=== PATIENT | female | born 1945 | race Caucasian/White ===

== ENCOUNTER 2018-12-31 05:33 | Inpatient (IN) | payer MEDICARE, OTHER | END 2019-01-05 11:00 | LOC: ER FS 05:33 → 4TH 07:36 | PROC: 0QS636Z Reposition Right Upper Femur with Intramedullary Internal Fixation Device, Percutaneous Approach (ICD-10-PCS; principal; 2018-12-31 17:30) | DX: S72.141A Displaced intertrochanteric fracture of right femur, initial encounter for closed fracture (principal); R42 Dizziness and giddiness; N39.0 Urinary tract infection, site not specified; I25.10 Atherosclerotic heart disease of native coronary artery without angina pectoris; I10 Essential (primary) hypertension; E11.40 Type 2 diabetes mellitus with diabetic neuropathy, unspecified; W18.30XA Fall on same level, unspecified, initial encounter; Y92.002 Bathroom of unspecified non-institutional (private) residence as the place of occurrence of the external cause; Z95.1 Presence of aortocoronary bypass graft; Z79.82 Long term (current) use of aspirin; Z85.41 Personal history of malignant neoplasm of cervix uteri; Z90.710 Acquired absence of both cervix and uterus ==

== ENCOUNTER 2019-01-05 10:45 | Inpatient (IN) | payer MEDICARE, OTHER ==
[~2019-01-05] VITALS: Ht 165.1 cm; Wt 78.0 kg
--- NOTE | 2019-01-05 10:12 | PM&R H&P / Post Admit Assess ---
History of Present Illness HPI/Chief Complaint CC: Right hip fracture with debility HPI: This is a 73yoWF patient who presented to the [facility] ER after a vertigo episode and fall who sustained a right hip fracture s/p repair in an uncomplicated manner by Dr Tirado on 12/31/18. Patient has a h/o CABG but no follow up since that time. She moved to [place] with her for 2 years and did not see a medical professional since that time and has since moved back to [facility] and had yet to establish with anyone. Her son is an ER doctor in [place] for 10 years. Currently she is doing well as long as she doesn't move and her pain is controlled from the pain meds when she takes it. No BM since admit so will need to work on that and multiple meds are ordered to regain normal bowel function. Anemia noted so Venofer will be ordered and iron level was drawn on today's labs. Dr Novak has provided Cardiology consultation services which are much appreciated. She seems to have PVD due to decreased pedal pulses. HGA1C is 8.1 so will order SSI and likely begin OHA while in IRF. Her PLOF was independent at home with her . Source: patient, family, RN/MD Exam Limitations: no limitations Date Seen 01/05/19 Time Seen by a Provider: 10:30 Attending Physician Mariana Crane DO PCP No,Local Physician Referring Physician Date of Admission Home Medications & Allergies Home Medications Reviewed patient Home Medication Reconciliation performed by pharmacy medication reconciliations master automotive technician and/or nursing. Patients Allergies have been reviewed. Allergies Allergies Coded Allergies Penicillins (Verified Allergy, Unknown, 12/31/18) Sulfa (Sulfonamide Antibiotics) (Unverified Allergy, Unknown, 12/31/18) Uncoded Allergies PEANUTS ( Allergy, Unknown, 12/31/18) TOMATOES ( Allergy, Unknown, 12/31/18) Past Wosehey-Ppyutl-Dlnkcl Hx Past Med/Social Hx: Reviewed Nursing Past Med/Soc Hx, Reviewed and Corrections made Patient Social History Marrital Status: Employed/Student: retired Alcohol Use: Denies Use Smoking Status: Never a Smoker 2nd Hand Smoke Exposure: No Recent Hopitalizations: No Seasonal Allergies Seasonal Allergies: No Past Medical History Surgeries: Appendectomy, CABG, Hysterectomy, Orthopedic (right hip fracture 12/31/18), Tonsillectomy Cardiac: Coronary Artery Disease, Hypertension Neurological: Neuropathy Reproductive: No Endocrine: Diabetes, Non-Insulin dep Cancer: Cervical History of Blood Disorders: No Family History Arthritis 19 FATHER, Onset:50's - 60 Diabetes mellitus 19 FATHER, Onset:60 years & older (late in life) Diabetes, Hypertension Review of Systems Constitutional: see HPI, dizziness, weakness EENTM: no symptoms reported Respiratory: no symptoms reported Cardiovascular: no symptoms reported Gastrointestinal: constipation Genitourinary: no symptoms reported Musculoskeletal: back pain, joint pain Skin: no symptoms reported Psychiatric/Neurological: No Symptoms Reported All Other Systems Reviewed Negative Unless Noted: Yes Physical Exam Exam Vital Signs Capillary Refill : General Appearance: No Apparent Distress, WD/WN, Chronically ill HEENT: PERRL/EOMI, Normal ENT Inspection, Pharynx Normal, Moist Mucous Membrane s Neck: Full Range of Motion, Normal Inspection, Non Tender, Supple Respiratory: Chest Non Tender, Lungs Clear, Normal Breath Sounds, No Accessory Muscle Use, No Respiratory Distress Cardiovascular: Regular Rate, Rhythm, No Edema, No Gallop, No JVD, No Murmur Gastrointestinal: Normal Bowel Sounds, No Organomegaly, No Pulsatile Mass, Non Tender, Soft Back: Normal Inspection, No CVA Tenderness, No Vertebral Tenderness Extremity: Normal Capillary Refill, Normal Inspection, Normal Range of Motion (except right leg due to hip pain), Non Tender, No Calf Tenderness, No Pedal Edema Neurologic/Psychiatric: Alert, Oriented x3, No Motor/Sensory Deficits, Normal Mood/Affect, Motor Weakness (generalized weakness) Skin: Normal Color, Warm/Dry Lymphatic: No Adenopathy Results Results/Procedures Labs Patient resulted labs reviewed. Assessment/Plan Assessment and Plan Assess & Plan/Chief Complaint Assessment: s/p right hip fracture repair POD # 5 DM HTN CAD CABG hx Anemia iron def s/p UTI Vertigo Fall PVD suspected Constipation Plan: IRF protocols SSI Pain control BM regimen aggressive meds ordered Venofer (1) Closed intertrochanteric fracture of right hip (2) UTI (urinary tract infection) (3) Vertigo (4) Fall on same level (5) CAD (coronary artery disease) (6) Hx of CABG (7) Diabetes mellitus (8) Anemia, iron deficiency Post Admission Physician Asses Date seen by provider: January 05, 2019 Time seen by provider: 10:30 Admisison Dx: (1) Closed intertrochanteric fracture of right hip Status: Acute The preadmission screen agrees with the post admission assessment that the patient is a good candidate for inpatient rehabilitation. The patient will have a comprehensive program of inpatient rehabilitation with a goal of maximizing level of functional independence prior to discharge home with family. The patient will have PT/OT ninety minutes per day, each discipline, five days a week for gait, strengthening, conditioning, balance, ADLs, any patient/family/caregiver training as necessary. Speech therapy to do cognitive assessment and treat as indicated. Rehabilitation nursing to assist with bowel, bladder, skin, wound care, medication administration, pain management. Velocity Shooter to assist with discharge planning, community reentry. SCD's for DVT pro phylaxis. She appears to be well motivated to participate in three hours of therapy a day. She should be able to tolerate three hours of therapy a day from a medical standpoint. She should benefit from the three hours of therapy a day. She has a reasonable discharge plan, reasonable discharge rehabilitation goals and a supportive family. She has various comorbidities that need to be closely monitored with medications and treatments adjusted on a daily basis as needed. These include: see list Barriers to discharge for this patient who had been independent prior to this are for her to be modified independent to supervision for ADLs and mobility skills prior to discharge home with family, so as to lessen the burden of the caregivers. Risks for this patient include: 1. Fall 2. Fracture 3. DVT 4. Pulmonary embolism 5. Wound infection 6. Skin breakdown 7. Contractures 8. Poorly controlled pain 9. Urinary retention 10. UTI 11. Respiratory infection 12. Aspiration Estimated Length of Stay: 10 days Prognosis: Rehab prognosis appears good for goal of discharge home with family modified independent to supervision for ADLs and mobility skills. MARIANA CRANE DO January 05, 2019 10:12
[~2019-01-05 10:45] MED LIST: ASPI-983 PO; IBUP-30 PO; MULT1TAB69 PO
--- NOTE | 2019-01-05 10:45 | NUR ---
BREA LIPSCOMB admitted to room 225, with an admitting diagnosis of RIGHT HIP FRACTURE, on 01/05/19 from [facility]LO[facility] via WHEELCHAIR, accompanied by THERAPY. BREA LIPSCOMB introduced to surroundings, call light, bed controls, phone, TV, temperature control, lights, meal times, smoking policy, visitor policy, side rail policy, bathrooms and showers. Patient Rights given to patient in the handbook. BREA LIPSCOMB verbalizes understanding that [facility] is not responsible for the loss or damage to any personal effects or valuables that are kept in the patient's possession during their hospitalization. The following Patient Care Plans were discussed with the PATIENT: Discharge Planning, PAIN, IMPAIRED MOBILITY, HIGH RISK: INFECTION, HIGH RISK: IMPAIRED SKIN INTEGRITY, and KNOWLEDGE DEFICIT. BREA LIPSCOMB verbalizes understanding of Interdisciplinary Patient Education. Patient received Patient Rights Booklet, which includes Privacy Act Statement and Data Collection Information Summary.
[2019-01-05 11:00] VITALS: BP 132/53
--- OUTSIDE RECORDS SUMMARY | 2019-01-05 11:28 | XMS REPORT | Continuity of Care Document ---
Author Organization Unknown Address Unknown Allergies Active Description Code Type Severity Reaction Onset Reported/Identified Relationship to Patient Clinical Status Yes PEANUTS PEANUTS Unknown N/A 12/31/2018 Yes Penicillins [id number] Drug Allergy Unknown N/A 12/31/2018 Yes SULFA SULFA Unknown N/A 12/31/2018 Yes Sulfa (Sulfonamide Antibiotics) [id number] Drug Allergy Unknown N/A 12/31/2018 Yes TOMATOES TOMATOES Unknown N/A 12/31/2018 Medications There is no data. Problems There is no data. Procedures There is no data. Results Test Result Range Complete blood count (CBC) with automated white blood cell (WBC) differential - 12/31/18 05:55 Blood leukocytes automated count (number/volume) 15.8 10*3/uL 4.3-11.0 Blood erythrocytes automated count (number/volume) 4.30 10*6/uL 4.35-5.85 Venous blood hemoglobin measurement (mass/volume) 13.5 g/dL 11.5-16.0 Blood hematocrit (volume fraction) 42 % 35-52 Automated erythrocyte mean corpuscular volume 97 [foz_us] 80-99 Automated erythrocyte mean corpuscular hemoglobin (mass per erythrocyte) 31 pg 25-34 Automated erythrocyte mean corpuscular hemoglobin concentration measurement (mass/volume) 33 g/dL 32-36 Automated erythrocyte distribution width ratio 13.5 % 10.0- 14.5 Automated blood platelet count (count/volume) 179 10*3/uL 130-400 Automated blood platelet mean volume measurement 11.3 [foz_us] 7.4-10.4 Automated blood neutrophils/100 leukocytes 87 % 42-75 Automated blood lymphocytes/100 leukocytes 7 % 12-44 Blood monocytes/100 leukocytes 6 % 0-12 Automated blood eosinophils/100 leukocytes 0 % 0-10 Automated blood basophils/100 leukocytes 0 % 0-10 Blood neutrophils automated count (number/volume) 13.7 10*3 1.8-7.8 Blood lymphocytes automated count (number/volume) 1.0 10*3 1.0-4.0 Blood monocytes automated count (number/volume) 0.9 10*3 0.0- 1.0 Automated eosinophil count 0.0 10*3/uL 0.0-0.3 Automated blood basophil count (count/volume) 0.1 10*3/uL 0.0-0.1 Comprehensive metabolic panel - 12/31/18 05:55 Serum or plasma sodium measurement (moles/volume) 141 mmol/L 135-145 Serum or plasma potassium measurement (moles/volume) 4.3 mmol/L 3.6-5.0 Serum or plasma chloride measurement (moles/volume) 101 mmol/L 98-107 Carbon dioxide 22 mmol/L 21-32 Serum or plasma anion gap determination (moles/volume) 18 mmol/L 5-14 Serum or plasma urea nitrogen measurement (mass/volume) 23 mg/dL 7-18 Serum or plasma creatinine measurement (mass/volume) 0.81 mg/dL 0.60-1.30 Serum or plasma urea nitrogen/creatinine mass ratio 28 NRG Serum or plasma creatinine measurement with calculation of estimated glomerular filtration rate > NRG Serum or plasma glucose measurement (mass/volume) 254 mg/dL 70-105 Serum or plasma calcium measurement (mass/volume) 9.3 mg/dL 8.5-10.1 Serum or plasma total bilirubin measurement (mass/volume) 0.5 mg/dL 0.1-1.0 Serum or plasma alkaline phosphatase measurement (enzymatic activity/volume) 93 U/L 40-136 Serum or plasma aspartate aminotransferase measurement (enzymatic activity/volume) 16 U/L 5-34 Serum or plasma alanine aminotransferase measurement (enzymatic activity/volume) 13 U/L 0-55 Serum or plasma protein measurement (mass/volume) 7.3 g/dL 6.4-8.2 Serum or plasma albumin measurement (mass/volume) 4.3 g/dL 3.2-4.5 CALCIUM CORRECTED 9.1 mg/dL 8.5-10.1 Blood manual differential performed detection - 12/31/18 05:55 Blood monocytes/100 leukocytes 8 % NRG Manual blood segmented neutrophils/100 leukocytes 76 % NRG Blood band neutrophils/100 leukocytes 9 % NRG Manual blood lymphocytes/100 leukocytes 6 % NRG Manual eosinophils/100 leukocytes in nose 1 % NRG Manual blood basophils/100 leukocytes 0 % NRG Hemoglobin A1c - 12/31/18 05:55 Blood hemoglobin A1C measurement (mass/volume) 8.1 % 4.0-5.6 MEAN BLOOD GLUCOSE 186 % <=126 Complete urinalysis with reflex to culture - 12/31/18 06:10 Urine color determination YELLOW NRG Urine clarity determination SLT CLOUDY NRG Urine pH measurement by test strip 5.5 5-9 Specific gravity of urine by test strip 1.025 1.016-1.022 Urine protein assay by test strip, semi-quantitative NEGATIVE NEGATIVE Urine glucose detection by automated test strip 1+ NEGATIVE Erythrocytes detection in urine sediment by light microscopy NEGATIVE NEGATIVE Urine ketones detection by automated test strip NEGATIVE NEGATIVE Urine nitrite detection by test strip POSITIVE NEGATIVE Urine total bilirubin detection by test strip NEGATIVE NEGATIVE Urine urobilinogen measurement by automated test strip (mass/volume) 0.2 mg/dL NORMAL Urine leukocyte esterase detection by dipstick NEGATIVE NEGATIVE Automated urine sediment erythrocyte count by microscopy (number/high power field) NONE NRG Automated urine sediment leukocyte count by microscopy (number/high power field) [HPF] NRG Bacteria detection in urine sediment by light microscopy MODERATE NRG Squamous epithelial cells detection in urine sediment by light microscopy 0-2 NRG Crystals detection in urine sediment by light microscopy PRESENT NRG Casts detection in urine sediment by light microscopy NONE NRG Mucus detection in urine sediment by light microscopy NONE NRG Complete urinalysis with reflex to culture YES NRG Amorphous sediment detection in urine sediment by light microscopy FEW MILLIE URATES NRG Bacterial urine culture - 12/31/18 06:10 Bacterial urine culture [id number] NRG COLONY COUNT >100,000/ML NRG FTX;REPORTABLE SUSCEPTIBILITY REPORTED 01/02/19 12:05 NRG FREE TEXT ENTRY 2 ID REPORTED 01/01/19 15:05 NRG RML Sensitivity Panel - 12/31/18 06:10 Gentamicin susceptibility test by minimum inhibitory concentration <= NRG Trimethoprim/sulfamethoxazole susceptibility test by minimum inhibitoryconcentration <= NRG Levofloxacin susceptibility test by minimum inhibitory concentration <= NRG Ampicillin susceptibility test by minimum inhibitory concentration <= NRG Cefazolin susceptibility test by minimum inhibitory concentration <= NRG Ceftriaxone susceptibility test by minimum inhibitory concentration <= NRG Ciprofloxacin susceptibility test by minimum inhibitory concentration <= NRG Meropenem susceptibility test by minimum inhibitory concentration <= NRG Nitrofurantoin susceptibility test by minimum inhibitory concentration 32 NRG Amoxicillin and clavulanate potassium susc FLORESITA = NRG Methicillin resistant Staphylococcus aureus (MRSA) screening culture - 12/31/18 09:50 Methicillin resistant Staphylococcus aureus (MRSA) screening culture NEG NRG PT panel in platelet poor plasma by coagulation assay - 12/31/18 12:02 Prothrombin time (PT) in platelet poor plasma by coagulation assay 15.8 s 12.2-14.7 INR in platelet poor plasma or blood by coagulation assay 1.2 0.8-1.4 Activated partial thromboplastin time (aPTT) in platelet poor plasma bycoagulation assay - 12/31/18 12:02 Activated partial thromboplastin time (aPTT) in platelet poor plasma bycoagulation assay 29 s 24-35 Capillary blood glucose measurement by glucometer (mass/volume) - 12/31/18 16:20 Capillary blood glucose measurement by glucometer (mass/volume) 210 mg/dL 70-110 Capillary blood glucose measurement by glucometer (mass/volume) - 12/31/18 20:49 Capillary blood glucose measurement by glucometer (mass/volume) 273 mg/dL 70-110 Complete blood count (CBC) with automated white blood cell (WBC) differential - 01/01/19 04:55 Blood leukocytes automated count (number/volume) 12.8 10*3/uL 4.3-11.0 Blood erythrocytes automated count (number/volume) 3.44 10*6/uL 4.35-5.85 Venous blood hemoglobin measurement (mass/volume) 10.8 g/dL 11.5-16.0 Blood hematocrit (volume fraction) 33 % 35-52 Automated erythrocyte mean corpuscular volume 96 [foz_us] 80-99 Automated erythrocyte mean corpuscular hemoglobin (mass per erythrocyte) 31 pg 25-34 Automated erythrocyte mean corpuscular hemoglobin concentration measurement (mass/volume) 33 g/dL 32-36 Automated erythrocyte distribution width ratio 13.7 % 10.0- 14.5 Automated blood platelet count (count/volume) 149 10*3/uL 130-400 Automated blood platelet mean volume measurement 11.2 [foz_us] 7.4-10.4 Automated blood neutrophils/100 leukocytes 86 % 42-75 Automated blood lymphocytes/100 leukocytes 6 % 12-44 Blood monocytes/100 leukocytes 8 % 0-12 Automated blood eosinophils/100 leukocytes 0 % 0-10 Automated blood basophils/100 leukocytes 0 % 0-10 Blood neutrophils automated count (number/volume) 11.0 10*3 1.8-7.8 Blood lymphocytes automated count (number/volume) 0.7 10*3 1.0-4.0 Blood monocytes automated count (number/volume) 1.0 10*3 0.0- 1.0 Automated eosinophil count 0.0 10*3/uL 0.0-0.3 Automated blood basophil count (count/volume) 0.0 10*3/uL 0.0-0.1 Comprehensive metabolic panel - 01/01/19 04:55 Serum or plasma sodium measurement (moles/volume) 138 mmol/L 135-145 Serum or plasma potassium measurement (moles/volume) 4.2 mmol/L 3.6-5.0 Serum or plasma chloride measurement (moles/volume) 107 mmol/L 98-107 Carbon dioxide 23 mmol/L 21-32 Serum or plasma anion gap determination (moles/volume) 8 mmol/L 5-14 Serum or plasma urea nitrogen measurement (mass/volume) 14 mg/dL 7-18 Serum or plasma creatinine measurement (mass/volume) 0.79 mg/dL 0.60-1.30 Serum or plasma urea nitrogen/creatinine mass ratio 18 NRG Serum or plasma creatinine measurement with calculation of estimated glomerular filtration rate > NRG Serum or plasma glucose measurement (mass/volume) 211 mg/dL 70-105 Serum or plasma calcium measurement (mass/volume) 8.2 mg/dL 8.5-10.1 Serum or plasma total bilirubin measurement (mass/volume) 0.5 mg/dL 0.1-1.0 Serum or plasma alkaline phosphatase measurement (enzymatic activity/volume) 66 U/L 40-136 Serum or plasma aspartate aminotransferase measurement (enzymatic activity/volume) 15 U/L 5-34 Serum or plasma alanine aminotransferase measurement (enzymatic activity/volume) 11 U/L 0-55 Serum or plasma protein measurement (mass/volume) 5.7 g/dL 6.4-8.2 Serum or plasma albumin measurement (mass/volume) 3.3 g/dL 3.2-4.5 CALCIUM CORRECTED 8.8 mg/dL 8.5-10.1 Capillary blood glucose measurement by glucometer (mass/volume) - 01/01/19 05:39 Capillary blood glucose measurement by glucometer (mass/volume) 216 mg/dL 70-110 Capillary blood glucose measurement by glucometer (mass/volume) - 01/01/19 11:09 Capillary blood glucose measurement by glucometer (mass/volume) 241 mg/dL 70-110 Capillary blood glucose measurement by glucometer (mass/volume) - 01/01/19 15:58 Capillary blood glucose measurement by glucometer (mass/volume) 244 mg/dL 70-110 Capillary blood glucose measurement by glucometer (mass/volume) - 01/01/19 21:07 Capillary blood glucose measurement by glucometer (mass/volume) 227 mg/dL 70-110 Whole blood hemoglobin and hematocrit panel - 01/02/19 05:00 Venous blood hemoglobin measurement (mass/volume) 9.2 g/dL 11.5-16.0 Blood hematocrit (volume fraction) 28 % 35-52 Capillary blood glucose measurement by glucometer (mass/volume) - 01/02/19 05:46 Capillary blood glucose measurement by glucometer (mass/volume) 185 mg/dL 70-110 Capillary blood glucose measurement by glucometer (mass/volume) - 01/02/19 11:01 Capillary blood glucose measurement by glucometer (mass/volume) 232 mg/dL 70-110 Capillary blood glucose measurement by glucometer (mass/volume) - 01/02/19 16:23 Capillary blood glucose measurement by glucometer (mass/volume) 217 mg/dL 70-110 Encounters ACCT No. Visit Date/Time Discharge Status Pt. Type Provider Facility Loc./Unit Complaint [id number] 12/31/2018 07:36:00 ACT Inpatient MINOR PARRA, ROSA ISELA Dumont [facility] 4TH FRACTURE RT HIP
[2019-01-05] MEDS ORDERED: SENNA W/DOCUSATE (SENOKOT S) TABLET PO NR (11:30)
--- NOTE | 2019-01-05 11:38 | Physical Therapy Evaluation ---
PT Evaluation-General Medical Diagnosis Admission Date January 05, 2019 at 10:45 Medical Diagnosis: right hip fracture Onset Date: December 31, 2018 Therapy Diagnosis Therapy Diagnosis: impaired mobility, strength, endurance, balance Height/Weight Height (Feet): 5 Height (Inches): 5.00 Weight (Pounds): 184 Weight (Ounces): 14.0 Weight Bear Status Right Lower Extremity: Right Weight Bearing/Tolerated Referral Physician: Mariana Crane DO Reason for Referral: Evaluation/Treatment Medical History Pertinent Medical History: CAD, DM Additional Medical History hx of ovarian ca, history of vertigo Current History Pt was standing at the sink and was overcome with dizziness due to vertigo and fell sustaining a right hip fx; post repair with IM rell. Reviewed History: Yes Social History Home: Single Level Current Living Status: Spouse Entry Into Home: Stairs Without Railing PT Steps Into Home: 2 2 steps from the garage Prior/Core FIM Prior Level of Function Therapy Code Descriptions/Definitions Functional [place] Measure: 0=Not Assessed/NA 4=Minimal Assistance 1=Total Assistance 5=Supervision or Setup 2=Maximal Assistance 6=Modified [place] 3=Moderate Assistance 7=Complete [place] Therapy Quality Codes: 6 Independent with activity with or without an assistive device 5 Patient requires set up or clean up by helper. Patient completes activity by themselves 4 Supervision or touching assist (CGA). [place] provide cues , steadying assist 3 The helper provides less than half the effort to complete the activity 2 The helper provides more than half the effort to complete the activity 1 Dependent. The helper does all the effort to complete an activity 7 Patient refused to complete or attempt activity 9 The patient did not perform the activity before the current illness or injury 88 Not attempted due to Medical conditions or safety concerns Functional Abilities and Goals: Independent: Patient completed the activities by him/herself, with or without an assistive device, with no assistance from a helper. Needed Some Help: Patient needed partial assistance from another person to complete activities. Dependent: A helper completed the activities for the patient. Unknown: Not Applicable: Bed Mobility: 6 Transfers (B,C,W/C) (FIM): 6 Gait: 6 Stairs: 6 Indoor Mobility (Ambulation): Independent Stairs: Independent Patient states that she occasionally used a single point cane or walker when out of the home. PT Evaluation-Current Subjective Patient in bed pre tx, agrees to PT, has no complaints of pain at rest. Patient is very anxious and is fearful of falling. Pt/Family Goals to be independent at home Objective Patient Orientation: Person, Place, Situation ROM/Strength ROM Lower Extremities limited knee extension bilaterally Strenght Lower Extremities hip flexion not tested, RLE (knee extension 3+/5, knee flexion 3+/5, dorsiflexion 4/5), LLE (knee extension 4/5, knee flexion 4/5, dorsiflexion 4/5) Neuromuscular (Tone, Coordination, Reflexes) NT Sensory Vision: Wears Glasses Hearing: Functional Sensation Right Lower Extremit: Intact Sensation Left Lower Extremity: Intact Transfers Therapy Code Descriptions/Definitions Functional [place] Measure: 0=Not Assessed/NA 4=Minimal Assistance 1=Total Assistance 5=Supervision or Setup 2=Maximal Assistance 6=Modified [place] 3=Moderate Assistance 7=Complete [place] Therapy Quality Codes: 6 Independent with activity with or without an assistive device 5 Patient requires set up or clean up by helper. Patient completes activity by themselves 4 Supervision or touching assist (CGA). [place] provide cues , steadying assist 3 The helper provides less than half the effort to complete the activity 2 The helper provides more than half the effort to complete the activity 1 Dependent. The helper does all the effort to complete an activity 7 Patient refused to complete or attempt activity 9 The patient did not perform the activity before the current illness or injury 88 Not attempted due to Medical conditions or safety concerns Transfers (B, C, W/C) (FIM): 3 Scootin Rollin Roll Left to Right (QC): 4 Supine to/from Sit: 3 Sit to/from Stand: 4 Sit to Lying (QC): 2 Lying to Sitting/Side of Bed(Q: 2 Sit to Stand (QC): 3 Chair/[id number]-[id number] Xfer(QC): 3 Car Transfer (QC): 3 Patient performs bed mobility with SBA, supine <-> sit with mod assist, sit <-> stand with min assist, transfers with min assist, car transfer min assist. Patient performs all mobility very slowly and is very anxious about falling. She needs careful cues on safety and positioning and occasional assist to guide the walker. Gait Does the Patient Walk?: Yes Mode of Locomotion: Walk Anticipated Mode of Locomotion: Walk Gait (FIM): 1 Walk 10 feet (QC): 4 Distance: 15' Gait Level of Assist: 4 Gait Persons Needed: 1 Gait Assistive Device: FWW Comments/Gait Description Patient can ambulate 15' with a rolling walker with CGA. She is very anxious. Patient needs cues for positioning and foot placement and how to bear weight through her arms. Ambulation is antalgic, slow, and she takes steps just a few inches at a time. Little to no heel strike or foot clearance. Stairs If not tested on admit;explain Patient cannot perform stairs at this time due to anxiety, fear of falling, and she cannot step up onto a step at this time. Balance Sitting Static: Normal Sitting Dynamic: Normal Standing Static: Fair Standing Dynamic: Fair Treatment NuStep level 1 for 10 min, for hip flexion ROM Assessment/Needs Patient has impaired mobility, strength, endurance. She is very anxious and has fear of falling. She moves extremely slowly due to the pain. Patient in therapy gym post tx, has OT right after PT. Rehab Potential: Fair PT Short Term Goals Short Term Goals Time Frame: Jan 12, 2019 Transfers (B,C,W/C) (FIM): 4 Gait (FIM): 1 Gait Distance Comment: 25' Gait Level of Assist: 4 Gait Assistive Device: FWW PT Brood Station Manager Goals Brood Station Manager Goals PT Brood Station Manager Goals Time Frame: Jan 26, 2019 Transfers (B,C,W/C) (FIM): 5 Sit to Lying (QC): 4 Lying-Sitting on Side/Bed(QC): 4 Sit to Stand (QC): 4 Rollin Roll Left to Right (QC): 4 Chair/[id number]-[id number] Xfer(QC): 4 Car Transfer (QC): 4 Gait (FIM): 2 Distance: 50' Walk 10 feet (QC): 4 Walk 10ft-Uneven Surface(QC): 4 Walk 50ft with 2 Turns (QC): 4 Gait Level of Assist: 5 Gait Assistive Device: FWW Stairs (FIM): 2 # of Steps: 4 1 Step (curb) (QC): 4 4 Steps (QC): 4 Stairs Level Of Assist: 4 PT Plan Problem List Problem List: Activity Tolerance, Functional Strength, Safety, Balance, Gait, Transfer, Bed Mobility, ROM Treatment/Plan Treatment Plan: Continue Plan of Care Treatment Plan: Bed Mobility, Education, Functional Activity Sandra, Functional Strength, Group Therapy, Gait, Safety, Therapeutic Exercise, Transfers Treatment Duration: Jan 26, 2019 Frequency: At least 5 of 7 days/Wk (IRF) Estimated Hrs Per Day: 1.5 hours per day Patient and/or Family Agrees t: Yes Safety Risks/Education Patient Education: Gait Training, Transfer Techniques, Correct Positioning, Safety Issues Teaching Recipient: Patient Teaching Methods: Demonstration, Discussion Response to Teaching: Reinforcement Needed Discharge Recommendations Plan Patient will perform bed mobility and transfer training, balance and endurance training, functional strengthening, stair training, gait training, and e ducation, to improve functional mobility and independence at home. Therapy D/C Recommendations: Home w/ Family Support Time/GCodes Time In: 1045 Time Out: 1130 Total Billed Treatment Time: 45 Total Billed Treatment 1 visit EVM 15' EX 10' FA 20' GERSON VINCENT PT January 05, 2019 11:38
[2019-01-05] MEDS: LACTULOSE SYRUP 10GM/15ML (ENULOSE) 30ML UDC PO SCH ×2 (11:53→19:46)
[2019-01-05] MEDS: IRON SUCROSE 200 MG/10 ML (VENOFER) VIAL IV SCH (11:56)
[2019-01-05] MEDS ORDERED: fentaNYL INJECTION 100 MCG/2 ML AMP IVP PRN (12:00)
[2019-01-05] MEDS ORDERED: ONDANSETRON 4 MG/2 ML (SDV) Z0FRAN IVP PRN (12:00)
[2019-01-05] MEDS ORDERED: ACETAMINOPHEN 325 MG TABLET PO PRN (12:00)
[2019-01-05] MEDS: CATHETER FLUSH 10 ML SYR IV SCH ×2 (12:22→22:01)
[2019-01-05] MEDS: inSUlin ASPART (NovoLOG) 1 UNIT/0.01 ML (CHARGE PER UNIT) SC SCH ×3 (12:22→22:00)
--- NOTE | 2019-01-05 12:56 | Occupational Therapy Eval ---
OT Evaluation-General/PLF Medical Diagnosis Admission Date January 05, 2019 at 10:45 Medical Diagnosis: right hip fracture Onset Date: December 31, 2018 Therapy Diagnosis Therapy Diagnosis: impaired self care skills Height/Weight Height (Feet): 5 Height (Inches): 5.00 Weight (Pounds): 184 Weight (Ounces): 14.0 Precautions Precautions/Isolations: Fall Prevention, Standard Precautions Weight Bear Status Weight Bearing Restriction: Weight Bearing/Tolerated Referral Physician: Mariana Crane DO Medical History Pertinent Medical History: CABG, CAD, DM Additional Medical History vertigo, diverticulitis, ovarian cancer Current History Pt was standing at the sink and was overcome with dizziness due to vertigo and fell sustaining a right hip fx; post repair with IM rell. Social History Home: Single Level Current Living Status: Spouse Entry Into Home: Stairs Without Railing Steps Into Home: 2 Pt states they will be building a ramp ADL-Prior Level of Function Therapy Code Descriptions/Definitions Functional [place] Measure: 0=Not Assessed/NA 4=Minimal Assistance 1=Total Assistance 5=Supervision or Setup 2=Maximal Assistance 6=Modified [place] 3=Moderate Assistance 7=Complete [place] Therapy Quality Codes: 6 Independent with activity with or without an assistive device 5 Patient requires set up or clean up by helper. Patient completes activity by themselves 4 Supervision or touching assist (CGA). [place] provide cues , steadying assist 3 The helper provides less than half the effort to complete the activity 2 The helper provides more than half the effort to complete the activity 1 Dependent. The helper does all the effort to complete an activity 7 Patient refused to complete or attempt activity 9 The patient did not perform the activity before the current illness or injury 88 Not attempted due to Medical conditions or safety concerns Functional Abilities and Goals: Independent: Patient completed the activities by him/herself, with or without an assistive device, with no assistance from a helper. Needed Some Help: Patient needed partial assistance from another person to complete activities. Dependent: A helper completed the activities for the patient. Unknown: Not Applicable: ADL PLOF Comments Pt states she is normally able to complete basic self care tasks, but has been having difficulty lately secondary to dizziness. Spouse assists her into tub/shower and is present while she showers for safety. Uses a cane for mobility. DME/Equipment: Bath Chair, Grab Bars, Tub/Shower DME/Equipment Comments Has a toilet riser available OT Current Status Subjective Pt agreeable to therapy reports 2/10 pain in right hip Mental Status/Objective Patient Orientation: Person, Place, Situation Current Glasses/Contacts: Yes Hearing Aids: No Dentures/Partials: No Hand Dominance: Right Upper Extremity ROM Grossly WFL Upper Extremity Coordination Intact Upper Extremity Sensation Intact per pt report Upper Extremity Strength Grossly 4/5 ADL-Treatment ADL-Current Pt in therapy gym after working with PT. Transfer to w/c with minimal assistance and increased time using FWW, cues for safety. To room via w/c. Pt participated in UE assessment while seated. Sit to stand and transfer to recliner chair with minimal assistance. Will assess ADLs in next session. All needs met. RN and spouse present. Eating (FIM): 7 (Pt reports feeding self, managing containers without assistance.) Eating (QC): 6 Education OT Patient Education: Rehab process Teaching Recipient: Patient Teaching Methods: Discussion Response to Teaching: Verbalize Understanding OT Short Term Goals Short Term Goals Time Frame: Jan 12, 2019 Bathing(FIM): 4 Lower Body Dressing(FIM): 3 Toilet/Commode Transfer(FIM): 4 (CGA) Additional Short Term Goals: 1-Demonstrate ADL Tasks, 2-Verbalize Understanding, 3-ImproveStrength/Sandra 1=Demonstrate adherence to instructed precautions during ADL tasks. 2=Patient will verbalize/demonstrate understanding of assistive devices/modifications for ADL. 3=Patient will improve strength/tolerance for activity to enable patient to perform ADL's. OT [facility] Director Goals Nursing Home Goals Time Frame: Jan 26, 2019 Eating (FIM): 7 Eating (QC): 6 Groomin Oral Hygiene (QC): 6 Bathing(FIM): 5 Shower/Bathe Self (QC): 5 Upper Body Dressing(FIM): 5 Upper Body Dressing (QC): 5 Lower Body Dressing(FIM): 5 Lower Body Dressing (QC): 5 On/Off Footwear (QC): 5 Toileting(FIM): 6 Toileting Hygiene (QC): 6 Toilet/Commode Transfer(FIM): 6 Toilet/Commode Transfer (QC): 6 Shower Transfer(FIM): 5 Additional Goals: 1-Demonstrate ADL Tasks, 2-Verbalize Understanding, 3- ImproveStrength/Sandra 1=Demonstrate adherence to instructed precautions during ADL tasks. 2=Patient will verbalize/demonstrate understanding of assistive devices/modifications for ADL. 3=Patient will improve strength/tolerance for activity to enable patient to perform ADL's. OT Education/Plan Problem List/Assessment Assessment: Decreased Activ Tolerance, Decreased UE Strength, Dependent Transfers, Impaired Funct Balance, Impaired I ADL's, Impaired Self-Care Skills Pt admitted to ARU following acute hospitalization for hip fracture, now s/p IM nail. Pt demonstrates decreased ADL functioning, mobility, strength, and activity tolerance. Pt to benefit from skilled OT intervention for ADL training, transfers, strengthening, adaptive equipment training, and safety education to increase level of independence and allow safe discharge home with spouse. Discharge Recommendations Plan/Recommendations: Continue POC Treatment Plan/Plan of Care Treatment,Training & Education: Yes Patient would benefit from OT for education, treatment and training to promote independence in ADL's, mobility, safety and/or upper extremity function for ADL's. Plan of Care: ADL Retraining, Functional Mobility, Group Exercise/Act as Ind, UE Funct Exercise/Act Treatment Duration: Jan 26, 2019 Frequency: At least 5 of 7 days/Wk (IRF) Estimated Hrs Per Day: 1.5 hours per day Agreement: Yes Rehab Potential: Fair Time/GCodes Start Time: 11:30 Stop Time: 12:00 Total Time Billed (hr/min): 30 Billed Treatment Time 1 visit, GUANACO(30minutes) INGRID PADRON OT January 05, 2019 12:56
[2019-01-05] MEDS ORDERED: ASPI-983 PO (13:21)
--- NOTE | 2019-01-05 13:21 | NUR ---
REVIEWED MED REC WAS IT WAS REPORTED UPON ADMISSION TO 4TH FLOOR. NOTE THE FOLLOWING CHANGE WAS MADE WHEN THE PATIENT DISCHARGED TO REHAB THAT IS NOT CURRENTLY REFLECTED ON THE HOME MED REC: CHANGE ASPIRIN 81MG BID TO ASPIRIN 81MG ONCE DAILY.
--- NOTE | 2019-01-05 14:19 | Occupational Ther Daily Note ---
OT Current Status-Daily Note Subjective Pt sitting in chair, agrees to treatment. Pt states she is not having much pain at this time, but does not rate. Mental Status/Objective Therapy Code Descriptions/Definitions Functional [place] Measure: 0=Not Assessed/NA 4=Minimal Assistance 1=Total Assistance 5=Supervision or Setup 2=Maximal Assistance 6=Modified [place] 3=Moderate Assistance 7=Complete [place] ADL-Treatment Pt eating lunch when therapist arrives. Pt demonstrates ability to feed herself and manage containers without assistance. Pt declined shower at this time, but agrees to sponge bath. Pt completed sponge bath while seated in chair. Upper body bathing completed with SBA. Pt able to wash bilateral upper legs and elias area, but required assist for lower legs/feet and buttocks. Stood with minimal assistance for balance while washing buttocks. Don pullover shirt with SBA. Pt required assist to thread bilateral LE into Depends and pants. Sit to stand with minimal assistance. Pt able to pull pants partially over hips, but required assist to complete pant hike. Pt dependent to don socks without AE. Pt instructed in use of AE to don socks. Pt able to don sock with minimal assistance using socks aid. Grooming tasks completed seated in chair. Pt brushed teeth and combed hair with set up. Pt sitting in chair with needs met and spouse present after session. Therapy Code Descriptions/Definitions Functional [place] Measure: 0=Not Assessed/NA 4=Minimal Assistance 1=Total Assistance 5=Supervision or Setup 2=Maximal Assistance 6=Modified [place] 3=Moderate Assistance 7=Complete [place] Therapy Quality Codes: 6 Independent with activity with or without an assistive device 5 Patient requires set up or clean up by helper. Patient completes activity by themselves 4 Supervision or touching assist (CGA). [place] provide cues , steadying assist 3 The helper provides less than half the effort to complete the activity 2 The helper provides more than half the effort to complete the activity 1 Dependent. The helper does all the effort to complete an activity 7 Patient refused to complete or attempt activity 9 The patient did not perform the activity before the current illness or injury 88 Not attempted due to Medical conditions or safety concerns Eating (FIM): 7 Eating (QC): 6 Grooming (FIM): 5 Oral Hygiene (QC): 5 Bathing (FIM): 3 Shower/Bathe Self (QC): 3 Upper Body (FIM): 5 Upper Body Dressing (QC): 4 Lower Body Dressing (FIM): 2 Lower Body Dressing (QC): 2 On/Off Footwear (QC): 1 Education OT Patient Education: Modified ADL techniques Teaching Recipient: Patient Teaching Methods: Demonstration, Discussion Response to Teaching: Return Demonstration, Reinforcement Needed OT Short Term Goals Short Term Goals Time Frame: Jan 12, 2019 Bathing(FIM): 4 Lower Body Dressing(FIM): 3 Toilet/Commode Transfer(FIM): 4 (CGA) Additional Short Term Goals: 1-Demonstrate ADL Tasks, 2-Verbalize Understanding, 3-ImproveStrength/Sandra 1=Demonstrate adherence to instructed precautions during ADL tasks. 2=Patient will verbalize/demonstrate understanding of assistive devices/modifications for ADL. 3=Patient will improve strength/tolerance for activity to enable patient to perform ADL's. OT Custodial Goals Custodial Goals Time Frame: Jan 26, 2019 Eating (FIM): 7 Eating (QC): 6 Groomin Oral Hygiene (QC): 6 Bathing(FIM): 5 Shower/Bathe Self (QC): 5 Upper Body Dressing(FIM): 5 Upper Body Dressing (QC): 5 Lower Body Dressing(FIM): 5 Lower Body Dressing (QC): 5 On/Off Footwear (QC): 5 Toileting(FIM): 6 Toileting Hygiene (QC): 6 Toilet/Commode Transfer(FIM): 6 Toilet/Commode Transfer (QC): 6 Shower Transfer(FIM): 5 Additional Goals: 1-Demonstrate ADL Tasks, 2-Verbalize Understanding, 3- ImproveStrength/Sandra 1=Demonstrate adherence to instructed precautions during ADL tasks. 2=Patient will verbalize/demonstrate understanding of assistive devices/modifications for ADL. 3=Patient will improve strength/tolerance for activity to enable patient to perform ADL's. OT Education/Plan Discharge Recommendations Plan/Recommendations: Continue POC Treatment Plan/Plan of Care Treatment,Training & Education: Yes Patient would benefit from OT for education, treatment and training to promote independence in ADL's, mobility, safety and/or upper extremity function for ADL's. Plan of Care: ADL Retraining, Functional Mobility, Group Exercise/Act as Ind, UE Funct Exercise/Act Treatment Duration: Jan 26, 2019 Frequency: At least 5 of 7 days/Wk (IRF) Estimated Hrs Per Day: 1.5 hours per day Agreement: Yes Rehab Potential: Fair Time/GCodes Start Time: 13:00 Stop Time: 14:00 Total Time Billed (hr/min): 60 Billed Treatment Time 1 visit, ADLx4(60minutes) INGRID PADRON OT January 05, 2019 14:18
--- NOTE | 2019-01-05 15:08 | ST Cognitive Linguistic Eval ---
Speech Evaluation-General Medical Diagnosis right hip fracture Onset Date: December 31, 2018 Therapy Diagnosis Therapy Diagnosis: Cognitive-communication Precautions Precautions/Isolations: Fall Prevention, Standard Precautions Referral Referring Physician: Dr. Crane Medical History Pertinent Medical History: CABG, CAD, DM Reviewed History: Yes Social History Current Living Status: Spouse Speech PLF-Current Status Prior Level of Function The patient lived at home with her and was independent for her daily needs. Subjective The patient was pleasant and cooperative with the cognitive evaluation. Language Eval: Auditory Comprehends Simple Yes/No Ques: Functional Indent/Objects Multiple [place]: Functional Ident/Pics in Multiple [place]: Functional Follows 1-Step Commands: Functional Follows Complex Directions: Functional Follows General Conversations: Functional Language Eval: Verbal Language Completes Spontaneous Greeting: Functional Produces Auto, Serial Info: Functional Imitates Simple Words/Phrases: Functional Word Finding: Functional Requests Basic Needs: Functional States Basic Personal Info: Functional Expresses Complex Ideas: Functional Objective Cognitive Domain Attention: WNL Memory: WNL Problem Solving: Functional Executive Functions: WNL Visuospatial Skills: WNL Composite Severity Rating: WNL Clock Drawing Severity Rating: WNL Objective Formal/Standardized Tests [facility] ([facility]) Results The patient's results on the [facility] are 28/30 which is within the normal range of function. Oral Motor/Speech Production Within Functional Limits Impression The patient is a pleasant 73 year woman who was admitted to the ARU s/p fractured hip. She was evaluated with the [facility] for cognitive-communication status. She scored 28/30, which falls in the normal range of function. She does not require skilled ST services at this time. Communication/Social Cognition Comprehension: 7 Expression: 7 Social Interaction: 7 Problem Solvin Memory: 7 Speech Patient Assess Expression of Ideas/Wants: Expression (4) Understanding Verbal Content: Understands (4) Brief Interview-Mental Status: Yes Repetition of Three Words: Three (3) Temporal Orientation: Year: Correct (3) Temporal Orientation: Month: Accurate within 5 days(2) Temporal Orientation: Day: Correct (1) Recall : Wear to say "Sock": Yes,after cueing (1) Recall : Color: Yes, no cue required (2) Recall : Bed: Yes,after cueing (1) Memory/Recall Ability: Current season, Staff names and faces, That he or she is in a hsp/hsp unit Speech-Plan Patient/Family Goals Patient/Family Goals: The patient plans on returning home with her post rehab. Treatment Plan Speech Therapy Treatment Plan: Discontinue ST The patient will not be receiving skilled ST services at this time. Treatment Duration: January 05, 2019 Frequency: 1 time per week Estimated Hrs Per Day: .25 hour per day Rehab Potential: Fair Barriers to Learning: None identified Pt/Family Agrees to Plan: Yes Safety Risks/Education Teaching Recipient: Significant Other Teaching Methods: Discussion Response to Teaching: Verbalize Understanding Education Topics Provided: Safety within her room including utilization of the call light as needed. Time Speech Therapy Time In: 12:45 Speech Therapy Time Out: 13:00 Total Billed Time: 15 Billed Treatment Time 1, SPSNDCYNTHIA Mensah January 05, 2019 15:08
--- NOTE | 2019-01-05 15:36 | Physical Therapy Daily Note ---
PT Daily Note-Current Subjective Patient in recliner pre tx, agrees reluctantly to PT with encouragement. Patient has no pain at rest. Appearance Patient in recliner post tx with nurse call, phone, tray, in the room. Mental Status Patient Orientation: Person, Place Transfers Therapy Code Descriptions/Definitions Functional [place] Measure: 0=Not Assessed/NA 4=Minimal Assistance 1=Total Assistance 5=Supervision or Setup 2=Maximal Assistance 6=Modified [place] 3=Moderate Assistance 7=Complete [place] Therapy Quality Codes: 6 Independent with activity with or without an assistive device 5 Patient requires set up or clean up by helper. Patient completes activity by themselves 4 Supervision or touching assist (CGA). [place] provide cues , steadying assist 3 The helper provides less than half the effort to complete the activity 2 The helper provides more than half the effort to complete the activity 1 Dependent. The helper does all the effort to complete an activity 7 Patient refused to complete or attempt activity 9 The patient did not perform the activity before the current illness or injury 88 Not attempted due to Medical conditions or safety concerns Transfers (B, C, W/C) (FIM): 4 Sit to/from Stand: 4 Bed to/from Chair: 4 CGA, cues for hand placement and positioning with every sit to stand and transfer. Weight Bearing Right Lower Extremity: Right Weight Bearing/Tolerated Gait Training Gait (FIM): 1 Distance: 20'x2 Gait Level of Assist: 4 Gait Persons Needed: 1 Gait Assistive Device: FWW Patient ambulated 20'x2 with a rolling walker with CGA. Exercises Standing: Hip Abduction (only right leg), Heel/toe raises, Marching (only right leg), Mini squats Standing Reps: 15 Treatments transfers, ambulation, LE exercise Assessment Current Status: Fair Progress Improved transfers, ambulation PT Short Term Goals Short Term Goals Time Frame: Jan 12, 2019 Gait (FIM): 1 Gait Distance Comment: 25' Gait Level of Assist: 4 Gait Assistive Device: FWW PT Clay Press Operator Goals Assisted Goals PT Assisted Goals Time Frame: Jan 26, 2019 Transfers (B,C,W/C) (FIM): 5 Sit to Lying (QC): 4 Lying-Sitting on Side/Bed(QC): 4 Sit to Stand (QC): 4 Rollin Roll Left to Right (QC): 4 Chair/Qmx-og-Lotkt Xfer(QC): 4 Car Transfer (QC): 4 Gait (FIM): 2 Distance: 50' Walk 10 feet (QC): 4 Walk 10ft-Uneven Surface(QC): 4 Walk 50ft with 2 Turns (QC): 4 Gait Level of Assist: 5 Gait Assistive Device: FWW Stairs (FIM): 2 # of Steps: 4 1 Step (curb) (QC): 4 4 Steps (QC): 4 Stairs Level Of Assist: 4 PT Plan Problem List Problem List: Activity Tolerance, Functional Strength, Safety, Balance, Gait, Transfer, Bed Mobility, ROM Treatment/Plan Treatment Plan: Continue Plan of Care Treatment Plan: Bed Mobility, Education, Functional Activity Sandra, Functional Strength, Group Therapy, Gait, Safety, Therapeutic Exercise, Transfers Treatment Duration: Jan 26, 2019 Frequency: At least 5 of 7 days/Wk (IRF) Estimated Hrs Per Day: 1.5 hours per day Patient and/or Family Agrees t: Yes Safety Risks/Education Patient Education: Gait Training, Transfer Techniques, Correct Positioning, Safety Issues Teaching Recipient: Patient Teaching Methods: Demonstration, Discussion Response to Teaching: Reinforcement Needed Time/GCodes Time In: 1500 Time Out: 1530 Total Billed Treatment Time: 30 Total Billed Treatment 1 visit GT 15' EX 15' GERSON VINCENT PT January 05, 2019 15:36
[2019-01-05 16:34] VITALS: BP 115/63
[2019-01-05] MEDS: oxyCODONE/APAP 5/325MG (PERCOCET 5) TABLET PO PRN (19:45)
[2019-01-05] MEDS: SENNA W/DOCUSATE (SENOKOT S) TABLET PO SCH (19:45)
[2019-01-05] MEDS: BISACODYL 10 MG SUPP (DULCOLAX) PR SCH (22:01)
[2019-01-06] MEDS: CATHETER FLUSH 10 ML SYR IV SCH ×3 (06:31→21:10)
[2019-01-06] MEDS: inSUlin ASPART (NovoLOG) 1 UNIT/0.01 ML (CHARGE PER UNIT) SC SCH ×4 (06:31→21:09)
[2019-01-06 06:33] VITALS: BP 154/70
[2019-01-06] MEDS: SENNA W/DOCUSATE (SENOKOT S) TABLET PO SCH ×2 (08:16→21:00)
[2019-01-06] MEDS: LACTULOSE SYRUP 10GM/15ML (ENULOSE) 30ML UDC PO SCH ×2 (08:17→21:00)
[2019-01-06] MEDS: ENOXAPARIN 40 MG/0.4 ML (LOVENOX) SYR SC SCH (08:18)
[2019-01-06] MEDS: oxyCODONE/APAP 5/325MG (PERCOCET 5) TABLET PO PRN ×2 (08:19→21:09)
--- NOTE | 2019-01-06 08:59 | PM&R Progress Note ---
Subjective HPI/CC On Admission Date Seen by Provider: January 06, 2019 Time Seen by Provider: 09:00 CC: Right hip fracture with debility HPI: This is a 73yoWF patient who presented to the [facility] ER after a vertigo episode and fall who sustained a right hip fracture s/p repair in an uncomplicated manner by Dr Tirado on 12/31/18. Patient has a h/o CABG but no follow up since that time. She moved to [place] with her for 2 years and did not see a medical professional since that time and has since moved back to [facility] and had yet to establish with anyone. Her son is an ER doctor in [place] for 10 years. Currently she is doing well as long as she doesn't move and her pain is controlled from the pain meds when she takes it. No BM since admit so will need to work on that and multiple meds are ordered to regain normal bowel function. Anemia noted so Venofer will be ordered and iron level was drawn on today's labs. Dr Novak has provided Cardiology consultation services which are much appreciated. She seems to have PVD due to decreased pedal pulses. HGA1C is 8.1 so will order SSI and likely begin OHA while in IRF. Her PLOF was independent at home with her . Subjective/Events-last exam Bowels finally moved last night after 6 days of post op narcotic bowel Dependent of for a lot of her needs Vertigo really limits her ability to participate Walking with assistance but she is a major fall risk Blood sugars reviewed Conferred with RN Reviewed therapy notes Review of Systems General: Fatigue, Other (dizziness) Musculoskeletal: leg pain Objective Exam Vital Signs Vital Signs Date Time Temp Pulse Resp B/P (MAP) Pulse Ox O2 Delivery O2 Flow Rate FiO2 01/06/19 17:14 99.3 87 18 118/67 (84) 95 Room Air Capillary Refill : Less Than 3 Seconds General Appearance: No Apparent Distress, WD/WN, Chronically ill HEENT: PERRL/EOMI, Normal ENT Inspection, Pharynx Normal, Moist Mucous Membranes Neck: Full Range of Motion, Normal Inspection, Non Tender, Supple Respiratory: Chest Non Tender, Lungs Clear, Normal Breath Sounds, No Accessory Muscle Use, No Respiratory Distress Cardiovascular: Regular Rate, Rhythm, No Edema, No Gallop, No JVD, No Murmur Gastrointestinal: Normal Bowel Sounds, No Organomegaly, No Pulsatile Mass, Non Tender, Soft Back: Normal Inspection, No CVA Tenderness, No Vertebral Tenderness Extremity: Normal Capillary Refill, Normal Inspection, Normal Range of Motion (except right leg due to hip pain), Non Tender, No Calf Tenderness, No Pedal Edema Neurologic/Psychiatric: Alert, Oriented x3, No Motor/Sensory Deficits, Normal Mood/Affect, Motor Weakness (generalized weakness) Skin: Normal Color, Warm/Dry Lymphatic: No Adenopathy Results/Procedures Lab Patient resulted labs reviewed. FIM Transfers Therapy Code Descriptions/Definitions Functional [place] Measure: 0=Not Assessed/NA 4=Minimal Assistance 1=Total Assistance 5=Supervision or Setup 2=Maximal Assistance 6=Modified [place] 3=Moderate Assistance 7=Complete [place] Therapy Quality Codes: 6 Independent with activity with or without an assistive device 5 Patient requires set up or clean up by helper. Patient completes activity by themselves 4 Supervision or touching assist (CGA). [place] provide cues , steadying assist 3 The helper provides less than half the effort to complete the activity 2 The helper provides more than half the effort to complete the activity 1 Dependent. The helper does all the effort to complete an activity 7 Patient refused to complete or attempt activity 9 The patient did not perform the activity before the current illness or injury 88 Not attempted due to Medical conditions or safety concerns Transfers (B, C, W/C) (FIM): 4 Scootin Rollin Roll Left to Right (QC): 4 Supine to/from Sit: 3 Sit to/from Stand: 4 Sit to Lying (QC): 2 Sit to Stand (QC): 3 Chair/Tli-cq-Jhxfl Xfer(QC): 3 Bed to/from Chair: 4 Car Transfer (QC): 3 Gait Training Does the Patient Walk?: Yes Gait (FIM): 1 Distance: 20'x2 Walk 10 feet (QC): 4 Gait Level of Assist: 4 Gait Persons Needed: 1 Gait Assistive Device: FWW Mental Status/Objective Comprehension: 7 Expression: 7 Social Interaction: 7 Problem Solvin Memory: 7 ADL-Treatment Feedin Eating (QC): 6 Groomin Oral Hygiene (QC): 5 Bathin Shower/Bathe Self (QC): 3 Upper Extremity Dressin Upper Body Dressing (QC): 4 Lower Extremity Dressin Lower Body Dressing (QC): 2 On/Off Footwear (QC): 1 Assessment/Plan Assessment and Plan Assess & Plan/Chief Complaint Assessment: s/p right hip fracture repair POD # 6 DM HTN CAD CABG hx Anemia iron def s/p UTI Vertigo Fall PVD suspected Constipation-resolved after aggressive regimen Plan: IRF protocols SSI Pain control BM regimen maintained with stool softner Venofer Meclizine to help vertigo (1) Closed intertrochanteric fracture of right hip (2) Closed intertrochanteric fracture of left hip (3) Diabetes mellitus (4) CAD (coronary artery disease) (5) Anemia, iron deficiency (6) Hx of CABG (7) Vertigo (8) Fall on same level RUFINO MEDEL DO January 06, 2019 08:59
--- NOTE | 2019-01-06 08:59 | Individualized Plan of Care ---
Individualized Plan of Care Rehab Nursing IPOC Order Admission Date January 05, 2019 at 10:45 Current Orders Orders Admission Order(Inpt,Obs,Sdc) (01/05/19 09:27) Vital Signs: Per Unit Policy ( 08,16,00 (01/05/19 09:27) Sewing Department Supervisor-Inpt Rehab Con (01/05/19 09:27) Rehab Nursing Orders-Ipoc (01/05/19 09:27) Physical Therapy Rehab Orders (01/05/19 09:27) Occupational Therapy Rehab Ord (01/05/19 09:27) Speech Therapy Rehab Orders (01/05/19 09:27) Intake & Output 06,14,22 (01/05/19 09:27) Precautions (Aru) (01/05/19 09:27) Weekly Weight (Lbs) WEEK (01/05/19 09:27) Rehab-Intensity Of Therapy (01/05/19 09:27) Code/Resuscitation (01/05/19 09:27) Initiate Admission Nursing Pro .admission (01/05/19 09:27) Senna S Tablet (Senokot S Tablet) (01/05/19 11:30) Senna S Tablet (Senokot S Tablet) (01/05/19 21:00) Lactulose Oral Solution (Enulose Oral So (01/05/19 10:15) Bisacodyl Suppository (Dulcolax Supposit (01/05/19 21:00) Accucheck Achs ACHS (01/05/19 10:13) Insulin Aspart (Novolog) (Novolog (Charg (01/05/19 11:00) Admission Arrival Bed Request (01/05/19 11:20) Iron Sucrose Injection (Venofer Injectio (01/05/19 11:30) Sodium Chloride Flush (Catheter Flush Sy (01/05/19 11:45) Sodium Chloride Flush (Catheter Flush Sy (01/05/19 14:00) Ambulate 08,12,20 (01/05/19 11:46) Catheter(Urinary) Discontinue (01/05/19 11:46) Consent-Obtain Consent For (01/05/19 11:46) Dressing Order & Int (Surg/Med DAILY (01/05/19 11:46) Heel Protectors Bilateral (01/05/19 11:46) Incentive Spirometry (Nursing) Q2H (01/05/19 11:46) Initiate Admission Nursing Pro .admission (01/05/19 11:46) Sequential Compression Device 08,20 (01/05/19 11:46) Lionel Hose 09,21 (01/05/19 11:46) Turn, Cough, And Deep Breathe (01/05/19 11:46) Up With Assistance As Tolerate (01/05/19 11:46) Vital Signs: Special (Order) (01/05/19 11:46) Cho 45g/M 3snack (12-1500 Sreedhar) (01/05/19 Dinner) Oxycodone/Apap 5/325mg Tablet (Percocet (01/05/19 12:00) Acetaminophen Tablet/Caplet (Tylenol T (01/05/19 12:00) Ondansetron Injection (Zofran Injectio (01/05/19 12:00) Fentanyl Injection (Sublimaze Injection (01/05/19 12:00) Consult Cardiology (01/05/19 11:46) Ambulate 08,12,20 (01/05/19 12:15) Sequential Compression Device 08,20 (01/05/19 12:15) Dvt/Vte Risk - Notifiy Physici 08 (01/05/19 12:15) Enoxaparin Injection (Lovenox Injection) (01/06/19 08:30) Patient Visit (01/05/19 ) Speech Sound Lang Comp (01/05/19 ) Patient Visit (01/05/19 ) Pt Eval Moderate Complexity (01/05/19 ) Exercise Therap, Ea 15 Min (01/05/19 ) Functional Activities, Ea 15 (01/05/19 ) Gait Training, Ea 15 Min (01/05/19 ) Patient Visit (01/06/19 ) Wheelchair Mgmt/Propulsn 15min (01/06/19 ) Exercise Therap, Ea 15 Min (01/06/19 ) Functional Activities, Ea 15 (01/06/19 ) Patient Visit (01/06/19 ) Therapeutic, Group (01/06/19 ) Meclizine Tablet (Antivert Tablet) (01/06/19 17:15) Rehab Nursing Orders: Ongoing Assess. of Cognitive Status, Ongoing Assess. of Function Status, Bladder Management, Bladder Scan, Bladder Training, Bowel Management, Bowel Training, Disease Management & Educaiton, DVT Prophylaxis, F all Prevention, Fluid/Electrolyte/Nutrition Mgmt, Infection Prevention, Medication Management & Education, Management of Risks & Complications, Management of Skin Intergrity, Nutrition Management, Pain Management, Patient/Family Support, Safety Management Intensity of Therapy to be met Patient to be seen: Min.3h per day/5 of 7d PT IPOC Problem List: Activity Tolerance, Functional Strength, Safety, Balance, Gait, Transfer, Bed Mobility, ROM Treatment Plan: Continue Plan of Care Bed Mobility, Education, Functional Activity Sandra, Functional Strength, Group Therapy, Gait, Safety, Therapeutic Exercise, Transfers Treatment Duration: Jan 26, 2019 Frequency: At least 5 of 7 days/Wk (IRF) Estimated Hrs Per Day: 1.5 hours per day OT IPOC Problems: Decreased Activ Tolerance, Decreased UE Strength, Dependent Transfers, Impaired Funct Balance, Impaired I ADL's, Impaired Self-Care Skills OT Treatment, Training and Edu: Yes Plan of Care: ADL Retraining, Functional Mobility, Group Exercise/Act as Ind, UE Funct Exercise/Act Treatment Duration: Jan 26, 2019 Frequency: At least 5 of 7 days/Wk (IRF) Estimated Hrs Per Day: 1.[address] IPOC Speech Therapy Treatment Plan: Discontinue ST Treatment Duration: January 05, 2019 Frequency: 1 time per week Estimated Hrs Per Day: .25 hour per day Sewing Department Supervisor/Case Mgmt Sewing Department Supervisor/Case Managemen: Discharge Planning Dietitian/Last Inserter Dietitian/Last Inserter to monitor nutritional status and make changes and/or recommendations as needed and work with speech pathology on dietary upgrades as the occur. Physician IPOC Medical Issues being managed closely and that require the 24 hour availability of a physician: Recent hip surgery will require close monitoring of pain control along with blood sugar checks and CAD monitoring Medical Issues: Bowel/Bladder Function, DVT Prophylaxis, Falls Precautions, Fluid/Electrolyte/Nutrition Balance, Pain Management Brief Synthesis of Preadmission Screen, Post-Admission Evaluation, and Therapy Evaluations: PT will work on ambulation with pain and the correct use of walker and fall risk prevention OT will work on independent ADL's Medical Prognosis: Good Anticipated Length of Stay: 10 days RUFINO MEDEL DO January 06, 2019 08:59
--- NOTE | 2019-01-06 09:51 | NUR ---
CARD TABLE ATTENDANT met with patient and spouse to complete initial assessment. Patient was alert and oriented and agreeable to assessment. Patient admitted to ARU from internally with a R hip fracture and repair by Dr. Tirado on 523. Prior to fracture patient and spouse resided in a one level home in [place], [place]. The home has 2 steps at the entrance into steps at the graduate entrance without railing. Spouse intends to build ramp at garage entrance. Patient reports independence with ADLs and ambulation until approximately a month ago when vertigo presented. Since that time patient's spouse follows patient closely and assist her in getting in and out of the tub/shower and supervises during showers. Patient does utilize a front-wheeled walker or single-point cane while outdoors or in the community. The home is equipped with grab bars, shower seat and toilet riser. Primary local contact identified as spouse, João at [phone] and secondary contact as daughter, Zeinab at [phone]. Patient does not currently have a PCP; however, expresses interest in obtaining spouse's PCP, Dr. Hernan Parkinson. CARD TABLE ATTENDANT will reach out to Dr. Parkinson's office to inquire about ability to except new Medicare patients. Insurance verified as Medicare and [employer] with prescription coverage and preferred pharmacy as [facility]. CARD TABLE ATTENDANT reviewed typical ARU length of stay and weekly team conferences. Patient spouse expressed no concerns at this time. CARD TABLE ATTENDANT will continue to follow.
--- NOTE | 2019-01-06 10:46 | Progress Note-Standard ---
Standard Progress Note Progress Notes/Assess & Plan Date Seen by a Provider: January 06, 2019 Time Seen by a Provider: 10:45 Progress/Assessment & Plan no complaints RLE-incisions clean and dry. No calf tenderness. Neg SLR s/p IM rell R hip continue PT/OT ROSA ISELA GAXIOLA MD January 06, 2019 10:46
--- NOTE | 2019-01-06 10:57 | Physical Therapy Daily Note ---
PT Daily Note-Current Subjective Pt sitting in recliner upon arrival. Pt agrees to PT although very anxious about falling & ongoing Vertigo. Pain Numeric Pain Scale: 8 Location: Right Location Body Site: Hip Pain Description: Ache, Tightness Mental Status Patient Orientation: Person, Place, Time, Situation Transfers Therapy Code Descriptions/Definitions Functional [place] Measure: 0=Not Assessed/NA 4=Minimal Assistance 1=Total Assistance 5=Supervision or Setup 2=Maximal Assistance 6=Modified [place] 3=Moderate Assistance 7=Complete [place] Therapy Quality Codes: 6 Independent with activity with or without an assistive device 5 Patient requires set up or clean up by helper. Patient completes activity by themselves 4 Supervision or touching assist (CGA). [place] provide cues , steadying luis t 3 The helper provides less than half the effort to complete the activity 2 The helper provides more than half the effort to complete the activity 1 Dependent. The helper does all the effort to complete an activity 7 Patient refused to complete or attempt activity 9 The patient did not perform the activity before the current illness or injury 88 Not attempted due to Medical conditions or safety concerns Scootin Sit to/from Stand: 4 Sit to Stand (QC): 4 Weight Bearing Right Lower Extremity: Right Weight Bearing/Tolerated Wheelchair Training Does the Pt Use a Wheelchair?: Yes Wheelchair (FIM): 5 Wheelchair Distance: 3=150 ft Distance: 150' Wheelchair Level of Assist: 5 Wheel 50 ft with 2 turns (QC): 5 Wheel 150 ft (QC): 5 Type of Wheelchair: Manual Exercises Seated Therapy Exercises: Ankle pumps, Long arc quads, Hip flexion, Kicking activity, Glut set Seated Reps: 15 NuStep Minutes: 15 NuStep Workload: 1 Treatments Pt receives morning meds at beginning of tx. Pt completes Seated EX in recliner with a couple short RB. Pt continues to educate RECORD PRESS OPERATOR on how she fell and ongoing Vertigo. RECORD PRESS OPERATOR reassures pt that staff will be right with pt through whole ARU stay. RECORD PRESS OPERATOR educates on how ARU works and how staff will assist pt in gaining strength and ROM while pt is healing. Pt transfers to W/C and propels self in hallway. Pt uses NuStep for 15m at WL 1. Pt returns to room at end of tx to start OT tx. Assessment Current Status: Good Progress Pain & anxiety limits pt at this time. PT Short Term Goals Short Term Goals Time Frame: Jan 12, 2019 Gait (FIM): 1 Gait Distance Comment: 25' Gait Level of Assist: 4 Gait Assistive Device: FWW PT Dry Transfer Man Goals Dry Transfer Man Goals PT Dry Transfer Man Goals Time Frame: Jan 26, 2019 Transfers (B,C,W/C) (FIM): 5 Sit to Lying (QC): 4 Lying-Sitting on Side/Bed(QC): 4 Sit to Stand (QC): 4 Rollin Roll Left to Right (QC): 4 Chair/Aip-zm-Ayzpj Xfer(QC): 4 Car Transfer (QC): 4 Gait (FIM): 2 Distance: 50' Walk 10 feet (QC): 4 Walk 10ft-Uneven Surface(QC): 4 Walk 50ft with 2 Turns (QC): 4 Gait Level of Assist: 5 Gait Assistive Device: FWW Stairs (FIM): 2 # of Steps: 4 1 Step (curb) (QC): 4 4 Steps (QC): 4 Stairs Level Of Assist: 4 PT Plan Problem List Problem List: Activity Tolerance, Functional Strength, Safety, Balance, Gait, Transfer Treatment/Plan Treatment Plan: Continue Plan of Care Treatment Plan: Bed Mobility, Education, Functional Activity [place], Functional Strength, Group Therapy, Gait, Safety, Therapeutic Exercise, Transfers Treatment Duration: Jan 26, 2019 Frequency: At least 5 of 7 days/Wk (IRF) Estimated Hrs Per Day: 1.5 hours per day Patient and/or Family Agrees t: Yes Safety Risks/Education Patient Education: Transfer Techniques, Correct Positioning, W/C Management, Safety Issues Teaching Recipient: Patient Teaching Methods: Discussion Response to Teaching: Verbalize Understanding Time/GCodes Time In: 815 Time Out: 915 Total Billed Treatment Time: 60 Total Billed Treatment 1, WCH (15m), EX x2 (30m) & FA (15m) G Codes Necessary: SULTANA Mosqueda RECORD PRESS OPERATOR January 06, 2019 10:57
[2019-01-06] MEDS: BISACODYL 10 MG SUPP (DULCOLAX) PR SCH ×2 (11:50→21:00)
--- NOTE | 2019-01-06 12:50 | Occupational Ther Daily Note ---
OT Current Status-Daily Note Subjective Pt. reports pain in hip but does not state pain level. Nursing has given pt. pain medication. Appearance Pt. up in chair. Declines showering but agrees to sponge bathe. Mental Status/Objective Patient Orientation: Person, Place, Time, Situation Therapy Code Descriptions/Definitions Functional [place] Measure: 0=Not Assessed/NA 4=Minimal Assistance 1=Total Assistance 5=Supervision or Setup 2=Maximal Assistance 6=Modified [place] 3=Moderate Assistance 7=Complete [place] ADL-Treatment Therapy Code Descriptions/Definitions Functional [place] Measure: 0=Not Assessed/NA 4=Minimal Assistance 1=Total Assistance 5=Supervision or Setup 2=Maximal Assistance 6=Modified [place] 3=Moderate Assistance 7=Complete [place] Therapy Quality Codes: 6 Independent with activity with or without an assistive device 5 Patient requires set up or clean up by helper. Patient completes activity by themselves 4 Supervision or touching assist (CGA). [place] provide cues , steadying assist 3 The helper provides less than half the effort to complete the activity 2 The helper provides more than half the effort to complete the activity 1 Dependent. The helper does all the effort to complete an activity 7 Patient refused to complete or attempt activity 9 The patient did not perform the activity before the current illness or injury 88 Not attempted due to Medical conditions or safety concerns Bathing (FIM): 4 (Min assist in stance for balance to wash elias area. Pt. able to utilize LH sponge to wash LE.) Shower/Bathe Self (QC): 4 Upper Body (FIM): 5 Upper Body Dressing (QC): 4 Lower Body Dressing (FIM): 3 (Pt. utilized AE this date for LE dressing. Overall, required mod assist.) Lower Body Dressing (QC): 3 On/Off Footwear (QC): 4 Transfers (B, C, W/C) (FIM): 4 (Min assist sit-stand and ambulation to bed from wheelchair.) Other Treatment Pt. agrees to sponge bathe in room. Utilized AE. Pt. requires cues and increased time overall. Pt. very anxious about LE weakness. Pt. also reports having vertigo, so is concerned about that happening during treatment. Cues for safety. Education OT Patient Education: Correct positioning, Modified ADL techniques, Progress toward Goal/Update tx plan, Purpose of tx/functional activities, Reviewed precautions, Rehab process, Transfer techniques, Use of adapted equipment Teaching Recipient: Patient Teaching Methods: Demonstration, Discussion Response to Teaching: Verbalize Understanding, Return Demonstration OT Short Term Goals Short Term Goals Time Frame: Jan 12, 2019 Bathing(FIM): 4 Lower Body Dressing(FIM): 3 Toilet/Commode Transfer(FIM): 4 (CGA) Additional Short Term Goals: 1-Demonstrate ADL Tasks, 2-Verbalize Understanding, 3-ImproveStrength/Sandra 1=Demonstrate adherence to instructed precautions during ADL tasks. 2=Patient will verbalize/demonstrate understanding of assistive devices/modifications for ADL. 3=Patient will improve strength/tolerance for activity to enable patient to perform ADL's. OT Pot Pusher Goals Pot Pusher Goals Time Frame: Jan 26, 2019 Eating (FIM): 7 Eating (QC): 6 Groomin Oral Hygiene (QC): 6 Bathing(FIM): 5 Shower/Bathe Self (QC): 5 Upper Body Dressing(FIM): 5 Upper Body Dressing (QC): 5 Lower Body Dressing(FIM): 5 Lower Body Dressing (QC): 5 On/Off Footwear (QC): 5 Toileting(FIM): 6 Toileting Hygiene (QC): 6 Toilet/Commode Transfer(FIM): 6 Toilet/Commode Transfer (QC): 6 Shower Transfer(FIM): 5 Additional Goals: 1-Demonstrate ADL Tasks, 2-Verbalize Understanding, 3- ImproveStrength/Sandra 1=Demonstrate adherence to instructed precautions during ADL tasks. 2=Patient will verbalize/demonstrate understanding of assistive devices/modifications for ADL. 3=Patient will improve strength/tolerance for activity to enable patient to perform ADL's. OT Education/Plan Problem List/Assessment Assessment: Decreased Activ Tolerance, Decreased UE Strength, Dependent Transfers, Impaired Funct Balance, Impaired I ADL's, Impaired Self-Care Skills Discharge Recommendations Plan/Recommendations: Continue POC Therapy D/C Recommendations: Home w/ Family Support, Occupational Therapy Home Care Equpiment Recommendations-D/C: Extended Bath Bench, Hip Kit Treatment Plan/Plan of Care Treatment,Training & Education: Yes Patient would benefit from OT for education, treatment and training to promote independence in ADL's, mobility, safety and/or upper extremity function for ADL's. Plan of Care: ADL Retraining, Functional Mobility, Group Exercise/Act as Ind, UE Funct Exercise/Act Treatment Duration: Jan 26, 2019 Frequency: At least 5 of 7 days/Wk (IRF) Estimated Hrs Per Day: 1.5 hours per day Agreement: Yes Rehab Potential: Good Time/GCodes Start Time: 09:15 Stop Time: 10:15 Total Time Billed (hr/min): 60 Billed Treatment Time 1, ADL x 4 ELÍAS NGO OT January 06, 2019 12:50
--- NOTE | 2019-01-06 15:02 | Therapy Group Daily Note ---
Therapy Daily Group Note Patient Education Topic Other List Below (falls/balance) Exercises LE Seated Exercise, UE Exercise Session Ratio (pt:therapist): 4:1 Goal of Session: Education on ARU Expectations, UE/LE Strengthing, Safety with Transfers Goal Met for this Session: Yes Pt Benefit of Group: Contributions to Others, F/U Use of Strategies @Home, Incr eased Functional Safety, Increased Functional Strength, Improved Cognition, Recognition of Peers, Socialization Other/Notes Pt transported via w/c to <--> from OT/PT group. Group consisted of introductions (name, place born, 1st car), socialization, education on balance/fall prevention, ARU Friday meeting and UE/LE seated exercises. Pt introduced self appropriately and actively listened to peers. Pt able to complete exercises to strengthen core, UE and LE's. Pt was able to verbalize understanding of topics introduced to group and give personal stories/strategies. After therapy, pt's transferred back to room. Call light/phone in reach. All needs met in room. Start Time: 13:00 Stop Time: 14:15 Total Billed Treatment Time: 75 Total Billed Treatment 1-GRP ADRIAN BROWN January 06, 2019 15:02
[2019-01-06 17:14] VITALS: BP 118/67
[2019-01-07 05:53] VITALS: BP 120/69
[2019-01-07] MEDS: inSUlin ASPART (NovoLOG) 1 UNIT/0.01 ML (CHARGE PER UNIT) SC SCH ×4 (06:43→21:14)
[2019-01-07] MEDS: CATHETER FLUSH 10 ML SYR IV SCH ×3 (06:43→21:15)
--- NOTE | 2019-01-07 08:08 | PM&R Progress Note ---
Subjective HPI/CC On Admission Date Seen by Provider: January 07, 2019 Time Seen by Provider: 08:15 CC: Right hip fracture with debility HPI: This is a 73yoWF patient who presented to the [facility] ER after a vertigo episode and fall who sustained a right hip fracture s/p repair in an uncomplicated manner by Dr Tirado on 12/31/18. Patient has a h/o CABG but no follow up since that time. She moved to [place] with her for 2 years and did not see a medical professional since that time and has since moved back to [facility] and had yet to establish with anyone. Her son is an ER doctor in [place] for 10 years. Currently she is doing well as long as she doesn't move and her pain is controlled from the pain meds when she takes it. No BM since admit so will need to work on that and multiple meds are ordered to regain normal bowel function. Anemia noted so Venofer will be ordered and iron level was drawn on today's labs. Dr Novak has provided Cardiology consultation services which are much appreciated. She seems to have PVD due to decreased pedal pulses. HGA1C is 8.1 so will order SSI and likely begin OHA while in IRF. Her PLOF was independent at home with her . Subjective/Events-last exam Blood sugar was 235 last night and 126 this morning Vertigo seems to be helped by Meclizine Bowel movement yesterday Venofer is given without complication Overall feels like she is progressing Participating in therapy Pain is much improved and controlled on pain medication Conferred with RN Reviewed therapy notes Review of Systems General: Fatigue Musculoskeletal: leg pain Objective Exam Vital Signs Vital Signs Date Time Temp Pulse Resp B/P (MAP) Pulse Ox O2 Delivery O2 Flow Rate FiO2 01/07/19 15:44 98.6 81 16 129/72 (91) 93 Room Air Capillary Refill : Less Than 3 Seconds General Appearance: No Apparent Distress, WD/WN, Chronically ill HEENT: PERRL/EOMI, Normal ENT Inspection, Pharynx Normal, Moist Mucous M embranes Neck: Full Range of Motion, Normal Inspection, Non Tender, Supple Respiratory: Chest Non Tender, Lungs Clear, Normal Breath Sounds, No Accessory Muscle Use, No Respiratory Distress Cardiovascular: Regular Rate, Rhythm, No Edema, No Gallop, No JVD, No Murmur Gastrointestinal: Normal Bowel Sounds, No Organomegaly, No Pulsatile Mass, Non Tender, Soft Back: Normal Inspection, No CVA Tenderness, No Vertebral Tenderness Extremity: Normal Capillary Refill, Normal Inspection, Normal Range of Motion (except right leg due to hip pain), Non Tender, No Calf Tenderness, No Pedal Edema Neurologic/Psychiatric: Alert, Oriented x3, No Motor/Sensory Deficits, Normal Mood/Affect, Motor Weakness (generalized weakness) Skin: Normal Color, Warm/Dry Lymphatic: No Adenopathy Results/Procedures Lab Patient resulted labs reviewed. FIM Transfers Therapy Code Descriptions/Definitions Functional [place] Measure: 0=Not Assessed/NA 4=Minimal Assistance 1=Total Assistance 5=Supervision or Setup 2=Maximal Assistance 6=Modified [place] 3=Moderate Assistance 7=Complete [place] Therapy Quality Codes: 6 Independent with activity with or without an assistive device 5 Patient requires set up or clean up by helper. Patient completes activity by themselves 4 Supervision or touching assist (CGA). [place] provide cues , steadying assist 3 The helper provides less than half the effort to complete the activity 2 The helper provides more than half the effort to complete the activity 1 Dependent. The helper does all the effort to complete an activity 7 Patient refused to complete or attempt activity 9 The patient did not perform the activity before the current illness or injury 88 Not attempted due to Medical conditions or safety concerns Transfers (B, C, W/C) (FIM): 4 (Min assist sit-stand and ambulation to bed from wheelchair.) Scootin Rollin Roll Left to Right (QC): 4 Supine to/from Sit: 3 Sit to/from Stand: 4 Sit to Lying (QC): 2 Sit to Stand (QC): 4 Chair/Uvm-rg-Rvikz Xfer(QC): 3 Bed to/from Chair: 4 Car Transfer (QC): 3 Gait Training Does the Patient Walk?: Yes Gait (FIM): 1 Distance: 20'x2 Walk 10 feet (QC): 4 Gait Level of Assist: 4 Gait Persons Needed: 1 Gait Assistive Device: FWW Wheelchair Training Does the Pt Use a Wheelchair?: Yes Wheelchair (FIM): 5 Wheelchair Distance: 3=150 ft Distance: 150' Wheelchair Level of Assist: 5 Wheel 50 ft with 2 turns (QC): 5 Wheel 150 ft (QC): 5 Type of Wheelchair: Manual Mental Status/Objective Comprehension: 7 Expression: 7 Social Interaction: 7 Problem Solvin Memory: 7 ADL-Treatment Feedin Eating (QC): 6 Groomin Oral Hygiene (QC): 5 Bathin (Min assist in stance for balance to wash elias area. Pt. able to utilize LH sponge to wash LE.) Shower/Bathe Self (QC): 4 Upper Extremity Dressin Upper Body Dressing (QC): 4 Lower Extremity Dressin (Pt. utilized AE this date for LE dressing. O verall, required mod assist.) Lower Body Dressing (QC): 3 On/Off Footwear (QC): 4 Assessment/Plan Assessment and Plan Assess & Plan/Chief Complaint Assessment: s/p right hip fracture repair POD # 7 DM HTN CAD CABG hx Anemia iron def s/p UTI Vertigo Fall PVD suspected Constipation-resolved after aggressive regimen Plan: IRF protocols SSI Pain control BM regimen maintained with stool softner Venofer Meclizine to help vertigo (1) Closed intertrochanteric fracture of right hip (2) Closed intertrochanteric fracture of left hip (3) Diabetes mellitus (4) CAD (coronary artery disease) (5) Anemia, iron deficiency (6) Hx of CABG (7) Vertigo (8) Fall on same level RUFINO MEDEL DO January 07, 2019 08:08
--- NOTE | 2019-01-07 08:10 | NUR ---
Pt states that she has had vertigo which stated about a month ago. It usually occurs in the mornings. Pt states that her daughter also has it.
[2019-01-07] MEDS: SENNA W/DOCUSATE (SENOKOT S) TABLET PO SCH ×2 (09:07→21:09)
[2019-01-07] MEDS: BISACODYL 10 MG SUPP (DULCOLAX) PR SCH ×2 (09:07→21:09)
[2019-01-07] MEDS: LACTULOSE SYRUP 10GM/15ML (ENULOSE) 30ML UDC PO SCH ×2 (09:07→21:09)
[2019-01-07] MEDS: ENOXAPARIN 40 MG/0.4 ML (LOVENOX) SYR SC SCH (09:09)
[2019-01-07] MEDS: IRON SUCROSE 200 MG/10 ML (VENOFER) VIAL IV SCH (09:09)
[2019-01-07] MEDS: oxyCODONE/APAP 5/325MG (PERCOCET 5) TABLET PO PRN ×2 (09:15→12:20)
--- NOTE | 2019-01-07 10:18 | NUR ---
pt had taken 1 pain pill earlier, instead of taking 2, states that pain had come down to a tolerable level, but, started working w OT, bathing, & felt that she needed to take the 2nd one. Pain med given. OT washing bottom now, as pt had remains of bm present.
--- NOTE | 2019-01-07 10:23 | NUR ---
ANIMAL SHELTER CLERK met with patient has been to review team conference summary. As patient just recently admitted and requires min assist for transfers and bed mobility as well as the need for increased time with activity team has recommended patient be reevaluated at next team conference on 65. Patient spouse are agreeable to this. ANIMAL SHELTER CLERK will continue to follow
--- NOTE | 2019-01-07 10:32 | Physical Therapy Daily Note ---
PT Daily Note-Current Subjective Pt laying Supine in bed upon arrival. Pt wants to finish breakfast, comb hair & call Sp before tx. FEDERAL LAW CLERK reassures pt & pt agrees to PT. Pain Numeric Pain Scale: 7 Location: Right Location Body Site: Hip Pain Description: Ache, Tightness Mental Status Patient Orientation: Person, Confused, Place Pt demonstrates signs of Dementia & not retaining info given even 5-10" before completing task. Transfers Therapy Code Descriptions/Definitions Functional [place] Measure: 0=Not Assessed/NA 4=Minimal Assistance 1=Total Assistance 5=Supervision or Setup 2=Maximal Assistance 6=Modified [place] 3=Moderate Assistance 7=Complete [place] Therapy Quality Codes: 6 Independent with activity with or without an assistive device 5 Patient requires set up or clean up by helper. Patient completes activity by themselves 4 Supervision or touching assist (CGA). [place] provide cues , steadying assist 3 The helper provides less than half the effort to complete the activity 2 The helper provides more than half the effort to complete the activity 1 Dependent. The helper does all the effort to complete an activity 7 Patient refused to complete or attempt activity 9 The patient did not perform the activity before the current illness or injury 88 Not attempted due to Medical conditions or safety concerns Scootin Supine to/from Sit: 4 Sit to/from Stand: 4 Sit to Lying (QC): 4 Sit to Stand (QC): 4 Weight Bearing Right Lower Extremity: Right Weight Bearing/Tolerated Gait Training Does the Patient Walk?: Yes Gait (FIM): 2 Distance (FIM): 1=up to 49 ft Distance: 8' x6 Walk 10 feet (QC): 4 Gait Level of Assist: 4 Gait Persons Needed: 1 Gait Assistive Device: Parallel Bars Pt is very anxious about falling although FEDERAL LAW CLERK reassures pt. Wheelchair Training Does the Pt Use a Wheelchair?: Yes Wheelchair (FIM): 5 Wheelchair Distance: 3=150 ft Distance: 150' Wheelchair Level of Assist: 5 Wheel 50 ft with 2 turns (QC): 5 Wheel 150 ft (QC): 5 Type of Wheelchair: Manual Exercises Supine Ex: Ankle pumps, Rolling, Scooting Seated Therapy Exercises: Ankle pumps, Long arc quads, Hip flexion, Kicking activity Seated Reps: 15 Treatments Pt completes Supine Ex before transferring out of bed. Pt transfers to W/C and propels in hallway. Pt stands in //bars and performs ambulation x6 with RB as needed. Pt completes Seated Ex in W/C before returning to room to rest. Pt has all needs met. Assessment Current Status: Fair Progress Pain and anxiety continue to limit pt during tx. Pt is more anxious w/o Sp present. Pt demonstrates signs of Dementia and shows difficulty retaining/remembering instructions given. Pt's movements are very slow & antalgic. PT Short Term Goals Short Term Goals Time Frame: Jan 12, 2019 Gait (FIM): 1 Gait Distance Comment: 25' Gait Level of Assist: 4 Gait Assistive Device: FWW Wheelchair Distance: 150' PT Usp Goals Usp Goals PT Rotational Moulding Operator Goals Time Frame: Jan 26, 2019 Transfers (B,C,W/C) (FIM): 5 Sit to Lying (QC): 4 Lying-Sitting on Side/Bed(QC): 4 Sit to Stand (QC): 4 Rollin Roll Left to Right (QC): 4 Chair/Slh-wz-[place] Xfer(QC): 4 Car Transfer (QC): 4 Gait (FIM): 2 Distance: 50' Walk 10 feet (QC): 4 Walk 10ft-Uneven Surface(QC): 4 Walk 50ft with 2 Turns (QC): 4 Gait Level of Assist: 5 Gait Assistive Device: FWW Stairs (FIM): 2 # of Steps: 4 1 Step (curb) (QC): 4 4 Steps (QC): 4 Stairs Level Of Assist: 4 PT Plan Problem List Problem List: Activity Tolerance, Functional Strength, Safety, Balance, Gait, Transfer, Bed Mobility, ROM Treatment/Plan Treatment Plan: Continue Plan of Care Treatment Plan: Bed Mobility, Education, Functional Activity Sandra, Functional Strength, Group Therapy, Gait, Safety, Therapeutic Exercise, Transfers Treatment Duration: Jan 26, 2019 Frequency: At least 5 of 7 days/Wk (IRF) Estimated Hrs Per Day: 1.5 hours per day Patient and/or Family Agrees t: Yes Safety Risks/Education Patient Education: Gait Training, Transfer Techniques, Correct Positioning, W/C Management, Safety Issues Teaching Recipient: Patient Teaching Methods: Discussion Response to Teaching: Verbalize Understanding, Reinforcement Needed Time/GCodes Time In: 815 Time Out: 915 Total Billed Treatment Time: 60 Total Billed Treatment 1, WCH (15m), GT x2 (30m) & EX (15m) G Codes Necessary: No TREIBER,[place] FEDERAL LAW CLERK January 07, 2019 10:32
--- NOTE | 2019-01-07 12:25 | Occupational Ther Daily Note ---
OT Current Status-Daily Note Subjective Pt. reports 5/10 pain in right hip. Nursing gives pt. pain medication. Appearance Pt. up in chair. Declines showering but agrees to sponge bathe. Mental Status/Objective Patient Orientation: Person, Place Therapy Code Descriptions/Definitions Functional [place] Measure: 0=Not Assessed/NA 4=Minimal Assistance 1=Total Assistance 5=Supervision or Setup 2=Maximal Assistance 6=Modified [place] 3=Moderate Assistance 7=Complete [place] ADL-Treatment Therapy Code Descriptions/Definitions Functional [place] Measure: 0=Not Assessed/NA 4=Minimal Assistance 1=Total Assistance 5=Supervision or Setup 2=Maximal Assistance 6=Modified [place] 3=Moderate Assistance 7=Complete [place] Therapy Quality Codes: 6 Independent with activity with or without an assistive device 5 Patient requires set up or clean up by helper. Patient completes activity by themselves 4 Supervision or touching assist (CGA). [place] provide cues , steadying assist 3 The helper provides less than half the effort to complete the activity 2 The helper provides more than half the effort to complete the activity 1 Dependent. The helper does all the effort to complete an activity 7 Patient refused to complete or attempt activity 9 The patient did not perform the activity before the current illness or injury 88 Not attempted due to Medical conditions or safety concerns Bathing (FIM): 4 (Min assist in stance for balance in stance to wash elias area.) Shower/Bathe Self (QC): 4 Upper Body (FIM): 5 Upper Body Dressing (QC): 4 Lower Body Dressing (FIM): 3 (Mod assist overall with LE dressing. Pt. uses AE but requires cues and assist.) Lower Body Dressing (QC): 3 On/Off Footwear (QC): 3 Transfers (B, C, W/C) (FIM): 4 (Min assist sit-stand and transfer to bed from wheelchair.) Other Treatment Pt. agreed to sponge bathe up in chair. Noted that pt. seemed to have difficulty processing steps, and remembering things that she did yesterday. Pt. required cues for each step of transferring. Pt. also exhibits anxiety with standing and transferring. After ADLs in room, pt. transferred to bed. Mod assist to get legs into bed. All needs met. Education OT Patient Education: Correct positioning, Modified ADL techniques, Progress toward Goal/Update tx plan, Purpose of tx/functional activities, Reviewed precautions, Rehab process, Transfer techniques, Use of adapted equipment Teaching Recipient: Patient Teaching Methods: Demonstration, Discussion Response to Teaching: Verbalize Understanding, Return Demonstration OT Short Term Goals Short Term Goals Time Frame: Jan 12, 2019 Bathing(FIM): 4 Lower Body Dressing(FIM): 3 Toilet/Commode Transfer(FIM): 4 (CGA) Additional Short Term Goals: 1-Demonstrate ADL Tasks, 2-Verbalize Understanding, 3-ImproveStrength/Sandra 1=Demonstrate adherence to instructed precautions during ADL tasks. 2=Patient will verbalize/demonstrate understanding of assistive devices/m odifications for ADL. 3=Patient will improve strength/tolerance for activity to enable patient to perform ADL's. OT Penitentiary Goals Penitentiary Goals Time Frame: Jan 26, 2019 Eating (FIM): 7 Eating (QC): 6 Groomin Oral Hygiene (QC): 6 Bathing(FIM): 5 Shower/Bathe Self (QC): 5 Upper Body Dressing(FIM): 5 Upper Body Dressing (QC): 5 Lower Body Dressing(FIM): 5 Lower Body Dressing (QC): 5 On/Off Footwear (QC): 5 Toileting(FIM): 6 Toileting Hygiene (QC): 6 Toilet/Commode Transfer(FIM): 6 Toilet/Commode Transfer (QC): 6 Shower Transfer(FIM): 5 Additional Goals: 1-Demonstrate ADL Tasks, 2-Verbalize Understanding, 3- ImproveStrength/Sandra 1=Demonstrate adherence to instructed precautions during ADL tasks. 2=Patient will verbalize/demonstrate understanding of assistive devices/modifications for ADL. 3=Patient will improve strength/tolerance for activity to enable patient to perform ADL's. OT Education/Plan Problem List/Assessment Assessment: Decreased Activ Tolerance, Dependent Transfers, Impaired Cognition, Impaired Funct Balance, Impaired I ADL's, Impaired Self-Care Skills Discharge Recommendations Plan/Recommendations: Continue POC Therapy D/C Recommendations: Home w/ Family Support, Occupational Therapy Home Care, Scheduled Assistance Equpiment Recommendations-D/C: Hip Kit Treatment Plan/Plan of Care Treatment,Training & Education: Yes Patient would benefit from OT for education, treatment and training to promote independence in ADL's, mobility, safety and/or upper extremity function for ADL's. Plan of Care: ADL Retraining, Functional Mobility, Group Exercise/Act as Ind, UE Funct Exercise/Act Treatment Duration: Jan 26, 2019 Frequency: At least 5 of 7 days/Wk (IRF) Estimated Hrs Per Day: 1.5 hours per day Agreement: Yes Rehab Potential: Good Time/GCodes Start Time: 09:30 Stop Time: 10:30 Total Time Billed (hr/min): 60 Billed Treatment Time 1, ADL x 4 ELÍAS NGO OT January 07, 2019 12:25
--- NOTE | 2019-01-07 13:02 | Occupational Ther Daily Note ---
OT Current Status-Daily Note Subjective Pt alert, lying in bed. Pt agrees to therapy. No c/o of pain. Mental Status/Objective Patient Orientation: Person, Place, Time, Situation Therapy Code Descriptions/Definitions Functional [place] Measure: 0=Not Assessed/NA 4=Minimal Assistance 1=Total Assistance 5=Supervision or Setup 2=Maximal Assistance 6=Modified [place] 3=Moderate Assistance 7=Complete [place] Attachments: IV ADL-Treatment Therapy Code Descriptions/Definitions Functional [place] Measure: 0=Not Assessed/NA 4=Minimal Assistance 1=Total Assistance 5=Supervision or Setup 2=Maximal Assistance 6=Modified [place] 3=Moderate Assistance 7=Complete [place] Therapy Quality Codes: 6 Independent with activity with or without an assistive device 5 Patient requires set up or clean up by helper. Patient completes activity by themselves 4 Supervision or touching assist (CGA). [place] provide cues , steadying assist 3 The helper provides less than half the effort to complete the activity 2 The helper provides more than half the effort to complete the activity 1 Dependent. The helper does all the effort to complete an activity 7 Patient refused to complete or attempt activity 9 The patient did not perform the activity before the current illness or injury 88 Not attempted due to Medical conditions or safety concerns Other Treatment Pt completed medium resistance theraband exercises to increase UE strength and activity tolerance for daily functional tasks. Skilled instructions to complete 4 theraband exercises with correct technique, 2 sets 10 reps. Pt required recovery break between sets. After therapy, pt lying in bed with call light/phone in reach. All needs met in room. OT Short Term Goals Short Term Goals Time Frame: Jan 12, 2019 Bathing(FIM): 4 Lower Body Dressing(FIM): 3 Toilet/Commode Transfer(FIM): 4 (CGA) Additional Short Term Goals: 1-Demonstrate ADL Tasks, 2-Verbalize [place] ding, 3-ImproveStrength/Sandra 1=Demonstrate adherence to instructed precautions during ADL tasks. 2=Patient will verbalize/demonstrate understanding of assistive devices/modifications for ADL. 3=Patient will improve strength/tolerance for activity to enable patient to perform ADL's. OT Die Polisher Goals Die Polisher Goals Time Frame: Jan 26, 2019 Eating (FIM): 7 Eating (QC): 6 Groomin Oral Hygiene (QC): 6 Bathing(FIM): 5 Shower/Bathe Self (QC): 5 Upper Body Dressing(FIM): 5 Upper Body Dressing (QC): 5 Lower Body Dressing(FIM): 5 Lower Body Dressing (QC): 5 On/Off Footwear (QC): 5 Toileting(FIM): 6 Toileting Hygiene (QC): 6 Toilet/Commode Transfer(FIM): 6 Toilet/Commode Transfer (QC): 6 Shower Transfer(FIM): 5 Additional Goals: 1-Demonstrate ADL Tasks, 2-Verbalize Understanding, 3- ImproveStrength/Sandra 1=Demonstrate adherence to instructed precautions during ADL tasks. 2=Patient will verbalize/demonstrate understanding of assistive devices/modifications for ADL. 3=Patient will improve strength/tolerance for activity to enable patient to perform ADL's. OT Education/Plan Problem List/Assessment Assessment: Decreased Activ Tolerance, Decreased UE Strength Discharge Recommendations Plan/Recommendations: Continue POC Treatment Plan/Plan of Care Patient would benefit from OT for education, treatment and training to promote independence in ADL's, mobility, safety and/or upper extremity function for ADL's. Plan of Care: ADL Retraining, Functional Mobility, Group Exercise/Act as Ind, UE Funct Exercise/Act Treatment Duration: Jan 26, 2019 Frequency: At least 5 of 7 days/Wk (IRF) Estimated Hrs Per Day: 1.5 hours per day Agreement: Yes Rehab Potential: Good Time/GCodes Start Time: 12:30 Stop Time: 13:00 Total Time Billed (hr/min): 30 Billed Treatment Time 1 visit-EX 2 (30 min) ADRIAN BROWN January 07, 2019 13:02
--- NOTE | 2019-01-07 15:20 | Physical Therapy Daily Note ---
PT Daily Note-Current Subjective Pt laying Supine in bed visiting with family upon arrival. Pt asked for CLAIMS ADJUSTOR to come back in another 30m then pt agrees to Supine EX for tx only. Pain Numeric Pain Scale: 8 Location: Right Location Body Site: Hip Pain Description: Ache, Tightness Mental Status Patient Orientation: Person, Confused, Place Transfers Therapy Code Descriptions/Definitions Functional [place] Measure: 0=Not Assessed/NA 4=Minimal Assistance 1=Total Assistance 5=Supervision or Setup 2=Maximal Assistance 6=Modified [place] 3=Moderate Assistance 7=Complete [place] Therapy Quality Codes: 6 Independent with activity with or without an assistive device 5 Patient requires set up or clean up by helper. Patient completes activity by themselves 4 Supervision or touching assist (CGA). [place] provide cues , steadying assist 3 The helper provides less than half the effort to complete the activity 2 The helper provides more than half the effort to complete the activity 1 Dependent. The helper does all the effort to complete an activity 7 Patient refused to complete or attempt activity 9 The patient did not perform the activity before the current illness or injury 88 Not attempted due to Medical conditions or safety concerns Weight Bearing Right Lower Extremity: Right Weight Bearing/Tolerated Exercises Supine Ex: Ankle pumps, Quad Set, Glut sets, Heel Slides, Straight leg raise, Hip abd/add Supine Reps: 15 Treatments Pt completes Supine EX in bed with several RB due to pain and fatigue. Assessment Current Status: Fair Progress Pt self limits due to pain and demonstrates Dementia, possible Sundowners per this therapist. PT Short Term Goals Short Term Goals Time Frame: Jan 12, 2019 Gait (FIM): 1 Gait Distance Comment: 25' Gait Level of Assist: 4 Gait Assistive Device: FWW Wheelchair Distance: 150' PT Prison Goals Painter Decorator Goals PT Painter Decorator Goals Time Frame: Jan 26, 2019 Transfers (B,C,W/C) (FIM): 5 Sit to Lying (QC): 4 Lying-Sitting on Side/Bed(QC): 4 Sit to Stand (QC): 4 Rollin Roll Left to Right (QC): 4 Chair/Bld-xt-Mchyg Xfer(QC): 4 Car Transfer (QC): 4 Gait (FIM): 2 Distance: 50' Walk 10 feet (QC): 4 Walk 10ft-Uneven Surface(QC): 4 Walk 50ft with 2 Turns (QC): 4 Gait Level of Assist: 5 Gait Assistive Device: FWW Stairs (FIM): 2 # of Steps: 4 1 Step (curb) (QC): 4 4 Steps (QC): 4 Stairs Level Of Assist: 4 PT Plan Problem List Problem List: Activity Tolerance, Functional Strength, Safety, Balance, Gait, Transfer, Bed Mobility, ROM Treatment/Plan Treatment Plan: Continue Plan of Care Treatment Plan: Bed Mobility, Education, Functional Activity Sandra, Functional Strength, Group Therapy, Gait, Safety, Therapeutic Exercise, Transfers Treatment Duration: Jan 26, 2019 Frequency: At least 5 of 7 days/Wk (IRF) Estimated Hrs Per Day: 1.5 hours per day Patient and/or Family Agrees t: Yes Safety Risks/Education Patient Education: Transfer Techniques, Correct Positioning, Safety Issues Teaching Recipient: Patient Teaching Methods: Discussion Response to Teaching: Verbalize Understanding, Reinforcement Needed Time/GCodes Time In: 1430 Time Out: 1500 Total Billed Treatment Time: 30 Total Billed Treatment 1, EX x2 (30m) G Codes Necessary: SULTANA Mosqueda CLAIMS ADJUSTOR January 07, 2019 15:20
[2019-01-07 15:44] VITALS: BP 129/72
[2019-01-07] MEDS ORDERED: DILTIAZEM IV FOR DRIP 125 MG in NS (IVPB) 100 ML IV SCH (15:45)
[2019-01-07] MEDS ORDERED: SOTALOL 80 MG (BETAPACE) TAB PO SCH (21:00)
--- NOTE | 2019-01-07 21:00 | NUR ---
AT BEDSIDE. STATES DIZZY SPELLS IMPROVED, BUT DID HAVE A "DANDY" ONE THIS AFTERNOON. DIARRHEA X 3 TODAY AND REFUSED HS LAXATIVES. DENIES ANY PAIN.
--- NOTE | 2019-01-08 01:15 | NUR ---
THIS RN TO ASSUME PATIENT CARE.
[2019-01-08] MEDS: oxyCODONE/APAP 5/325MG (PERCOCET 5) TABLET PO PRN ×3 (03:44→17:47)
[2019-01-08 05:50] LABS: BASOPHILS % (AUTO) 0 % (0-10); EOSINOPHILS # (AUTO) 0.3 10^3/uL (0.0-0.3); EOSINOPHILS % (AUTO) 3 % (0-10); HEMATOCRIT 28 % (35-52); HEMOGLOBIN 8.8 G/DL (11.5-16.0); LYMPHOCYTES # (AUTO) 1.5 X 10^3 (1.0-4.0); LYMPHOCYTES % (AUTO) 15 % (12-44); MEAN CORPUSCULAR HEMOGLOBIN 32 PG (25-34); MEAN CORPUSCULAR HGB CONC 32 G/DL (32-36); MEAN CORPUSCULAR VOLUME 100 FL (80-99); MEAN PLATELET VOLUME 10.6 FL (7.4-10.4); MONOCYTES # (AUTO) 0.8 X 10^3 (0.0-1.0); MONOCYTES % (AUTO) 8 % (0-12); NEUTROPHILS # (AUTO) 7.4 X 10^3 (1.8-7.8); NEUTROPHILS % (AUTO) 74 % (42-75); PLATELET COUNT 264 10^3/uL (130-400); RED CELL DISTRIBUTION WIDTH 14.7 % (10.0-14.5); WHITE BLOOD COUNT 9.9 10^3/uL (4.3-11.0)
[2019-01-08 06:00] VITALS: BP 145/68
[2019-01-08 06:05] LABS: BUN/CREATININE RATIO 19; CARBON DIOXIDE 26 MMOL/L (21-32); CHLORIDE 106 MMOL/L (98-107); CREATININE SERUM 0.64 MG/DL (0.60-1.30); GFR ESTIMATED > 60; GLUCOSE 127 MG/DL (70-105); POTASSIUM 3.8 MMOL/L (3.6-5.0); SODIUM 140 MMOL/L (135-145)
[2019-01-08 06:06] LABS: ALANINE AMINOTRANSFERASE 19 U/L (0-55); ALBUMIN 3.2 GM/DL (3.2-4.5); ALKALINE PHOSPHATASE 76 U/L (40-136); BILIRUBIN,TOTAL 0.7 MG/DL (0.1-1.0); CALCIUM 8.7 MG/DL (8.5-10.1); TOTAL PROTEIN 5.8 GM/DL (6.4-8.2)
[2019-01-08] MEDS: inSUlin ASPART (NovoLOG) 1 UNIT/0.01 ML (CHARGE PER UNIT) SC SCH ×4 (06:09→21:20)
[2019-01-08] MEDS: CATHETER FLUSH 10 ML SYR IV SCH ×3 (06:09→21:24)
[2019-01-08] MEDS: glyBURIDE 2.5 MG (MICRONASE) TAB PO SCH (06:10)
--- NOTE | 2019-01-08 07:01 | Progress Note-Standard ---
Standard Progress Note Progress Notes/Assess & Plan Date Seen by a Provider: January 08, 2019 Time Seen by a Provider: 07:00 Progress/Assessment & Plan no complaints RLE-incisions clean and dry. No calf tenderness. Neg SLR s/p IM rell R hip continue PT/OT Final Diagnosis no complaints Vital Signs Date Time Temp Pulse Resp B/P (MAP) Pulse Ox O2 Delivery O2 Flow Rate FiO2 01/08/19 03:44 97.8 01/07/19 21:00 Room Air 01/07/19 15:44 98.6 81 16 129/72 (91) 93 Room Air 01/07/19 08:34 Room Air I & O 01/08/19 07:00 Intake Total 1130 ml Balance 1130 ml Laboratory Tests Test 01/07/19 10:55 01/07/19 15:43 01/07/19 20:11 01/08/19 05:20 Range/Units Glucometer 198 H 183 H 207 H 70-110 MG/DL White Blood Count 9.9 4.3-11.0 10^3/uL Red Blood Count 2.78 L 4.35-5.85 10^6/uL Hemoglobin 8.8 L 11.5-16.0 G/DL Hematocrit 28 L 35-52 % Mean Corpuscular Volume 100 H 80-99 FL Mean Corpuscular Hemoglobin 32 25-34 PG Mean Corpuscular Hemoglobin Concent 32 32-36 G/DL Red Cell Distribution Width 14.7 H 10.0-14.5 % Platelet Count 264 130-400 10^3/uL Mean Platelet Volume 10.6 H 7.4-10.4 FL Neutrophils (%) (Auto) 74 42-75 % Lymphocytes (%) (Auto) 15 12-44 % Monocytes (%) (Auto) 8 0-12 % Eosinophils (%) (Auto) 3 0-10 % Basophils (%) (Auto) 0 0-10 % Neutrophils # (Auto) 7.4 1.8-7.8 X 10^3 Lymphocytes # (Auto) 1.5 1.0-4.0 X 10^3 Monocytes # (Auto) 0.8 0.0-1.0 X 10^3 Eosinophils # (Auto) 0.3 0.0-0.3 10^3/uL Basophils # (Auto) 0.0 0.0-0.1 10^3/uL Sodium Level 140 135-145 MMOL/L Potassium Level 3.8 3.6-5.0 MMOL/L Chloride Level 106 98-107 MMOL/L Carbon Dioxide Level 26 21-32 MMOL/L Anion Gap 8 5-14 MMOL/L Blood Urea Nitrogen 12 7-18 MG/DL Creatinine 0.64 0.60-1.30 MG/DL Estimat Glomerular Filtration Rate > 60 BUN/Creatinine Ratio 19 Glucose Level 127 H 70-105 MG/DL Calcium Level 8.7 8.5-10.1 MG/DL Corrected Calcium 9.3 8.5-10.1 MG/DL Total Bilirubin 0.7 0.1-1.0 MG/DL Aspartate Amino Transf (AST/SGOT) 25 5-34 U/L Alanine Aminotransferase (ALT/SGPT) 19 0-55 U/L Alkaline Phosphatase 76 40-136 U/L Total Protein 5.8 L 6.4-8.2 GM/DL Albumin 3.2 3.2-4.5 GM/DL Test 01/08/19 06:08 Range/Units Glucometer 116 H 70-110 MG/DL R hip dressing intact. No calf tenderness s/p R hip IM rell continue PT and OT ROSA ISELA GAXIOLA MD January 08, 2019 07:01
--- NOTE | 2019-01-08 08:33 | PM&R Progress Note ---
Subjective HPI/CC On Admission Date Seen by Provider: January 08, 2019 Time Seen by Provider: 08:30 CC: Right hip fracture with debility HPI: This is a 73yoWF patient who presented to the [facility] ER after a vertigo episode and fall who sustained a right hip fracture s/p repair in an uncomplicated manner by Dr Tirado on 12/31/18. Patient has a h/o CABG but no follow up since that time. She moved to [place] with her for 2 years and did not see a medical professional since that time and has since moved back to [facility] and had yet to establish with anyone. Her son is an ER doctor in [place] for 10 years. Currently she is doing well as long as she doesn't move and her pain is controlled from the pain meds when she takes it. No BM since admit so will need to work on that and multiple meds are ordered to regain normal bowel function. Anemia noted so Venofer will be ordered and iron level was drawn on today's labs. Dr Novak has provided Cardiology consultation services which are much appreciated. She seems to have PVD due to decreased pedal pulses. HGA1C is 8.1 so will order SSI and likely begin OHA while in IRF. Her PLOF was independent at home with her . Subjective/Events-last exam Blood sugar was 116 this morning Vertigo seems to be helped by Meclizine but she doesn't take it regularly Bowel movements are normal Venofer is given without complication Overall feels like she is progressing Participating in therapy Labs 8.8 hgb Incision looks good Pain is much improved and controlled on pain medication Conferred with RN Reviewed therapy notes Review of Systems General: Fatigue, Other (dizziness) Musculoskeletal: leg pain Objective Exam Vital Signs Vital Signs Date Time Temp Pulse Resp B/P (MAP) Pulse Ox O2 Delivery O2 Flow Rate FiO2 01/08/19 06:00 98.8 80 20 145/68 (93) 95 Room Air Capillary Refill : Less Than 3 Seconds General Appearance: No Apparent Distress, WD/WN, Chronically ill HEENT: PERRL/EOMI, Normal ENT Inspection, Pharynx Normal, Moist Mucous Membranes Neck: Full Range of Motion, Normal Inspection, Non Tender, Supple Respiratory: Chest Non Tender, Lungs Clear, Normal Breath Sounds, No Accessory Muscle Use, No Respiratory Distress Cardiovascular: Regular Rate, Rhythm, No Edema, No Gallop, No JVD, No Murmur Gastrointestinal: Normal Bowel Sounds, No Organomegaly, No Pulsatile Mass, Non Tender, Soft Back: Normal Inspection, No CVA Tenderness, No Vertebral Tenderness Extremity: Normal Capillary Refill, Normal Inspection, Normal Range of Motion (except right leg due to hip pain), Non Tender, No Calf Tenderness, No Pedal Edema Neurologic/Psychiatric: Alert, Oriented x3, No Motor/Sensory Deficits, Normal Mood/Affect, Motor Weakness (generalized weakness) Skin: Normal Color, Warm/Dry Lymphatic: No Adenopathy Results/Procedures Lab Laboratory Tests 01/08/19 05:20 Patient resulted labs reviewed. FIM Transfers Therapy Code Descriptions/Definitions Functional [place] Measure: 0=Not Assessed/NA 4=Minimal Assistance 1=Total Assistance 5=Supervision or Setup 2=Maximal Assistance 6=Modified [place] 3=Moderate Assistance 7=Complete [place] Therapy Quality Codes: 6 Independent with activity with or without an assistive device 5 Patient requires set up or clean up by helper. Patient completes activity by themselves 4 Supervision or touching assist (CGA). [place] provide cues , steadying as sist 3 The helper provides less than half the effort to complete the activity 2 The helper provides more than half the effort to complete the activity 1 Dependent. The helper does all the effort to complete an activity 7 Patient refused to complete or attempt activity 9 The patient did not perform the activity before the current illness or injury 88 Not attempted due to Medical conditions or safety concerns Transfers (B, C, W/C) (FIM): 4 (Min assist sit-stand and transfer to bed from wheelchair.) Scootin Rollin Roll Left to Right (QC): 4 Supine to/from Sit: 4 Sit to/from Stand: 4 Sit to Lying (QC): 4 Sit to Stand (QC): 4 Chair/Yks-zf-Xvzbi Xfer(QC): 3 Bed to/from Chair: 4 Car Transfer (QC): 3 Gait Training Does the Patient Walk?: Yes Gait (FIM): 2 Distance (FIM): 1=up to 49 ft Distance: 8' x6 Walk 10 feet (QC): 4 Gait Level of Assist: 4 Gait Persons Needed: 1 Gait Assistive Device: Parallel Bars Wheelchair Training Does the Pt Use a Wheelchair?: Yes Wheelchair (FIM): 5 Wheelchair Distance: 3=150 ft Distance: 150' Wheelchair Level of Assist: 5 Wheel 50 ft with 2 turns (QC): 5 Wheel 150 ft (QC): 5 Type of Wheelchair: Manual Mental Status/Objective Comprehension: 7 Expression: 7 Social Interaction: 7 Problem Solvin Memory: 7 ADL-Treatment Feedin Eating (QC): 6 Groomin Oral Hygiene (QC): 5 Bathin (Min assist in stance for balance in stance to wash elias area.) Shower/Bathe Self (QC): 4 Upper Extremity Dressin Upper Body Dressing (QC): 4 Lower Extremity Dressin (Mod assist overall with LE dressing. Pt. uses AE but requires cues and assist.) Lower Body Dressing (QC): 3 On/Off Footwear (QC): 3 Assessment/Plan Assessment and Plan Assess & Plan/Chief Complaint Assessment: s/p right hip fracture repair POD # 8 DM HTN CAD CABG hx Anemia iron def s/p UTI Vertigo Fall PVD suspected Constipation-resolved after aggressive regimen Plan: IRF protocols SSI Pain control BM regimen maintained with stool softner Venofer Meclizine to help vertigo Start OHA low dose (1) Closed intertrochanteric fracture of right hip (2) Closed intertrochanteric fracture of left hip (3) Diabetes mellitus (4) CAD (coronary artery disease) (5) Anemia, iron deficiency (6) Hx of CABG (7) Vertigo (8) Fall on same level RUFINO MEDEL DO January 08, 2019 08:33
--- NOTE | 2019-01-08 09:04 | Physical Therapy Daily Note ---
PT Daily Note-Current Subjective Pt. initially resists Rx and states she is always afraid her dizziness will inhibit her. After beginning pt. seems more agreeable and happy to be progressing Pain Numeric Pain Scale: 4 Location: Right Location Body Site: Hip Pain Description: Stabbing Appearance looks down during gait and upright fearful she will get dizzy Mental Status Patient Orientation: Normal For Age Transfers Therapy Code Descriptions/Definitions Functional [place] Measure: 0=Not Assessed/NA 4=Minimal Assistance 1=Total Assistance 5=Supervision or Setup 2=Maximal Assistance 6=Modified [place] 3=Moderate Assistance 7=Complete [place] Therapy Quality Codes: 6 Independent with activity with or without an assistive device 5 Patient requires set up or clean up by helper. Patient completes activity by themselves 4 Supervision or touching assist (CGA). [place] provide cues , steadying assist 3 The helper provides less than half the effort to complete the activity 2 The helper provides more than half the effort to complete the activity 1 Dependent. The helper does all the effort to complete an activity 7 Patient refused to complete or attempt activity 9 The patient did not perform the activity before the current illness or injury 88 Not attempted due to Medical conditions or safety concerns Transfers (B, C, W/C) (FIM): 5 Scootin Rollin Supine to/from Sit: 5 Sit to/from Stand: 5 Bed to/from Chair: 5 Pt. with bed flat instructed to use rails to push and roll slowly TRFd sup to sit SBA. sit to stand many cues to push from chair etc Weight Bearing Right Lower Extremity: Right Weight Bearing/Tolerated Gait Training Does the Patient Walk?: Yes Gait (FIM): 2 Distance (FIM): 2=809-12 ft (60ft, 40ft, 20ft) Gait Level of Assist: 4 Gait Persons Needed: 1 Gait Assistive Device: FWW slow with w/c to follow, CGA, sequence instruction Wheelchair Training Does the Pt Use a Wheelchair?: Yes Wheelchair (FIM): 5 Wheelchair Distance: 3=150 ft Wheelchair Level of Assist: 5 Type of Wheelchair: Manual Exercises Supine Ex: Ankle pumps, Quad Set, Rolling, Glut sets, Heel Slides, Short Arc Quads, Scooting, Straight leg raise, Hip abd/add Supine Reps: 15 Seated Therapy Exercises: Ankle pumps, Sit to stand, Long arc quads, Hip abd/add Seated Reps: 12 NuStep Minutes: 8 NuStep Workload: 5 Assessment Current Status: Good Progress increased funct mob, less c/o pain PT Short Term Goals Short Term Goals Time Frame: Jan 12, 2019 Gait (FIM): 1 Gait Distance Comment: 25' Gait Level of Assist: 4 Gait Assistive Device: FWW Wheelchair Distance: 150' PT Alf Goals Stock Room Manager Goals PT Stock Room Manager Goals Time Frame: Jan 26, 2019 Transfers (B,C,W/C) (FIM): 5 Sit to Lying (QC): 4 Lying-Sitting on Side/Bed(QC): 4 Sit to Stand (QC): 4 Rollin Roll Left to Right (QC): 4 Chair/Nid-cz-Guzup Xfer(QC): 4 Car Transfer (QC): 4 Gait (FIM): 2 Distance: 50' Walk 10 feet (QC): 4 Walk 10ft-Uneven Surface(QC): 4 Walk 50ft with 2 Turns (QC): 4 Gait Level of Assist: 5 Gait Assistive Device: FWW Stairs (FIM): 2 # of Steps: 4 1 Step (curb) (QC): 4 4 Steps (QC): 4 Stairs Level Of Assist: 4 PT Plan Treatment/Plan Treatment Plan: Continue Plan of Care Treatment Plan: Bed Mobility, Education, Functional Activity Sandra, Functional Strength, Group Therapy, Gait, Safety, Therapeutic Exercise, Transfers Treatment Duration: Jan 26, 2019 Frequency: At least 5 of 7 days/Wk (IRF) Estimated Hrs Per Day: 1.5 hours per day Patient and/or Family Agrees t: Yes Safety Risks/Education Patient Education: Gait Training, Transfer Techniques, Correct Positioning, Disease Process, Safety Issues Teaching Recipient: Patient Teaching Methods: Demonstration, Discussion Response to Teaching: Verbalize Understanding, Return Demonstration, Reinforcem ent Needed Time/GCodes Time In: 800 Time Out: 900 Total Billed Treatment Time: 60 Total Billed Treatment 1,GT25m,EX35m G Codes Necessary: JESSIE Mendez RESEARCH AND EVALUATION MANAGER January 08, 2019 09:04
[2019-01-08] MEDS: ENOXAPARIN 40 MG/0.4 ML (LOVENOX) SYR SC SCH (09:11)
[2019-01-08] MEDS: BISACODYL 10 MG SUPP (DULCOLAX) PR SCH ×2 (09:12→20:55)
[2019-01-08] MEDS: LACTULOSE SYRUP 10GM/15ML (ENULOSE) 30ML UDC PO SCH ×2 (09:15→20:55)
[2019-01-08] MEDS: SENNA W/DOCUSATE (SENOKOT S) TABLET PO SCH ×2 (09:15→20:55)
[2019-01-08] MEDS: MECLIZINE 25 MG (ANTIVERT) TAB PO PRN (09:22)
--- NOTE | 2019-01-08 10:51 | Occupational Ther Daily Note ---
OT Current Status-Daily Note Subjective Pt seen in room, up in w/c, agreeable to OT. Reported she just had pain meds and rated R hip pain 8/10. Appearance Alert, cooperative, anxious about falling due to dizziness Mental Status/Objective Therapy Code Descriptions/Definitions Functional [place] Measure: 0=Not Assessed/NA 4=Minimal Assistance 1=Total Assistance 5=Supervision or Setup 2=Maximal Assistance 6=Modified [place] 3=Moderate Assistance 7=Complete [place] ADL-Treatment Pt declined shower but agreed to sponge bath. Doffed/donned upper body clothing with setup and washed/dried upper body sponge bath, setup. Sit to stand CGA, FWW and stood CGA to manage clothing and wash elias/bottom. Pt very anxious about falling and requested OT to hold on to gait belt but did not need physical assistance. Cues for hand placement. Pt declined grooming tasks. Has difficulty lifting R foot to place it on legrest. Therapy Code Descriptions/Definitions Functional [place] Measure: 0=Not Assessed/NA 4=Minimal Assistance 1=Total Assistance 5=Supervision or Setup 2=Maximal Assistance 6=Modified [place] 3=Moderate Assistance 7=Complete [place] Therapy Quality Codes: 6 Independent with activity with or without an assistive device 5 Patient requires set up or clean up by helper. Patient completes activity by themselves 4 Supervision or touching assist (CGA). [place] provide cues , steadying assist 3 The helper provides less than half the effort to complete the activity 2 The helper provides more than half the effort to complete the activity 1 Dependent. The helper does all the effort to complete an activity 7 Patient refused to complete or attempt activity 9 The patient did not perform the activity before the current illness or injury 88 Not attempted due to Medical conditions or safety concerns Upper Body (FIM): 5 Other Treatment Pt transported to gym per w/c. Completed arc activity with 1# weight on each arm. Also did 10 minutes bilat UE ex on arm bike set at 15W resistance, with one brief recovery period midway. Both activities to strengthen arms to help with transfers and standing during ADLs. Pt returned to room and transferred into bed with CGA, sit to stand and to pivot, cues for hand placement for sitting and during transfer. Pt educ on how to help get R lg into bed but still needed mod assist with legs. Pt left up in bed, 4 rails up, present, all needs met. Education OT Patient Education: Modified ADL techniques, Progress toward Goal/Update tx plan, Purpose of tx/functional activities, Safety issues, Transfer techniques Teaching Recipient: Patient Teaching Methods: Discussion Response to Teaching: Verbalize Understanding, Return Demonstration, Reinforcement Needed OT Short Term Goals Short Term Goals Time Frame: Jan 12, 2019 Bathing(FIM): 4 Lower Body Dressing(FIM): 3 Toilet/Commode Transfer(FIM): 4 (CGA) Additional Short Term Goals: 1-Demonstrate ADL Tasks, 2-Verbalize Understanding, 3-ImproveStrength/Sandra 1=Demonstrate adherence to instructed precautions during ADL tasks. 2=Patient will verbalize/demonstrate understanding of assistive devices/modifications for ADL. 3=Patient will improve strength/tolerance for activity to enable patient to perform ADL's. OT Correction Goals Ship Loader Goals Time Frame: Jan 26, 2019 Eating (FIM): 7 Eating (QC): 6 Groomin Oral Hygiene (QC): 6 Bathing(FIM): 5 Shower/Bathe Self (QC): 5 Upper Body Dressing(FIM): 5 Upper Body Dressing (QC): 5 Lower Body Dressing(FIM): 5 Lower Body Dressing (QC): 5 On/Off Footwear (QC): 5 Toileting(FIM): 6 Toileting Hygiene (QC): 6 Toilet/Commode Transfer(FIM): 6 Toilet/Commode Transfer (QC): 6 Shower Transfer(FIM): 5 Additional Goals: 1-Demonstrate ADL Tasks, 2-Verbalize Understanding, 3- ImproveStrength/Sandra 1=Demonstrate adherence to instructed precautions during ADL tasks. 2=Patient will verbalize/demonstrate understanding of assistive devices/modifications for ADL. 3=Patient will improve strength/tolerance for activity to enable patient to perform ADL's. OT Education/Plan Discharge Recommendations Plan/Recommendations: Continue POC Treatment Plan/Plan of Care Patient would benefit from OT for education, treatment and training to promote independence in ADL's, mobility, safety and/or upper extremity function for ADL's. Plan of Care: ADL Retraining, Functional Mobility, Group Exercise/Act as Ind, UE Funct Exercise/Act Treatment Duration: Jan 26, 2019 Frequency: At least 5 of 7 days/Wk (IRF) Estimated Hrs Per Day: 1.5 hours per day Agreement: Yes Rehab Potential: Good Time/GCodes Start Time: 09:30 Stop Time: 10:33 Total Time Billed (hr/min): 63 Billed Treatment Time visit, 30 minutes ADL, 33 minutes exercise KARI SENIOR OT January 08, 2019 10:51
--- NOTE | 2019-01-08 14:27 | Therapy Group Daily Note ---
Therapy Daily Group Note Patient Education Topic Other List Below (benefits of exercise, ARU orientation) Exercises LE Seated Exercise, UE Exercise Session Ratio (pt:therapist): 3:1 Goal of Session: Education on ARU Expectations, UE/LE Strengthing, Other (list) (benefit of exercise) Goal Met for this Session: Yes Pt Benefit of Group: Contributions to Others, Increased Functional Strength, Recognition of Peers, Socialization Other/Notes Pt. participated in group PT OT session this date. Pt. came and went by w/c walking short dist to from w/c and bed. Pt. was social and shared her name , home town and her favorite exercise/activity. Pt. participated in rolling large dice for # then leading and demonstrating an exercise they had learned or practiced at home previously. Pt. to room after with some assist to bed, matthias at hand Start Time: 13:00 Stop Time: 14:05 Total Billed Treatment Time: 65 Total Billed Treatment 1,GRP JESSIE COTTO SUPERVISOR INTELLIGENCE ANALYST January 08, 2019 14:27
[2019-01-08 15:35] VITALS: BP 119/63
--- NOTE | 2019-01-08 19:24 | NUR ---
bedside report received from JOSÉ MIGUEL RENEE, assume care of pt
--- NOTE | 2019-01-08 20:50 | NUR ---
refused Enulose, Senokot & Dulcolax supp states had bm today
--- NOTE | 2019-01-08 21:15 | NUR ---
assessments & interventions completed, see assessments & interventions, fsbs 210 NovoLog 6 units given
[2019-01-09 06:07] VITALS: BP 123/68
[2019-01-09] MEDS: inSUlin ASPART (NovoLOG) 1 UNIT/0.01 ML (CHARGE PER UNIT) SC SCH ×4 (06:20→21:07)
[2019-01-09] MEDS: CATHETER FLUSH 10 ML SYR IV SCH ×3 (06:20→21:13)
[2019-01-09] MEDS: glyBURIDE 2.5 MG (MICRONASE) TAB PO SCH (06:21)
--- NOTE | 2019-01-09 07:17 | NUR ---
bedside report given to REMINGTON RENEE
--- NOTE | 2019-01-09 08:00 | NUR ---
STATES WALKING BETTER AND DIZZINESS IMPROVED. RIGHT LEG SWOLLEN FROM KNEE TO HIP. JOSE ALEJANDRO DONOHUE PUT ON.
[2019-01-09] MEDS: IRON SUCROSE 200 MG/10 ML (VENOFER) VIAL IV SCH (08:29)
[2019-01-09] MEDS: CATHETER FLUSH 10 ML SYR IV PRN (08:30)
[2019-01-09] MEDS: SENNA W/DOCUSATE (SENOKOT S) TABLET PO SCH ×2 (08:33→21:06)
[2019-01-09] MEDS: ENOXAPARIN 40 MG/0.4 ML (LOVENOX) SYR SC SCH (08:33)
[2019-01-09] MEDS: BISACODYL 10 MG SUPP (DULCOLAX) PR SCH ×2 (08:33→21:06)
[2019-01-09] MEDS: LACTULOSE SYRUP 10GM/15ML (ENULOSE) 30ML UDC PO SCH ×2 (08:33→21:06)
[2019-01-09] MEDS: oxyCODONE/APAP 5/325MG (PERCOCET 5) TABLET PO PRN ×2 (08:44→16:54)
--- NOTE | 2019-01-09 10:00 | NUR ---
DR. GAXIOLA HERE TO SEE PATIENT.
--- NOTE | 2019-01-09 10:01 | Progress Note-Standard ---
Standard Progress Note Progress Notes/Assess & Plan Date Seen by a Provider: Jan 09, 2019 Time Seen by a Provider: 10:00 Progress/Assessment & Plan no complaints RLE-incisions clean and dry. No calf tenderness. Neg SLR s/p IM rell R hip continue PT/OT Final Diagnosis no complaints ambulation improving Neg Dalia's s/p IM rell R hip continue PT/OT ROSA ISELA GAXIOLA MD Jan 09, 2019 10:01
--- NOTE | 2019-01-09 11:38 | PM&R Progress Note ---
Subjective HPI/CC On Admission Date Seen by Provider: Jan 09, 2019 Time Seen by Provider: 11:00 CC: Right hip fracture with debility HPI: This is a 73yoWF patient who presented to the [facility] ER after a vertigo episode and fall who sustained a right hip fracture s/p repair in an uncomplicated manner by Dr Tirado on 12/31/18. Patient has a h/o CABG but no follow up since that time. She moved to [place] with her for 2 years and did not see a medical professional since that time and has since moved back to [facility] and had yet to establish with anyone. Her son is an ER doctor in [place] for 10 years. Currently she is doing well as long as she doesn't move and her pain is controlled from the pain meds when she takes it. No BM since admit so will need to work on that and multiple meds are ordered to regain normal bowel f unction. Anemia noted so Venofer will be ordered and iron level was drawn on today's labs. Dr Novak has provided Cardiology consultation services which are much appreciated. She seems to have PVD due to decreased pedal pulses. HGA1C is 8.1 so will order SSI and likely begin OHA while in IRF. Her PLOF was independent at home with her . Subjective/Events-last exam Blood sugars are improved Vertigo seems to be helped by Meclizine and she reports dramatic improvement over the last day Bowel movements are normal since meds given and on Colace Venofer is given without complication Overall feels like she is progressing nicely Relative at the bedside today Participating in therapy Incision looks good Pain is much improved and controlled on pain medication Conferred with RN Reviewed therapy notes Review of Systems General: Fatigue Musculoskeletal: leg pain Objective Exam Vital Signs Vital Signs Date Time Temp Pulse Resp B/P (MAP) Pulse Ox O2 Delivery O2 Flow Rate FiO2 01/09/19 09:00 Room Air 01/09/19 06:07 99.6 76 18 123/68 (86) 92 Capillary Refill : Less Than 3 Seconds General Appearance: No Apparent Distress, WD/WN, Chronically ill HEENT: PERRL/EOMI, Normal ENT Inspection, Pharynx Normal, Moist Mucous Membranes Neck: Full Range of Motion, Normal Inspection, Non Tender, Supple Respiratory: Chest Non Tender, Lungs Clear, Normal Breath Sounds, No Accessory Muscle Use, No Respiratory Distress Cardiovascular: Regular Rate, Rhythm, No Edema, No Gallop, No JVD, No Murmur Gastrointestinal: Normal Bowel Sounds, No Organomegaly, No Pulsatile Mass, Non Tender, Soft Back: Normal Inspection, No CVA Tenderness, No Vertebral Tenderness Extremity: Normal Capillary Refill, Normal Inspection, Normal Range of Motion (except right leg due to hip pain), Non Tender, No Calf Tenderness, No Pedal Edema Neurologic/Psychiatric: Alert, Oriented x3, No Motor/Sensory Deficits, Normal Mood/Affect, Motor Weakness (generalized weakness) Skin: Normal Color, Warm/Dry Lymphatic: No Adenopathy Results/Procedures Lab Patient resulted labs reviewed. FIM Transfers Therapy Code Descriptions/Definitions Functional [place] Measure: 0=Not Assessed/NA 4=Minimal Assistance 1=Total Assistance 5=Supervision or Setup 2=Maximal Assistance 6=Modified [place] 3=Moderate Assistance 7=Complete [place] Therapy Quality Codes: 6 Independent with activity with or without an assistive device 5 Patient requires set up or clean up by helper. Patient completes activity by themselves 4 Supervision or touching assist (CGA). [place] provide cues , steadying assist 3 The helper provides less than half the effort to complete the activity 2 The helper provides more than half the effort to complete the activity 1 Dependent. The helper does all the effort to complete an activity 7 Patient refused to complete or attempt activity 9 The patient did not perform the activity before the current illness or injury 88 Not attempted due to Medical conditions or safety concerns Transfers (B, C, W/C) (FIM): 5 Scootin Rollin Roll Left to Right (QC): 4 Supine to/from Sit: 5 Sit to/from Stand: 5 Sit to Lying (QC): 4 Sit to Stand (QC): 4 Chair/Ike-zq-Ofqdm Xfer(QC): 3 Bed to/from Chair: 5 Car Transfer (QC): 3 Gait Training Does the Patient Walk?: Yes Gait (FIM): 2 Distance (FIM): 5=677-07 ft (60ft, 40ft, 20ft) Distance: 8' x6 Walk 10 feet (QC): 4 Gait Level of Assist: 4 Gait Persons Needed: 1 Gait Assistive Device: FWW Wheelchair Training Does the Pt Use a Wheelchair?: Yes Wheelchair (FIM): 5 Wheelchair Distance: 3=150 ft Distance: 150' Wheelchair Level of Assist: 5 Wheel 50 ft with 2 turns (QC): 5 Wheel 150 ft (QC): 5 Type of Wheelchair: Manual Mental Status/Objective Comprehension: 7 Expression: 7 Social Interaction: 7 Problem Solvin Memory: 7 ADL-Treatment Feedin Eating (QC): 6 Groomin Oral Hygiene (QC): 5 Bathin (Min assist in stance for balance in stance to wash elias area.) Shower/Bathe Self (QC): 4 Upper Extremity Dressin Upper Body Dressing (QC): 4 Lower Extremity Dressin (Mod assist overall with LE dressing. Pt. uses AE but requires cues and assist.) Lower Body Dressing (QC): 3 On/Off Footwear (QC): 3 Assessment/Plan Assessment and Plan Assess & Plan/Chief Complaint Assessment: s/p right hip fracture repair POD # 9 DM HTN CAD CABG hx Anemia iron def s/p UTI Vertigo-improving Fall PVD suspected Constipation-resolved after aggressive regimen Plan: IRF protocols SSI Pain control BM regimen maintained with stool softner Venofer Meclizine to help vertigo but seems to be improved Maintain OHA low dose (1) Closed intertrochanteric fracture of right hip (2) Closed intertrochanteric fracture of left hip (3) Diabetes mellitus (4) CAD (coronary artery disease) (5) Anemia, iron deficiency (6) Hx of CABG (7) Vertigo (8) Fall on same level RUFINO MEDEL DO Jan 09, 2019 11:38
--- NOTE | 2019-01-09 11:41 | Physical Therapy Daily Note ---
PT Daily Note-Current Subjective Pt agreeable. Pt tends to self-limit (I) activity. Pt requested to use BSC, PT encouraged to walk to BR. Pt states, "I will pee the bed before I walk in there, it hurts too much". By the end of treatment, Pt agrees to allow commode to be placed over toilet and ambulate to BR. Mental Status Patient Orientation: Person, Place, Time, Situation Attachments: SCD's Transfers Therapy Code Descriptions/Definitions Functional [place] Measure: 0=Not Assessed/NA 4=Minimal Assistance 1=Total Assistance 5=Supervision or Setup 2=Maximal Assistance 6=Modified [place] 3=Moderate Assistance 7=Complete [place] Therapy Quality Codes: 6 Independent with activity with or without an assistive device 5 Patient requires set up or clean up by helper. Patient completes activity by themselves 4 Supervision or touching assist (CGA). [place] provide cues , steadying assist 3 The helper provides less than half the effort to complete the activity 2 The helper provides more than half the effort to complete the activity 1 Dependent. The helper does all the effort to complete an activity 7 Patient refused to complete or attempt activity 9 The patient did not perform the activity before the current illness or injury 88 Not attempted due to Medical conditions or safety concerns Transfers (B, C, W/C) (FIM): 3 Scootin Rollin Supine to/from Sit: 4 Sit to/from Stand: 4 Sit to Lying (QC): 3 Sit to Stand (QC): 4 Weight Bearing Right Lower Extremity: Right Weight Bearing/Tolerated Gait Training Does the Patient Walk?: Yes Gait (FIM): 2 Distance (FIM): 7=553-92 ft Distance: 100 x 2 Walk 10 feet (QC): 4 Walk 50 ft with 2 Turns(QC): 4 Gait Level of Assist: 4 Gait Assistive Device: FWW Pt ambulated with CGA x 1 with FWW. Step-to progressing to step-through with [place] ited stance time on (R) LE. Denied dizziness, [facility] following in case of dizziness. Wheelchair Training Does the Pt Use a Wheelchair?: No Exercises NuStep Minutes: 8 NuStep Workload: 3 Treatments Gait training with FWW, transfer training, NuStep for (R) LE ROM. Returned to bed, needs met. Nursing notified of commode placement in BR and to encouragement Pt to walk to BR instead of utilizing commode at bedside. Assessment Current Status: Good Progress Pt tolerated very well. Tends to self-limit and request help before attempting (I) but slowly improves with max encouragement. PT Short Term Goals Short Term Goals Time Frame: Jan 12, 2019 Gait (FIM): 1 Gait Distance Comment: 25' Gait Level of Assist: 4 Gait Assistive Device: FWW Wheelchair Distance: 150' PT Longterm Goals Longterm Goals PT Gallery Or Museum Guide Goals Time Frame: Jan 26, 2019 Transfers (B,C,W/C) (FIM): 5 Sit to Lying (QC): 4 Lying-Sitting on Side/Bed(QC): 4 Sit to Stand (QC): 4 Rollin Roll Left to Right (QC): 4 Chair/Fxo-tq-Gagmx Xfer(QC): 4 Car Transfer (QC): 4 Gait (FIM): 2 Distance: 50' Walk 10 feet (QC): 4 Walk 10ft-Uneven Surface(QC): 4 Walk 50ft with 2 Turns (QC): 4 Gait Level of Assist: 5 Gait Assistive Device: FWW Stairs (FIM): 2 # of Steps: 4 1 Step (curb) (QC): 4 4 Steps (QC): 4 Stairs Level Of Assist: 4 PT Plan Problem List Problem List: Activity Tolerance, Functional Strength, Safety, Balance, Gait, Transfer, Bed Mobility, ROM Treatment/Plan Treatment Plan: Continue Plan of Care Treatment Plan: Bed Mobility, Education, Functional Activity Sandra, Functional Strength, Group Therapy, Gait, Safety, Therapeutic Exercise, Transfers Treatment Duration: Jan 26, 2019 Frequency: At least 5 of 7 days/Wk (IRF) Estimated Hrs Per Day: 1.5 hours per day Patient and/or Family Agrees t: Yes Safety Risks/Education Patient Education: Gait Training, Transfer Techniques Teaching Recipient: Patient Teaching Methods: Discussion Response to Teaching: Verbalize Understanding, Return Demonstration, Reinforcement Needed Time/GCodes Time In: 1055 Time Out: 1134 Total Billed Treatment Time: 39 Total Billed Treatment 1, Gt x 30', Ex x 9' G Codes Necessary: ELLEN Calzada DPT Jan 09, 2019 11:41
--- NOTE | 2019-01-09 16:00 | NUR ---
AMBULATING BETTER. UP TO BATHROOM WITH ASST. PRN AND UP IN RECLINER TODAY.
[2019-01-09 17:13] VITALS: BP 145/66
--- NOTE | 2019-01-09 19:16 | NUR ---
bedside report received from REMINGTON RENEE, assume care of pt
--- NOTE | 2019-01-09 20:42 | NUR ---
refused Enulose, Senokot & Dulcolax supp up with 1 person assist & walker
--- NOTE | 2019-01-09 21:00 | NUR ---
fsbs 171 no ss insulin req
--- NOTE | 2019-01-09 21:05 | NUR ---
assessments & interventions completed, see assessments & interventions
[2019-01-10] MEDS: oxyCODONE/APAP 5/325MG (PERCOCET 5) TABLET PO PRN ×2 (00:47→13:01)
--- NOTE | 2019-01-10 00:47 | NUR ---
c/o rt hip pain, level 8/10 on numeric scale, percocet5/325 1 tab po given
--- NOTE | 2019-01-10 01:20 | NUR ---
rates pain to hip at 4/10 on numeric scale
[2019-01-10] MEDS: inSUlin ASPART (NovoLOG) 1 UNIT/0.01 ML (CHARGE PER UNIT) SC SCH ×4 (06:00→21:27)
[2019-01-10] MEDS: CATHETER FLUSH 10 ML SYR IV SCH ×3 (06:07→22:15)
[2019-01-10 06:17] VITALS: BP 127/69
[2019-01-10] MEDS: glyBURIDE 2.5 MG (MICRONASE) TAB PO SCH (06:41)
--- NOTE | 2019-01-10 07:16 | NUR ---
bedside report given to REMINGTON RENEE
[2019-01-10] MEDS: SENNA W/DOCUSATE (SENOKOT S) TABLET PO SCH ×2 (08:21→21:26)
[2019-01-10] MEDS: ENOXAPARIN 40 MG/0.4 ML (LOVENOX) SYR SC SCH (08:21)
[2019-01-10] MEDS: LACTULOSE SYRUP 10GM/15ML (ENULOSE) 30ML UDC PO SCH ×2 (08:25→21:26)
[2019-01-10] MEDS: BISACODYL 10 MG SUPP (DULCOLAX) PR SCH ×2 (08:25→21:29)
--- NOTE | 2019-01-10 11:00 | NUR ---
HAD DENIES DIZZINESS X 3 DAYS, BUT DID HAVE A MILD DIZZY EPISODE WHEN TURNED SELF IN BED.
--- NOTE | 2019-01-10 11:20 | PM&R Progress Note ---
Subjective HPI/CC On Admission Date Seen by Provider: Jan 10, 2019 Time Seen by Provider: 11:00 CC: Right hip fracture with debility HPI: This is a 73yoWF patient who presented to the [facility] ER after a vertigo episode and fall who sustained a right hip fracture s/p repair in an uncomplicated manner by Dr Tirado on 12/31/18. Patient has a h/o CABG but no follow up since that time. She moved to [place] with her for 2 years and did not see a medical professional since that time and has since moved back to [facility] and had yet to establish with anyone. Her son is an ER doctor in [place] for 10 years. Currently she is doing well as long as she doesn't move and her pain is controlled from the pain meds when she takes it. No BM since admit so will need to work on that and multiple meds are ordered to regain normal bowel f unction. Anemia noted so Venofer will be ordered and iron level was drawn on today's labs. Dr Novak has provided Cardiology consultation services which are much appreciated. She seems to have PVD due to decreased pedal pulses. HGA1C is 8.1 so will order SSI and likely begin OHA while in IRF. Her PLOF was independent at home with her . Subjective/Events-last exam Blood sugars are improved on the low dose OHA Vertigo resolved and last episode was Bowel movements are normal since meds given and on Colace but she will be maintained on this until completely off pain meds Venofer is given without complication Overall feels like she is progressing nicely and her agrees with that today Participating in therapy Incision looks good per RN Pain is much improved and controlled on pain medication Conferred with RN Reviewed therapy notes Review of Systems General: Fatigue Gastrointestinal: Constipation Musculoskeletal: leg pain Objective Exam Vital Signs Vital Signs Date Time Temp Pulse Resp B/P (MAP) Pulse Ox O2 Delivery O2 Flow Rate FiO2 01/10/19 17:07 99.4 82 20 129/71 (90) 94 Room Air Capillary Refill : Less Than 3 Seconds General Appearance: No Apparent Distress, WD/WN, Chronically ill HEENT: PERRL/EOMI, Normal ENT Inspection, Pharynx Normal, Moist Mucous Membranes Neck: Full Range of Motion, Normal Inspection, Non Tender, Supple Respiratory: Chest Non Tender, Lungs Clear, Normal Breath Sounds, No Accessory Muscle Use, No Respiratory Distress Cardiovascular: Regular Rate, Rhythm, No Edema, No Gallop, No JVD, No Murmur Gastrointestinal: Normal Bowel Sounds, No Organomegaly, No Pulsatile Mass, Non Tender, Soft Back: Normal Inspection, No CVA Tenderness, No Vertebral Tenderness Extremity: Normal Capillary Refill, Normal Inspection, Normal Range of Motion (except right leg due to hip pain), Non Tender, No Calf Tenderness, No Pedal Edema Neurologic/Psychiatric: Alert, Oriented x3, No Motor/Sensory Deficits, Normal Mood/Affect, Motor Weakness (generalized weakness) Skin: Normal Color, Warm/Dry Lymphatic: No Adenopathy Results/Procedures Lab Patient resulted labs reviewed. FIM Transfers Therapy Code Descriptions/Definitions Functional [place] Measure: 0=Not Assessed/NA 4=Minimal Assistance 1=Total Assistance 5=Supervision or Setup 2=Maximal Assistance 6=Modified [place] 3=Moderate Assistance 7=Complete [place] Therapy Quality Codes: 6 Independent with activity with or without an assistive device 5 Patient requires set up or clean up by helper. Patient completes activity by themselves 4 Supervision or touching assist (CGA). [place] provide cues , steadying assist 3 The helper provides less than half the effort to complete the activity 2 The helper provides more than half the effort to complete the activity 1 Dependent. The helper does all the effort to complete an activity 7 Patient refused to complete or attempt activity 9 The patient did not perform the activity before the current illness or injury 88 Not attempted due to Medical conditions or safety concerns Transfers (B, C, W/C) (FIM): 3 Scootin Rollin Roll Left to Right (QC): 4 Supine to/from Sit: 4 Sit to/from Stand: 4 Sit to Lying (QC): 3 Sit to Stand (QC): 4 Chair/Xzf-cl-Mcwlp Xfer(QC): 3 Bed to/from Chair: 5 Car Transfer (QC): 3 Gait Training Does the Patient Walk?: Yes Gait (FIM): 2 Distance (FIM): 6=144-53 ft Distance: 100 x 2 Walk 10 feet (QC): 4 Walk 50 ft with 2 Turns(QC): 4 Gait Level of Assist: 4 Gait Persons Needed: 1 Gait Assistive Device: FWW Wheelchair Training Does the Pt Use a Wheelchair?: No Wheelchair (FIM): 5 Wheelchair Distance: 3=150 ft Distance: 150' Wheelchair Level of Assist: 5 Wheel 50 ft with 2 turns (QC): 5 Wheel 150 ft (QC): 5 Type of Wheelchair: Manual Mental Status/Objective Comprehension: 7 Expression: 7 Social Interaction: 7 Problem Solvin Memory: 7 ADL-Treatment Feedin Eating (QC): 6 Groomin Oral Hygiene (QC): 5 Bathin (Min assist in stance for balance in stance to wash elias area.) Shower/Bathe Self (QC): 4 Upper Extremity Dressin Upper Body Dressing (QC): 4 Lower Extremity Dressin (Mod assist overall with LE dressing. Pt. uses AE but requires cues and assist.) Lower Body Dressing (QC): 3 On/Off Footwear (QC): 3 Assessment/Plan Assessment and Plan Assess & Plan/Chief Complaint Assessment: s/p right hip fracture repair POD # 10 DM HTN CAD CABG hx Anemia iron def s/p UTI Vertigo-resolved Fall PVD suspected Constipation-resolved after aggressive regimen Plan: IRF protocols SSI Pain control BM regimen maintained with stool softner Venofer Meclizine to help vertigo but seems to be improved Maintain OHA low dose (1) Closed intertrochanteric fracture of right hip (2) Closed intertrochanteric fracture of left hip (3) Diabetes mellitus (4) CAD (coronary artery disease) (5) Anemia, iron deficiency (6) Hx of CABG (7) Vertigo (8) Fall on same level RUFINO MEDEL DO Jan 10, 2019 11:20
[2019-01-10 17:07] VITALS: BP 129/71
--- NOTE | 2019-01-10 19:12 | NUR ---
bedside report received from REMINGTON RENEE, assume care of pt
--- NOTE | 2019-01-10 21:00 | NUR ---
assessments & interventions completed, see assessments & interventions, fsbs 206 NovoLog 6 units given
--- NOTE | 2019-01-10 21:29 | NUR ---
took Senokot & Enulose laxatives but refused Dulcolax supp
[2019-01-11 05:36] LABS: BASOPHILS % (AUTO) 0 % (0-10); EOSINOPHILS # (AUTO) 0.3 10^3/uL (0.0-0.3); EOSINOPHILS % (AUTO) 3 % (0-10); HEMATOCRIT 30 % (35-52); HEMOGLOBIN 9.5 G/DL (11.5-16.0); LYMPHOCYTES # (AUTO) 1.7 X 10^3 (1.0-4.0); LYMPHOCYTES % (AUTO) 16 % (12-44); MEAN CORPUSCULAR HEMOGLOBIN 32 PG (25-34); MEAN CORPUSCULAR HGB CONC 32 G/DL (32-36); MEAN CORPUSCULAR VOLUME 101 FL (80-99); MEAN PLATELET VOLUME 10.3 FL (7.4-10.4); MONOCYTES # (AUTO) 0.7 X 10^3 (0.0-1.0); MONOCYTES % (AUTO) 7 % (0-12); NEUTROPHILS # (AUTO) 7.9 X 10^3 (1.8-7.8); NEUTROPHILS % (AUTO) 74 % (42-75); PLATELET COUNT 305 10^3/uL (130-400); RED CELL DISTRIBUTION WIDTH 16.3 % (10.0-14.5); WHITE BLOOD COUNT 10.6 10^3/uL (4.3-11.0)
[2019-01-11 05:45] VITALS: BP 131/68
[2019-01-11 05:57] LABS: ALANINE AMINOTRANSFERASE 20 U/L (0-55); ALBUMIN 3.4 GM/DL (3.2-4.5); ALKALINE PHOSPHATASE 101 U/L (40-136); BILIRUBIN,TOTAL 0.6 MG/DL (0.1-1.0); BUN/CREATININE RATIO 20; CALCIUM 9.1 MG/DL (8.5-10.1); CARBON DIOXIDE 24 MMOL/L (21-32); CHLORIDE 108 MMOL/L (98-107); CREATININE SERUM 0.71 MG/DL (0.60-1.30); GFR ESTIMATED > 60; GLUCOSE 123 MG/DL (70-105); SODIUM 140 MMOL/L (135-145); TOTAL PROTEIN 6.1 GM/DL (6.4-8.2)
[2019-01-11] MEDS: inSUlin ASPART (NovoLOG) 1 UNIT/0.01 ML (CHARGE PER UNIT) SC SCH ×4 (06:00→21:00)
[2019-01-11] MEDS: glyBURIDE 2.5 MG (MICRONASE) TAB PO SCH (06:44)
[2019-01-11] MEDS: CATHETER FLUSH 10 ML SYR IV SCH ×3 (06:45→21:25)
--- NOTE | 2019-01-11 07:15 | NUR ---
bedside report given to JOSÉ MIGUEL RENEE
--- NOTE | 2019-01-11 08:08 | PM&R Progress Note ---
Subjective HPI/CC On Admission Date Seen by Provider: Jan 11, 2019 Time Seen by Provider: 08:15 CC: Right hip fracture with debility HPI: This is a 73yoWF patient who presented to the [facility] ER after a vertigo episode and fall who sustained a right hip fracture s/p repair in an uncomplicated manner by Dr Tirado on 12/31/18. Patient has a h/o CABG but no follow up since that time. She moved to [place] with her for 2 years and did not see a medical professional since that time and has since moved back to [facility] and had yet to establish with anyone. Her son is an ER doctor in [place] for 10 years. Currently she is doing well as long as she doesn't move and her pain is controlled from the pain meds when she takes it. No BM since admit so will need to work on that and multiple meds are ordered to regain normal bowel function. Anemia noted so Venofer will be ordered and iron level was drawn on today's labs. Dr Novak has provided Cardiology consultation services which are much appreciated. She seems to have PVD due to decreased pedal pulses. HGA1C is 8.1 so will order SSI and likely begin OHA while in IRF. Her PLOF was independent at home with her . Subjective/Events-last exam Doing a lot better Bowel movement was last January 07 so multiple meds will be given On her Venofer infusion Labs reviewed that I ordered today Blood sugar is much better on the very low dose of oral hypoglycemic agent Conferred with RN Reviewed therapy notes Review of Systems General: Fatigue Musculoskeletal: leg pain Objective Exam Vital Signs Vital Signs Date Time Temp Pulse Resp B/P (MAP) Pulse Ox O2 Delivery O2 Flow Rate FiO2 01/11/19 15:27 97.6 74 16 94/62 (73) 90 Room Air Capillary Refill : Less Than 3 Seconds General Appearance: No Apparent Distress, WD/WN, Chronically ill HEENT: PERRL/EOMI, Normal ENT Inspection, Pharynx Normal, Moist Mucous Membranes Neck: Full Range of Motion, Normal Inspection, Non Tender, Supple Respiratory: Chest Non Tender, Lungs Clear, Normal Breath Sounds, No Accessory Muscle Use, No Respiratory Distress Cardiovascular: Regular Rate, Rhythm, No Edema, No Gallop, No JVD, No Murmur Gastrointestinal: Normal Bowel Sounds, No Organomegaly, No Pulsatile Mass, Non Tender, Soft Back: Normal Inspection, No CVA Tenderness, No Vertebral Tenderness Extremity: Normal Capillary Refill, Normal Inspection, Normal Range of Motion (except right leg due to hip pain), Non Tender, No Calf Tenderness, No Pedal Edema Neurologic/Psychiatric: Alert, Oriented x3, No Motor/Sensory Deficits, Normal Mood/Affect, Motor Weakness (generalized weakness) Skin: Normal Color, Warm/Dry Lymphatic: No Adenopathy Results/Procedures Lab Laboratory Tests 01/11/19 05:20 Patient resulted labs reviewed. FIM Transfers Therapy Code Descriptions/Definitions Functional [place] Measure: 0=Not Assessed/NA 4=Minimal Assistance 1=Total Assistance 5=Supervision or Setup 2=Maximal Assistance 6=Modified [place] 3=Moderate Assistance 7=Complete [place] Therapy Quality Codes: 6 Independent with activity with or without an assistive device 5 Patient requires set up or clean up by helper. Patient completes activity by themselves 4 Supervision or touching assist (CGA). [place] provide cues , steadying assist 3 The helper provides less than half the effort to complete the activity 2 The helper provides more than half the effort to complete the activity 1 Dependent. The helper does all the effort to complete an activity 7 Patient refused to complete or attempt activity 9 The patient did not perform the activity before the current illness or injury 88 Not attempted due to Medical conditions or safety concerns Transfers (B, C, W/C) (FIM): 3 Scootin Rollin Roll Left to Right (QC): 4 Supine to/from Sit: 4 Sit to/from Stand: 4 Sit to Lying (QC): 3 Sit to Stand (QC): 4 Chair/Eur-gx-Rvohr Xfer(QC): 3 Bed to/from Chair: 5 Car Transfer (QC): 3 Gait Training Does the Patient Walk?: Yes Gait (FIM): 2 Distance (FIM): 2=053-46 ft Distance: 100 x 2 Walk 10 feet (QC): 4 Walk 50 ft with 2 Turns(QC): 4 Gait Level of Assist: 4 Gait Persons Needed: 1 Gait Assistive Device: FWW Wheelchair Training Does the Pt Use a Wheelchair?: No Wheelchair (FIM): 5 Wheelchair Distance: 3=150 ft Distance: 150' Wheelchair Level of Assist: 5 Wheel 50 ft with 2 turns (QC): 5 Wheel 150 ft (QC): 5 Type of Wheelchair: Manual Mental Status/Objective Comprehension: 7 Expression: 7 Social Interaction: 7 Problem Solvin Memory: 7 ADL-Treatment Feedin Eating (QC): 6 Groomin Oral Hygiene (QC): 5 Bathin (Min assist in stance for balance in stance to wash elias area.) Shower/Bathe Self (QC): 4 Upper Extremity Dressin Upper Body Dressing (QC): 4 Lower Extremity Dressin (Mod assist overall with LE dressing. Pt. uses AE but requires cues and assist.) Lower Body Dressing (QC): 3 On/Off Footwear (QC): 3 Assessment/Plan Assessment and Plan Assess & Plan/Chief Complaint Assessment: s/p right hip fracture repair POD # 11 DM HTN CAD CABG hx Anemia iron def s/p UTI Vertigo-resolved Fall PVD suspected Constipation-resolved after aggressive regimen Plan: IRF protocols SSI Pain control BM regimen maintained with stool softner but increasing today Venofer Meclizine to help vertigo but seems to be improved Maintain OHA low dose (1) Closed intertrochanteric fracture of right hip (2) Closed intertrochanteric fracture of left hip (3) Diabetes mellitus (4) CAD (coronary artery disease) (5) Anemia, iron deficiency (6) Hx of CABG (7) Vertigo (8) Fall on same level RUFINO MEDEL DO Jan 11, 2019 08:08
[2019-01-11] MEDS: MECLIZINE 25 MG (ANTIVERT) TAB PO PRN (08:19)
[2019-01-11] MEDS: SENNA W/DOCUSATE (SENOKOT S) TABLET PO SCH ×2 (08:19→21:21)
[2019-01-11] MEDS: oxyCODONE/APAP 5/325MG (PERCOCET 5) TABLET PO PRN ×3 (08:22→21:54)
[2019-01-11] MEDS: ENOXAPARIN 40 MG/0.4 ML (LOVENOX) SYR SC SCH (08:23)
[2019-01-11] MEDS: IRON SUCROSE 200 MG/10 ML (VENOFER) VIAL IV SCH (08:23)
--- NOTE | 2019-01-11 08:50 | Cardiology Progress Note ---
Subjective Date Seen by Provider: Jan 11, 2019 Time Seen by Provider: 08:20 Subjective/Events-last exam Patient is sitting up in bed, no new complaints. Denies any chest pain or dyspnea. Objective-Cardiology Exam Last Set of Vital Signs Vital Signs 01/11/19 01/11/19 05:45 08:32 Temp 98.3 Pulse 76 Resp 18 B/P (MAP) 131/68 (89) Pulse Ox 94 O2 Delivery Room Air Capillary Refill : Less Than 3 Seconds I&O Intake and Output 01/11/19 00:00 Intake Total 1000 ml Balance 1000 ml Intake Oral 1000 ml # Voids 5 General: Alert, Oriented X3, Cooperative HEENT: Atraumatic, PERRLA Neck: Supple, No JVD, No Thyromegaly Lungs: Clear to Auscultation, Normal Air Movement Heart: Regular Rate, Normal S1, Normal S2, No Murmurs Abdomen: Normal Bowel Sounds, Soft, No Tenderness, No Hepatosplenomegaly, No Masses Extremities: No Clubbing, No Cyanosis Skin: No Rashes, No Significant Lesion Neuro: Normal Speech, Cranial Nerves 3-12 NL Psych/Mental Status: Mental Status NL, Mood NL Results Lab Laboratory Tests 01/11/19 05:20 A/P-Cardiology Admission Diagnosis right hip fracture CAD DM Vertigo Assessment/Plan Right hip fx, status post surgical repair surgery was done on December 31, 2018, recovering slowly, continue to monitor Anemia, followed and managed by primary care physician Coronary artery disease, history of CABG x 4 approx [address] Velasquez in [place], [place]. No recent cardiac workup. EKG reveals SR. Denies any chest pain at this time. Continue to monitor. Will need stress test as outpatient. Diabetes mellitus, followed and managed by medical team Vertigo, better at this time. Continue to monitor Hx of uterine CA, s/p hysterectomy 8 years ago. Clinical Quality Measures DVT/VTE Risk/Contraindication: Risk Factor Score Per Nursin RFS Level Per Nursing on Admit: 4+=Very High VIOLETTE AGUIRRE Jan 11, 2019 08:50
--- NOTE | 2019-01-11 09:01 | Cardiology Progress Note ---
Subjective Date Seen by Provider: Jan 11, 2019 Time Seen by Provider: 09:00 Subjective/Events-last exam Patient is in bed, feeling better, no new complaint, no chest pain or dyspnea Review of Systems General: No Chills, No Night Sweats, No Fatigue, No Malaise, No Appetite, No Other HEENT: No Head Aches, No Visual Changes, No Eye Pain, No Ear Pain, No Dysphasia, No Sinus Congestion, No Post Nasal Drip, No Sore Throat, No Other Pulmonary: No Dyspnea, No Cough, No Pleuritic Chest Pain, No Other Cardiovascular: No: Chest Pain, Palpitations, Orthopnea, Paroxysmal Noc. Dyspnea, Edema, Lt Headedness, Other Objective-Cardiology Exam Last Set of Vital Signs Vital Signs 01/11/19 05:45 Temp 98.3 Pulse 76 Resp 18 B/P (MAP) 131/68 (89) Pulse Ox 94 O2 Delivery Room Air Capillary Refill : Less Than 3 Seconds I&O Intake and Output 01/11/19 00:00 Intake Total 1000 ml Balance 1000 ml Intake Oral 1000 ml # Voids 5 General: Alert, Oriented X3, Cooperative HEENT: Atraumatic, PERRLA Neck: Supple, No JVD, No Thyromegaly Lungs: Clear to Auscultation, Normal Air Movement Heart: Regular Rate, Normal S1, Normal S2, No Murmurs Abdomen: Normal Bowel Sounds, Soft, No Tenderness, No Hepatosplenomegaly, No Masses Extremities: No Clubbing, No Cyanosis Skin: No Rashes, No Significant Lesion Neuro: Normal Speech, Cranial Nerves 3-12 NL Psych/Mental Status: Mental Status NL, Mood NL Results Lab Laboratory Tests 01/11/19 05:20 A/P-Cardiology Admission Diagnosis right hip fracture CAD DM Vertigo Assessment/Plan Right hip fx, status post surgical repair surgery was done on December 31, 2018, recovering slowly, continue to monitor Anemia, followed and managed by primary care physician Coronary artery disease, history of CABG x [address] approx [address] Velasquez in [place], [place]. No recent cardiac workup. EKG reveals SR. Denies any chest pain at this time. Continue to monitor. Will need stress test as outpatient. Diabetes mellitus, followed and managed by medical team Vertigo, better at this time. Continue to monitor Hx of uterine CA, s/p hysterectomy 8 years ago. Clinical Quality Measures DVT/VTE Risk/Contraindication: Risk Factor Score Per Nursin RFS Level Per Nursing on Admit: 4+=Very High SANTI LAMBERT MD Jan 11, 2019 09:01
--- NOTE | 2019-01-11 09:04 | Physical Therapy Daily Note ---
PT Daily Note-Current Subjective Pt. agrees to Rx and states she has no pain at beginning of Rx. Pt. c/o pain at 6/10 at end of Rx. Nurse dispensed pain meds. Pt. explained her steps and situation at home. This TOW MOTOR MECHANIC asked pt. to consider installing rails at her steps at home Pain Numeric Pain Scale: 6 Location: Right Location Body Site: Hip Pain Description: Ache Mental Status Patient Orientation: Normal For Age Transfers Therapy Code Descriptions/Definitions Functional [place] Measure: 0=Not Assessed/NA 4=Minimal Assistance 1=Total Assistance 5=Supervision or Setup 2=Maximal Assistance 6=Modified [place] 3=Moderate Assistance 7=Complete [place] Therapy Quality Codes: 6 Independent with activity with or without an assistive device 5 Patient requires set up or clean up by helper. Patient completes activity by themselves 4 Supervision or touching assist (CGA). [place] provide cues , steadying assist 3 The helper provides less than half the effort to complete the activity 2 The helper provides more than half the effort to complete the activity 1 Dependent. The helper does all the effort to complete an activity 7 Patient refused to complete or attempt activity 9 The patient did not perform the activity before the current illness or injury 88 Not attempted due to Medical conditions or safety concerns Transfers (B, C, W/C) (FIM): 4 Scootin Rollin Supine to/from Sit: 4 (min assist LEs and occas pt. reaches for a hands as she has dizziness with movement of TRF sup to sit ans sit to sup) Sit to/from Stand: 5 Bed to/from Chair: 4 Weight Bearing Right Lower Extremity: Right Weight Bearing/Tolerated Gait Training Gait (FIM): 2 Distance (FIM): 1=148-23 ft (60x2,40) Gait Level of Assist: 4 Gait Persons Needed: 1 Gait Assistive Device: FWW slow, pain ensues with movement Stair Training Stair Training: Handrails/: uses walker Stairs (FIM): 1 #of Steps: 2 Stairs: Pattern: Step to Level of Assist: 4 "pink step" with FWW and instruction for all, this TOW MOTOR MECHANIC demonstrated 4 steps with rail and plan to have pt attempt this this aftn Exercises Supine Ex: Ankle pumps, Quad Set, Rolling, Glut sets, Heel Slides, Short Arc Quads, Scooting (up in bed SBA and instruc), Straight leg raise (assist), Hip abd/add (assist R) Supine Reps: 15 Seated Therapy Exercises: Sit to stand, Long arc quads Seated Reps: 12 Assessment Current Status: Good Progress vertigo c/o with position change requires time and rest PT Short Term Goals Short Term Goals Time Frame: Jan 12, 2019 Gait (FIM): 1 Gait Distance Comment: 25' Gait Level of Assist: 4 Gait Assistive Device: FWW Wheelchair Distance: 150' PT Matlab Developer Goals Matlab Developer Goals PT Matlab Developer Goals Time Frame: Jan 26, 2019 Transfers (B,C,W/C) (FIM): 5 Sit to Lying (QC): 4 Lying-Sitting on Side/Bed(QC): 4 Sit to Stand (QC): 4 Rollin Roll Left to Right (QC): 4 Chair/Qke-gv-Qizcy Xfer(QC): 4 Car Transfer (QC): 4 Gait (FIM): 2 Distance: 50' Walk 10 feet (QC): 4 Walk 10ft-Uneven Surface(QC): 4 Walk 50ft with 2 Turns (QC): 4 Gait Level of Assist: 5 Gait Assistive Device: FWW Stairs (FIM): 2 # of Steps: 4 1 Step (curb) (QC): 4 4 Steps (QC): 4 Stairs Level Of Assist: 4 PT Plan Treatment/Plan Treatment Plan: Continue Plan of Care Treatment Plan: Bed Mobility, Education, Functional Activity Sandra, Functional Strength, Group Therapy, Gait, Safety, Therapeutic Exercise, Transfers Treatment Duration: Jan 26, 2019 Frequency: At least 5 of 7 days/Wk (IRF) Estimated Hrs Per Day: 1.5 hours per day Patient and/or Family Agrees t: Yes Safety Risks/Education Patient Education: Gait Training, Transfer Techniques, Steps, Correct Positioning, Disease Process, Safety Issues Teaching Recipient: Patient Teaching Methods: Demonstration, Discussion Response to Teaching: Verbalize Understanding, Return Demonstration, Reinforcement Needed Time/GCodes Time In: 800 Time Out: 900 Total Billed Treatment Time: 60 Total Billed Treatment 1,FA25m,EX15m,GT20m G Codes Necessary: JESSIE Mendez TOW [employer]OR MECHANIC Jan 11, 2019 09:04
[2019-01-11] MEDS: LACTULOSE SYRUP 10GM/15ML (ENULOSE) 30ML UDC PO SCH ×3 (09:58→21:22)
[2019-01-11] MEDS: BISACODYL 10 MG SUPP (DULCOLAX) PR SCH ×2 (10:52→21:23)
--- NOTE | 2019-01-11 11:42 | Occupational Ther Daily Note ---
OT Current Status-Daily Note Subjective Pt seen in room, up in w/c, agreeable to OT but declining a shower. Pain reported 10/10 with movement in R hip, not described. Pt recently received pain meds. Appearance Alert, cooperative Mental Status/Objective Patient Orientation: Person, Place, Time, Situation Therapy Code Descriptions/Definitions Functional [place] Measure: 0=Not Assessed/NA 4=Minimal Assistance 1=Total Assistance 5=Supervision or Setup 2=Maximal Assistance 6=Modified [place] 3=Moderate Assistance 7=Complete [place] ADL-Treatment Pt declined a shower, changing slacks, grooming at sink. She washed hands and face, upper body with sponge bath, setup. Pt also changed shirt with setup. She became fearful and tearful with standing to change Depends and wash elias/bottom and self-limited lower body ADLs. All ADLs took longer than usual. Therapy Code Descriptions/Definitions Functional [place] Measure: 0=Not Assessed/NA 4=Minimal Assistance 1=Total Assistance 5=Supervision or Setup 2=Maximal Assistance 6=Modified [place] 3=Moderate Assistance 7=Complete [place] Therapy Quality Codes: 6 Independent with activity with or without an assistive device 5 Patient requires set up or clean up by helper. Patient completes activity by themselves 4 Supervision or touching assist (CGA). [place] provide cues , steadying assist 3 The helper provides less than half the effort to complete the activity 2 The helper provides more than half the effort to complete the activity 1 Dependent. The helper does all the effort to complete an activity 7 Patient refused to complete or attempt activity 9 The patient did not perform the activity before the current illness or injury 88 Not attempted due to Medical conditions or safety concerns Grooming (FIM): 5 Upper Body (FIM): 5 Other Treatment Pt transported to gym per w/c. She completed 12 minutes bilat UE ex on arm bike set at 15W (increase of two minutes), taking only one brief recovery break midpoint. She also completed nuts and bolts activity with 1# weight on each arm. All ex to strengthen arms to help with standing during ADLs. Pt returned to room and left up in w/c, all needs met. Education OT Patient Education: Exercise program, Progress toward Goal/Update tx plan, Purpose of tx/functional activities Teaching Recipient: Patient Teaching Methods: Discussion Response to Teaching: Verbalize Understanding, Reinforcement Needed OT Short Term Goals Short Term Goals Time Frame: Jan 12, 2019 Bathing(FIM): 4 Lower Body Dressing(FIM): 3 Toilet/Commode Transfer(FIM): 4 (CGA) Additional Short Term Goals: 1-Demonstrate ADL Tasks, 2-Verbalize Understanding, 3-ImproveStrength/Sandra 1=Demonstrate adherence to instructed precautions during ADL tasks. 2=Patient will verbalize/demonstrate understanding of assistive devices/m odifications for ADL. 3=Patient will improve strength/tolerance for activity to enable patient to perform ADL's. OT Jail Goals Jail Goals Time Frame: Jan 26, 2019 Eating (FIM): 7 Eating (QC): 6 Groomin Oral Hygiene (QC): 6 Bathing(FIM): 5 Shower/Bathe Self (QC): 5 Upper Body Dressing(FIM): 5 Upper Body Dressing (QC): 5 Lower Body Dressing(FIM): 5 Lower Body Dressing (QC): 5 On/Off Footwear (QC): 5 Toileting(FIM): 6 Toileting Hygiene (QC): 6 Toilet/Commode Transfer(FIM): 6 Toilet/Commode Transfer (QC): 6 Shower Transfer(FIM): 5 Additional Goals: 1-Demonstrate ADL Tasks, 2-Verbalize Understanding, 3- ImproveStrength/Sandra 1=Demonstrate adherence to instructed precautions during ADL tasks. 2=Patient will verbalize/demonstrate understanding of assistive devices/modifications for ADL. 3=Patient will improve strength/tolerance for activity to enable patient to perform ADL's. OT Education/Plan Discharge Recommendations Plan/Recommendations: Continue POC Treatment Plan/Plan of Care Patient would benefit from OT for education, treatment and training to promote independence in ADL's, mobility, safety and/or upper extremity function for ADL's. Plan of Care: ADL Retraining, Functional Mobility, Group Exercise/Act as Ind, UE Funct Exercise/Act Treatment Duration: Jan 26, 2019 Frequency: At least 5 of 7 days/Wk (IRF) Estimated Hrs Per Day: 1.5 hours per day Agreement: Yes Rehab Potential: Good Time/GCodes Start Time: 09:30 Stop Time: 10:30 Total Time Billed (hr/min): 60 Billed Treatment Time visit, ADL 25 minutes, exercise 35 minutes KARI SENIOR OT Jan 11, 2019 11:42
--- NOTE | 2019-01-11 14:05 | Physical Therapy Daily Note ---
PT Daily Note-Current Subjective Patient agrees to PT. Continues to c/o 01/18 right hip pain with med issued. Pain Numeric Pain Scale: 6 Location: Right Location Body Site: Hip Pain Description: Ache Mental Status Patient Orientation: Normal For Age Transfers Therapy Code Descriptions/Definitions Functional [place] Measure: 0=Not Assessed/NA 4=Minimal Assistance 1=Total Assistance 5=Supervision or Setup 2=Maximal Assistance 6=Modified [place] 3=Moderate Assistance 7=Complete [place] Therapy Quality Codes: 6 Independent with activity with or without an assistive device 5 Patient requires set up or clean up by helper. Patient completes activity by themselves 4 Supervision or touching assist (CGA). [place] provide cues , steadying assist 3 The helper provides less than half the effort to complete the activity 2 The helper provides more than half the effort to complete the activity 1 Dependent. The helper does all the effort to complete an activity 7 Patient refused to complete or attempt activity 9 The patient did not perform the activity before the current illness or injury 88 Not attempted due to Medical conditions or safety concerns Transfers (B, C, W/C) (FIM): 4 Scootin Sit to/from Stand: 4 Sit to Stand (QC): 4 Chair/Qed-bn-Jkrlc Xfer(QC): 5 Bed to/from Chair: 5 CGA for safety Weight Bearing Right Lower Extremity: Right Weight Bearing/Tolerated Gait Training Does the Patient Walk?: Yes Gait (FIM): 2 Distance (FIM): 6=532-81 ft Distance: 110' Walk 10 feet (QC): 4 Walk 50 ft with 2 Turns(QC): 4 Gait Level of Assist: 4 Gait Persons Needed: 1 Gait Assistive Device: FWW slow, antalgic, step to gait sequence CGA to SBA Stair Training Stair Training: Handrails/: 2 handrails Stairs (FIM): 2 #of Steps: 4 1 Step (curb) (QC): 4 4 Steps (QC): 4 Stairs: Pattern: Step to Level of Assist: 4 Assessment Patient requires time to complete all functional tasks due to anxiety and pain. PT to continue to increase activity as tolerated by patient. PT Short Term Goals Short Term Goals Time Frame: Jan 12, 2019 Gait (FIM): 1 Gait Distance Comment: 25' Gait Level of Assist: 4 Gait Assistive Device: FWW Wheelchair Distance: 150' PT [facility] Goals [place] Driver Goals PT [facility] Goals Time Frame: Jan 26, 2019 Transfers (B,C,W/C) (FIM): 5 Sit to Lying (QC): 4 Lying-Sitting on Side/Bed(QC): 4 Sit to Stand (QC): 4 Rollin Roll Left to Right (QC): 4 Chair/Jmc-li-Wlfml Xfer(QC): 4 Car Transfer (QC): 4 Gait (FIM): 2 Distance: 50' Walk 10 feet (QC): 4 Walk 10ft-Uneven Surface(QC): 4 Walk 50ft with 2 Turns (QC): 4 Gait Level of Assist: 5 Gait Assistive Device: FWW Stairs (FIM): 2 # of Steps: 4 1 Step (curb) (QC): 4 4 Steps (QC): 4 Stairs Level Of Assist: 4 PT Plan Treatment/Plan Treatment Plan: Continue Plan of Care Treatment Plan: Bed Mobility, Education, Functional Activity Sandra, Functional Strength, Group Therapy, Gait, Safety, Therapeutic Exercise, Transfers Treatment Duration: Jan 26, 2019 Frequency: At least 5 of 7 days/Wk (IRF) Estimated Hrs Per Day: 1.5 hours per day Patient and/or Family Agrees t: Yes Time/GCodes Time In: 1250 Time Out: 1324 Total Billed Treatment Time: 34 Total Billed Treatment 1 visit FA 15 min GT 19 min MANJULA NEAL PT Jan 11, 2019 14:05
--- NOTE | 2019-01-11 15:08 | Occupational Ther Daily Note ---
OT Current Status-Daily Note Subjective Pt seen in room, up in w/c, agreeable to OT. Pain rated 6/10 with rest, 10/10 with movement. Appearance Alert, cooperative Mental Status/Objective Therapy Code Descriptions/Definitions Functional [place] Measure: 0=Not Assessed/NA 4=Minimal Assistance 1=Total Assistance 5=Supervision or Setup 2=Maximal Assistance 6=Modified [place] 3=Moderate Assistance 7=Complete [place] ADL-Treatment Therapy Code Descriptions/Definitions Functional [place] Measure: 0=Not Assessed/NA 4=Minimal Assistance 1=Total Assistance 5=Supervision or Setup 2=Maximal Assistance 6=Modified [place] 3=Moderate Assistance 7=Complete [place] Therapy Quality Codes: 6 Independent with activity with or without an assistive device 5 Patient requires set up or clean up by helper. Patient completes activity by themselves 4 Supervision or touching assist (CGA). [place] provide cues , steadying assist 3 The helper provides less than half the effort to complete the activity 2 The helper provides more than half the effort to complete the activity 1 Dependent. The helper does all the effort to complete an activity 7 Patient refused to complete or attempt activity 9 The patient did not perform the activity before the current illness or injury 88 Not attempted due to Medical conditions or safety concerns Transfers (B, C, W/C) (FIM): 4 Other Treatment Pt completed graded clothespins, large pegs and arc activity, all with 1# weight on each arm. She took only brief recover periods, as needed. Pt returned to room and transferred to bed, needing CGA to get up from sitting (struggled a bit at midpoint), CGA to turn to sit on EOB, with FWW. Skilled cues for hand placement. Assist to get both legs into bed, with L leg supporting R one. Pt needs much encouragement due to fear of falling. Pt left up in bed, 4 rails up, all meeds met. Education OT Patient Education: Progress toward Goal/Update tx plan, Purpose of tx/functional activities, Safety issues, Transfer techniques Teaching Recipient: Patient Teaching Methods: Discussion Response to Teaching: Verbalize Understanding, Return Demonstration, Reinforcement Needed OT Short Term Goals Short Term Goals Time Frame: Jan 12, 2019 Bathing(FIM): 4 Lower Body Dressing(FIM): 3 Toilet/Commode Transfer(FIM): 4 (CGA) Additional Short Term Goals: 1-Demonstrate ADL Tasks, 2-Verbalize Understanding, 3-ImproveStrength/Sandra 1=Demonstrate adherence to instructed precautions during ADL tasks. 2=Patient will verbalize/demonstrate understanding of assistive devices/modifications for ADL. 3=Patient will improve strength/tolerance for activity to enable patient to perform ADL's. OT Senior Living Goals Senior Living Goals Time Frame: Jan 26, 2019 Eating (FIM): 7 Eating (QC): 6 Groomin Oral Hygiene (QC): 6 Bathing(FIM): 5 Shower/Bathe Self (QC): 5 Upper Body Dressing(FIM): 5 Upper Body Dressing (QC): 5 Lower Body Dressing(FIM): 5 Lower Body Dressing (QC): 5 On/Off Footwear (QC): 5 Toileting(FIM): 6 Toileting Hygiene (QC): 6 Toilet/Commode Transfer(FIM): 6 Toilet/Commode Transfer (QC): 6 Shower Transfer(FIM): 5 Additional Goals: 1-Demonstrate ADL Tasks, 2-Verbalize Understanding, 3- ImproveStrength/Sandra 1=Demonstrate adherence to instructed precautions during ADL tasks. 2=Patient will verbalize/demonstrate understanding of assistive devices/modifica tions for ADL. 3=Patient will improve strength/tolerance for activity to enable patient to perform ADL's. OT Education/Plan Discharge Recommendations Plan/Recommendations: Continue POC Treatment Plan/Plan of Care Patient would benefit from OT for education, treatment and training to promote independence in ADL's, mobility, safety and/or upper extremity function for ADL's. Plan of Care: ADL Retraining, Functional Mobility, Group Exercise/Act as Ind, UE Funct Exercise/Act Treatment Duration: Jan 26, 2019 Frequency: At least 5 of 7 days/Wk (IRF) Estimated Hrs Per Day: 1.5 hours per day Agreement: Yes Rehab Potential: Good Time/GCodes Start Time: 13:30 Stop Time: 14:00 Total Time Billed (hr/min): 30 Billed Treatment Time visit, 20 minutes exercise, 10 minutes functional activity KARI SENIOR OT Jan 11, 2019 15:08
[2019-01-11 15:27] VITALS: BP 94/62
--- NOTE | 2019-01-11 17:17 | Progress Note-Standard ---
Standard Progress Note Progress Notes/Assess & Plan Date Seen by a Provider: Jan 11, 2019 Time Seen by a Provider: 17:16 Progress/Assessment & Plan no complaints RLE-incisions clean and dry. No calf tenderness. Neg SLR s/p IM rell R hip continue PT/OT Final Diagnosis no complaints progressing well R hip dressing in place. \ no calf tenderness s/p R hip IM rell continue PT/OT ROSA ISELA GAXIOLA MD Jan 11, 2019 17:17
--- NOTE | 2019-01-11 17:20 | NUR ---
Pt states that she thinks the dizziness has gotten much better. Reports occurred one time this morning when working w therapy in the gym.
--- NOTE | 2019-01-11 19:16 | NUR ---
bedside report received from JOSÉ MIGUEL RENEE, assume care of pt
--- NOTE | 2019-01-11 21:15 | NUR ---
assessments & interventions completed, see assessments & interventions, pt took Senokot & Enulose but refused Dulcolax supp, fsbs 173 no ss insulin req
--- NOTE | 2019-01-11 21:54 | NUR ---
c/o rt hip pain level 10/10 on numeric scale, Percocet 5/325 2 tabs po given
--- NOTE | 2019-01-11 22:20 | NUR ---
rates pain at 5/10 on numeric scale
[2019-01-12 05:37] VITALS: BP 104/67
[2019-01-12] MEDS: CATHETER FLUSH 10 ML SYR IV SCH ×3 (06:01→20:42)
[2019-01-12] MEDS: inSUlin ASPART (NovoLOG) 1 UNIT/0.01 ML (CHARGE PER UNIT) SC SCH ×4 (06:01→20:43)
[2019-01-12] MEDS: glyBURIDE 2.5 MG (MICRONASE) TAB PO SCH (06:36)
--- NOTE | 2019-01-12 07:24 | NUR ---
bedside report given to WILLIE RENEE
[2019-01-12] MEDS: oxyCODONE/APAP 5/325MG (PERCOCET 5) TABLET PO PRN ×2 (07:32→11:32)
--- NOTE | 2019-01-12 07:34 | NUR ---
c/o rt hip pain level 4/10 on numeric scale, Percocet 5/325 2 tabs po given
--- NOTE | 2019-01-12 08:15 | Cardiology Progress Note ---
Subjective Date Seen by Provider: Jan 12, 2019 Time Seen by Provider: 08:14 Subjective/Events-last exam Patient is in bed, no new complaints. Continues to complain of right hip pain. Objective-Cardiology Exam Last Set of Vital Signs Vital Signs 01/13/19 06:00 Temp 98.1 Pulse 70 Resp 18 B/P (MAP) 110/65 (80) Pulse Ox 95 O2 Delivery Room Air Capillary Refill : Less Than 3 Seconds I&O Intake and Output 01/13/19 00:00 Intake Total 1180 ml Balance 1180 ml Intake Oral 1180 ml # Voids 5 General: Alert, Oriented X3, Cooperative HEENT: Atraumatic, PERRLA Neck: Supple, No JVD, No Thyromegaly Lungs: Clear to Auscultation, Normal Air Movement Heart: Regular Rate, Normal S1, Normal S2, No Murmurs Abdomen: Normal Bowel Sounds, Soft, No Tenderness, No Hepatosplenomegaly, No Masses Extremities: No Clubbing, No Cyanosis Skin: No Rashes, No Significant Lesion Neuro: Normal Speech, Cranial Nerves 3-12 NL Psych/Mental Status: Mental Status NL, Mood NL A/P-Cardiology Admission Diagnosis right hip fracture CAD DM Vertigo Assessment/Plan Right hip fx, status post surgical repair surgery was done on December 31, 2018, recovering slowly, continue to monitor Anemia, followed and managed by primary care physician Coronary artery disease, history of CABG x [address] appro[address] Velasquez in [place], [place]. No recent cardiac workup. EKG reveals SR. Denies any chest pain at this time. Continue to monitor. Will need stress test as outpatient. Diabetes mellitus, followed and managed by medical team Vertigo, better at this time. Continue to monitor Hx of uterine CA, s/p hysterectomy 8 years ago. Clinical Quality Measures DVT/VTE Risk/Contraindication: Risk Factor Score Per Nursin RFS Level Per Nursing on Admit: 4+=Very High VIOLETTE AGUIRRE Jan 12, 2019 08:15
--- NOTE | 2019-01-12 08:34 | PM&R Progress Note ---
Subjective HPI/CC On Admission Date Seen by Provider: Jan 12, 2019 Time Seen by Provider: 08:45 CC: Right hip fracture with debility HPI: This is a 73yoWF patient who presented to the [facility] ER after a vertigo episode and fall who sustained a right hip fracture s/p repair in an uncomplicated manner by Dr Tirado on 12/31/18. Patient has a h/o CABG but no follow up since that time. She moved to [place] her [place] 2 years and did not see a medical professional since that time and has since moved back to [facility] and had yet to establish with anyone. Her son is an ER doctor in [place] for 10 years. Currently she is doing well as long as she doesn't move and her pain is controlled from the pain meds when she takes it. No BM since admit so will need to work on that and multiple meds are ordered to regain normal bowel f unction. Anemia noted so Venofer will be ordered and iron level was drawn on today's labs. Dr Novak has provided Cardiology consultation services which are much appreciated. She seems to have PVD due to decreased pedal pulses. HGA1C is 8.1 so will order SSI and likely begin OHA while in IRF. Her PLOF was independent at home with her . Subjective/Events-last exam Complain of right leg pain so we will reach out to Orthopedic Surgery to evaluate the need for an X-ray Increased edema but she has been maintained on Lovenox for DVT prophylaxis Antivert really helps the dizziness Blood sugars were reviewed and excellent control with the addition Glyburide Overall feeling good except for increase pain in the right hip leg Conferred with RN Reviewed therapy notes Review of Systems Musculoskeletal: leg pain Objective Exam Vital Signs Vital Signs Date Time Temp Pulse Resp B/P (MAP) Pulse Ox O2 Delivery O2 Flow Rate FiO2 01/12/19 15:40 97.4 70 16 129/70 (89) 96 Room Air Capillary Refill : Less Than 3 Seconds General Appearance: No Apparent Distress, WD/WN, Chronically ill HEENT: PERRL/EOMI, Normal ENT Inspection, Pharynx Normal, Moist Mucous Membranes Neck: Full Range of Motion, Normal Inspection, Non Tender, Supple Respiratory: Chest Non Tender, Lungs Clear, Normal Breath Sounds, No Accessory Muscle Use, No Respiratory Distress Cardiovascular: Regular Rate, Rhythm, No Edema, No Gallop, No JVD, No Murmur Gastrointestinal: Normal Bowel Sounds, No Organomegaly, No Pulsatile Mass, Non Tender, Soft Back: Normal Inspection, No CVA Tenderness, No Vertebral Tenderness Extremity: Normal Capillary Refill, Normal Inspection, Normal Range of Motion (except right leg due to hip pain), Non Tender, No Calf Tenderness, No Pedal Edema Neurologic/Psychiatric: Alert, Oriented x3, No Motor/Sensory Deficits, Normal Mood/Affect, Motor Weakness (generalized weakness) Skin: Normal Color, Warm/Dry Lymphatic: No Adenopathy Results/Procedures Lab Patient resulted labs reviewed. FIM Transfers Therapy Code Descriptions/Definitions Functional [place] Measure: 0=Not Assessed/NA 4=Minimal Assistance 1=Total Assistance 5=Supervision or Setup 2=Maximal Assistance 6=Modified [place] 3=Moderate Assistance 7=Complete [place] Therapy Quality Codes: 6 Independent with activity with or without an assistive device 5 Patient requires set up or clean up by helper. Patient completes activity by themselves 4 Supervision or touching assist (CGA). [place] provide cues , steadying assist 3 The helper provides less than half the effort to complete the activity 2 The helper provides more than half the effort to complete the activity 1 Dependent. The helper does all the effort to complete an activity 7 Patient refused to complete or attempt activity 9 The patient did not perform the activity before the current illness or injury 88 Not attempted due to Medical conditions or safety concerns Transfers (B, C, W/C) (FIM): 4 Scootin Rollin Roll Left to Right (QC): 4 Supine to/from Sit: 4 (min assist LEs and occas pt. reaches for a hands as she has dizziness with movement of TRF sup to sit ans sit to sup) Sit to/from Stand: 4 Sit to Lying (QC): 3 Sit to Stand (QC): 4 Chair/Kyx-ax-Fmtbs Xfer(QC): 5 Bed to/from Chair: 5 Car Transfer (QC): 3 Gait Training Does the Patient Walk?: Yes Gait (FIM): 2 Distance (FIM): 3=395-09 ft Distance: 110' Walk 10 feet (QC): 4 Walk 50 ft with 2 Turns(QC): 4 Gait Level of Assist: 4 Gait Persons Needed: 1 Gait Assistive Device: FWW Wheelchair Training Does the Pt Use a Wheelchair?: No Wheelchair (FIM): 5 Wheelchair Distance: 3=150 ft Distance: 150' Wheelchair Level of Assist: 5 Wheel 50 ft with 2 turns (QC): 5 Wheel 150 ft (QC): 5 Type of Wheelchair: Manual Stair Training Stair Training: Handrails/: 2 handrails Stairs (FIM): 2 #of Steps: 4 1 Step (curb) (QC): 4 4 Steps (QC): 4 Stairs: Pattern: Step to Level of Assist: 4 Mental Status/Objective Comprehension: 7 Expression: 7 Social Interaction: 7 Problem Solvin Memory: 7 ADL-Treatment Feedin Eating (QC): 6 Groomin Oral Hygiene (QC): 5 Bathin (Min assist in stance for balance in stance to wash elias area.) Shower/Bathe Self (QC): 4 Upper Extremity Dressin Upper Body Dressing (QC): 4 Lower Extremity Dressin (Mod assist overall with LE dressing. Pt. uses AE but requires cues and assist.) Lower Body Dressing (QC): 3 On/Off Footwear (QC): 3 Assessment/Plan Assessment and Plan Assess & Plan/Chief Complaint Assessment: s/p right hip fracture repair POD # 12 DM HTN CAD CABG hx Anemia iron def s/p UTI Vertigo-resolved Fall PVD suspected Constipation-resolved after aggressive regimen Plan: IRF protocols SSI Pain control BM regimen maintained Venofer Meclizine to help vertigo but seems to be improved Maintain OHA low dose Ortho to see patient tomorrow regarding right hip pain but maintained on Lovenox since post op (1) Closed intertrochanteric fracture of right hip (2) Closed intertrochanteric fracture of left hip (3) Diabetes mellitus (4) CAD (coronary artery disease) (5) Anemia, iron deficiency (6) Hx of CABG (7) Vertigo (8) Fall on same level RUFINO MEDEL DO Jan 12, 2019 08:34
[2019-01-12] MEDS: ENOXAPARIN 40 MG/0.4 ML (LOVENOX) SYR SC SCH (08:46)
[2019-01-12] MEDS: BISACODYL 10 MG SUPP (DULCOLAX) PR SCH ×3 (08:47→20:44)
[2019-01-12] MEDS: SENNA W/DOCUSATE (SENOKOT S) TABLET PO SCH ×2 (08:47→20:43)
[2019-01-12] MEDS: LACTULOSE SYRUP 10GM/15ML (ENULOSE) 30ML UDC PO SCH ×2 (08:47→20:43)
--- NOTE | 2019-01-12 12:49 | Occupational Ther Daily Note ---
OT Current Status-Daily Note Subjective Pt in bed, agrees to treatment. Pt reports 4/10 pain at rest and 10/10 pain with movement. Pt states she had a bad night secondary to pain. Mental Status/Objective Therapy Code Descriptions/Definitions Functional [place] Measure: 0=Not Assessed/NA 4=Minimal Assistance 1=Total Assistance 5=Supervision or Setup 2=Maximal Assistance 6=Modified [place] 3=Moderate Assistance 7=Complete [place] ADL-Treatment Pt declined shower, agrees to sponge bath. Supine to sit with assist for right LE. Sit to stand and transfer to w/c with min assist. Pt completed sponge bath while seated at sink in w/c. Upper body bathing completed with SBA. Pt able to wash bilateral upper legs and elias area. Uses long handled sponge to wash lower legs and feet. Stood with minimal assistance to wash buttocks. Pt used room manager to thread bilateral LE into Depends and pants. Stood with min assist for balance during pant hike. Pt donned socks with SBA using sock aid. Grooming tasks completed seated at sink. Pt brushed teeth and combed hair with setup. Pt requires increased time for ADL tasks. Pt is anxious about falling and anticipates pain. Requires skilled cues for safety during ADL tasks. Pt sitting in w/c with needs met and spouse present after session. Therapy Code Descriptions/Definitions Functional [place] Measure: 0=Not Assessed/NA 4=Minimal Assistance 1=Total Assistance 5=Supervision or Setup 2=Maximal Assistance 6=Modified [place] 3=Moderate Assistance 7=Complete [place] Therapy Quality Codes: 6 Independent with activity with or without an assistive device 5 Patient requires set up or clean up by helper. Patient completes activity by themselves 4 Supervision or touching assist (CGA). [place] provide cues , steadying assist 3 The helper provides less than half the effort to complete the activity 2 The helper provides more than half the effort to complete the activity 1 Dependent. The helper does all the effort to complete an activity 7 Patient refused to complete or attempt activity 9 The patient did not perform the activity before the current illness or injury 88 Not attempted due to Medical conditions or safety concerns Grooming (FIM): 5 Oral Hygiene (QC): 5 Bathing (FIM): 4 Shower/Bathe Self (QC): 3 Upper Body (FIM): 5 Lower Body Dressing (FIM): 4 Lower Body Dressing (QC): 3 Education OT Patient Education: Modified ADL techniques Teaching Recipient: Patient Teaching Methods: Discussion Response to Teaching: Verbalize Understanding OT Short Term Goals Short Term Goals Time Frame: Jan 12, 2019 Bathing(FIM): 4 Lower Body Dressing(FIM): 3 Toilet/Commode Transfer(FIM): 4 (CGA) Additional Short Term Goals: 1-Demonstrate ADL Tasks, 2-Verbalize Understanding, 3-ImproveStrength/Sandra 1=Demonstrate adherence to instructed precautions during ADL tasks. 2=Patient will verbalize/demonstrate understanding of assistive dev ices/modifications for ADL. 3=Patient will improve strength/tolerance for activity to enable patient to perform ADL's. OT Life Coach Goals Life Coach Goals Time Frame: Jan 26, 2019 Eating (FIM): 7 Eating (QC): 6 Groomin Oral Hygiene (QC): 6 Bathing(FIM): 5 Shower/Bathe Self (QC): 5 Upper Body Dressing(FIM): 5 Upper Body Dressing (QC): 5 Lower Body Dressing(FIM): 5 Lower Body Dressing (QC): 5 On/Off Footwear (QC): 5 Toileting(FIM): 6 Toileting Hygiene (QC): 6 Toilet/Commode Transfer(FIM): 6 Toilet/Commode Transfer (QC): 6 Shower Transfer(FIM): 5 Additional Goals: 1-Demonstrate ADL Tasks, 2-Verbalize Understanding, 3- ImproveStrength/Sandra 1=Demonstrate adherence to instructed precautions during ADL tasks. 2=Patient will verbalize/demonstrate understanding of assistive devices/modifications for ADL. 3=Patient will improve strength/tolerance for activity to enable patient to perform ADL's. OT Education/Plan Discharge Recommendations Plan/Recommendations: Continue POC Treatment Plan/Plan of Care Patient would benefit from OT for education, treatment and training to promote independence in ADL's, mobility, safety and/or upper extremity function for ADL's. Plan of Care: ADL Retraining, Functional Mobility, Group Exercise/Act as Ind, UE Funct Exercise/Act Treatment Duration: Jan 26, 2019 Frequency: At least 5 of 7 days/Wk (IRF) Estimated Hrs Per Day: 1.5 hours per day Agreement: Yes Rehab Potential: Good Time/GCodes Start Time: 08:00 Stop Time: 09:00 Total Time Billed (hr/min): 60 Billed Treatment Time 1 visit, ADLx4(60minutes) INGRID PADRON OT Jan 12, 2019 12:49
--- NOTE | 2019-01-12 13:15 | NUR ---
PT C/O WORSENING PAIN AND SWELLING IN RIGHT LEG SINCE SHE WOKE UP. DR MEDEL AWARE OF PT C/O IN MORNING ROUNDS. PHYSICAL THERAPY STATED THEY INCREASED PT ACTIVITY YESTERDAY AND THEY WANTED ME TO NOTIFY ORTHO OF PT C/O. MARLINE IVERSON STATED TO MONITOR PT ANOTHER 24 HOURS AND THEY WOULD SEE PT IN AM. PT FAMILY NOTIFIED.
--- NOTE | 2019-01-12 14:14 | Physical Therapy Daily Note ---
PT Daily Note-Current Subjective AM: Pt reports feeling horrible this morning with much more pain in hip. States she was terrible after yesterday's PT visit with rolling onto her surgery side and getting out of bed on her surgery side. States leg is much more swollen today. Reports she has already asked for and taken her pain meds this am around 7am, had a shower and OT session and feels a little better with that. Agreeable with encouragement to participate in PT session PM: Pt reports feeling some better since able to rest, receiving more pain meds and having ice pack on hip. Agreeable to PT session. Pain Numeric Pain Scale: 7 Location: Right Location Body Site: Hip Comment: increases to 10/10 with WB in AM. decreased hip pain in pm Appearance AM: upon arrival, pt awake and alert sitting up in w/c with present in room. Pt moaning and occasionally hollering out in pain of R hip during transfers and gait. Pt received ice pack for R hip after requesting from nursing. At end of session, per pt request, sitting up in w/c. PM: upon arrival, pt sleeping supine in bed with ice pack at R hip, easily awakened, present during entire tx session. Pt moaning and occasionally hollering out in pain of R hip during transfers and gait. At end of session, per pt request, sitting up in w/c awaiting OT session, ice pack on R hip, call light, phone and bedside table within reach Mental Status Patient Orientation: Person, Place, Time, Eyes Open, Situation Attachments: Felix Catheter Transfers Therapy Code Descriptions/Definitions Functional [place] Measure: 0=Not Assessed/NA 4=Minimal Assistance 1=Total Assistance 5=Supervision or Setup 2=Maximal Assistance 6=Modified [place] 3=Moderate Assistance 7=Complete [place] Therapy Quality Codes: 6 Independent with activity with or without an assistive device 5 Patient requires set up or clean up by helper. Patient completes activity by themselves 4 Supervision or touching assist (CGA). [place] provide cues , steadying assist 3 The helper provides less than half the effort to complete the activity 2 The helper provides more than half the effort to complete the activity 1 Dependent. The helper does all the effort to complete an activity 7 Patient refused to complete or attempt activity 9 The patient did not perform the activity before the current illness or injury 88 Not attempted due to Medical conditions or safety concerns Transfers (B, C, W/C) (FIM): 4 Rollin (HOB elevated and use of bedrails) Supine to/from Sit: 5 (PM: with effort, use of bedrail, HOB elevated, increased time to perform, increased pain R hip per pt report) Sit to/from Stand: 4 (CGA provided due to c/o increased pain and stating unable to perform herself. As long as pt feeling therapist's hand on back, able to perform without physical assist) constant instruction for hand placement and safety. increased anxiety, pain and fear of falling Weight Bearing Right Lower Extremity: Right Weight Bearing/Tolerated Gait Training Does the Patient Walk?: Yes Gait (FIM): 2 Distance (FIM): 9=339-29 ft Distance: 100 x2 Gait Level of Assist: 4 (CGA) Gait Persons Needed: 1 (extra person following with w/c for pt's anxiety of pain and fear of falling and fear of fainting if vertigo comes on) Gait Assistive Device: FWW PM: very slow antalgic gait with decreased WB and stance time RLE, step to gait pattern, moaning and hollering out at times with increased pain during RLE movement and WB AM: Gait in // bars fwd/bkwd gait x 2 laps, CGA, constant encouragement and verb instruction, decreased WB RLE due to c/o increased pain, hollering out with WB RLE and advancing RLE, antalgic with decreased stance time, step to gait Wheelchair Training Does the Pt Use a Wheelchair?: Yes Wheelchair (FIM): 2 Wheelchair Distance: 6=296-54 ft Distance: 100 Wheelchair Level of Assist: 4 Type of Wheelchair: Manual verb inst and encouragement to perform correctly Exercises Supine Ex: Ankle pumps ((+) toe curls x20ea, ea LE), Quad Set (BLE's 2x10), Glut sets (2x10), Heel Slides (BLE, friction eliminated RLE, 2x5), Short Arc Quads (BLE's x10), Straight leg raise (BLE, AAROM RLE, 2x5), Hip abd/add (BLE, friction eliminated RLE, 2x5) NuStep Minutes: 13 NuStep Workload: 1 (seat 8, arms 8, very slow performance and decreased ROM) Treatments AM: w/c mobility, transfers, gait, balance, strength, activity tolerance, functional mobility, safety PM: bed mobility, transfers, gait, activity tolerance, balance, functional mobility, strength Assessment increased pain limiting activity PT Short Term Goals Short Term Goals Time Frame: Jan 12, 2019 Gait (FIM): 1 Gait Distance Comment: 25' Gait Level of Assist: 4 Gait Assistive Device: FWW Wheelchair Distance: 150' PT Nursing Home Goals Nursing Home Goals PT Nursing Home Goals Time Frame: Jan 26, 2019 Transfers (B,C,W/C) (FIM): 5 Sit to Lying (QC): 4 Lying-Sitting on Side/Bed(QC): 4 Sit to Stand (QC): 4 Rollin Roll Left to Right (QC): 4 Chair/Buh-ej-Bouak Xfer(QC): 4 Car Transfer (QC): 4 Gait (FIM): 2 Distance: 50' Walk 10 feet (QC): 4 Walk 10ft-Uneven Surface(QC): 4 Walk 50ft with 2 Turns (QC): 4 Gait Level of Assist: 5 Gait Assistive Device: FWW Stairs (FIM): 2 # of Steps: 4 1 Step (curb) (QC): 4 4 Steps (QC): 4 Stairs Level Of Assist: 4 PT Plan Treatment/Plan Treatment Plan: Continue Plan of Care Treatment Plan: Bed Mobility, Education, Functional Activity Sandra, Functional Strength, Group Therapy, Gait, Safety, Therapeutic Exercise, Transfers Treatment Duration: Jan 26, 2019 Frequency: At least 5 of 7 days/Wk (IRF) Estimated Hrs Per Day: 1.5 hours per day Patient and/or Family Agrees t: Yes Safety Risks/Education Patient Education: Gait Training, Transfer Techniques, Reviewed Use of Ice, W/C Management, Disease Process, Safety Issues Teaching Recipient: Patient, Family Teaching Methods: Demonstration, Discussion Response to Teaching: Verbalize Understanding, Return Demonstration, Reinforcement Needed Time/GCodes Time In: 900 (AM 0900PM 1245) Time Out: 1000 (AM 1000PM 1322) Total Billed Treatment Time: 60 (AM 60minPM 38 min) Total Billed Treatment AM: 1 visit, W/C x 1 unit, EX x 1 unit, GT x1 unit, FA x1 unit PM: 1 visit, GT x 2 units, FA x 1 unit LA HENAO PTA Jan 12, 2019 14:14
--- NOTE | 2019-01-12 14:44 | Occupational Ther Daily Note ---
OT Current Status-Daily Note Subjective Pt sitting in w/c, agrees to treatment. Pt reports 5/10 pain in right hip. Mental Status/Objective Therapy Code Descriptions/Definitions Functional [place] Measure: 0=Not Assessed/NA 4=Minimal Assistance 1=Total Assistance 5=Supervision or Setup 2=Maximal Assistance 6=Modified [place] 3=Moderate Assistance 7=Complete [place] ADL-Treatment Therapy Code Descriptions/Definitions Functional [place] Measure: 0=Not Assessed/NA 4=Minimal Assistance 1=Total Assistance 5=Supervision or Setup 2=Maximal Assistance 6=Modified [place] 3=Moderate Assistance 7=Complete [place] Therapy Quality Codes: 6 Independent with activity with or without an assistive device 5 Patient requires set up or clean up by helper. Patient completes activity by themselves 4 Supervision or touching assist (CGA). [place] provide cues , steadying assist 3 The helper provides less than half the effort to complete the activity 2 The helper provides more than half the effort to complete the activity 1 Dependent. The helper does all the effort to complete an activity 7 Patient refused to complete or attempt activity 9 The patient did not perform the activity before the current illness or injury 88 Not attempted due to Medical conditions or safety concerns Other Treatment Pt to therapy gym via w/c. Arm bike x12 minutes to increase strength and activity tolerance needed for functional task completion. Pt completed activity with minimal resistance and steady pace. No rest breaks needed. Pt completed fine motor task with nuts and bolts with 1# weights in place to increase strength and coordination skills. Pt completed activity with increased time. Pt returned to room, transferred to bed with minimal assistance. Sit to supine with assist for right LE. Pt resting in bed with needs met and spouse present after session. OT Short Term Goals Short Term Goals Time Frame: Jan 12, 2019 Bathing(FIM): 4 Lower Body Dressing(FIM): 3 Toilet/Commode Transfer(FIM): 4 (CGA) Additional Short Term Goals: 1-Demonstrate ADL Tasks, 2-Verbalize Understanding, 3-ImproveStrength/Sandra 1=Demonstrate adherence to instructed precautions during ADL tasks. 2=Patient will verbalize/demonstrate understanding of assistive devices/modifications for ADL. 3=Patient will improve strength/tolerance for activity to enable patient to perform ADL's. OT [employer] Goals [employer] Development Analyst Goals Time Frame: Jan 26, 2019 Eating (FIM): 7 Eating (QC): 6 Groomin Oral Hygiene (QC): 6 Bathing(FIM): 5 Shower/Bathe Self (QC): 5 Upper Body Dressing(FIM): 5 Upper Body Dressing (QC): 5 Lower Body Dressing(FIM): 5 Lower Body Dressing (QC): 5 On/Off Footwear (QC): 5 Toileting(FIM): 6 Toileting Hygiene (QC): 6 Toilet/Commode Transfer(FIM): 6 Toilet/Commode Transfer (QC): 6 Shower Transfer(FIM): 5 Additional Goals: 1-Demonstrate ADL Tasks, 2-Verbalize Understanding, 3- ImproveStrength/Sandra 1=Demonstrate adherence to instructed precautions during ADL tasks. 2=Patient will verbalize/demonstrate understanding of assistive devices/modifications for ADL. 3=Patient will improve strength/tolerance for activity to enable patient to perform ADL's. OT Education/Plan Discharge Recommendations Plan/Recommendations: Continue POC Treatment Plan/Plan of Care Patient would benefit from OT for education, treatment and training to promote independence in ADL's, mobility, safety and/or upper extremity function for ADL's. Plan of Care: ADL Retraining, Functional Mobility, Group Exercise/Act as Ind, UE Funct Exercise/Act Treatment Duration: Jan 26, 2019 Frequency: At least 5 of 7 days/Wk (IRF) Estimated Hrs Per Day: 1.5 hours per day Agreement: Yes Rehab Potential: Good Time/GCodes Start Time: 13:30 Stop Time: 14:00 Total Time Billed (hr/min): 30 Billed Treatment Time 1 visit, Exx2(30minutes) INGRID PADRON OT Jan 12, 2019 14:44
[2019-01-12 15:40] VITALS: BP 129/70
--- NOTE | 2019-01-12 19:12 | Cardiology Progress Note ---
Subjective Date Seen by Provider: Jan 12, 2019 Time Seen by Provider: 17:30 Subjective/Events-last exam Patient is in bed, had some hip pain last night, feeling better now Review of Systems General: No Chills, No Night Sweats, No Fatigue, No Malaise, No Appetite, No Other HEENT: No Head Aches, No Visual Changes, No Eye Pain, No Ear Pain, No Dysphasia, No Sinus Congestion, No Post Nasal Drip, No Sore Throat, No Other Pulmonary: No Dyspnea, No Cough, No Pleuritic Chest Pain, No Other Cardiovascular: No: Chest Pain, Palpitations, Orthopnea, Paroxysmal Noc. Dyspnea, Edema, Lt Headedness, Other Objective-Cardiology Exam Last Set of Vital Signs Vital Signs 01/12/19 15:40 Temp 97.4 Pulse 70 Resp 16 B/P (MAP) 129/70 (89) Pulse Ox 96 O2 Delivery Room Air Capillary Refill : Less Than 3 Seconds I&O Intake and Output 01/12/19 00:00 Intake Total 1250 ml Balance 1250 ml Intake Oral 1250 ml # Voids 6 General: Alert, Oriented X3, Cooperative HEENT: Atraumatic, PERRLA Neck: Supple, No JVD, No Thyromegaly Lungs: Clear to Auscultation, Normal Air Movement Heart: Regular Rate, Normal S1, Normal S2, No Murmurs Abdomen: Normal Bowel Sounds, Soft, No Tenderness, No Hepatosplenomegaly, No Masses Extremities: No Clubbing, No Cyanosis Skin: No Rashes, No Significant Lesion Neuro: Normal Speech, Cranial Nerves 3-12 NL Psych/Mental Status: Mental Status NL, Mood NL Results Lab Laboratory Tests Test 01/11/19 20:17 01/12/19 05:05 01/12/19 10:51 01/12/19 15:39 Range/Units Glucometer 173 H 113 H 122 H 132 H 70-110 MG/DL A/P-Cardiology Admission Diagnosis right hip fracture CAD DM Vertigo Assessment/Plan Right hip fx, status post surgical repair surgery was done on December 31, 2018, recovering slowly, continue to monitor Anemia, followed and managed by primary care physician Coronary artery disease, history of CABG x [address] appro[address] Velasquez in [place], [place]. No recent cardiac workup. EKG reveals SR. Denies any chest pain at this time. Continue to monitor. Will need stress test as outpatient. Diabetes mellitus, followed and managed by medical team Vertigo, better at this time. Continue to monitor Hx of uterine CA, s/p hysterectomy 8 years ago. Clinical Quality Measures DVT/VTE Risk/Contraindication: Risk Factor Score Per Nursin RFS Level Per Nursing on Admit: 4+=Very High SANTI LAMBERT MD Jan 12, 2019 19:12
[2019-01-13 06:00] VITALS: BP 110/65
[2019-01-13] MEDS: inSUlin ASPART (NovoLOG) 1 UNIT/0.01 ML (CHARGE PER UNIT) SC SCH ×4 (06:09→21:07)
[2019-01-13] MEDS: CATHETER FLUSH 10 ML SYR IV SCH ×3 (06:10→20:43)
[2019-01-13] MEDS: glyBURIDE 2.5 MG (MICRONASE) TAB PO SCH (06:11)
--- NOTE | 2019-01-13 07:21 | Progress Note-Standard ---
Standard Progress Note Progress Notes/Assess & Plan Date Seen by a Provider: Jan 13, 2019 Time Seen by a Provider: 07:05 Progress/Assessment & Plan no complaints RLE-incisions clean and dry. No calf tenderness. Neg SLR s/p IM rell R hip continue PT/OT Final Diagnosis patient had increased pain yesterday folowing increased activity the day prior. reports abduction exercises affected her. feeling better today R hip incisions clean and dry. NO calf tenderness. Improved SLR decreased pain with passive IR/ER of hip s/p r hip IM rell continue PT/OT Dc geetha tomorrow ROSA ISELA GAXIOLA MD Jan 13, 2019 07:21
--- NOTE | 2019-01-13 08:00 | NUR ---
DR. GAXIOLA WAS HERE TO SEE PATIENT. NO NEW ORDERS. PATIENT STATES RIGHT HIP PAIN IMPROVED TODAY. WAS GOING ON 6TH DAY WITHOUT BM, BUT SMALL STOOL THIS AM. ENCOURAGED TO STILL TAKE SENNA AND LACTULOSE AND WAS AGREEABLE TO THIS. FINISHED UP 5TH DAY OF KM TODAY.
--- NOTE | 2019-01-13 08:18 | PM&R Progress Note ---
Subjective HPI/CC On Admission Date Seen by Provider: Jan 13, 2019 Time Seen by Provider: 08:30 CC: Right hip fracture with debility HPI: This is a 73yoWF patient who presented to the [facility] ER after a vertigo episode and fall who sustained a right hip fracture s/p repair in an uncomplicated manner by Dr Tirado on 12/31/18. Patient has a h/o CABG but no follow up since that time. She moved to [place] with her for 2 years and did not see a medical professional since that time and has since moved back to [facility] and had yet to establish with anyone. Her son is an ER doctor in [place] for 10 years. Currently she is doing well as long as she doesn't move and her pain is controlled from the pain meds when she takes it. No BM since admit so will need to work on that and multiple meds are ordered to regain normal bowel f unction. Anemia noted so Venofer will be ordered and iron level was drawn on today's labs. Dr Novak has provided Cardiology consultation services which are much appreciated. She seems to have PVD due to decreased pedal pulses. HGA1C is 8.1 so will order SSI and likely begin OHA while in IRF. Her PLOF was independent at home with her . Subjective/Events-last exam Hip pain is much better Dr. Tirado evaluated her and found nothing to be misaliagned with the hip fracture at the bedside BM today but was small so we will continue treatment for that Overall doing better and participating in therapy more today DC planned for next week 01/20/19 Completed Venofer infusions Conferred with RN Reviewed therapy notes Review of Systems General: Fatigue Musculoskeletal: leg pain Objective Exam Vital Signs Vital Signs Date Time Temp Pulse Resp B/P (MAP) Pulse Ox O2 Delivery O2 Flow Rate FiO2 01/13/19 20:30 Room Air 01/13/19 17:21 98.8 75 16 138/70 (92) 95 Capillary Refill : Less Than 3 Seconds General Appearance: No Apparent Distress, WD/WN, Chronically ill HEENT: PERRL/EOMI, Normal ENT Inspection, Pharynx Normal, Moist Mucous Membranes Neck: Full Range of Motion, Normal Inspection, Non Tender, Supple Respiratory: Chest Non Tender, Lungs Clear, Normal Breath Sounds, No Accessory Muscle Use, No Respiratory Distress Cardiovascular: Regular Rate, Rhythm, No Edema, No Gallop, No JVD, No Murmur Gastrointestinal: Normal Bowel Sounds, No Organomegaly, No Pulsatile Mass, Non Tender, Soft Back: Normal Inspection, No CVA Tenderness, No Vertebral Tenderness Extremity: Normal Capillary Refill, Normal Inspection, Normal Range of Motion (except right leg due to hip pain), Non Tender, No Calf Tenderness, No Pedal Edema Neurologic/Psychiatric: Alert, Oriented x3, No Motor/Sensory Deficits, Normal Mood/Affect, Motor Weakness (generalized weakness) Skin: Normal Color, Warm/Dry Lymphatic: No Adenopathy Results/Procedures Lab Patient resulted labs reviewed. FIM Transfers Therapy Code Descriptions/Definitions Functional [place] Measure: 0=Not Assessed/NA 4=Minimal Assistance 1=Total Assistance 5=Supervision or Setup 2=Maximal Assistance 6=Modified [place] 3=Moderate Assistance 7=Complete [place] Therapy Quality Codes: 6 Independent with activity with or without an assistive device 5 Patient requires set up or clean up by helper. Patient completes activity by themselves 4 Supervision or touching assist (CGA). [place] provide cues , steadying assist 3 The helper provides less than half the effort to complete the activity 2 The helper provides more than half the effort to complete the activity 1 Dependent. The helper does all the effort to complete an activity 7 Patient refused to complete or attempt activity 9 The patient did not perform the activity before the current illness or injury 88 Not attempted due to Medical conditions or safety concerns Transfers (B, C, W/C) (FIM): 4 Scootin Rollin (HOB elevated and use of bedrails) Roll Left to Right (QC): 4 Supine to/from Sit: 5 (PM: with effort, use of bedrail, HOB elevated, increased time to perform, increased pain R hip per pt report) Sit to/from Stand: 4 (CGA provided due to c/o increased pain and stating unable to perform herself. As long as pt feeling therapist's hand on back, able to perform without physical assist) Sit to Lying (QC): 3 Sit to Stand (QC): 4 Chair/Guw-xk-Bmgve Xfer(QC): 5 Bed to/from Chair: 5 Car Transfer (QC): 3 Gait Training Does the Patient Walk?: Yes Gait (FIM): 2 Distance (FIM): 4=390-49 ft Distance: 100 x2 Walk 10 feet (QC): 4 Walk 50 ft with 2 Turns(QC): 4 Gait Level of Assist: 4 (CGA) Gait Persons Needed: 1 (extra person following with w/c for pt's anxiety of p ain and fear of falling and fear of fainting if vertigo comes on) Gait Assistive Device: FWW Wheelchair Training Does the Pt Use a Wheelchair?: Yes Wheelchair (FIM): 2 Wheelchair Distance: 7=163-03 ft Distance: 100 Wheelchair Level of Assist: 4 Wheel 50 ft with 2 turns (QC): 5 Wheel 150 ft (QC): 5 Type of Wheelchair: Manual Stair Training Stair Training: Handrails/: 2 handrails Stairs (FIM): 2 #of Steps: 4 1 Step (curb) (QC): 4 4 Steps (QC): 4 Stairs: Pattern: Step to Level of Assist: 4 Mental Status/Objective Comprehension: 7 Expression: 7 Social Interaction: 7 Problem Solvin Memory: 7 ADL-Treatment Feedin Eating (QC): 6 Groomin Oral Hygiene (QC): 5 Bathin Shower/Bathe Self (QC): 3 Upper Extremity Dressin Upper Body Dressing (QC): 4 Lower Extremity Dressin Lower Body Dressing (QC): 3 On/Off Footwear (QC): 3 Assessment/Plan Assessment and Plan Assess & Plan/Chief Complaint Assessment: s/p right hip fracture repair POD # 13 DM HTN CAD CABG hx Anemia iron def s/p UTI Vertigo-resolved Fall PVD suspected Constipation-resolved after aggressive regimen Plan: IRF protocols SSI Pain control BM regimen maintained Venofer Meclizine to help vertigo but seems to be improved Maintain OHA low dose Monitor leg pain (1) Closed intertrochanteric fracture of right hip (2) Closed intertrochanteric fracture of left hip (3) Diabetes mellitus (4) CAD (coronary artery disease) (5) Anemia, iron deficiency (6) Hx of CABG (7) Vertigo (8) Fall on same level RUFINO MEDEL DO Jan 13, 2019 08:18
--- NOTE | 2019-01-13 08:24 | Cardiology Progress Note ---
Subjective Date Seen by Provider: Jan 13, 2019 Time Seen by Provider: 08:23 Subjective/Events-last exam Patient is sitting up in wheelchair, complaining of right hip pain. Denies any chest pain or dyspnea. Objective-Cardiology Exam Last Set of Vital Signs Vital Signs 01/13/19 06:00 Temp 98.1 Pulse 70 Resp 18 B/P (MAP) 110/65 (80) Pulse Ox 95 O2 Delivery Room Air Capillary Refill : Less Than 3 Seconds I&O Intake and Output 01/13/19 00:00 Intake Total 1180 ml Balance 1180 ml Intake Oral 1180 ml # Voids 5 General: Alert, Oriented X3, Cooperative HEENT: Atraumatic, PERRLA Neck: Supple, No JVD, No Thyromegaly Lungs: Clear to Auscultation, Normal Air Movement Heart: Regular Rate, Normal S1, Normal S2, No Murmurs Abdomen: Normal Bowel Sounds, Soft, No Tenderness, No Hepatosplenomegaly, No Masses Extremities: No Clubbing, No Cyanosis Skin: No Rashes, No Significant Lesion Neuro: Normal Speech, Cranial Nerves 3-12 NL Psych/Mental Status: Mental Status NL, Mood NL A/P-Cardiology Admission Diagnosis right hip fracture CAD DM Vertigo Assessment/Plan Right hip fx, status post surgical repair surgery was done on December 31, 2018, recovering slowly, continue to monitor Anemia, followed and managed by primary care physician Coronary artery disease, history of CABG x 4 approx [address] Velasquez in [place], [place]. No recent cardiac workup. EKG reveals SR. Denies any chest pain at this time. Continue to monitor. Will need stress test as outpatient. Diabetes mellitus, followed and managed by medical team Vertigo, better at this time. Continue to monitor Hx of uterine CA, s/p hysterectomy 8 years ago. Clinical Quality Measures DVT/VTE Risk/Contraindication: Risk Factor Score Per Nursin RFS Level Per Nursing on Admit: 4+=Very High VIOLETTE AGUIRRE Jan 13, 2019 08:24
[2019-01-13] MEDS: SENNA W/DOCUSATE (SENOKOT S) TABLET PO SCH ×2 (08:27→20:29)
[2019-01-13] MEDS: oxyCODONE/APAP 5/325MG (PERCOCET 5) TABLET PO PRN ×2 (08:27→12:48)
[2019-01-13] MEDS: LACTULOSE SYRUP 10GM/15ML (ENULOSE) 30ML UDC PO SCH ×2 (08:28→20:29)
[2019-01-13] MEDS: ENOXAPARIN 40 MG/0.4 ML (LOVENOX) SYR SC SCH (08:30)
[2019-01-13] MEDS: IRON SUCROSE 200 MG/10 ML (VENOFER) VIAL IV SCH (08:31)
[2019-01-13] MEDS: CATHETER FLUSH 10 ML SYR IV PRN (08:33)
[2019-01-13] MEDS: BISACODYL 10 MG SUPP (DULCOLAX) PR SCH ×2 (09:15→20:25)
--- NOTE | 2019-01-13 11:02 | Occupational Ther Daily Note ---
OT Current Status-Daily Note Subjective Pt in restroom upon therapist arrival, agrees to treatment. Pt reports 1/10 pain at rest, but 10/10 pain with movement. Mental Status/Objective Therapy Code Descriptions/Definitions Functional [place] Measure: 0=Not Assessed/NA 4=Minimal Assistance 1=Total Assistance 5=Supervision or Setup 2=Maximal Assistance 6=Modified [place] 3=Moderate Assistance 7=Complete [place] ADL-Treatment Pt in restroom, able to complete toileting hygiene with minimal assistance for balance. Transferred to w/c with min assist using FWW. Pt declined shower today, but would like sponge bath. Completed bathing seated at sink. Upper body bathing completed with SBA. Pt washed bilateral upper legs and elias area with SBA. Min assist to wash buttocks. Pt declined to remove JOSE ALEJANDRO hose to wash lower legs and feet. Don pullover shirt with set up. Pt used financial management to thread bilateral LE into Depends and pants. Stood with min assist for pant hike. Pt completed grooming tasks with set up while seated at sink. Therapy Code Descriptions/Definitions Functional [place] Measure: 0=Not Assessed/NA 4=Minimal Assistance 1=Total Assistance 5=Supervision or Setup 2=Maximal Assistance 6=Modified [place] 3=Moderate Assistance 7=Complete [place] Therapy Quality Codes: 6 Independent with activity with or without an assistive device 5 Patient requires set up or clean up by helper. Patient completes activity by themselves 4 Supervision or touching assist (CGA). [place] provide cues , steadying assist 3 The helper provides less than half the effort to complete the activity 2 The helper provides more than half the effort to complete the activity 1 Dependent. The helper does all the effort to complete an activity 7 Patient refused to complete or attempt activity 9 The patient did not perform the activity before the current illness or inju ry 88 Not attempted due to Medical conditions or safety concerns Grooming (FIM): 5 Oral Hygiene (QC): 5 Upper Body (FIM): 5 Upper Body Dressing (QC): 4 Lower Body Dressing (FIM): 4 Lower Body Dressing (QC): 3 Toilet/Commode Transfer (FIM): 4 Toilet Transfer (QC): 3 Other Treatment Pt performed w/c mobility to therapy gym with increased time. Arm bike [id number] to increase overall strength and activity tolerance needed for ADLs and transfers. Pt completed task with minimal resistance and slow pace. No rest breaks needed. Pt in therapy gym with PT present for treatment after session. OT Short Term Goals Short Term Goals Time Frame: Jan 12, 2019 Bathing(FIM): 4 Lower Body Dressing(FIM): 3 Toilet/Commode Transfer(FIM): 4 (CGA) Additional Short Term Goals: 1-Demonstrate ADL Tasks, 2-Verbalize Understanding, 3-ImproveStrength/Sandra 1=Demonstrate adherence to instructed precautions during ADL tasks. 2=Patient will verbalize/demonstrate understanding of assistive devices/modifications for ADL. 3=Patient will improve strength/tolerance for activity to enable patient to perform ADL's. OT Tribal Delegate Goals Fpc Goals Time Frame: Jan 26, 2019 Eating (FIM): 7 Eating (QC): 6 Groomin Oral Hygiene (QC): 6 Bathing(FIM): 5 Shower/Bathe Self (QC): 5 Upper Body Dressing(FIM): 5 Upper Body Dressing (QC): 5 Lower Body Dressing(FIM): 5 Lower Body Dressing (QC): 5 On/Off Footwear (QC): 5 Toileting(FIM): 6 Toileting Hygiene (QC): 6 Toilet/Commode Transfer(FIM): 6 Toilet/Commode Transfer (QC): 6 Shower Transfer(FIM): 5 Additional Goals: 1-Demonstrate ADL Tasks, 2-Verbalize Understanding, 3- ImproveStrength/Sandra 1=Demonstrate adherence to instructed precautions during ADL tasks. 2=Patient will verbalize/demonstrate understanding of assistive devices/modifications for ADL. 3=Patient will improve strength/tolerance for activity to enable patient to perform ADL's. OT Education/Plan Discharge Recommendations Plan/Recommendations: Continue POC Treatment Plan/Plan of Care Patient would benefit from OT for education, treatment and training to promote independence in ADL's, mobility, safety and/or upper extremity function for ADL's. Plan of Care: ADL Retraining, Functional Mobility, Group Exercise/Act as Ind, UE Funct Exercise/Act Treatment Duration: Jan 26, 2019 Frequency: At least 5 of 7 days/Wk (IRF) Estimated Hrs Per Day: 1.5 hours per day Agreement: Yes Rehab Potential: Good Time/GCodes Start Time: 10:00 Stop Time: 11:00 Total Time Billed (hr/min): 60 Billed Treatment Time 1 visit, ADLx3(45minutes), EX(15minutes) INGRID PADRON OT Jan 13, 2019 11:01
--- NOTE | 2019-01-13 12:13 | Physical Therapy Daily Note ---
PT Daily Note-Current Subjective Pt sitting in W/C in Therapy Gym upon arrival. Pt agrees to PT although continues to demonstrate anxiety with transfers and WB. Pt "needs Sp present during tx". Pain Numeric Pain Scale: 7 Location: Right Location Body Site: Hip Pain Description: Ache, Pressure Mental Status Patient Orientation: Person, Place, Situation Transfers Therapy Code Descriptions/Definitions Functional [place] Measure: 0=Not Assessed/NA 4=Minimal Assistance 1=Total Assistance 5=Supervision or Setup 2=Maximal Assistance 6=Modified [place] 3=Moderate Assistance 7=Complete [place] Therapy Quality Codes: 6 Independent with activity with or without an assistive device 5 Patient requires set up or clean up by helper. Patient completes activity by themselves 4 Supervision or touching assist (CGA). [place] provide cues , steadying assist 3 The helper provides less than half the effort to complete the activity 2 The helper provides more than half the effort to complete the activity 1 Dependent. The helper does all the effort to complete an activity 7 Patient refused to complete or attempt activity 9 The patient did not perform the activity before the current illness or injury 88 Not attempted due to Medical conditions or safety concerns Scootin Sit to/from Stand: 4 Sit to Stand (QC): 4 Weight Bearing Right Lower Extremity: Right Weight Bearing/Tolerated Gait Training Does the Patient Walk?: Yes Gait (FIM): 2 Distance (FIM): 6=007-91 ft Distance: 16' x5 Walk 10 feet (QC): 4 Walk 50 ft with 2 Turns(QC): 4 Gait Level of Assist: 4 Gait Persons Needed: 1 Gait Assistive Device: Parallel Bars Pt is antalgic and pt demonstrates anxiety, needing reassurance that LANGUAGE ASSISTANT is right there with pt. Wheelchair Training Does the Pt Use a Wheelchair?: Yes Wheelchair (FIM): 5 Wheelchair Distance: 3=150 ft Distance: 150' Wheelchair Level of Assist: 5 Wheel 50 ft with 2 turns (QC): 5 Wheel 150 ft (QC): 5 Type of Wheelchair: Manual Exercises NuStep Minutes: 10 NuStep Workload: 1 Treatments Pt completes Seated EX then transfers to NuStep for 10m at WL 1. Pt then takes short RB before walking in //bars. Pt walks 2x down and back in //bars before resting then completes 3 more down and back for resting in W/C. Pt propels W/C back to room to await lunch. Pt has all needs met. Assessment Current Status: Fair Progress Pain and anxiety limit pt's participation and pushing/progressing oneself during tx. PT Short Term Goals Short Term Goals Time Frame: Jan 12, 2019 Gait (FIM): 1 Gait Distance Comment: 25' Gait Level of Assist: 4 Gait Assistive Device: FWW Wheelchair Distance: 100 PT Manager Technical Services Goals Senior Care Goals PT Manager Technical Services Goals Time Frame: Jan 26, 2019 Transfers (B,C,W/C) (FIM): 5 Sit to Lying (QC): 4 Lying-Sitting on Side/Bed(QC): 4 Sit to Stand (QC): 4 Rollin (HOB elevated and use of bedrails) Roll Left to Right (QC): 4 Chair/Vhc-vo-Kvcuu Xfer(QC): 4 Car Transfer (QC): 4 Gait (FIM): 2 Distance: 50' Walk 10 feet (QC): 4 Walk 10ft-Uneven Surface(QC): 4 Walk 50ft with 2 Turns (QC): 4 Gait Level of Assist: 5 Gait Assistive Device: FWW Stairs (FIM): 2 # of Steps: 4 1 Step (curb) (QC): 4 4 Steps (QC): 4 Stairs Level Of Assist: 4 PT Plan Problem List Problem List: Activity Tolerance, Functional Strength, Safety, Balance, Gait, Transfer Treatment/Plan Treatment Plan: Continue Plan of Care Treatment Plan: Bed Mobility, Education, Functional Activity Sandra, Functional Strength, Group Therapy, Gait, Safety, Therapeutic Exercise, Transfers Treatment Duration: Jan 26, 2019 Frequency: At least 5 of 7 days/Wk (IRF) Estimated Hrs Per Day: 1.5 hours per day Patient and/or Family Agrees t: Yes Safety Risks/Education Patient Education: Gait Training, Transfer Techniques, Correct Positioning, Safety Issues Teaching Recipient: Patient Teaching Methods: Discussion Response to Teaching: Verbalize Understanding Time/GCodes Time In: 1100 Time Out: 1200 Total Billed Treatment Time: 60 Total Billed Treatment 1, EX (20m), GT (20m), WCH (10m) & FA (10m) G Codes Necessary: SULTANA Mosqueda LANGUAGE ASSISTANT Jan 13, 2019 12:13
--- NOTE | 2019-01-13 14:57 | Therapy Group Daily Note ---
Therapy Daily Group Note Patient Education Topic Home Safety Exercises LE Seated Exercise, UE Exercise Session Ratio (pt:therapist): 4:1 Goal of Session: Home Safety Strategies, UE/LE Strengthing Goal Met for this Session: Yes Pt Benefit of Group: Contributions to Others, F/U Use of Strategies @Home, Increased Functional Safety, Increased Functional Strength, Recognition of Peers, Socialization Other/Notes Pt transported via w/c to OT/PT group. Group consisted of introductions (name, place born, unsafe home situations), socialization, seated UE/LE exercises, home safety education and home safety category activity. Pt introduced self appropriately and actively listened to peers. Pt verbalized understanding by name strategies for unsafe situations and how to prevent unsafe situations in the home. Pt able to assist others with coming up with ideas and strategies for home safety. Completed UE/LE seated exercises. After therapy, pt returns to room to rest with call light within reach. All needs met in room. Start Time: 13:00 Stop Time: 14:15 Total Billed Treatment Time: 75 Total Billed Treatment 1,[facility] SULTANA CONNER PRODUCT/INDUSTRY CONSULTANT Jan 13, 2019 14:56
--- NOTE | 2019-01-13 15:00 | NUR ---
HOTEL OPERATION MANAGER met with patient and spouse to review team conference summary. Team reports patient's progress is hindered by motivation. Per therapy patient exhibits the strength to perform tasks; however, also relies on her to complete tasks for her. As patient is performing most therapy activities with minimum assistance, team has recommended discharge on 612 with home health services of PT OT and RN. Patient spouse are agreeable to this. Patient requests HOTEL OPERATION MANAGER to review ability for to cover costs of hip kit, tub/shower transfer bench and bedside commode. Patient will also need a front-wheeled walker. HOTEL OPERATION MANAGER will continue to follow.
--- NOTE | 2019-01-13 15:26 | NUR ---
Assumed care of patient. Report rec'd from VÍCTOR Jose.
--- NOTE | 2019-01-13 15:59 | Cardiology Progress Note ---
Subjective Date Seen by Provider: Jan 13, 2019 Time Seen by Provider: 15:58 Subjective/Events-last exam Patient is in bed, feeling better, no new complaint Review of Systems General: No Chills, No Night Sweats, No Fatigue, No Malaise, No Appetite, No Other HEENT: No Head Aches, No Visual Changes, No Eye Pain, No Ear Pain, No Dysphasia, No Sinus Congestion, No Post Nasal Drip, No Sore Throat, No Other Pulmonary: No Dyspnea, No Cough, No Pleuritic Chest Pain, No Other Cardiovascular: No: Chest Pain, Palpitations, Orthopnea, Paroxysmal Noc. Dyspnea, Edema, Lt Headedness, Other Objective-Cardiology Exam Last Set of Vital Signs Vital Signs 01/13/19 01/13/19 06:00 09:00 Temp 98.1 Pulse 70 Resp 18 B/P (MAP) 110/65 (80) Pulse Ox 95 O2 Delivery Room Air Capillary Refill : Less Than 3 Seconds I&O Intake and Output 01/13/19 00:00 Intake Total 1180 ml Balance 1180 ml Intake Oral 1180 ml # Voids 5 General: Alert, Oriented X3, Cooperative HEENT: Atraumatic, PERRLA Neck: Supple, No JVD, No Thyromegaly Lungs: Clear to Auscultation, Normal Air Movement Heart: Regular Rate, Normal S1, Normal S2, No Murmurs Abdomen: Normal Bowel Sounds, Soft, No Tenderness, No Hepatosplenomegaly, No Masses Extremities: No Clubbing, No Cyanosis Skin: No Rashes, No Significant Lesion Neuro: Normal Speech, Cranial Nerves 3-12 NL Psych/Mental Status: Mental Status NL, Mood NL Results Lab Laboratory Tests Test 01/12/19 20:11 01/13/19 05:31 01/13/19 10:58 Range/Units Glucometer 223 H 107 119 H 70-110 MG/DL A/P-Cardiology Admission Diagnosis right hip fracture CAD DM Vertigo Assessment/Plan Right hip fx, status post surgical repair surgery was done on December 31, 2018, recovering slowly, continue to monitor Anemia, followed and managed by primary care physician Coronary artery disease, history of CABG x 4 appro[address] Velasquez in [place], [place]. No recent cardiac workup. EKG reveals SR. Denies any chest pain at this time. Continue to monitor. Will need stress test as outpatient. Diabetes mellitus, followed and managed by medical team Vertigo, better at this time. Continue to monitor Hx of uterine CA, s/p hysterectomy 8 years ago. Clinical Quality Measures DVT/VTE Risk/Contraindication: Risk Factor Score Per Nursin RFS Level Per Nursing on Admit: 4+=Very High SANTI LAMBERT MD Jan 13, 2019 15:59
[2019-01-13 17:21] VITALS: BP 138/70
[2019-01-14 04:30] VITALS: BP 109/68
[2019-01-14] MEDS: inSUlin ASPART (NovoLOG) 1 UNIT/0.01 ML (CHARGE PER UNIT) SC SCH ×4 (05:18→20:47)
[2019-01-14] MEDS: glyBURIDE 2.5 MG (MICRONASE) TAB PO SCH (05:45)
[2019-01-14] MEDS: CATHETER FLUSH 10 ML SYR IV SCH (05:45)
--- NOTE | 2019-01-14 08:00 | NUR ---
DR. GAXIOLA HERE TO SEE PATIENT.
--- NOTE | 2019-01-14 08:02 | Progress Note-Standard ---
Standard Progress Note Progress Notes/Assess & Plan Date Seen by a Provider: Jan 14, 2019 Time Seen by a Provider: 08:01 Progress/Assessment & Plan no complaints RLE-incisions clean and dry. No calf tenderness. Neg SLR s/p IM rell R hip continue PT/OT Final Diagnosis feeling much better R hip incision benign dc geetha today ROSA ISELA GAXIOLA MD Jan 14, 2019 08:02
[2019-01-14] MEDS: ENOXAPARIN 40 MG/0.4 ML (LOVENOX) SYR SC SCH (09:15)
[2019-01-14] MEDS: oxyCODONE/APAP 5/325MG (PERCOCET 5) TABLET PO PRN (09:16)
[2019-01-14] MEDS: LACTULOSE SYRUP 10GM/15ML (ENULOSE) 30ML UDC PO SCH ×2 (09:23→20:31)
[2019-01-14] MEDS: SENNA W/DOCUSATE (SENOKOT S) TABLET PO SCH ×2 (09:23→20:31)
[2019-01-14] MEDS: BISACODYL 10 MG SUPP (DULCOLAX) PR SCH ×2 (09:24→20:32)
--- NOTE | 2019-01-14 09:30 | NUR ---
SALINE LOCK DC'D PER ORDER SINCE HAS FINISHED UP VENOFER INJECTIONS.
--- NOTE | 2019-01-14 09:50 | Physical Therapy Daily Note ---
PT Daily Note-Current Subjective Pt reports didn't sleep well again last night. States she is still in a lot more pain, vikash after getting bath this morning. States she is supposed to be getting her geetha out this am. Agreeable to PT session this morning. Pain Numeric Pain Scale: 6 Location: Right Location Body Site: Hip Comment: increases to 8/10 wtih movement and activity Appearance Upon arrival, pt in bed with in room. Nsg arrived during therapy session to administer pain med that pt had requested. Pt provided with ice pack to R hip at end of session while sitting up in w/c, call light, phone and bedside table within reach with fresh ice per pt request. present Mental Status Patient Orientation: Person, Place, Time, Eyes Open, Situation Transfers Therapy Code Descriptions/Definitions Functional [place] Measure: 0=Not Assessed/NA 4=Minimal Assistance 1=Total Assistance 5=Supervision or Setup 2=Maximal Assistance 6=Modified [place] 3=Moderate Assistance 7=Complete [place] Therapy Quality Codes: 6 Independent with activity with or without an assistive device 5 Patient requires set up or clean up by helper. Patient completes activity by themselves 4 Supervision or touching assist (CGA). [place] provide cues , steadying assist 3 The helper provides less than half the effort to complete the activity 2 The helper provides more than half the effort to complete the activity 1 Dependent. The helper does all the effort to complete an activity 7 Patient refused to complete or attempt activity 9 The patient did not perform the activity before the current illness or injury 88 Not attempted due to Medical conditions or safety concerns Transfers (B, C, W/C) (FIM): 3 Scootin Rollin Supine to/from Sit: 4 (HOB elevated, use of bedrails, min A with LLE) Sit to/from Stand: 4 (CGA and mod encouragement) Bed to/from Chair: 4 (CGA) all transitions taking increased time and with c/o increased R hip pain, antalgic, decreased WB RLE during bed to chair transfer, sitting EOB leans slightly more to L due to increased pain in R hip, verb inst required for hand placement Weight Bearing Right Lower Extremity: Right Weight Bearing/Tolerated Exercises Supine Ex: Bridging (x10, pt attempting but unable to lift buttocks from bed, Assist with bracing RLE), Ankle pumps ((+) toe curls, x20 each), Quad Set (2x10), Glut sets (2x10), Heel Slides (AROM LLE, AAROM RLE, 2x10 each), Short Arc Quads (2 x10), Straight leg raise (AAROM RLE, AROM LLE 2x10 each), Hip abd/add (AROM LLE, AAROM RLE, 2x10 each) increased pain with movement of R hip Treatments bed mobility, balance, transfer, safety, gait, strengthening, ROM, ice pack/pain mngmnt Assessment pt continues with increased pain vikash with movement and WB of RLE. Required min A with most ex's of RLE PT Short Term Goals Short Term Goals Time Frame: Jan 12, 2019 Gait (FIM): 1 Gait Distance Comment: 25' Gait Level of Assist: 4 Gait Assistive Device: FWW Wheelchair Distance: 150' PT Nursing Informatics Analyst Goals Nursing Informatics Analyst Goals PT Group Home Goals Time Frame: Jan 26, 2019 Transfers (B,C,W/C) (FIM): 5 Sit to Lying (QC): 4 Lying-Sitting on Side/Bed(QC): 4 Sit to Stand (QC): 4 Rollin (HOB elevated and use of bedrails) Roll Left to Right (QC): 4 Chair/Uyl-mc-Qiriq Xfer(QC): 4 Car Transfer (QC): 4 Gait (FIM): 2 Distance: 50' Walk 10 feet (QC): 4 Walk 10ft-Uneven Surface(QC): 4 Walk 50ft with 2 Turns (QC): 4 Gait Level of Assist: 5 Gait Assistive Device: FWW Stairs (FIM): 2 # of Steps: 4 1 Step (curb) (QC): 4 4 Steps (QC): 4 Stairs Level Of Assist: 4 PT Plan Treatment/Plan Treatment Plan: Continue Plan of Care Treatment Plan: Bed Mobility, Education, Functional Activity Sandra, Functional Strength, Group Therapy, Gait, Safety, Therapeutic Exercise, Transfers Treatment Duration: Jan 26, 2019 Frequency: At least 5 of 7 days/Wk (IRF) Estimated Hrs Per Day: 1.5 hours per day Patient and/or Family Agrees t: Yes Safety Risks/Education Patient Education: Transfer Techniques, Reviewed Use of Ice, Safety Issues Teaching Recipient: Patient Teaching Methods: Demonstration, Discussion Response to Teaching: Verbalize Understanding, Return Demonstration, Reinforcement Needed Time/GCodes Time In: 900 Time Out: 935 Total Billed Treatment Time: 35 Total Billed Treatment 1 visit, EX x1 unit, FA x1 unit LA HENAO PTA Jan 14, 2019 09:50
--- NOTE | 2019-01-14 10:55 | PM&R Progress Note ---
Subjective HPI/CC On Admission Date Seen by Provider: Jan 14, 2019 Time Seen by Provider: 08:30 CC: Right hip fracture with debility HPI: This is a 73yoWF patient who presented to the [facility] ER after a vertigo episode and fall who sustained a right hip fracture s/p repair in an uncomplicated manner by Dr Tirado on 12/31/18. Patient has a h/o CABG but no follow up since that time. She moved to [place] with her for 2 years and did not see a medical professional since that time and has since moved back to [facility] and had yet to establish with anyone. Her son is an ER doctor in [place] for 10 years. Currently she is doing well as long as she doesn't move and her pain is controlled from the pain meds when she takes it. No BM since admit so will need to work on that and multiple meds are ordered to regain normal bowel f unction. Anemia noted so Venofer will be ordered and iron level was drawn on today's labs. Dr Novak has provided Cardiology consultation services which are much appreciated. She seems to have PVD due to decreased pedal pulses. HGA1C is 8.1 so will order SSI and likely begin OHA while in IRF. Her PLOF was independent at home with her . Subjective/Events-last exam Hip pain is much better at the bedside BM getting more regular Overall doing better and participating in therapy more today Dr Tirado will remove the geetha soon DC planned for next week 01/20/19 Completed Venofer infusions so dayna SIDDIQUI heplock Conferred with RN Reviewed therapy notes Review of Systems General: Fatigue Objective Exam Vital Signs Vital Signs Date Time Temp Pulse Resp B/P (MAP) Pulse Ox O2 Delivery O2 Flow Rate FiO2 01/14/19 15:53 97.6 73 14 123/65 (84) 96 Room Air Capillary Refill : Less Than 3 Seconds General Appearance: No Apparent Distress, WD/WN, Chronically ill HEENT: PERRL/EOMI, Normal ENT Inspection, Pharynx Normal, Moist Mucous Membranes Neck: Full Range of Motion, Normal Inspection, Non Tender, Supple Respiratory: Chest Non Tender, Lungs Clear, Normal Breath Sounds, No Accessory Muscle Use, No Respiratory Distress Cardiovascular: Regular Rate, Rhythm, No Edema, No Gallop, No JVD, No Murmur Gastrointestinal: Normal Bowel Sounds, No Organomegaly, No Pulsatile Mass, Non Tender, Soft Back: Normal Inspection, No CVA Tenderness, No Vertebral Tenderness Extremity: Normal Capillary Refill, Normal Inspection, Normal Range of Motion (except right leg due to hip pain), Non Tender, No Calf Tenderness, No Pedal Juan ma Neurologic/Psychiatric: Alert, Oriented x3, No Motor/Sensory Deficits, Normal Mood/Affect, Motor Weakness (generalized weakness) Skin: Normal Color, Warm/Dry Lymphatic: No Adenopathy Results/Procedures Lab Patient resulted labs reviewed. FIM Transfers Therapy Code Descriptions/Definitions Functional [place] Measure: 0=Not Assessed/NA 4=Minimal Assistance 1=Total Assistance 5=Supervision or Setup 2=Maximal Assistance 6=Modified [place] 3=Moderate Assistance 7=Complete [place] Therapy Quality Codes: 6 Independent with activity with or without an assistive device 5 Patient requires set up or clean up by helper. Patient completes activity by themselves 4 Supervision or touching assist (CGA). [place] provide cues , steadying assist 3 The helper provides less than half the effort to complete the activity 2 The helper provides more than half the effort to complete the activity 1 Dependent. The helper does all the effort to complete an activity 7 Patient refused to complete or attempt activity 9 The patient did not perform the activity before the current illness or injury 88 Not attempted due to Medical conditions or safety concerns Transfers (B, C, W/C) (FIM): 3 Scootin Rollin Roll Left to Right (QC): 4 Supine to/from Sit: 4 (HOB elevated, use of bedrails, min A with LLE) Sit to/from Stand: 4 (CGA and mod encouragement) Sit to Lying (QC): 3 Sit to Stand (QC): 4 Chair/Iki-kx-Olrvn Xfer(QC): 5 Bed to/from Chair: 4 (CGA) Car Transfer (QC): 3 Gait Training Does the Patient Walk?: Yes Gait (FIM): 2 Distance (FIM): 4=988-38 ft Distance: 16' x5 Walk 10 feet (QC): 4 Walk 50 ft with 2 Turns(QC): 4 Gait Level of Assist: 4 Gait Persons Needed: 1 Gait Assistive Device: Parallel Bars Wheelchair Training Does the Pt Use a Wheelchair?: Yes Wheelchair (FIM): 5 Wheelchair Distance: 3=150 ft Distance: 150' Wheelchair Level of Assist: 5 Wheel 50 ft with 2 turns (QC): 5 Wheel 150 ft (QC): 5 Type of Wheelchair: Manual Stair Training Stair Training: Handrails/: 2 handrails Stairs (FIM): 2 #of Steps: 4 1 Step (curb) (QC): 4 4 Steps (QC): 4 Stairs: Pattern: Step to Level of Assist: 4 Mental Status/Objective Comprehension: 7 Expression: 7 Social Interaction: 7 Problem Solvin Memory: 7 ADL-Treatment Feedin Eating (QC): 6 Groomin Oral Hygiene (QC): 5 Bathin Shower/Bathe Self (QC): 3 Upper Extremity Dressin Upper Body Dressing (QC): 4 Lower Extremity Dressin Lower Body Dressing (QC): 3 On/Off Footwear (QC): 3 Toilet/Commode Transfer: 4 Toilet Transfer (QC): 3 Assessment/Plan Assessment and Plan Assess & Plan/Chief Complaint Assessment: s/p right hip fracture repair POD # 14 DM HTN CAD CABG hx Anemia iron def s/p Venofer infusions x 5 doses 200mg s/p UTI Vertigo-resolved Fall PVD suspected Constipation-resolved after aggressive regimen Plan: IRF protocols SSI Pain control BM regimen maintained Venofer Meclizine to help vertigo but seems to be improved Maintain OHA low dose Monitor leg pain (1) Closed intertrochanteric fracture of right hip (2) Closed intertrochanteric fracture of left hip (3) Diabetes mellitus (4) CAD (coronary artery disease) (5) Anemia, iron deficiency (6) Hx of CABG (7) Vertigo (8) Fall on same level RUFINO MEDEL DO Jan 14, 2019 10:55
--- NOTE | 2019-01-14 11:00 | NUR ---
6 NADIA REMOVED FROM LOWER INCISION ON RIGHT HIP AND 8 NADIA FROM HIGHER INCISION. STERI STRIPS PLACED ON BOTH.
--- NOTE | 2019-01-14 11:15 | NUR ---
Pastoral care visit.
--- NOTE | 2019-01-14 11:36 | Cardiology Progress Note ---
Subjective Date Seen by Provider: Jan 14, 2019 Time Seen by Provider: 11:32 Subjective/Events-last exam Patient is sitting in bed, no new complaints. Denies any chest pain. Objective-Cardiology Exam Last Set of Vital Signs Vital Signs 01/14/19 04:30 Temp 97.3 Pulse 71 Resp 22 B/P (MAP) 109/68 (82) Pulse Ox 94 O2 Delivery Room Air Capillary Refill : Less Than 3 Seconds I&O Intake and Output 01/14/19 00:00 Intake Total 1310 ml Balance 1310 ml Intake Oral 1310 ml # Voids 5 # Bowel Movements 3 General: Alert, Oriented X3, Cooperative HEENT: Atraumatic, PERRLA Neck: Supple, No JVD, No Thyromegaly Lungs: Clear to Auscultation, Normal Air Movement Heart: Regular Rate, Normal S1, Normal S2, No Murmurs Abdomen: Normal Bowel Sounds, Soft, No Tenderness, No Hepatosplenomegaly, No Masses Extremities: No Clubbing, No Cyanosis Skin: No Rashes, No Significant Lesion Neuro: Normal Speech, Cranial Nerves 3-12 NL Psych/Mental Status: Mental Status NL, Mood NL A/P-Cardiology Admission Diagnosis right hip fracture CAD DM Vertigo Assessment/Plan Right hip fx, status post surgical repair surgery was done on December 31, 2018, recovering slowly, continue to monitor Anemia, followed and managed by primary care physician Coronary artery disease, history of CABG x 4 appro[address] Velasquez in [place], [place]. No recent cardiac workup. EKG reveals SR. Denies any chest pain at this time. Continue to monitor. Will need stress test as outpatient. Diabetes mellitus, followed and managed by medical team Vertigo, better at this time. Continue to monitor Hx of uterine CA, s/p hysterectomy 8 years ago. Clinical Quality Measures DVT/VTE Risk/Contraindication: Risk Factor Score Per Nursin RFS Level Per Nursing on Admit: 4+=Very High VIOLETTE AGUIRRE Jan 14, 2019 11:35
--- NOTE | 2019-01-14 11:55 | Physical Therapy Daily Note ---
PT Daily Note-Current Subjective Pt is sitting up in W/C upon arrival. Pt agrees to PT although continues to be very anxious. Pain Numeric Pain Scale: 8 Location: Right Location Body Site: Hip Pain Description: Ache, Tightness Mental Status Patient Orientation: Person, Confused, Place Transfers Therapy Code Descriptions/Definitions Functional [place] Measure: 0=Not Assessed/NA 4=Minimal Assistance 1=Total Assistance 5=Supervision or Setup 2=Maximal Assistance 6=Modified [place] 3=Moderate Assistance 7=Complete [place] Therapy Quality Codes: 6 Independent with activity with or without an assistive device 5 Patient requires set up or clean up by helper. Patient completes activity by themselves 4 Supervision or touching assist (CGA). [place] provide cues , steadying assist 3 The helper provides less than half the effort to complete the activity 2 The helper provides more than half the effort to complete the activity 1 Dependent. The helper does all the effort to complete an activity 7 Patient refused to complete or attempt activity 9 The patient did not perform the activity before the current illness or injury 88 Not attempted due to Medical conditions or safety concerns Scootin Supine to/from Sit: 4 Sit to/from Stand: 4 Sit to Lying (QC): 4 Sit to Stand (QC): 4 Weight Bearing Right Lower Extremity: Right Weight Bearing/Tolerated Gait Training Does the Patient Walk?: Yes Gait (FIM): 3 Distance (FIM): 8=574-05 ft Distance: 16' x4 Walk 10 feet (QC): 4 Walk 50 ft with 2 Turns(QC): 4 Gait Level of Assist: 4 Gait Persons Needed: 1 Gait Assistive Device: Parallel Bars Pt walks with antalgic gait pattern, gingerly on R LE. Pt is encouraged to WBAT on R LE to normalize gait but pt reports not being able to. Wheelchair Training Does the Pt Use a Wheelchair?: Yes Wheelchair (FIM): 5 Wheelchair Distance: 3=150 ft Distance: 150' Wheelchair Level of Assist: 5 Wheel 50 ft with 2 turns (QC): 5 Wheel 150 ft (QC): 5 Type of Wheelchair: Manual Treatments Pt propels W/C in hallway. Pt ambulates in //bars with encouragement from UPHOLSTERY REPAIRER. Pt returns to room to rest at end of tx. Pt transfers back to Supine in bed to rest. Pt has all needs met. Assessment Current Status: Fair Progress Pt does not want to WB due to discomfort but UPHOLSTERY REPAIRER encourages pt that while it is uncomfortable now it will feel better in the long run. PT Short Term Goals Short Term Goals Time Frame: Jan 12, 2019 Gait (FIM): 1 Gait Distance Comment: 25' Gait Level of Assist: 4 Gait Assistive Device: FWW Wheelchair Distance: 150' PT [facility] Goals Finished Yarn Examiner Goals PT [facility] Goals Time Frame: Jan 26, 2019 Transfers (B,C,W/C) (FIM): 5 Sit to Lying (QC): 4 Lying-Sitting on Side/Bed(QC): 4 Sit to Stand (QC): 4 Rollin Roll Left to Right (QC): 4 Chair/[place] Xfer(QC): 4 Car Transfer (QC): 4 Gait (FIM): 2 Distance: 50' Walk 10 feet (QC): 4 Walk 10ft-Uneven Surface(QC): 4 Walk 50ft with 2 Turns (QC): 4 Gait Level of Assist: 5 Gait Assistive Device: FWW Stairs (FIM): 2 # of Steps: 4 1 Step (curb) (QC): 4 4 Steps (QC): 4 Stairs Level Of Assist: 4 PT Plan Problem List Problem List: Activity Tolerance, Functional Strength, Safety, Balance, Gait, Transfer, Bed Mobility Treatment/Plan Treatment Plan: Continue Plan of Care Treatment Plan: Bed Mobility, Education, Functional Activity Sandra, Functional Strength, Group Therapy, Gait, Safety, Therapeutic Exercise, Transfers Treatment Duration: Jan 26, 2019 Frequency: At least 5 of 7 days/Wk (IRF) Estimated Hrs Per Day: 1.5 hours per day Patient and/or Family Agrees t: Yes Safety Risks/Education Patient Education: Gait Training, Transfer Techniques, Correct Positioning, W/C Management, Safety Issues Teaching Recipient: Patient Teaching Methods: Discussion Response to Teaching: Verbalize Understanding Time/GCodes Time In: 1000 Time Out: 1040 Total Billed Treatment Time: 40 Total Billed Treatment 1, WCH (10m), GT (15m) & FA (15m) G Codes Necessary: SULTANA Mosqueda UPHOLSTERY REPAIRER Jan 14, 2019 11:55
--- NOTE | 2019-01-14 13:37 | Occupational Ther Daily Note ---
OT Current Status-Daily Note Subjective Pt seen in room, up in bed, agreeable to OT. Pain not mentioned except with moving R leg in bed (pt winced). Appearance Alert, cooperative Mental Status/Objective Therapy Code Descriptions/Definitions Functional [place] Measure: 0=Not Assessed/NA 4=Minimal Assistance 1=Total Assistance 5=Supervision or Setup 2=Maximal Assistance 6=Modified [place] 3=Moderate Assistance 7=Complete [place] ADL-Treatment Pt declined shower but agreed to sponge bath and change clothes. Min assist supine to sit moving R leg - pt needed encouragement to push her trunk up rather than have her just pull her up. Occasional dizziness when transitioning in bed, resolves on its own. Pt completed sponge bath with setup and SBA when standing to wash her bottom, FWW. Sit to stand SBA, cues for hand placement on bed. Walked to bathroom with SBA, FWW and transferred on/off toilet with SBA, grab bar, FWW. Pt managed clothing and hygiene SBA. OT applied barrier cream to her bottom. Pt dressed with setup, using sofa cover inspector and dressing stick, close CBA when standing to pull pants up. Help with slipper socks. Pt stood at sink SBA, FWW, cues for hand placement, to brush teeth. walked back to bed SBA, FWW and cues for hand placement for sitting back EOB. Min assist to help move R leg, cues for pt to use arms to lie down. Pt left up in bed, 4 rails up, all needs met. Therapy Code Descriptions/Definitions Functional [place] Measure: 0=Not Assessed/NA 4=Minimal Assistance 1=Total Assistance 5=Supervision or Setup 2=Maximal Assistance 6=Modified [place] 3=Moderate Assistance 7=Complete [place] Therapy Quality Codes: 6 Independent with activity with or without an assistive device 5 Patient requires set up or clean up by helper. Patient completes activity by themselves 4 Supervision or touching assist (CGA). [place] provide cues , steadying assist 3 The helper provides less than half the effort to complete the activity 2 The helper provides more than half the effort to complete the activity 1 Dependent. The helper does all the effort to complete an activity 7 Patient refused to complete or attempt activity 9 The patient did not perform the activity before the current illness or injury 88 Not attempted due to Medical conditions or safety concerns Grooming (FIM): 5 Bathing (FIM): 5 (Sponge bath) Upper Body Dressing (QC): 5 Lower Body Dressing (QC): 4 (Help with slipper socks) Toileting (FIM): 5 Transfers (B, C, W/C) (FIM): 4 (bed) Toilet/Commode Transfer (FIM): 5 Education OT Patient Education: Instructions to caregiver, Modified ADL techniques, Progress toward Goal/Update tx plan, Purpose of tx/functional activities, Safety issues, Transfer techniques, Use of adapted equipment Teaching Recipient: Patient, Significant Other Teaching Methods: Demonstration, Discussion Response to Teaching: Verbalize Understanding, Return Demonstration, Reinforcement Needed OT Short Term Goals Short Term Goals Time Frame: Jan 12, 2019 Bathing(FIM): 4 Lower Body Dressing(FIM): 3 Toilet/Commode Transfer(FIM): 4 (CGA) Additional Short Term Goals: 1-Demonstrate ADL Tasks, 2-Verbalize Understanding, 3-ImproveStrength/Sandra 1=Demonstrate adherence to instructed precautions during ADL tasks. 2=Patient will verbalize/demonstrate understanding of assistive devices/modifications for ADL. 3=Patient will improve strength/tolerance for activity to enable patient to perform ADL's. OT Mcc Goals Mcc Goals Time Frame: Jan 26, 2019 Eating (FIM): 7 Eating (QC): 6 Groomin Oral Hygiene (QC): 6 Bathing(FIM): 5 Shower/Bathe Self (QC): 5 Upper Body Dressing(FIM): 5 Upper Body Dressing (QC): 5 Lower Body Dressing(FIM): 5 Lower Body Dressing (QC): 5 On/Off Footwear (QC): 5 Toileting(FIM): 6 Toileting Hygiene (QC): 6 Toilet/Commode Transfer(FIM): 6 Toilet/Commode Transfer (QC): 6 Shower Transfer(FIM): 5 Additional Goals: 1-Demonstrate ADL Tasks, 2-Verbalize Understanding, 3- ImproveStrength/Sandra 1=Demonstrate adherence to instructed precautions during ADL tasks. 2=Patient will verbalize/demonstrate understanding of assistive devices/modifications for ADL. 3=Patient will improve strength/tolerance for activity to enable patient to perform ADL's. OT Education/Plan Discharge Recommendations Plan/Recommendations: Continue POC Treatment Plan/Plan of Care Patient would benefit from OT for education, treatment and training to promote independence in ADL's, mobility, safety and/or upper extremity function for ADL's. Plan of Care: ADL Retraining, Functional Mobility, Group Exercise/Act as Ind, UE Funct Exercise/Act Treatment Duration: Jan 26, 2019 Frequency: At least 5 of 7 days/Wk (IRF) Estimated Hrs Per Day: 1.5 hours per day Agreement: Yes Rehab Potential: Good Time/GCodes Start Time: 08:00 Stop Time: 08:45 Total Time Billed (hr/min): 45 Billed Treatment Time visit, 45 minutes ADL KARI SENIOR OT Jan 14, 2019 13:37
--- NOTE | 2019-01-14 15:33 | Therapy Group Daily Note ---
Therapy Daily Group Note Patient Education Topic Other List Below (Memory Strategies) Exercises Sit to/from Stand Session Ratio (pt:therapist): 4:1 Goal of Session: Memory Strategies, UE/LE Strengthing, Safety with Transfers Goal Met for this Session: Yes Pt Benefit of Group: Contributions to Others, F/U Use of Strategies @Home, Increased Functional Safety, Increased Functional Strength, Improved Cognition, Recognition of Peers, Socialization Other/Notes Pt participated in group introductions and recall of favorite summer activities. Her favorite summer activity is planting vance. She then actively engaged in providing ideas and suggestions and how to remember to take her medications and when to take them. She participated in sit to stand training with cues for correct sequencing to stand up and tossed a toth bag to challenge her balance in standing. Group concluded with a game of "memory" with matching pictures requiring her to participate and actively participate. Pt was able to make one match. Pt was engaged and seemed to enjoy group. Pt returned to room to rest with all needs met, call light in hand. Start Time: 13:00 Stop Time: 14:15 Total Billed Treatment Time: 75 Total Billed Treatment 1, GENOVEVA CONNERSULTANA GRILL COOK Jan 14, 2019 15:33
[2019-01-14 15:53] VITALS: BP 123/65
--- NOTE | 2019-01-14 17:27 | Cardiology Progress Note ---
Subjective Date Seen by Provider: Jan 14, 2019 Time Seen by Provider: 17:26 Subjective/Events-last exam patient is laying down in bed, feeling better, denied any chest pain or shor tness of breath Review of Systems General: No Chills, No Night Sweats, No Fatigue, No Malaise, No Appetite, No Other HEENT: No Head Aches, No Visual Changes, No Eye Pain, No Ear Pain, No Dysphasia, No Sinus Congestion, No Post Nasal Drip, No Sore Throat, No Other Pulmonary: No Dyspnea, No Cough, No Pleuritic Chest Pain, No Other Cardiovascular: No: Chest Pain, Palpitations, Orthopnea, Paroxysmal Noc. Dyspnea, Edema, Lt Headedness, Other Objective-Cardiology Exam Last Set of Vital Signs Vital Signs 01/14/19 15:53 Temp 97.6 Pulse 73 Resp 14 B/P (MAP) 123/65 (84) Pulse Ox 96 O2 Delivery Room Air Capillary Refill : Less Than 3 Seconds I&O Intake and Output 01/14/19 00:00 Intake Total 1310 ml Balance 1310 ml Intake Oral 1310 ml # Voids 5 # Bowel Movements 3 General: Alert, Oriented X3, Cooperative HEENT: Atraumatic, PERRLA Neck: Supple, No JVD, No Thyromegaly Lungs: Clear to Auscultation, Normal Air Movement Heart: Regular Rate, Normal S1, Normal S2, No Murmurs Abdomen: Normal Bowel Sounds, Soft, No Tenderness, No Hepatosplenomegaly, No Masses Extremities: No Clubbing, No Cyanosis Skin: No Rashes, No Significant Lesion Neuro: Normal Speech, Cranial Nerves 3-12 NL Psych/Mental Status: Mental Status NL, Mood NL Results Lab Laboratory Tests Test 01/13/19 21:03 01/14/19 05:04 01/14/19 10:52 01/14/19 15:53 Range/Units Glucometer 184 H 136 H 103 129 H 70-110 MG/DL A/P-Cardiology Admission Diagnosis right hip fracture CAD DM Vertigo Assessment/Plan Right hip fx, status post surgical repair surgery was done on December 31, 2018, recovering slowly, continue to monitor Anemia, followed and managed by primary care physician Coronary artery disease, history of CABG x 4 approx [address] Velasquez in [place], [place]. No recent cardiac workup. EKG reveals SR. Denies any chest pain at this time. Continue to monitor. Will need stress test as outpatient. Diabetes mellitus, followed and managed by medical team Vertigo, better at this time. Continue to monitor Hx of uterine CA, s/p hysterectomy 8 years ago. Clinical Quality Measures DVT/VTE Risk/Contraindication: Risk Factor Score Per Nursin RFS Level Per Nursing on Admit: 4+=Very High SANTI LAMBERT MD Jan 14, 2019 17:27
[2019-01-15 05:11] VITALS: BP 143/67
[2019-01-15] MEDS: glyBURIDE 2.5 MG (MICRONASE) TAB PO SCH (05:52)
[2019-01-15] MEDS: inSUlin ASPART (NovoLOG) 1 UNIT/0.01 ML (CHARGE PER UNIT) SC SCH ×4 (06:16→20:52)
--- NOTE | 2019-01-15 06:23 | Progress Note-Standard ---
Standard Progress Note Progress Notes/Assess & Plan Date Seen by a Provider: Jan 15, 2019 Time Seen by a Provider: 06:22 Progress/Assessment & Plan no complaints RLE-incisions clean and dry. No calf tenderness. Neg SLR s/p IM rell R hip continue PT/OT Final Diagnosis no complaints r hip incisions well healed improve ROM s/p R hip IM rell continue PT/OT ROSA ISELA GAXIOLA MD Jan 15, 2019 06:23
[2019-01-15] MEDS: oxyCODONE/APAP 5/325MG (PERCOCET 5) TABLET PO PRN (08:28)
[2019-01-15] MEDS: ENOXAPARIN 40 MG/0.4 ML (LOVENOX) SYR SC SCH (08:29)
--- NOTE | 2019-01-15 08:30 | NUR ---
STATES PAIN IN RIGHT HIP MUCH IMPROVED TODAY. WAS MEDICATED PRIOR TO WORKING WITH THERAPY.
--- NOTE | 2019-01-15 09:12 | PM&R Progress Note ---
Subjective HPI/CC On Admission Date Seen by Provider: Jan 15, 2019 Time Seen by Provider: 08:45 CC: Right hip fracture with debility HPI: This is a 73yoWF patient who presented to the [facility] ER after a vertigo episode and fall who sustained a right hip fracture s/p repair in an uncomplicated manner by Dr Tirado on 12/31/18. Patient has a h/o CABG but no follow up since that time. She moved to [place] with her for 2 years and did not see a medical professional since that time and has since moved back to [facility] and had yet to establish with anyone. Her son is an ER doctor in [place] for 10 years. Currently she is doing well as long as she doesn't move and her pain is controlled from the pain meds when she takes it. No BM since admit so will need to work on that and multiple meds are ordered to regain normal bowel f unction. Anemia noted so Venofer will be ordered and iron level was drawn on today's labs. Dr Novak has provided Cardiology consultation services which are much appreciated. She seems to have PVD due to decreased pedal pulses. HGA1C is 8.1 so will order SSI and likely begin OHA while in IRF. Her PLOF was independent at home with her . Subjective/Events-last exam Hip pain is much better BM getting more regular Overall doing better and participating in therapy more today and more every day Dr Tirado removed the geetha and incision looks good DC planned for next week 01/20/19 Refuses showers for right now Conferred with RN Reviewed therapy notes Review of Systems General: Fatigue Musculoskeletal: leg pain Objective Exam Vital Signs Vital Signs Date Time Temp Pulse Resp B/P (MAP) Pulse Ox O2 Delivery O2 Flow Rate FiO2 01/15/19 17:04 98.8 77 20 149/72 (97) 95 Room Air Capillary Refill : Less Than 3 Seconds General Appearance: No Apparent Distress, WD/WN, Chronically ill HEENT: PERRL/EOMI, Normal ENT Inspection, Pharynx Normal, Moist Mucous Membranes Neck: Full Range of Motion, Normal Inspection, Non Tender, Supple Respiratory: Chest Non Tender, Lungs Clear, Normal Breath Sounds, No Accessory Muscle Use, No Respiratory Distress Cardiovascular: Regular Rate, Rhythm, No Edema, No Gallop, No JVD, No Murmur Gastrointestinal: Normal Bowel Sounds, No Organomegaly, No Pulsatile Mass, Non Tender, Soft Back: Normal Inspection, No CVA Tenderness, No Vertebral Tenderness Extremity: Normal Capillary Refill, Normal Inspection, Normal Range of Motion (except right leg due to hip pain), Non Tender, No Calf Tenderness, No Pedal Edema Neurologic/Psychiatric: Alert, Oriented x3, No Motor/Sensory Deficits, Normal Mood/Affect, Motor Weakness (generalized weakness) Skin: Normal Color, Warm/Dry Lymphatic: No Adenopathy Results/Procedures Lab Patient resulted labs reviewed. FIM Transfers Therapy Code Descriptions/Definitions Functional [place] Measure: 0=Not Assessed/NA 4=Minimal Assistance 1=Total Assistance 5=Supervision or Setup 2=Maximal Assistance 6=Modified [place] 3=Moderate Assistance 7=Complete [place] Therapy Quality Codes: 6 Independent with activity with or without an assistive device 5 Patient requires set up or clean up by helper. Patient completes activity by themselves 4 Supervision or touching assist (CGA). [place] provide cues , steadying assist 3 The helper provides less than half the effort to complete the activity 2 The helper provides more than half the effort to complete the activity 1 Dependent. The helper does all the effort to complete an activity 7 Patient refused to complete or attempt activity 9 The patient did not perform the activity before the current illness or injury 88 Not attempted due to Medical conditions or safety concerns Transfers (B, C, W/C) (FIM): 4 (bed) Scootin Rollin Roll Left to Right (QC): 4 Supine to/from Sit: 4 Sit to/from Stand: 4 Sit to Lying (QC): 4 Sit to Stand (QC): 4 Chair/Rzj-cy-Aoqhz Xfer(QC): 5 Bed to/from Chair: 4 (CGA) Car Transfer (QC): 3 Gait Training Does the Patient Walk?: Yes Gait (FIM): 3 Distance (FIM): 3=671-40 ft Distance: 16' x4 Walk 10 feet (QC): 4 Walk 50 ft with 2 Turns(QC): 4 Gait Level of Assist: 4 Gait Persons Needed: 1 Gait Assistive Device: Parallel Bars Wheelchair Training Does the Pt Use a Wheelchair?: Yes Wheelchair (FIM): 5 Wheelchair Distance: 3=150 ft Distance: 150' Wheelchair Level of Assist: 5 Wheel 50 ft with 2 turns (QC): 5 Wheel 150 ft (QC): 5 Type of Wheelchair: Manual Stair Training Stair Training: Handrails/: 2 handrails Stairs (FIM): 2 #of Steps: 4 1 Step (curb) (QC): 4 4 Steps (QC): 4 Stairs: Pattern: Step to Level of Assist: 4 Mental Status/Objective Comprehension: 7 Expression: 7 Social Interaction: 7 Problem Solvin Memory: 7 ADL-Treatment Feedin Eating (QC): 6 Groomin Oral Hygiene (QC): 5 Bathin (Sponge bath) Shower/Bathe Self (QC): 3 Upper Extremity Dressin Upper Body Dressing (QC): 5 Lower Extremity Dressin Lower Body Dressing (QC): 4 (Help with slipper socks) On/Off Footwear (QC): 3 Toiletin Toilet/Commode Transfer: 5 Toilet Transfer (QC): 3 Assessment/Plan Assessment and Plan Assess & Plan/Chief Complaint Assessment: s/p right hip fracture repair POD # 15 DM HTN CAD CABG hx Anemia iron def s/p Venofer infusions x 5 doses 200mg s/p UTI Vertigo-resolved Fall PVD suspected Constipation-resolved after aggressive regimen Plan: IRF protocols SSI Pain control BM regimen maintained Venofer Meclizine to help vertigo but seems to be improved Maintain OHA low dose Monitor leg pain (1) Closed intertrochanteric fracture of right hip (2) Closed intertrochanteric fracture of left hip (3) Diabetes mellitus (4) CAD (coronary artery disease) (5) Anemia, iron deficiency (6) Hx of CABG (7) Vertigo (8) Fall on same level RUFINO MEDEL DO Jan 15, 2019 09:12
[2019-01-15] MEDS: BISACODYL 10 MG SUPP (DULCOLAX) PR SCH ×2 (09:20→20:58)
--- NOTE | 2019-01-15 10:33 | Physical Therapy Daily Note ---
PT Daily Note-Current Subjective Pt. rates pain in right hip at 7/10 vikash with TRFs and walking. Pt. insists that her and this COAT OPERATOR INSULATOR "hold to her" . Lacks confidence, much fear of falling again, limits herself and resists attempting TRFs insisting others lift her LE Pain Numeric Pain Scale: 7 Location: Right Location Body Site: Hip Pain Description: Ache Mental Status Patient Orientation: Person, Place, Time, Situation Transfers Therapy Code Descriptions/Definitions Functional [place] Measure: 0=Not Assessed/NA 4=Minimal Assistance 1=Total Assistance 5=Supervision or Setup 2=Maximal Assistance 6=Modified [place] 3=Moderate Assistance 7=Complete [place] Therapy Quality Codes: 6 Independent with activity with or without an assistive device 5 Patient requires set up or clean up by helper. Patient completes activity by themselves 4 Supervision or touching assist (CGA). [place] provide cues , steadying assist 3 The helper provides less than half the effort to complete the activity 2 The helper provides more than half the effort to complete the activity 1 Dependent. The helper does all the effort to complete an activity 7 Patient refused to complete or attempt activity 9 The patient did not perform the activity before the current illness or injury 88 Not attempted due to Medical conditions or safety concerns Transfers (B, C, W/C) (FIM): 3 Scootin Rollin Supine to/from Sit: 3 Sit to/from Stand: 5 Bed to/from Chair: 4 Pt. with pain c/o in out bed, having difficulty deciding which side of bed would be best. Pt. would profit from bed cane product at home Weight Bearing Right Lower Extremity: Right Weight Bearing/Tolerated Gait Training Does the Patient Walk?: Yes Gait (FIM): 4 Distance (FIM): 3=150 ft (175x2) Gait Level of Assist: 4 Gait Persons Needed: 1 Gait Assistive Device: FWW pt. could be SBA but insists someone, preferably 2 people hold on to her all the time. short strides, poor heel strike, improves briefly with cuing Exercises Supine Ex: Ankle pumps, Quad Set, Rolling, Glut sets, Heel Slides, Short Arc Quads, Scooting, Hip abd/add Supine Reps: 12 Standing: Hip Abduction, Heel/toe raises, Marching, Mini squats Standing Reps: 12 NuStep Minutes: 12 NuStep Workload: 3 Treatments much work on in out bed with pt. insisting on keeping LEs together and someone lifting both, present and does just that Assessment Current Status: Good Progress pt. self limiting, fear of falls, PT Short Term Goals Short Term Goals Time Frame: Jan 12, 2019 Gait (FIM): 1 Gait Distance Comment: 25' Gait Level of Assist: 4 Gait Assistive Device: FWW Wheelchair Distance: 150' PT Snf Goals Snf Goals PT Snf Goals Time Frame: Jan 26, 2019 Transfers (B,C,W/C) (FIM): 5 Sit to Lying (QC): 4 Lying-Sitting on Side/Bed(QC): 4 Sit to Stand (QC): 4 Rollin Roll Left to Right (QC): 4 Chair/Iaa-kp-Eeabd Xfer(QC): 4 Car Transfer (QC): 4 Gait (FIM): 2 Distance: 50' Walk 10 feet (QC): 4 Walk 10ft-Uneven Surface(QC): 4 Walk 50ft with 2 Turns (QC): 4 Gait Level of Assist: 5 Gait Assistive Device: FWW Stairs (FIM): 2 # of Steps: 4 1 Step (curb) (QC): 4 4 Steps (QC): 4 Stairs Level Of Assist: 4 PT Plan Treatment/Plan Treatment Plan: Continue Plan of Care Treatment Plan: Bed Mobility, Education, Functional Activity Sandra, Functional Strength, Group Therapy, Gait, Safety, Therapeutic Exercise, Transfers Treatment Duration: Jan 26, 2019 Frequency: At least 5 of 7 days/Wk (IRF) Estimated Hrs Per Day: 1.5 hours per day Patient and/or Family Agrees t: Yes Safety Risks/Education Patient Education: Gait Training, Transfer Techniques, Correct Positioning, Disease Process, Safety Issues Teaching Recipient: Patient Teaching Methods: Demonstration, Discussion Response to Teaching: Verbalize Understanding, Return Demonstration, Reinforcement Needed Time/GCodes Time In: 930 Time Out: 1030 Total Billed Treatment Time: 60 Total Billed Treatment 1,GT20m,FA15m,EX25m G Codes Necessary: JESSIE Mendez COAT OPERATOR INSULATOR Jan 15, 2019 10:33
[2019-01-15] MEDS: SENNA W/DOCUSATE (SENOKOT S) TABLET PO SCH ×2 (11:00→20:57)
[2019-01-15] MEDS: LACTULOSE SYRUP 10GM/15ML (ENULOSE) 30ML UDC PO SCH ×2 (11:01→20:57)
--- NOTE | 2019-01-15 11:45 | Occupational Ther Daily Note ---
OT Current Status-Daily Note Subjective Pt in bed, agrees to therapy. Pt reports 4/10 right hip pain with movement. Mental Status/Objective Therapy Code Descriptions/Definitions Functional [place] Measure: 0=Not Assessed/NA 4=Minimal Assistance 1=Total Assistance 5=Supervision or Setup 2=Maximal Assistance 6=Modified [place] 3=Moderate Assistance 7=Complete [place] ADL-Treatment Pt declined shower today. Educated pt on importance of practicing this skill for increased safety and independence. Pt states understanding, but continues to decline, states she will shower on Friday. Supine to sit with minimal assistance and cues for technique. Sit to stand with min assist. Gait to restroom with FWW. Sponge bath completed seated at sink. Upper body bathing completed with SBA. Pt able to wash elias area and bilateral upper legs. Stood with CGA to wash buttocks. Pt used long handled sponge to wash/dry lower legs and feet. Don pullover shirt with set up. Lower body dressing with min assist. Pt donned socks with SBA and verbal cues using sock aid. Grooming tasks completed seated at sink. Pt brushed teeth and combed hair with modified independence. Pt was taken to shower room and was educated on tub transfers and DME. Pt was shown tub transfer bench and shower chair. Pt states she will talk to about getting a shower bench. Therapy Code Descriptions/Definitions Functional [place] Measure: 0=Not Assessed/NA 4=Minimal Assistance 1=Total Assistance 5=Supervision or Setup 2=Maximal Assistance 6=Modified [place] 3=Moderate Assistance 7=Complete [place] Therapy Quality Codes: 6 Independent with activity with or without an assistive device 5 Patient requires set up or clean up by helper. Patient completes activity by themselves 4 Supervision or touching assist (CGA). [place] provide cues , steadying assist 3 The helper provides less than half the effort to complete the activity 2 The helper provides more than half the effort to complete the activity 1 Dependent. The helper does all the effort to complete an activity 7 Patient refused to complete or attempt activity 9 The patient did not perform the activity before the current illness or injury 88 Not attempted due to Medical conditions or safety concerns Grooming (FIM): 6 Oral Hygiene (QC): 6 Bathing (FIM): 4 Upper Body (FIM): 5 Upper Body Dressing (QC): 5 Lower Body Dressing (FIM): 4 Lower Body Dressing (QC): 3 Other Treatment Pt completed bilateral UE exercises to increase strength needed for ADLs and transfers. Pt performed shoulder flexion, forward press, biceps curls, and wrist flex/ext x15 reps with 1# dowel rell. Rest breaks between exercises. Arm bike [id number] to increase overall strength and activity tolerance needed for functional task completion. Pt completed activity with minimal resistance and slow pace. No rest breaks needed. Pt returned to room, sitting in w/c with needs met after session. OT Short Term Goals Short Term Goals Time Frame: Jan 12, 2019 Bathing(FIM): 4 Lower Body Dressing(FIM): 3 Toilet/Commode Transfer(FIM): 4 (CGA) Additional Short Term Goals: 1-Demonstrate ADL Tasks, 2-Verbalize Understanding, 3-ImproveStrength/Sandra 1=Demonstrate adherence to instructed precautions during ADL tasks. 2=Patient will verbalize/demonstrate understanding of assistive devices/modifications for ADL. 3=Patient will improve strength/tolerance for activity to enable patient to perform ADL's. OT Correction Goals Bobbin Sorter Goals Time Frame: Jan 26, 2019 Eating (FIM): 7 Eating (QC): 6 Groomin Oral Hygiene (QC): 6 Bathing(FIM): 5 Shower/Bathe Self (QC): 5 Upper Body Dressing(FIM): 5 Upper Body Dressing (QC): 5 Lower Body Dressing(FIM): 5 Lower Body Dressing (QC): 5 On/Off Footwear (QC): 5 Toileting(FIM): 6 Toileting Hygiene (QC): 6 Toilet/Commode Transfer(FIM): 6 Toilet/Commode Transfer (QC): 6 Shower Transfer(FIM): 5 Additional Goals: 1-Demonstrate ADL Tasks, 2-Verbalize Understanding, 3- ImproveStrength/Sandra 1=Demonstrate adherence to instructed precautions during ADL tasks. 2=Patient will verbalize/demonstrate understanding of assistive devices/ modifications for ADL. 3=Patient will improve strength/tolerance for activity to enable patient to perform ADL's. OT Education/Plan Discharge Recommendations Plan/Recommendations: Continue POC Treatment Plan/Plan of Care Patient would benefit from OT for education, treatment and training to promote independence in ADL's, mobility, safety and/or upper extremity function for ADL's. Plan of Care: ADL Retraining, Functional Mobility, Group Exercise/Act as Ind, UE Funct Exercise/Act Treatment Duration: Jan 26, 2019 Frequency: At least 5 of 7 days/Wk (IRF) Estimated Hrs Per Day: 1.5 hours per day Agreement: Yes Rehab Potential: Good Time/GCodes Start Time: 08:00 Stop Time: 09:30 Total Time Billed (hr/min): 90 Billed Treatment Time 1 visit, ADLx4(55minutes), EXx2(35minutes) INGRID PADRON OT Jan 15, 2019 11:45
--- NOTE | 2019-01-15 13:04 | Physical Therapy Daily Note ---
PT Daily Note-Current Subjective Agrees to Rx, wants to stay in bed. Pain Location: No Pain Reported Mental Status Patient Orientation: Normal For Age Transfers Therapy Code Descriptions/Definitions Functional [place] Measure: 0=Not Assessed/NA 4=Minimal Assistance 1=Total Assistance 5=Supervision or Setup 2=Maximal Assistance 6=Modified [place] 3=Moderate Assistance 7=Complete [place] Therapy Quality Codes: 6 Independent with activity with or without an assistive device 5 Patient requires set up or clean up by helper. Patient completes activity by themselves 4 Supervision or touching assist (CGA). [place] provide cues , steadying assist 3 The helper provides less than half the effort to complete the activity 2 The helper provides more than half the effort to complete the activity 1 Dependent. The helper does all the effort to complete an activity 7 Patient refused to complete or attempt activity 9 The patient did not perform the activity before the current illness or injury 88 Not attempted due to Medical conditions or safety concerns rolling and scooted up in bed indep Weight Bearing Right Lower Extremity: Right Weight Bearing/Tolerated Exercises Supine Ex: Ankle pumps, Quad Set, Rolling, Glut sets, Heel Slides, Short Arc Quads, Scooting, Straight leg raise (indep RLE x 5), Hip abd/add Supine Reps: 20 Assessment Current Status: Good Progress PT Short Term Goals Short Term Goals Time Frame: Jan 12, 2019 Gait (FIM): 1 Gait Distance Comment: 25' Gait Level of Assist: 4 Gait Assistive Device: FWW Wheelchair Distance: 150' PT Disbursing Officer Goals Longterm Goals PT Disbursing Officer Goals Time Frame: Jan 26, 2019 Transfers (B,C,W/C) (FIM): 5 Sit to Lying (QC): 4 Lying-Sitting on Side/Bed(QC): 4 Sit to Stand (QC): 4 Rollin Roll Left to Right (QC): 4 Chair/Fnh-sq-Wrkur Xfer(QC): 4 Car Transfer (QC): 4 Gait (FIM): 2 Distance: 50' Walk 10 feet (QC): 4 Walk 10ft-Uneven Surface(QC): 4 Walk 50ft with 2 Turns (QC): 4 Gait Level of Assist: 5 Gait Assistive Device: FWW Stairs (FIM): 2 # of Steps: 4 1 Step (curb) (QC): 4 4 Steps (QC): 4 Stairs Level Of Assist: 4 PT Plan Treatment/Plan Treatment Plan: Continue Plan of Care Treatment Plan: Bed Mobility, Education, Functional Activity Sandra, Functional Strength, Group Therapy, Gait, Safety, Therapeutic Exercise, Transfers Treatment Duration: Jan 26, 2019 Frequency: At least 5 of 7 days/Wk (IRF) Estimated Hrs Per Day: 1.5 hours per day Patient and/or Family Agrees t: Yes Safety Risks/Education Patient Education: Transfer Techniques, Correct Positioning, Disease Process, Safety Issues Teaching Recipient: Patient Teaching Methods: Demonstration, Discussion Response to Teaching: Verbalize Understanding, Return Demonstration, Reinforcement Needed Time/GCodes Time In: 1230 Time Out: 1300 Total Billed Treatment Time: 30 Total Billed Treatment 1,EX30m G Codes Necessary: JESSIE Mendez INTERNATIONAL LOGISTICS MANAGER Jan 15, 2019 13:04
[2019-01-15 17:04] VITALS: BP 149/72
[2019-01-16] MEDS: oxyCODONE/APAP 5/325MG (PERCOCET 5) TABLET PO PRN (00:57)
[2019-01-16] MEDS: inSUlin ASPART (NovoLOG) 1 UNIT/0.01 ML (CHARGE PER UNIT) SC SCH ×4 (05:51→20:55)
[2019-01-16 06:05] VITALS: BP 119/73
[2019-01-16] MEDS: glyBURIDE 2.5 MG (MICRONASE) TAB PO SCH (06:53)
[2019-01-16] MEDS: BISACODYL 10 MG SUPP (DULCOLAX) PR SCH ×2 (08:06→20:57)
[2019-01-16] MEDS: ENOXAPARIN 40 MG/0.4 ML (LOVENOX) SYR SC SCH (08:55)
[2019-01-16] MEDS: SENNA W/DOCUSATE (SENOKOT S) TABLET PO SCH ×3 (08:55→20:57)
[2019-01-16] MEDS: LACTULOSE SYRUP 10GM/15ML (ENULOSE) 30ML UDC PO SCH ×3 (08:55→20:57)
--- NOTE | 2019-01-16 10:04 | Physical Therapy Daily Note ---
PT Daily Note-Current Subjective Pt reports she thinks she will be going home sometime middle of next week. Agreeable to PT session for bed exercise, with some encouragement required to agree to walk. Pain Numeric Pain Scale: 7 Comment: R hip and ankle Appearance Upon arrival, pt in bed with in room At end of session, pt in bed per request, phone, call light and bedside table within reach Mental Status Patient Orientation: Person, Place, Eyes Open Attachments: SCD's Transfers Therapy Code Descriptions/Definitions Functional [place] Measure: 0=Not Assessed/NA 4=Minimal Assistance 1=Total Assistance 5=Supervision or Setup 2=Maximal Assistance 6=Modified [place] 3=Moderate Assistance 7=Complete [place] Therapy Quality Codes: 6 Independent with activity with or without an assistive device 5 Patient requires set up or clean up by helper. Patient completes activity by themselves 4 Supervision or touching assist (CGA). [place] provide cues , steadying assist 3 The helper provides less than half the effort to complete the activity 2 The helper provides more than half the effort to complete the activity 1 Dependent. The helper does all the effort to complete an activity 7 Patient refused to complete or attempt activity 9 The patient did not perform the activity before the current illness or injury 88 Not attempted due to Medical conditions or safety concerns Transfers (B, C, W/C) (FIM): 4 Scootin Rollin Supine to/from Sit: 4 Sit to/from Stand: 4 Pt requiring CGA with all transitions, otherwise does not feel she can move RLE or stand. Extremely anxious about possibility of become dizzy and falling. Requires instruction for safety and hand placement Weight Bearing Right Lower Extremity: Right Weight Bearing/Tolerated Gait Training Does the Patient Walk?: Yes Distance: 260 Gait Level of Assist: 4 (CGA, pt has high fear of becoming dizzy and falling) Gait Persons Needed: 1 Gait Assistive Device: FWW slow and antalgic, fear of dizziness and falling suddenly, decreased stance time RLE, occasionally follows instruction for increased step length and height Exercises Supine Ex: Ankle pumps, Quad Set, Heel Slides, Short Arc Quads, Straight leg raise, Hip abd/add Supine Reps: 10 (AAROM with RLE hip ex's) Treatments bed mobility, transfer, safety, gait, functional mobility,strength, activity tolerance, education Assessment Self limiting at times due to fear of pain and fear of falling. Continues to require instruction for safety and hand placement. Tactile cueing of RLE required for pt to move RLE during ex's and in/out of bed PT Short Term Goals Short Term Goals Time Frame: Jan 12, 2019 Gait (FIM): 1 Gait Distance Comment: 25' Gait Level of Assist: 4 Gait Assistive Device: FWW Wheelchair Distance: 150' PT Aircraft Engineer Goals Aircraft Engineer Goals PT Aircraft Engineer Goals Time Frame: Jan 26, 2019 Transfers (B,C,W/C) (FIM): 5 Sit to Lying (QC): 4 Lying-Sitting on Side/Bed(QC): 4 Sit to Stand (QC): 4 Rollin Roll Left to Right (QC): 4 Chair/Kyn-fa-Xaftm Xfer(QC): 4 Car Transfer (QC): 4 Gait (FIM): 2 Distance: 50' Walk 10 feet (QC): 4 Walk 10ft-Uneven Surface(QC): 4 Walk 50ft with 2 Turns (QC): 4 Gait Level of Assist: 5 Gait Assistive Device: FWW Stairs (FIM): 2 # of Steps: 4 1 Step (curb) (QC): 4 4 Steps (QC): 4 Stairs Level Of Assist: 4 PT Plan Treatment/Plan Treatment Plan: Continue Plan of Care Treatment Plan: Bed Mobility, Education, Functional Activity Sandra, Functional Strength, Group Therapy, Gait, Safety, Therapeutic Exercise, Transfers Treatment Duration: Jan 26, 2019 Frequency: At least 5 of 7 days/Wk (IRF) Estimated Hrs Per Day: 1.5 hours per day Patient and/or Family Agrees t: Yes Safety Risks/Education Patient Education: Gait Training, Transfer Techniques, Correct Positioning, Safety Issues Teaching Recipient: Patient, Family Teaching Methods: Demonstration, Discussion Response to Teaching: Verbalize Understanding, Return Demonstration, Reinforcement Needed Time/GCodes Time In: 845 Time Out: 920 Total Billed Treatment Time: 35 Total Billed Treatment 1 visit, GT x 1 unit, EX x 1 unit LA HENAO PTA Jan 16, 2019 10:04
--- NOTE | 2019-01-16 12:20 | PM&R Progress Note ---
Subjective HPI/CC On Admission Date Seen by Provider: Jan 16, 2019 Time Seen by Provider: 10:30 CC: Right hip fracture with debility HPI: This is a 73yoWF patient who presented to the [facility] ER after a vertigo episode and fall who sustained a right hip fracture s/p repair in an uncomplicated manner by Dr Tirado on 12/31/18. Patient has a h/o CABG but no follow up since that time. She moved to [place] with her for 2 years and did not see a medical professional since that time and has since moved back to [facility] and had yet to establish with anyone. Her son is an ER doctor in [place] for 10 years. Currently she is doing well as long as she doesn't move and her pain is controlled from the pain meds when she takes it. No BM since admit so will need to work on that and multiple meds are ordered to regain normal bowel f unction. Anemia noted so Venofer will be ordered and iron level was drawn on today's labs. Dr Novak has provided Cardiology consultation services which are much appreciated. She seems to have PVD due to decreased pedal pulses. HGA1C is 8.1 so will order SSI and likely begin OHA while in IRF. Her PLOF was independent at home with her . Subjective/Events-last exam Hip pain is much better Participating in therapy No longer really requiring too much pain medication at the bedside No issues or concerns from the patient or the nurse Bowels are moving well Checked meds and labs Conferred with RN Reviewed therapy notes Talk to her about getting a supply of meclizine and being discharged on that and titrate slowly Review of Systems Musculoskeletal: leg pain Objective Exam Vital Signs Vital Signs Date Time Temp Pulse Resp B/P (MAP) Pulse Ox O2 Delivery O2 Flow Rate FiO2 01/16/19 09:00 Room Air 01/16/19 06:05 98.1 64 20 119/73 (88) 97 Capillary Refill : Less Than 3 Seconds General Appearance: No Apparent Distress, WD/WN, Chronically ill HEENT: PERRL/EOMI, Normal ENT Inspection, Pharynx Normal, Moist Mucous Membranes Neck: Full Range of Motion, Normal Inspection, Non Tender, Supple Respiratory: Chest Non Tender, Lungs Clear, Normal Breath Sounds, No Accessory Muscle Use, No Respiratory Distress Cardiovascular: Regular Rate, Rhythm, No Edema, No Gallop, No JVD, No Murmur Gastrointestinal: Normal Bowel Sounds, No Organomegaly, No Pulsatile Mass, Non Tender, Soft Back: Normal Inspection, No CVA Tenderness, No Vertebral Tenderness Extremity: Normal Capillary Refill, Normal Inspection, Normal Range of Motion (except right leg due to hip pain), Non Tender, No Calf Tenderness, No Pedal Edema Neurologic/Psychiatric: Alert, Oriented x3, No Motor/Sensory Deficits, Normal Mood/Affect, Motor Weakness (generalized weakness) Skin: Normal Color, Warm/Dry Lymphatic: No Adenopathy Results/Procedures Lab Patient resulted labs reviewed. FIM Transfers Therapy Code Descriptions/Definitions Functional [place] Measure: 0=Not Assessed/NA 4=Minimal Assistance 1=Total Assistance 5=Supervision or Setup 2=Maximal Assistance 6=Modified [place] 3=Moderate Assistance 7=Complete [place] Therapy Quality Codes: 6 Independent with activity with or without an assistive device 5 Patient requires set up or clean up by helper. Patient completes activity by themselves 4 Supervision or touching assist (CGA). [place] provide cues , steadying assist 3 The helper provides less than half the effort to complete the activity 2 The helper provides more than half the effort to complete the activity 1 Dependent. The helper does all the effort to complete an activity 7 Patient refused to complete or attempt activity 9 The patient did not perform the activity before the current illness or injury 88 Not attempted due to Medical conditions or safety concerns Transfers (B, C, W/C) (FIM): 4 Scootin Rollin Roll Left to Right (QC): 4 Supine to/from Sit: 4 Sit to/from Stand: 4 Sit to Lying (QC): 4 Sit to Stand (QC): 4 Chair/Ysw-jc-Prrik Xfer(QC): 5 Bed to/from Chair: 4 Car Transfer (QC): 3 Gait Training Does the Patient Walk?: Yes Gait (FIM): 4 Distance (FIM): 3=150 ft (175x2) Distance: 260 Walk 10 feet (QC): 4 Walk 50 ft with 2 Turns(QC): 4 Gait Level of Assist: 4 (CGA, pt has high fear of becoming dizzy and falling) Gait Persons Needed: 1 Gait Assistive Device: FWW Wheelchair Training Does the Pt Use a Wheelchair?: Yes Wheelchair (FIM): 5 Wheelchair Distance: 3=150 ft Distance: 150' Wheelchair Level of Assist: 5 Wheel 50 ft with 2 turns (QC): 5 Wheel 150 ft (QC): 5 Type of Wheelchair: Manual Stair Training Stair Training: Handrails/: 2 handrails Stairs (FIM): 2 #of Steps: 4 1 Step (curb) (QC): 4 4 Steps (QC): 4 Stairs: Pattern: Step to Level of Assist: 4 Mental Status/Objective Comprehension: 7 Expression: 7 Social Interaction: 7 Problem Solvin Memory: 7 ADL-Treatment Feedin Eating (QC): 6 Groomin Oral Hygiene (QC): 6 Bathin Shower/Bathe Self (QC): 3 Upper Extremity Dressin Upper Body Dressing (QC): 5 Lower Extremity Dressin Lower Body Dressing (QC): 3 On/Off Footwear (QC): 3 Toiletin Toilet/Commode Transfer: 5 Toilet Transfer (QC): 3 Assessment/Plan Assessment and Plan Assess & Plan/Chief Complaint Assessment: s/p right hip fracture repair POD # 16 DM HTN CAD CABG hx Anemia iron def s/p Venofer infusions x 5 doses 200mg s/p UTI Vertigo-resolved Fall PVD suspected Constipation-resolved after aggressive regimen Plan: IRF protocols SSI Pain control BM regimen maintained Venofer Meclizine prescription at discharge Maintain OHA low dose Monitor leg pain (1) Closed intertrochanteric fracture of right hip (2) Closed intertrochanteric fracture of left hip (3) Diabetes mellitus (4) CAD (coronary artery disease) (5) Anemia, iron deficiency (6) Hx of CABG (7) Vertigo (8) Fall on same level RUFINO MEDEL DO Jan 16, 2019 12:20
[2019-01-16 15:26] VITALS: BP 117/68
--- NOTE | 2019-01-16 20:46 | NUR ---
HS accucheck 108, Dr. Crane notified, new order to decrease Levemir to 5 units SQ, only for tonight.
[2019-01-17] MEDS: oxyCODONE/APAP 5/325MG (PERCOCET 5) TABLET PO PRN (02:46)
[2019-01-17] MEDS: glyBURIDE 2.5 MG (MICRONASE) TAB PO SCH (05:33)
[2019-01-17] MEDS: inSUlin ASPART (NovoLOG) 1 UNIT/0.01 ML (CHARGE PER UNIT) SC SCH ×4 (05:34→20:39)
[2019-01-17 05:50] VITALS: BP 14/68
[2019-01-17] MEDS: LACTULOSE SYRUP 10GM/15ML (ENULOSE) 30ML UDC PO SCH ×2 (08:12→20:39)
[2019-01-17] MEDS: SENNA W/DOCUSATE (SENOKOT S) TABLET PO SCH ×2 (08:13→20:39)
[2019-01-17] MEDS: BISACODYL 10 MG SUPP (DULCOLAX) PR SCH ×2 (08:13→20:39)
[2019-01-17] MEDS: ENOXAPARIN 40 MG/0.4 ML (LOVENOX) SYR SC SCH (08:14)
--- NOTE | 2019-01-17 10:50 | PM&R Progress Note ---
Subjective HPI/CC On Admission Date Seen by Provider: Jan 17, 2019 Time Seen by Provider: 10:15 CC: Right hip fracture with debility HPI: This is a 73yoWF patient who presented to the [facility] ER after a vertigo episode and fall who sustained a right hip fracture s/p repair in an uncomplicated manner by Dr Tirado on 12/31/18. Patient has a h/o CABG but no follow up since that time. She moved to [place] with her for 2 years and did not see a medical professional since that time and has since moved back to [facility] and had yet to establish with anyone. Her son is an ER doctor in [place] for 10 years. Currently she is doing well as long as she doesn't move and her pain is controlled from the pain meds when she takes it. No BM since admit so will need to work on that and multiple meds are ordered to regain normal bowel f unction. Anemia noted so Venofer will be ordered and iron level was drawn on today's labs. Dr Novak has provided Cardiology consultation services which are much appreciated. She seems to have PVD due to decreased pedal pulses. HGA1C is 8.1 so will order SSI and likely begin OHA while in IRF. Her PLOF was independent at home with her . Subjective/Events-last exam Hip pain is much better every day Participating in therapy every day it is required and feels really good about it No longer really requiring much pain medication No issues or concerns from the patient or the nurse Bowels are moving well Checked meds and labs Conferred with RN Reviewed therapy notes Talk to her about getting a supply of meclizine and being discharged on that and titrate slowly Review of Systems Musculoskeletal: leg pain Objective Exam Vital Signs Vital Signs Date Time Temp Pulse Resp B/P (MAP) Pulse Ox O2 Delivery O2 Flow Rate FiO2 01/17/19 15:33 98.2 78 16 123/57 (79) 93 Room Air Capillary Refill : Less Than 3 Seconds General Appearance: No Apparent Distress, WD/WN, Chronically ill HEENT: PERRL/EOMI, Normal ENT Inspection, Pharynx Normal, Moist Mucous Membranes Neck: Full Range of Motion, Normal Inspection, Non Tender, Supple Respiratory: Chest Non Tender, Lungs Clear, Normal Breath Sounds, No Accessory Muscle Use, No Respiratory Distress Cardiovascular: Regular Rate, Rhythm, No Edema, No Gallop, No JVD, No Murmur Gastrointestinal: Normal Bowel Sounds, No Organomegaly, No Pulsatile Mass, Non Tender, Soft Back: Normal Inspection, No CVA Tenderness, No Vertebral Tenderness Extremity: Normal Capillary Refill, Normal Inspection, Normal Range of Motion (except right leg due to hip pain), Non Tender, No Calf Tenderness, No Pedal Edema Neurologic/Psychiatric: Alert, Oriented x3, No Motor/Sensory Deficits, Normal Mood/Affect, Motor Weakness (generalized weakness) Skin: Normal Color, Warm/Dry Lymphatic: No Adenopathy Results/Procedures Lab Patient resulted labs reviewed. FIM Transfers Therapy Code Descriptions/Definitions Functional [place] Measure: 0=Not Assessed/NA 4=Minimal Assistance 1=Total Assistance 5=Supervision or Setup 2=Maximal Assistance 6=Modified [place] 3=Moderate Assistance 7=Complete [place] Therapy Quality Codes: 6 Independent with activity with or without an assistive device 5 Patient requires set up or clean up by helper. Patient completes activity by themselves 4 Supervision or touching assist (CGA). [place] provide cues , steadying assist 3 The helper provides less than half the effort to complete the activity 2 The helper provides more than half the effort to complete the activity 1 Dependent. The helper does all the effort to complete an activity 7 Patient refused to complete or attempt activity 9 The patient did not perform the activity before the current illness or injury 88 Not attempted due to Medical conditions or safety concerns Transfers (B, C, W/C) (FIM): 4 Scootin Rollin Roll Left to Right (QC): 4 Supine to/from Sit: 4 Sit to/from Stand: 4 Sit to Lying (QC): 4 Sit to Stand (QC): 4 Chair/Ciq-to-Fxtpy Xfer(QC): 5 Bed to/from Chair: 4 Car Transfer (QC): 3 Gait Training Does the Patient Walk?: Yes Gait (FIM): 4 Distance (FIM): 3=150 ft (175x2) Distance: 260 Walk 10 feet (QC): 4 Walk 50 ft with 2 Turns(QC): 4 Gait Level of Assist: 4 (CGA, pt has high fear of becoming dizzy and falling) Gait Persons Needed: 1 Gait Assistive Device: FWW Wheelchair Training Does the Pt Use a Wheelchair?: Yes Wheelchair (FIM): 5 Wheelchair Distance: 3=150 ft Distance: 150' Wheelchair Level of Assist: 5 Wheel 50 ft with 2 turns (QC): 5 Wheel 150 ft (QC): 5 Type of Wheelchair: Manual Stair Training Stair Training: Handrails/: 2 handrails Stairs (FIM): 2 #of Steps: 4 1 Step (curb) (QC): 4 4 Steps (QC): 4 Stairs: Pattern: Step to Level of Assist: 4 Mental Status/Objective Comprehension: 7 Expression: 7 Social Interaction: 7 Problem Solvin Memory: 7 ADL-Treatment Feedin Eating (QC): 6 Groomin Oral Hygiene (QC): 6 Bathin Shower/Bathe Self (QC): 3 Upper Extremity Dressin Upper Body Dressing (QC): 5 Lower Extremity Dressin Lower Body Dressing (QC): 3 On/Off Footwear (QC): 3 Toiletin Toilet/Commode Transfer: 5 Toilet Transfer (QC): 3 Assessment/Plan Assessment and Plan Assess & Plan/Chief Complaint Assessment: s/p right hip fracture repair POD # 17 DM HTN CAD CABG hx Anemia iron def s/p Venofer infusions x 5 doses 200mg s/p UTI Vertigo-resolved Fall PVD suspected Constipation-resolved after aggressive regimen Plan: IRF protocols SSI Pain control BM regimen maintained Venofer Meclizine prescription at discharge Maintain OHA low dose Monitor leg pain (1) Closed intertrochanteric fracture of right hip (2) Closed intertrochanteric fracture of left hip (3) Diabetes mellitus (4) CAD (coronary artery disease) (5) Anemia, iron deficiency (6) Hx of CABG (7) Vertigo (8) Fall on same level RUFINO MEDEL DO Jan 17, 2019 10:50
[2019-01-17 15:33] VITALS: BP 123/57
[2019-01-18 05:57] VITALS: BP 144/75
[2019-01-18 06:14] LABS: BASOPHILS % (AUTO) 0 % (0-10); EOSINOPHILS # (AUTO) 0.2 10^3/uL (0.0-0.3); EOSINOPHILS % (AUTO) 3 % (0-10); HEMATOCRIT 37 % (35-52); HEMOGLOBIN 11.6 G/DL (11.5-16.0); LYMPHOCYTES # (AUTO) 1.3 X 10^3 (1.0-4.0); LYMPHOCYTES % (AUTO) 18 % (12-44); MEAN CORPUSCULAR HEMOGLOBIN 32 PG (25-34); MEAN CORPUSCULAR HGB CONC 31 G/DL (32-36); MEAN CORPUSCULAR VOLUME 103 FL (80-99); MEAN PLATELET VOLUME 10.2 FL (7.4-10.4); MONOCYTES # (AUTO) 0.7 X 10^3 (0.0-1.0); MONOCYTES % (AUTO) 10 % (0-12); NEUTROPHILS % (AUTO) 69 % (42-75); PLATELET COUNT 311 10^3/uL (130-400); RED CELL DISTRIBUTION WIDTH 16.2 % (10.0-14.5); WHITE BLOOD COUNT 7.2 10^3/uL (4.3-11.0)
[2019-01-18] MEDS: glyBURIDE 2.5 MG (MICRONASE) TAB PO SCH (06:25)
[2019-01-18 06:32] LABS: ALANINE AMINOTRANSFERASE 11 U/L (0-55); ALBUMIN 3.7 GM/DL (3.2-4.5); ALKALINE PHOSPHATASE 173 U/L (40-136); BILIRUBIN,TOTAL 0.5 MG/DL (0.1-1.0); BUN/CREATININE RATIO 18; CALCIUM 9.5 MG/DL (8.5-10.1); CARBON DIOXIDE 24 MMOL/L (21-32); CHLORIDE 107 MMOL/L (98-107); CREATININE SERUM 0.72 MG/DL (0.60-1.30); GFR ESTIMATED > 60; GLUCOSE 106 MG/DL (70-105); POTASSIUM 3.9 MMOL/L (3.6-5.0); SODIUM 142 MMOL/L (135-145); TOTAL PROTEIN 6.7 GM/DL (6.4-8.2)
[2019-01-18] MEDS: inSUlin ASPART (NovoLOG) 1 UNIT/0.01 ML (CHARGE PER UNIT) SC SCH ×4 (06:35→20:22)
[2019-01-18] MEDS: oxyCODONE/APAP 5/325MG (PERCOCET 5) TABLET PO PRN (08:02)
[2019-01-18] MEDS: ENOXAPARIN 40 MG/0.4 ML (LOVENOX) SYR SC SCH (08:02)
--- NOTE | 2019-01-18 08:13 | Cardiology Progress Note ---
Subjective Date Seen by Provider: Jan 18, 2019 Time Seen by Provider: 08:12 Subjective/Events-last exam Patient is sitting up in bed, no new complaints. States right hip pain continues to improve. Objective-Cardiology Exam Last Set of Vital Signs Vital Signs 01/18/19 01/18/19 05:57 09:00 Temp 98.1 Pulse 82 Resp 18 B/P (MAP) 144/75 (98) Pulse Ox 95 O2 Delivery Room Air Capillary Refill : Less Than 3 Seconds I&O Intake and Output 01/18/19 00:00 Intake Total 1335 ml Balance 1335 ml Intake Oral 1335 ml # Voids 4 General: Alert, Oriented X3, Cooperative HEENT: Atraumatic, PERRLA Neck: Supple, No JVD, No Thyromegaly Lungs: Clear to Auscultation, Normal Air Movement Heart: Regular Rate, Normal S1, Normal S2, No Murmurs Abdomen: Normal Bowel Sounds, Soft, No Tenderness, No Hepatosplenomegaly, No Masses Extremities: No Clubbing, No Cyanosis Skin: No Rashes, No Significant Lesion Neuro: Normal Speech, Cranial Nerves 3-12 NL Psych/Mental Status: Mental Status NL, Mood NL Results Lab Laboratory Tests 01/18/19 05:47 A/P-Cardiology Admission Diagnosis right hip fracture CAD DM Vertigo Assessment/Plan Right hip fx, status post surgical repair surgery was done on December 31, 2018, recovering slowly, continue to monitor Anemia, followed and managed by primary care physician Coronary artery disease, history of CABG x 4 appro[address] Velasquez in [place], [place]. No recent cardiac workup. EKG reveals SR. Denies any chest pain at this time. Continue to monitor. Will need stress test as outpatient. Diabetes mellitus, followed and managed by medical team Vertigo, better at this time. Continue to monitor Hx of uterine CA, s/p hysterectomy 8 years ago. Clinical Quality Measures DVT/VTE Risk/Contraindication: Risk Factor Score Per Nursin RFS Level Per Nursing on Admit: 4+=Very High Supervisory-Addendum Brief Supervisory Addendum Participated in pt care: history, MDM, physical Personally performed: exam, history, MDM Care discussed with: MARIA ALEJANDRA Notes: Patient was seen and evaluated with Violette, has been feeling well. Denied any chest pain or shortness of breath. On examination lungs were clear to auscultation bilaterally, heart is regular rate and rhythm. Patient has history of coronary artery disease, hypertension hyperlipidemia, planning to do stress test as an outpatient. Continue to monitor VIOLETTE AGUIRRE Jan 18, 2019 8:13 am SANTI LAMBERT MD Jan 18, 2019 12:08 pm
[2019-01-18] MEDS: BISACODYL 10 MG SUPP (DULCOLAX) PR SCH ×2 (09:00→19:37)
[2019-01-18] MEDS: SENNA W/DOCUSATE (SENOKOT S) TABLET PO SCH ×2 (09:00→19:37)
[2019-01-18] MEDS: LACTULOSE SYRUP 10GM/15ML (ENULOSE) 30ML UDC PO SCH ×2 (09:00→19:37)
--- NOTE | 2019-01-18 10:19 | PM&R Progress Note ---
Subjective HPI/CC On Admission Date Seen by Provider: Jan 18, 2019 Time Seen by Provider: 08:30 CC: Right hip fracture with debility HPI: This is a 73yoWF patient who presented to the [facility] ER after a vertigo episode and fall who sustained a right hip fracture s/p repair in an uncomplicated manner by Dr Tirado on 12/31/18. Patient has a h/o CABG but no follow up since that time. She moved to [place] with her for 2 years and did not see a medical professional since that time and has since moved back to [facility] and had yet to establish with anyone. Her son is an ER doctor in [place] for 10 years. Currently she is doing well as long as she doesn't move and her pain is controlled from the pain meds when she takes it. No BM since admit so will need to work on that and multiple meds are ordered to regain normal bowel function. Anemia noted so Venofer will be ordered and iron level was drawn on today's labs. Dr Novak has provided Cardiology consultation services which are much appreciated. She seems to have PVD due to decreased pedal pulses. HGA1C is 8.1 so will order SSI and likely begin OHA while in IRF. Her PLOF was independent at home with her . Subjective/Events-last exam Hip pain is much better every day Participating in therapy every day and DC 01/20/19 is agreed upon No longer really requiring much pain medication No issues or concerns from the patient or the nurse Bowels are moving too well last night had 3 loose ones so will minimize BM regimen Checked meds and labs Conferred with RN Reviewed therapy notes Talk to her about getting a supply of meclizine and being discharged on that and titrate slowly Review of Systems Musculoskeletal: leg pain Objective Exam Vital Signs Vital Signs Date Time Temp Pulse Resp B/P (MAP) Pulse Ox O2 Delivery O2 Flow Rate FiO2 01/18/19 09:00 Room Air 01/18/19 05:57 98.1 82 18 144/75 (98) 95 Capillary Refill : Less Than 3 Seconds General Appearance: No Apparent Distress, WD/WN, Chronically ill HEENT: PERRL/EOMI, Normal ENT Inspection, Pharynx Normal, Moist Mucous Membranes Neck: Full Range of Motion, Normal Inspection, Non Tender, Supple Respiratory: Chest Non Tender, Lungs Clear, Normal Breath Sounds, No Accessory Muscle Use, No Respiratory Distress Cardiovascular: Regular Rate, Rhythm, No Edema, No Gallop, No JVD, No Murmur Gastrointestinal: Normal Bowel Sounds, No Organomegaly, No Pulsatile Mass, Non Tender, Soft Back: Normal Inspection, No CVA Tenderness, No Vertebral Tenderness Extremity: Normal Capillary Refill, Normal Inspection, Normal Range of Motion (except right leg due to hip pain), Non Tender, No Calf Tenderness, No Pedal Edema Neurologic/Psychiatric: Alert, Oriented x3, No Motor/Sensory Deficits, Normal Mood/Affect, Motor Weakness (generalized weakness) Skin: Normal Color, Warm/Dry Lymphatic: No Adenopathy Results/Procedures Lab Laboratory Tests 01/18/19 05:47 Patient resulted labs reviewed. FIM Transfers Therapy Code Descriptions/Definitions Functional [place] Measure: 0=Not Assessed/NA 4=Minimal Assistance 1=Total Assistance 5=Supervision or Setup 2=Maximal Assistance 6=Modified [place] 3=Moderate Assistance 7=Complete [place] Therapy Quality Codes: 6 Independent with activity with or without an assistive device 5 Patient requires set up or clean up by helper. Patient completes activity by themselves 4 Supervision or touching assist (CGA). [place] provide cues , steadying assist 3 The helper provides less than half the effort to complete the activity 2 The helper provides more than half the effort to complete the activity 1 Dependent. The helper does all the effort to complete an activity 7 Patient refused to complete or attempt activity 9 The patient did not perform the activity before the current illness or inj ury 88 Not attempted due to Medical conditions or safety concerns Transfers (B, C, W/C) (FIM): 4 Scootin Rollin Roll Left to Right (QC): 4 Supine to/from Sit: 4 Sit to/from Stand: 4 Sit to Lying (QC): 4 Sit to Stand (QC): 4 Chair/Wsd-np-Qelxi Xfer(QC): 5 Bed to/from Chair: 4 Car Transfer (QC): 3 Gait Training Does the Patient Walk?: Yes Gait (FIM): 4 Distance (FIM): 3=150 ft (175x2) Distance: 260 Walk 10 feet (QC): 4 Walk 50 ft with 2 Turns(QC): 4 Gait Level of Assist: 4 (CGA, pt has high fear of becoming dizzy and falling) Gait Persons Needed: 1 Gait Assistive Device: FWW Wheelchair Training Does the Pt Use a Wheelchair?: Yes Wheelchair (FIM): 5 Wheelchair Distance: 3=150 ft Distance: 150' Wheelchair Level of Assist: 5 Wheel 50 ft with 2 turns (QC): 5 Wheel 150 ft (QC): 5 Type of Wheelchair: Manual Stair Training Stair Training: Handrails/: 2 handrails Stairs (FIM): 2 #of Steps: 4 1 Step (curb) (QC): 4 4 Steps (QC): 4 Stairs: Pattern: Step to Level of Assist: 4 Mental Status/Objective Comprehension: 7 Expression: 7 Social Interaction: 7 Problem Solvin Memory: 7 ADL-Treatment Feedin Eating (QC): 6 Groomin Oral Hygiene (QC): 6 Bathin Shower/Bathe Self (QC): 3 Upper Extremity Dressin Upper Body Dressing (QC): 5 Lower Extremity Dressin Lower Body Dressing (QC): 3 On/Off Footwear (QC): 3 Toiletin Toilet/Commode Transfer: 5 Toilet Transfer (QC): 3 Assessment/Plan Assessment and Plan Assess & Plan/Chief Complaint Assessment: s/p right hip fracture repair POD # 18 DM HTN CAD CABG hx Anemia iron def s/p Venofer infusions x 5 doses 200mg s/p UTI Vertigo-resolved Fall PVD suspected Constipation-resolved after aggressive regimen Plan: IRF protocols SSI Pain control BM regimen maintained Venofer Meclizine prescription at discharge Maintain OHA low dose Monitor leg pain DC 01/20/19 will be on target (1) Closed intertrochanteric fracture of right hip (2) Closed intertrochanteric fracture of left hip (3) Diabetes mellitus (4) CAD (coronary artery disease) (5) Anemia, iron deficiency (6) Hx of CABG (7) Vertigo (8) Fall on same level RUFINO MEDEL DO Jan 18, 2019 10:19
--- NOTE | 2019-01-18 11:04 | Physical Therapy Daily Note ---
PT Daily Note-Current Subjective Pt. agrees to Rx, states she has improved but still afraid of falling and afraid of dizzy spells Pain Numeric Pain Scale: 3 Location: Right Location Body Site: Hip Pain Description: Ache Mental Status Patient Orientation: Normal For Age Transfers Therapy Code Descriptions/Definitions Functional [place] Measure: 0=Not Assessed/NA 4=Minimal Assistance 1=Total Assistance 5=Supervision or Setup 2=Maximal Assistance 6=Modified [place] 3=Moderate Assistance 7=Complete [place] Therapy Quality Codes: 6 Independent with activity with or without an assistive device 5 Patient requires set up or clean up by helper. Patient completes activity by themselves 4 Supervision or touching assist (CGA). [place] provide cues , steadying assist 3 The helper provides less than half the effort to complete the activity 2 The helper provides more than half the effort to complete the activity 1 Dependent. The helper does all the effort to complete an activity 7 Patient refused to complete or attempt activity 9 The patient did not perform the activity before the current illness or injury 88 Not attempted due to Medical conditions or safety concerns Transfers (B, C, W/C) (FIM): 4 Scootin Rollin Supine to/from Sit: 4 Sit to/from Stand: 6 Bed to/from Chair: 6 pt. is still very anxious and insists someone hold to gait belt every step, pt. also insists someone lift LEs in to bed but wants them to simultaneously hold both her hands. pt. is progressing well and anxiety takes over at times , with emphasis on sup to sit TRFs and education with pt, and she made progress to min assist to from flat surface Weight Bearing Right Lower Extremity: Right Weight Bearing/Tolerated Gait Training Does the Patient Walk?: Yes Gait (FIM): 5 Distance (FIM): 3=150 ft (160x2) Gait Level of Assist: 5 Gait Persons Needed: 1 Gait Assistive Device: FWW at times loosely holding gait belt as pt insists, progressing well Stair Training Stair Training: Handrails/: 2 handrails Stairs (FIM): 2 #of Steps: 4 4 Steps (QC): 2 Stairs: Pattern: Step to Level of Assist: 4 sequence instruction throughout, pt. anxious, Exercises Supine Ex: Ankle pumps, Quad Set, Rolling, Glut sets, Lower trunk rotation, Short Arc Quads, Scooting, Straight leg raise (assist right), Hip abd/add (assist right) Supine Reps: 15 Seated Therapy Exercises: Ankle pumps, Sit to stand, Long arc quads Seated Reps: 15 Treatments emphasis on sup to sit training this date Assessment Current Status: Good Progress PT Short Term Goals Short Term Goals Time Frame: Jan 12, 2019 Gait (FIM): 1 Gait Distance Comment: 25' Gait Level of Assist: 4 Gait Assistive Device: FWW Wheelchair Distance: 150' PT Usp Goals Usp Goals PT Stenotypist Goals Time Frame: Jan 26, 2019 Transfers (B,C,W/C) (FIM): 5 Sit to Lying (QC): 4 Lying-Sitting on Side/Bed(QC): 4 Sit to Stand (QC): 4 Rollin Roll Left to Right (QC): 4 Chair/Adq-bq-Valsf Xfer(QC): 4 Car Transfer (QC): 4 Gait (FIM): 2 Distance: 50' Walk 10 feet (QC): 4 Walk 10ft-Uneven Surface(QC): 4 Walk 50ft with 2 Turns (QC): 4 Gait Level of Assist: 5 Gait Assistive Device: FWW Stairs (FIM): 2 # of Steps: 4 1 Step (curb) (QC): 4 4 Steps (QC): 4 Stairs Level Of Assist: 4 PT Plan Treatment/Plan Treatment Plan: Continue Plan of Care Treatment Plan: Bed Mobility, Education, Functional Activity Sandra, Functional Strength, Group Therapy, Gait, Safety, Therapeutic Exercise, Transfers Treatment Duration: Jan 26, 2019 Frequency: At least 5 of 7 days/Wk (IRF) Estimated Hrs Per Day: 1.5 hours per day Patient and/or Family Agrees t: Yes Safety Risks/Education Patient Education: Gait Training, Transfer Techniques, Steps, Correct Positioning, Disease Process, Safety Issues Teaching Recipient: Patient Teaching Methods: Demonstration, Discussion Response to Teaching: Verbalize Understanding, Return Demonstration, Reinforcement Needed Time/GCodes Time In: 1000 Time Out: 1100 Total Billed Treatment Time: 60 Total Billed Treatment 1,GT15m,EX20m,FA25m G Codes Necessary: JESSIE Mendez COMMUNICATION PROFESSOR Jan 18, 2019 11:04
--- NOTE | 2019-01-18 11:30 | Occupational Ther Daily Note ---
OT Current Status-Daily Note Subjective Pt. does not report pain with movement, but does report fear with movement. Appearance Pt. in bed. Declines showering. OT encourages and lets her know why it is good idea. Pt. states that she is leaving on Friday, and promises to do so tomorrow. Agrees to sponge bathe in bathroom. Mental Status/Objective Therapy Code Descriptions/Definitions Functional [place] Measure: 0=Not Assessed/NA 4=Minimal Assistance 1=Total Assistance 5=Supervision or Setup 2=Maximal Assistance 6=Modified [place] 3=Moderate Assistance 7=Complete [place] ADL-Treatment Therapy Code Descriptions/Definitions Functional [place] Measure: 0=Not Assessed/NA 4=Minimal Assistance 1=Total Assistance 5=Supervision or Setup 2=Maximal Assistance 6=Modified [place] 3=Moderate Assistance 7=Complete [place] Therapy Quality Codes: 6 Independent with activity with or without an assistive device 5 Patient requires set up or clean up by helper. Patient completes activity by themselves 4 Supervision or touching assist (CGA). [place] provide cues , steadying assist 3 The helper provides less than half the effort to complete the activity 2 The helper provides more than half the effort to complete the activity 1 Dependent. The helper does all the effort to complete an activity 7 Patient refused to complete or attempt activity 9 The patient did not perform the activity before the current illness or injury 88 Not attempted due to Medical conditions or safety concerns Grooming (FIM): 5 (Set up to brush hair.) Bathing (FIM): 4 (CGA in stance to wash elias area.) Shower/Bathe Self (QC): 4 Upper Body (FIM): 5 Upper Body Dressing (QC): 4 Lower Body Dressing (FIM): 3 (Pt. is able to do more for herself than she thinks that she can. Presents with significant anxiety at having to stand for any reason. Spouse automatically helps her with doffing/donning clothing, even with cues and encouragement. Pt. did attempt to don socks with sock aide, but demonstrates little carry over with remembering how to do it, even though she has used it multiple times.) Lower Body Dressing (QC): 3 On/Off Footwear (QC): 3 Toileting (FIM): 2 (Pt. adamant that her spouse cleanse her after bowel movement, and pull up/down pants.) Toileting Hygiene (QC): 2 Transfers (B, C, W/C) (FIM): 4 (Min assist sit-stand and transfer into/out of bed.) Toilet/Commode Transfer (FIM): 4 Toilet Transfer (QC): 4 Other Treatment Pt presents with poor memory and anxiety with movement. Spouse is very helpful to her, and states that he has been helping her since her previous heart issues and stroke. Pt. is encouraged. After ADLs, pt. transferred to wheelchair and taken to therapy gym. Completed 15 minutes on armbike at mod resistance to increase overall strength. Tolerated this well. Back in room, transferred to b ed with min assist. All needs met in room. Education OT Patient Education: Correct positioning, Exercise program, Modified ADL techniques, Progress toward Goal/Update tx plan, Purpose of tx/functional activities, Reviewed precautions, Rehab process, Transfer techniques Teaching Recipient: Patient Teaching Methods: Demonstration, Discussion Response to Teaching: Verbalize Understanding, Return Demonstration OT Short Term Goals Short Term Goals Time Frame: Jan 12, 2019 Bathing(FIM): 4 Lower Body Dressing(FIM): 3 Toilet/Commode Transfer(FIM): 4 (CGA) Additional Short Term Goals: 1-Demonstrate ADL Tasks, 2-Verbalize Understanding, 3-ImproveStrength/Sandra 1=Demonstrate adherence to instructed precautions during ADL tasks. 2=Patient will verbalize/demonstrate understanding of assistive devices/modifications for ADL. 3=Patient will improve strength/tolerance for activity to enable patient to perform ADL's. OT Senior Living Goals Senior Living Goals Time Frame: Jan 26, 2019 Eating (FIM): 7 Eating (QC): 6 Groomin Oral Hygiene (QC): 6 Bathing(FIM): 5 Shower/Bathe Self (QC): 5 Upper Body Dressing(FIM): 5 Upper Body Dressing (QC): 5 Lower Body Dressing(FIM): 5 Lower Body Dressing (QC): 5 On/Off Footwear (QC): 5 Toileting(FIM): 6 Toileting Hygiene (QC): 6 Toilet/Commode Transfer(FIM): 6 Toilet/Commode Transfer (QC): 6 Shower Transfer(FIM): 5 Additional Goals: 1-Demonstrate ADL Tasks, 2-Verbalize Understanding, 3- ImproveStrength/Sandra 1=Demonstrate adherence to instructed precautions during ADL tasks. 2=Patient will verbalize/demonstrate understanding of assistive devices/modifications for ADL. 3=Patient will improve strength/tolerance for activity to enable patient to perform ADL's. OT Education/Plan Problem List/Assessment Assessment: Decreased Activ Tolerance, Impaired Bed Mobility, Impaired Cognition, Impaired Funct Balance, Impaired I ADL's, Impaired Self-Care Skills Discharge Recommendations Plan/Recommendations: Continue POC Therapy D/C Recommendations: Home w/ Family Support, Occupational Therapy Home Care Equpiment Recommendations-D/C: Extended Bath Bench, Hip Kit Treatment Plan/Plan of Care Treatment,Training & Education: Yes Patient would benefit from OT for education, treatment and training to promote independence in ADL's, mobility, safety and/or upper extremity function for ADL's. Plan of Care: ADL Retraining, Functional Mobility, Group Exercise/Act as Ind, UE Funct Exercise/Act Treatment Duration: Jan 26, 2019 Frequency: At least 5 of 7 days/Wk (IRF) Estimated Hrs Per Day: 1.5 hours per day Agreement: Yes Rehab Potential: Good Time/GCodes Start Time: 08:15 Stop Time: 09:45 Total Time Billed (hr/min): 90 Billed Treatment Time 1, ADL x 60minutes, Ex x 15minutes, FA x 15minutes ELÍAS NGO OT Jan 18, 2019 11:30
--- NOTE | 2019-01-18 13:28 | Physical Therapy Daily Note ---
PT Daily Note-Current Subjective Pt. agrees to Rx. Thanks this DRUG ABUSE SOCIAL WORKER stating she feels she has made so much progress Pain Location: No Pain Reported Mental Status Patient Orientation: Normal For Age Transfers Therapy Code Descriptions/Definitions Functional [place] Measure: 0=Not Assessed/NA 4=Minimal Assistance 1=Total Assistance 5=Supervision or Setup 2=Maximal Assistance 6=Modified [place] 3=Moderate Assistance 7=Complete [place] Therapy Quality Codes: 6 Independent with activity with or without an assistive device 5 Patient requires set up or clean up by helper. Patient completes activity by themselves 4 Supervision or touching assist (CGA). [place] provide cues , steadying assist 3 The helper provides less than half the effort to complete the activity 2 The helper provides more than half the effort to complete the activity 1 Dependent. The helper does all the effort to complete an activity 7 Patient refused to complete or attempt activity 9 The patient did not perform the activity before the current illness or injury 88 Not attempted due to Medical conditions or safety concerns min assist LEs into bed, SBA out of bed Weight Bearing Right Lower Extremity: Right Weight Bearing/Tolerated Gait Training Gait Assistive Device: FWW FWW 175 x 2 SBA to CGA Treatments car TRF in out simulator at the height they specify likens to their Sarah, pt. with instruction in and out, pt. supports RLE with her hand in out. slow, careful Mod I Assessment Current Status: Good Progress PT Short Term Goals Short Term Goals Time Frame: Jan 12, 2019 Gait (FIM): 1 Gait Distance Comment: 25' Gait Level of Assist: 4 Gait Assistive Device: FWW Wheelchair Distance: 150' PT Halfway Goals Wire Loop Machine Operator Goals PT Halfway Goals Time Frame: Jan 26, 2019 Transfers (B,C,W/C) (FIM): 5 Sit to Lying (QC): 4 Lying-Sitting on Side/Bed(QC): 4 Sit to Stand (QC): 4 Rollin Roll Left to Right (QC): 4 Chair/Fve-yg-Jjdxv Xfer(QC): 4 Car Transfer (QC): 4 Gait (FIM): 2 Distance: 50' Walk 10 feet (QC): 4 Walk 10ft-Uneven Surface(QC): 4 Walk 50ft with 2 Turns (QC): 4 Gait Level of Assist: 5 Gait Assistive Device: FWW Stairs (FIM): 2 # of Steps: 4 1 Step (curb) (QC): 4 4 Steps (QC): 4 Stairs Level Of Assist: 4 PT Plan Treatment/Plan Treatment Plan: Continue Plan of Care Treatment Plan: Bed Mobility, Education, Functional Activity Sandra, Functional Strength, Group Therapy, Gait, Safety, Therapeutic Exercise, Transfers Treatment Duration: Jan 26, 2019 Frequency: At least 5 of 7 days/Wk (IRF) Estimated Hrs Per Day: 1.5 hours per day Patient and/or Family Agrees t: Yes Safety Risks/Education Patient Education: Gait Training, Transfer Techniques, Correct Positioning, Disease Process, Safety Issues Teaching Recipient: Patient Teaching Methods: Demonstration, Discussion Response to Teaching: Verbalize Understanding, Return Demonstration, Reinforcement Needed Time/GCodes Time In: 1300 Time Out: 1330 Total Billed Treatment Time: 30 Total Billed Treatment 1,GT15m,FA15m G Codes Necessary: JESSIE Mendez DRUG ABUSE SOCIAL WORKER Jan 18, 2019 13:28
[2019-01-18 18:00] VITALS: BP 147/73
[2019-01-19 05:09] VITALS: BP 146/71
[2019-01-19] MEDS: inSUlin ASPART (NovoLOG) 1 UNIT/0.01 ML (CHARGE PER UNIT) SC SCH ×4 (05:47→21:06)
[2019-01-19] MEDS: glyBURIDE 2.5 MG (MICRONASE) TAB PO SCH (05:47)
[2019-01-19] MEDS: ENOXAPARIN 40 MG/0.4 ML (LOVENOX) SYR SC SCH (07:59)
--- NOTE | 2019-01-19 08:49 | PM&R Progress Note ---
Subjective HPI/CC On Admission Date Seen by Provider: Jan 19, 2019 Time Seen by Provider: 08:45 CC: Right hip fracture with debility HPI: This is a 73yoWF patient who presented to the [facility] ER after a vertigo episode and fall who sustained a right hip fracture s/p repair in an uncomplicated manner by Dr Tirado on 12/31/18. Patient has a h/o CABG but no follow up since that time. She moved to [place] with her for 2 years and did not see a medical professional since that time and has since moved back to [facility] and had yet to establish with anyone. Her son is an ER doctor in [place] for 10 years. Currently she is doing well as long as she doesn't move and her pain is controlled from the pain meds when she takes it. No BM since admit so will need to work on that and multiple meds are ordered to regain normal bowel function. Anemia noted so Venofer will be ordered and iron level was drawn on today's labs. Dr Novak has provided Cardiology consultation services which are much appreciated. She seems to have PVD due to decreased pedal pulses. HGA1C is 8.1 so will order SSI and likely begin OHA while in IRF. Her PLOF was independent at home with her . Subjective/Events-last exam Pt planning on discharge tomorrow Meclizine will be ordered and she goes to [facility] in [place] for her prescriptions Needs a little additional encouragement to motivate to get back to her prior level of functioning but she is doing well walking with a walker mostly and her is very supportive Bowels are a little loose so we will hold off on any laxatives Conferred with RN Reviewed therapy notes Checked meds and labs Conferred with RN Reviewed therapy notes HH will be ordered Review of Systems Musculoskeletal: leg pain Objective Exam Vital Signs Vital Signs Date Time Temp Pulse Resp B/P (MAP) Pulse Ox O2 Delivery O2 Flow Rate FiO2 01/19/19 18:31 98.8 75 18 110/68 (82) 93 Room Air Capillary Refill : Less Than 3 Seconds General Appearance: No Apparent Distress, WD/WN, Chronically ill HEENT: PERRL/EOMI, Normal ENT Inspection, Pharynx Normal, Moist Mucous Membranes Neck: Full Range of Motion, Normal Inspection, Non Tender, Supple Respiratory: Chest Non Tender, Lungs Clear, Normal Breath Sounds, No Accessory Muscle Use, No Respiratory Distress Cardiovascular: Regular Rate, Rhythm, No Edema, No Gallop, No JVD, No Murmur Gastrointestinal: Normal Bowel Sounds, No Organomegaly, No Pulsatile Mass, Non Tender, Soft Back: Normal Inspection, No CVA Tenderness, No Vertebral Tenderness Extremity: Normal Capillary Refill, Normal Inspection, Normal Range of Motion (except right leg due to hip pain), Non Tender, No Calf Tenderness, No Pedal Edema Neurologic/Psychiatric: Alert, Oriented x3, No Motor/Sensory Deficits, Normal Mood/Affect, Motor Weakness (generalized weakness) Skin: Normal Color, Warm/Dry Lymphatic: No Adenopathy Results/Procedures Lab Patient resulted labs reviewed. FIM Transfers Therapy Code Descriptions/Definitions Functional [place] Measure: 0=Not Assessed/NA 4=Minimal Assistance 1=Total Assistance 5=Supervision or Setup 2=Maximal Assistance 6=Modified [place] 3=Moderate Assistance 7=Complete [place] Therapy Quality Codes: 6 Independent with activity with or without an assistive device 5 Patient requires set up or clean up by helper. Patient completes activity by themselves 4 Supervision or touching assist (CGA). [place] provide cues , steadying assist 3 The helper provides less than half the effort to complete the activity 2 The helper provides more than half the effort to complete the activity 1 Dependent. The helper does all the effort to complete an activity 7 Patient refused to complete or attempt activity 9 The patient did not perform the activity before the current illness or injury 88 Not attempted due to Medical conditions or safety concerns Transfers (B, C, W/C) (FIM): 4 (Min assist sit-stand and transfer into/out of bed.) Scootin Rollin Roll Left to Right (QC): 4 Supine to/from Sit: 4 Sit to/from Stand: 6 Sit to Lying (QC): 4 Sit to Stand (QC): 4 Chair/Wpc-gh-Zdkpv Xfer(QC): 5 Bed to/from Chair: 6 Car Transfer (QC): 3 Gait Training Does the Patient Walk?: Yes Gait (FIM): 5 Distance (FIM): 3=150 ft (160x2) Distance: 260 Walk 10 feet (QC): 4 Walk 50 ft with 2 Turns(QC): 4 Gait Level of Assist: 5 Gait Persons Needed: 1 Gait Assistive Device: FWW Wheelchair Training Does the Pt Use a Wheelchair?: Yes Wheelchair (FIM): 5 Wheelchair Distance: 3=150 ft Distance: 150' Wheelchair Level of Assist: 5 Wheel 50 ft with 2 turns (QC): 5 Wheel 150 ft (QC): 5 Type of Wheelchair: Manual Stair Training Stair Training: Handrails/: 2 handrails Stairs (FIM): 2 #of Steps: 4 1 Step (curb) (QC): 4 4 Steps (QC): 2 Stairs: Pattern: Step to Level of Assist: 4 Mental Status/Objective Comprehension: 7 Expression: 7 Social Interaction: 7 Problem Solvin Memory: 7 ADL-Treatment Feedin Eating (QC): 6 Groomin (Set up to brush hair.) Oral Hygiene (QC): 6 Bathin (CGA in stance to wash elias area.) Shower/Bathe Self (QC): 4 Upper Extremity Dressin Upper Body Dressing (QC): 4 Lower Extremity Dressin (Pt. is able to do more for herself than she thinks that she can. Presents with significant anxiety at having to stand for any reason. Spouse automatically helps her with doffing/donning clothing, even with cues and encouragement. Pt. did attempt to don socks with sock aide, but dem onstrates little carry over with remembering how to do it, even though she has used it multiple times.) Lower Body Dressing (QC): 3 On/Off Footwear (QC): 3 Toiletin (Pt. adamant that her spouse cleanse her after bowel movement, and pull up/down pants.) Toileting Hygiene (QC): 2 Toilet/Commode Transfer: 4 Toilet Transfer (QC): 4 Assessment/Plan Assessment and Plan Assess & Plan/Chief Complaint Assessment: s/p right hip fracture repair POD # 19 DM HTN CAD CABG hx Anemia iron def s/p Venofer infusions x 5 doses 200mg s/p UTI Vertigo-resolved Fall PVD suspected Constipation-resolved after aggressive regimen Plan: IRF protocols SSI Pain control BM regimen maintained Venofer Meclizine prescription at discharge Maintain OHA low dose Monitor leg pain DC 6 will be on target (1) Closed intertrochanteric fracture of right hip (2) Closed intertrochanteric fracture of left hip (3) Diabetes mellitus (4) CAD (coronary artery disease) (5) Anemia, iron deficiency (6) Hx of CABG (7) Vertigo (8) Fall on same level RUFINO MEDEL DO Jan 19, 2019 08:49
[2019-01-19] MEDS: BISACODYL 10 MG SUPP (DULCOLAX) PR SCH ×2 (09:00→21:06)
[2019-01-19] MEDS: LACTULOSE SYRUP 10GM/15ML (ENULOSE) 30ML UDC PO SCH ×2 (09:00→21:05)
[2019-01-19] MEDS: SENNA W/DOCUSATE (SENOKOT S) TABLET PO SCH ×2 (09:00→21:05)
[2019-01-19] MEDS: oxyCODONE/APAP 5/325MG (PERCOCET 5) TABLET PO PRN (11:03)
--- NOTE | 2019-01-19 11:28 | Physical Therapy Daily Note ---
PT Daily Note-Current Subjective Pt sitting W/C in room upon arrival. Pt agrees to PT for FIM scoring for D/C tomorrow (01/20). Pt continues to remain very anxious during tx and depends on Sp to remain close by. Pain Numeric Pain Scale: 10-Worst Possible Pain Location: Right Location Body Site: Hip Pain Description: Ache, Tightness Mental Status Patient Orientation: Person, Place, Time, Situation Transfers Therapy Code Descriptions/Definitions Functional [place] Measure: 0=Not Assessed/NA 4=Minimal Assistance 1=Total Assistance 5=Supervision or Setup 2=Maximal Assistance 6=Modified [place] 3=Moderate Assistance 7=Complete [place] Therapy Quality Codes: 6 Independent with activity with or without an assistive device 5 Patient requires set up or clean up by helper. Patient completes activity by themselves 4 Supervision or touching assist (CGA). [place] provide cues , steadying assist 3 The helper provides less than half the effort to complete the activity 2 The helper provides more than half the effort to complete the activity 1 Dependent. The helper does all the effort to complete an activity 7 Patient refused to complete or attempt activity 9 The patient did not perform the activity before the current illness or injury 88 Not attempted due to Medical conditions or safety concerns Transfers (B, C, W/C) (FIM): 5 Scootin Rollin Roll Left to Right (QC): 5 Supine to/from Sit: 5 Sit to/from Stand: 5 Sit to Lying (QC): 5 Sit to Stand (QC): 5 Chair/Tel-gb-Mmwaj Xfer(QC): 5 Bed to/from Chair: 5 Car Transfer (QC): 5 Weight Bearing Right Lower Extremity: Right Weight Bearing/Tolerated Gait Training Does the Patient Walk?: Yes Gait (FIM): 5 Distance (FIM): 3=150 ft Distance: 150' Walk 10 feet (QC): 5 Walk 50 ft with 2 Turns(QC): 5 Walk 150 ft (QC): 5 Walking 10ft/uneven surface-QC: 5 Gait Level of Assist: 5 Gait Persons Needed: 1 Gait Assistive Device: FWW Pt is able to complete ambulation at [facility] although pt insists that she "needs someone to hold on to my belt". Pt demonstrates increased anxiety with transfers and mobility. Wheelchair Training Does the Pt Use a Wheelchair?: Yes Wheelchair (FIM): 6 Wheelchair Distance: 3=150 ft Distance: 150' Wheelchair Level of Assist: 6 Wheel 50 ft with 2 turns (QC): 6 Wheel 150 ft (QC): 6 Type of Wheelchair: Manual Stair Training Stair Training: Handrails/: 2 handrails Stairs (FIM): 2 #of Steps: 4 1 Step (curb) (QC): 4 4 Steps (QC): 4 12 Steps (QC): 88 Stairs: Pattern: Step to Level of Assist: 4 Balance Picking up an Object (QC): 88 Special Test Comments This is not completed due to hip precautions and pt will have pipe supervisor as well as Sp to assist. Treatments Pt completes FIM scoring items including bed mobility, transfers including car transfer, ambulation including across varying surface and stairs. Assessment Current Status: Fair Progress Pt allows pain and anxiety to limit participation but this has occurred throughout ARU stay. PT Short Term Goals Short Term Goals Time Frame: Jan 12, 2019 Gait (FIM): 1 Gait Distance Comment: 25' Gait Level of Assist: 4 Gait Assistive Device: FWW Wheelchair Distance: 150' PT Rivet Hole Puncher Goals Skilled Nursing Goals PT [place] Hole Puncher Goals Time Frame: Jan 26, 2019 Transfers (B,C,W/C) (FIM): 5 Sit to Lying (QC): 4 Lying-Sitting on Side/Bed(QC): 4 Sit to Stand (QC): 4 Rollin Roll Left to Right (QC): 4 Chair/Jln-oc-Kmdeo Xfer(QC): 4 Car Transfer (QC): 4 Gait (FIM): 2 Distance: 50' Walk 10 feet (QC): 4 Walk 10ft-Uneven Surface(QC): 4 Walk 50ft with 2 Turns (QC): 4 Gait Level of Assist: 5 Gait Assistive Device: FWW Stairs (FIM): 2 # of Steps: 4 1 Step (curb) (QC): 4 4 Steps (QC): 4 Stairs Level Of Assist: 4 PT Plan Problem List Problem List: Activity Tolerance, Functional Strength, Gait, Transfer Treatment/Plan Treatment Plan: Continue Plan of Care Treatment Plan: Bed Mobility, Education, Functional Activity Sandra, Functional Strength, Group Therapy, Gait, Safety, Therapeutic Exercise, Transfers Treatment Duration: Jan 26, 2019 Frequency: At least 5 of 7 days/Wk (IRF) Estimated Hrs Per Day: 1.5 hours per day Patient and/or Family Agrees t: Yes Safety Risks/Education Patient Education: Gait Training, Transfer Techniques, Correct Positioning, W/C Management, Safety Issues Teaching Recipient: Patient Teaching Methods: Discussion Response to Teaching: Verbalize Understanding Time/GCodes Time In: 1000 Time Out: 1100 Total Billed Treatment Time: 60 Total Billed Treatment 1, GT (15m), FA x2 (30m) & WCH (15m) G Codes Necessary: SULTANA Mosqueda PTA Jan 19, 2019 11:28
--- NOTE | 2019-01-19 12:10 | Occupational Ther Daily Note ---
OT Current Status-Daily Note Subjective No pain reported. Appearance Pt. in bed. Agrees to shower. Mental Status/Objective Patient Orientation: Person, Place Therapy Code Descriptions/Definitions Functional [place] Measure: 0=Not Assessed/NA 4=Minimal Assistance 1=Total Assistance 5=Supervision or Setup 2=Maximal Assistance 6=Modified [place] 3=Moderate Assistance 7=Complete [place] ADL-Treatment Therapy Code Descriptions/Definitions Functional [place] Measure: 0=Not Assessed/NA 4=Minimal Assistance 1=Total Assistance 5=Supervision or Setup 2=Maximal Assistance 6=Modified [place] 3=Moderate Assistance 7=Complete [place] Therapy Quality Codes: 6 Independent with activity with or without an assistive device 5 Patient requires set up or clean up by helper. Patient completes activity by themselves 4 Supervision or touching assist (CGA). [place] provide cues , steadying assist 3 The helper provides less than half the effort to complete the activity 2 The helper provides more than half the effort to complete the activity 1 Dependent. The helper does all the effort to complete an activity 7 Patient refused to complete or attempt activity 9 The patient did not perform the activity before the current illness or injury 88 Not attempted due to Medical conditions or safety concerns Grooming (FIM): 5 (Set up to brush hair.) Bathing (FIM): 4 (Min assist in stance for balance to rinse all parts in shower.) Shower/Bathe Self (QC): 4 Upper Body (FIM): 5 Upper Body Dressing (QC): 4 Lower Body Dressing (FIM): 3 (Pt. continues to struggle with donning socks, underwear, and pants with AE. Demonstrates difficulty with remembering how. Also demonstrates difficulty with managing right LE to thread into pants. Spouse reports that he will be with her to assist.) Lower Body Dressing (QC): 3 On/Off Footwear (QC): 3 Toileting (FIM): 4 Toileting Hygiene (QC): 4 Transfers (B, C, W/C) (FIM): 4 Toilet/Commode Transfer (FIM): 4 Toilet Transfer (QC): 4 Shower Transfer(FIM): 4 Other Treatment Pt. does exhibit anxiety with movement and ADLs. Spouse is present and very attentive and supportive. Pt. transferred to wheelchair with CGA and self propelled to therapy gym. Completed 15 minutes on armbike to increase overall endurance and strength. Pt. then donned 1 lb. wrist weights and completed therapy peg task with alternating reach for increased overall strength. Tolerat ed this well. Pt. taken back to room and all needs met. Education OT Patient Education: Correct positioning, Exercise program, Modified ADL techniques, Progress toward Goal/Update tx plan, Purpose of tx/functional activities, Reviewed precautions, Rehab process, Transfer techniques Teaching Recipient: Patient Teaching Methods: Demonstration, Discussion Response to Teaching: Verbalize Understanding, Return Demonstration OT Short Term Goals Short Term Goals Time Frame: Jan 12, 2019 Bathing(FIM): 4 Lower Body Dressing(FIM): 3 Toilet/Commode Transfer(FIM): 4 (CGA) Additional Short Term Goals: 1-Demonstrate ADL Tasks, 2-Verbalize Understanding, 3-ImproveStrength/Sandra 1=Demonstrate adherence to instructed precautions during ADL tasks. 2=Patient will verbalize/demonstrate understanding of assistive devices/modifications for ADL. 3=Patient will improve strength/tolerance for activity to enable patient to perform ADL's. OT Intermediate Goals Intermediate Goals Time Frame: Jan 26, 2019 Eating (FIM): 7 Eating (QC): 6 Groomin Oral Hygiene (QC): 6 Bathing(FIM): 5 Shower/Bathe Self (QC): 5 Upper Body Dressing(FIM): 5 Upper Body Dressing (QC): 5 Lower Body Dressing(FIM): 5 Lower Body Dressing (QC): 5 On/Off Footwear (QC): 5 Toileting(FIM): 6 Toileting Hygiene (QC): 6 Toilet/Commode Transfer(FIM): 6 Toilet/Commode Transfer (QC): 6 Shower Transfer(FIM): 5 Additional Goals: 1-Demonstrate ADL Tasks, 2-Verbalize Understanding, 3- ImproveStrength/Sandra 1=Demonstrate adherence to instructed precautions during ADL tasks. 2=Patient will verbalize/demonstrate understanding of assistive devices/modifications for ADL. 3=Patient will improve strength/tolerance for activity to enable patient to perform ADL's. OT Education/Plan Problem List/Assessment Assessment: Decreased Activ Tolerance, Dependent Transfers, Impaired Cognition, Impaired Funct Balance, Impaired I ADL's, Impaired Self-Care Skills Discharge Recommendations Plan/Recommendations: Continue POC Therapy D/C Recommendations: Home w/ Family Support, Occupational Therapy Home Care Treatment Plan/Plan of Care Treatment,Training & Education: Yes Patient would benefit from OT for education, treatment and training to promote independence in ADL's, mobility, safety and/or upper extremity function for ADL's. Plan of Care: ADL Retraining, Functional Mobility, Group Exercise/Act as Ind, UE Funct Exercise/Act Treatment Duration: Jan 26, 2019 Frequency: At least 5 of 7 days/Wk (IRF) Estimated Hrs Per Day: 1.5 hours per day Agreement: Yes Rehab Potential: Fair Time/GCodes Start Time: 08:30 Stop Time: 10:00 Total Time Billed (hr/min): 90 Billed Treatment Time 1, ADL x 60minutes, Ex x 30minutes ELÍAS NGO OT Jan 19, 2019 12:10
--- NOTE | 2019-01-19 12:55 | Progress Note-Standard ---
Standard Progress Note Progress Notes/Assess & Plan Date Seen by a Provider: Jan 19, 2019 Time Seen by a Provider: 12:54 Progress/Assessment & Plan no complaints RLE-incisions clean and dry. No calf tenderness. Neg SLR s/p IM rell R hip continue PT/OT Final Diagnosis no complaints DC tomorrow Fu with me in three weeks ROSA ISELA GAXIOLA MD Jan 19, 2019 12:55
--- NOTE | 2019-01-19 14:01 | Physical Therapy Daily Note ---
PT Daily Note-Current Subjective Pt laying Supine in bed upon arrival. Pt agrees to limited PT due to discomfort. Pain Numeric Pain Scale: 7 Location: Right Location Body Site: Hip Pain Description: Ache Mental Status Patient Orientation: Person, Place, Situation Transfers Therapy Code Descriptions/Definitions Functional [place] Measure: 0=Not Assessed/NA 4=Minimal Assistance 1=Total Assistance 5=Supervision or Setup 2=Maximal Assistance 6=Modified [place] 3=Moderate Assistance 7=Complete [place] Therapy Quality Codes: 6 Independent with activity with or without an assistive device 5 Patient requires set up or clean up by helper. Patient completes activity by themselves 4 Supervision or touching assist (CGA). [place] provide cues , steadying assist 3 The helper provides less than half the effort to complete the activity 2 The helper provides more than half the effort to complete the activity 1 Dependent. The helper does all the effort to complete an activity 7 Patient refused to complete or attempt activity 9 The patient did not perform the activity before the current illness or injury 88 Not attempted due to Medical conditions or safety concerns Weight Bearing Right Lower Extremity: Right Weight Bearing/Tolerated Exercises Supine Ex: Ankle pumps, Quad Set, Glut sets, Heel Slides, Straight leg raise, Hip abd/add Supine Reps: 15 Treatments AS400 OPERATOR gives pt HEP and discusses HH vs OP PT. Pt wants to complete OP PT but AS400 OPERATOR advises HH can be beneficial. SW will visit with Pt as requested. Pt has all needs met. Assessment Current Status: Fair Progress Pt limits self by anxiety and pain and does not push self as much as needed even with AS400 OPERATOR encouragement. PT Short Term Goals Short Term Goals Time Frame: Jan 12, 2019 Gait (FIM): 1 Gait Distance Comment: 25' Gait Level of Assist: 4 Gait Assistive Device: FWW Wheelchair Distance: 150' PT Snf Goals Snf Goals PT Snf Goals Time Frame: Jan 26, 2019 Transfers (B,C,W/C) (FIM): 5 Sit to Lying (QC): 4 Lying-Sitting on Side/Bed(QC): 4 Sit to Stand (QC): 4 Rollin Roll Left to Right (QC): 4 Chair/Ziv-cl-Qsobv Xfer(QC): 4 Car Transfer (QC): 4 Gait (FIM): 2 Distance: 50' Walk 10 feet (QC): 4 Walk 10ft-Uneven Surface(QC): 4 Walk 50ft with 2 Turns (QC): 4 Gait Level of Assist: 5 Gait Assistive Device: FWW Stairs (FIM): 2 # of Steps: 4 1 Step (curb) (QC): 4 4 Steps (QC): 4 Stairs Level Of Assist: 4 PT Plan Problem List Problem List: Activity Tolerance, Functional Strength, Safety, Balance, Gait, Transfer Treatment/Plan Treatment Plan: Continue Plan of Care Treatment Plan: Bed Mobility, Education, Functional Activity Sandra, Functional Strength, Group Therapy, Gait, Safety, Therapeutic Exercise, Transfers Treatment Duration: Jan 26, 2019 Frequency: At least 5 of 7 days/Wk (IRF) Estimated Hrs Per Day: 1.5 hours per day Patient and/or Family Agrees t: Yes Safety Risks/Education Patient Education: Transfer Techniques, Correct Positioning, Safety Issues Teaching Recipient: Patient Teaching Methods: Discussion Response to Teaching: Verbalize Understanding Time/GCodes Time In: 1300 Time Out: 1330 Total Billed Treatment Time: 30 Total Billed Treatment 1, FA (10m) & EX (20m) G Codes Necessary: SULTANA Mosqueda PTA Jan 19, 2019 14:01
--- NOTE | 2019-01-19 14:08 | D/C HH Face to Face Order ---
D/C Face to Face Orders Instructions for Patient [facility], Patient Instructions/FollowUp: PCP in 1 week Physician to follow Patient: PCP Discharge Diet for Home: ADA Diet, Cardiac Diet Patient Problems: Hip fracture DM CAD Vertigo Patient Data-Allergies,Ht & Wt Patient Allergies: Coded Allergies: Penicillins (Verified Allergy, Unknown, 12/31/18) Sulfa (Sulfonamide Antibiotics) (Unverified Allergy, Unknown, 12/31/18) peanut (Unverified Allergy, Unknown, 01/06/19) tomato (Unverified Allergy, Unknown, 01/06/19) Height (Feet): 5 Height (Inches): 5.00 Weight (Pounds): 184 Weight (Ounces): 12.8 Home Health Need/Face to Face Date of Face to Face: Jan 19, 2019 Clinical Findings: Generalized weakness and fatigue, Instability, Muscle weakness, Unsteady gait I have seen Pt [id number]: Yes Discharged To: Home Diagnosis/Conditions: Hip fracture DM CAD Vertigo Patient is Homebound due to: Dusty fall risk due to instabilty, Muscle weakness, Pain w/ambulation Homebound Status Due to the above stated illness, injury or surgical procedure (medical condition or diagnosis) and associated clinical findings, the patient is homebound because of his/her inability to leave home except with aid of a supportive device and/or person AND leaving the home requires a considerable and taxing effort or is medically contraindicated. Pt req the following assistanc: Walker Home Health Nursing Orders Home Health Services Order: Nursing Services, Polymerization Oven Tender-Evaluate & Treat, Physical Therapy-Evaluate & Treat Certify Stmt I certify that this patient is under my care and that I, a nurse practitioner or a physician; a diver assistant working with me, had a face to face encounter that - meets the physician face to face encounter requirements with this patient as dated. RUFINO MEDEL DO Jan 19, 2019 14:08
--- NOTE | 2019-01-19 16:45 | NUR ---
CONDUCTOR ORCHESTRA met with patient and spouse to review recommendations for equipment, as patient requested CONDUCTOR ORCHESTRA to come back today because spouse had left for the day, yesterday. Patient and spouse do not believe a hip kit is necessary as spouse intends to assist with all lower body adls. Patient and spouse are agreeable to a FWW, CONDUCTOR ORCHESTRA sent order for [employer] for delivery by tomorrow at 9am. Spouse states he can obtain a bed cane and tub/shower transfer bench. Team has recommended C services; however, patient inquired about the option of outpatient therapy. Following discussion with Dr. Crane, the recommendation remains with HHC as patient has a tendency to self limit progress and is very anxious with any activity; therefore, she may not benefit from outpatient until those resolve. CONDUCTOR ORCHESTRA explained this to patient and spouse, they are now agreeable to [facility]. Following review of provider list, they would like to utilize [facility]. CONDUCTOR ORCHESTRA sent referral and received confirmation of start date-01/22 from [facility]. As patient does not currently have a PCP, she requests to utilize the same provider as her spouse, Dr. Hernan Parkinson. CONDUCTOR ORCHESTRA arranged newly established PCP appt with Dr. Parkinson on 01/21 at 230p at [facility] in [place]. CONDUCTOR ORCHESTRA reviewed IMM and Patient Choice Letter, neither express concerns with discharge plans. Documents were signed and filed in medical record. Please see discharge summary for further information.
[2019-01-19 18:31] VITALS: BP 110/68
[2019-01-19] MEDS ORDERED: MECL-106 PO (20:22)
[2019-01-19] MEDS ORDERED: GLYB1.253 PO (20:22)
[2019-01-19] MEDS ORDERED: OXYC1TAB87 PO (20:22)
[2019-01-20] MEDS: oxyCODONE/APAP 5/325MG (PERCOCET 5) TABLET PO PRN (03:38)
[2019-01-20] MEDS: inSUlin ASPART (NovoLOG) 1 UNIT/0.01 ML (CHARGE PER UNIT) SC SCH ×2 (05:51→11:00)
[2019-01-20 06:00] VITALS: BP 130/72
[2019-01-20] MEDS: glyBURIDE 2.5 MG (MICRONASE) TAB PO SCH (06:45)
--- NOTE | 2019-01-20 08:33 | Cardiology Progress Note ---
Subjective Date Seen by Provider: Jan 20, 2019 Time Seen by Provider: 08:32 Subjective/Events-last exam Patient is sitting up in bed, no new complaints. Being discharged home today. Objective-Cardiology Exam Last Set of Vital Signs Vital Signs 01/20/19 06:00 Temp 98.0 Pulse 71 Resp 18 B/P (MAP) 130/72 (91) Pulse Ox 95 O2 Delivery Room Air Capillary Refill : Less Than 3 Seconds I&O Intake and Output 01/20/19 00:00 Intake Total 1000 ml Balance 1000 ml Intake Oral 1000 ml # Voids 5 # Bowel Movements 1 General: Alert, Oriented X3, Cooperative HEENT: Atraumatic, PERRLA Neck: Supple, No JVD, No Thyromegaly Lungs: Clear to Auscultation, Normal Air Movement Heart: Regular Rate, Normal S1, Normal S2, No Murmurs Abdomen: Normal Bowel Sounds, Soft, No Tenderness, No Hepatosplenomegaly, No Masses Extremities: No Clubbing, No Cyanosis Skin: No Rashes, No Significant Lesion Neuro: Normal Speech, Cranial Nerves 3-12 NL Psych/Mental Status: Mental Status NL, Mood NL A/P-Cardiology Admission Diagnosis right hip fracture CAD DM Vertigo Assessment/Plan Right hip fx, status post surgical repair surgery was done on December 31, 2018, recovering slowly, continue to monitor Anemia, followed and managed by primary care physician Coronary artery disease, history of CABG x 4 appro[address] Velasquez in [place], [place]. No recent cardiac workup. EKG reveals SR. Denies any chest pain at this time. Continue to monitor. Will need stress test as outpatient. Diabetes mellitus, followed and managed by medical team Vertigo, better at this time. Continue to monitor Hx of uterine CA, s/p hysterectomy 8 years ago. OK for discharge from cardiology standpoint. Follow up in Dr. Novak's office in 4-6weeks. Clinical Quality Measures DVT/VTE Risk/Contraindication: Risk Factor Score Per Nursin RFS Level Per Nursing on Admit: 4+=Very High VIOLETTE AGUIRRE Jan 20, 2019 08:33
[2019-01-20] MEDS: SENNA W/DOCUSATE (SENOKOT S) TABLET PO SCH (08:45)
[2019-01-20] MEDS: BISACODYL 10 MG SUPP (DULCOLAX) PR SCH (08:45)
[2019-01-20] MEDS: LACTULOSE SYRUP 10GM/15ML (ENULOSE) 30ML UDC PO SCH (08:45)
[2019-01-20] MEDS: ENOXAPARIN 40 MG/0.4 ML (LOVENOX) SYR SC SCH (08:47)
--- NOTE | 2019-01-20 08:56 | Therapy Team Discharge Summary ---
Therapy Discharge Summary Discharge Recommendations Date of Discharge 01-20-19 Therapy D/C Recommendations: Home w/ Family Support, Occupational Therapy Home Care Occupational Therapy Pt. has been seen for occupational therapy after hip fracture, to work on overall independence for return home. While pt. has made progress, she has not met OT goals. Pt. continues to require assistance due to fear and anxiety, as well as vertigo and pain. Pt. relies heavily on her spouse and did so before this injury. Pt. often asks him to do things for her vs. her practice them effectively. Pt. and spouse both state that he will continue this at home. All needs have been met in this facility. Pt. will go home with a walker. Spouse states that he will be with her at all times. Do recommend follow up OT at home to increase strength overall. Decreased Activ Tolerance, Dependent Transfers, Impaired Cognition, Impaired Funct Balance, Impaired I ADL's, Impaired Self-Care Skills PT Chisel Worker Goals Nursing Home Goals PT Chisel Worker Goals Time Frame: Jan 26, 2019 Transfers (B,C,W/C) (FIM): 5 Roll Left to Right (QC): 4 Sit to Lying (QC): 4 Lying-Sitting on Side/Bed(QC): 4 Sit to Stand (QC): 4 Chair/Qby-he-Nqpnk Xfer(QC): 4 Car Transfer (QC): 4 Gait (FIM): 2 Distance: 50' Walk 10 feet (QC): 4 Walk 10ft-Uneven Surface(QC): 4 Walk 50ft with 2 Turns (QC): 4 Gait Level of Assist: 5 Gait Assistive Device: FWW Stairs (FIM): 2 # of Steps: 4 1 Step (curb) (QC): 4 4 Steps (QC): 4 Stairs Level Of Assist: 4 OT Nursing Home Goals Chisel Worker Goals Time Frame: Jan 26, 2019 Eating (FIM): 7 (met) Eating (QC): 6 (met) Oral Hygiene (QC): 6 (not met) Grooming(FIM): 6 (not met) Bathing(FIM): 5 (not met) Shower/Bathe Self (QC): 5 (not met) Upper Body Dressing(FIM): 5 (met) Upper Body Dressing (QC): 5 (met) Lower Body Dressing(FIM): 5 (met) Lower Body Dressing (QC): 5 (not met) On/Off Footwear (QC): 5 (not met) Toileting(FIM): 6 (not met) Toileting Hygiene (QC): 6 (not met) Toilet/Commode Transfer(FIM): 6 (not met) Toilet/Commode Transfer (QC): 6 (not met) Shower Transfer(FIM): 5 (not met) Additional Goals: 1-Demonstrate ADL Tasks, 2-Verbalize Understanding, 3- ImproveStrength/Sandra 1=Demonstrate adherence to instructed precautions during ADL tasks. 2=Patient will verbalize/demonstrate understanding of assistive devices/modifications for ADL. 3=Patient will improve strength/tolerance for activity to enable patient to perform ADL's. ELÍAS NGO OT Jan 20, 2019 08:56
--- NOTE | 2019-01-20 09:22 | Discharge Summary ---
Diagnosis/Chief Complaint Date of Admission January 05, 2019 at 10:45 Date of Discharge Discharge Date: Jan 20, 2019 Discharge Diagnosis Assessment: s/p right hip fracture repair POD # 20 DM HTN CAD CABG hx Anemia iron def s/p Venofer infusions x 5 doses 200mg s/p UTI Vertigo-resolved Fall PVD suspected Constipation-resolved after aggressive regimen Plan: IRF protocols SSI Pain control BM regimen maintained Venofer Meclizine prescription at discharge Maintain OHA low dose Monitor leg pain DC 01/20/19 will be on target (1) Closed intertrochanteric fracture of right hip (2) Closed intertrochanteric fracture of left hip (3) Diabetes mellitus (4) CAD (coronary artery disease) (5) Anemia, iron deficiency (6) Hx of CABG (7) Vertigo (8) Fall on same level Discharge Summary Discharge Physical Examination Allergies: Coded Allergies: Penicillins (Verified Allergy, Unknown, 12/31/18) Sulfa (Sulfonamide Antibiotics) (Unverified Allergy, Unknown, 12/31/18) peanut (Unverified Allergy, Unknown, 01/06/19) tomato (Unverified Allergy, Unknown, 01/06/19) Vitals & I&Os Vital Signs Date Time Temp Pulse Resp B/P (MAP) Pulse Ox O2 Delivery O2 Flow Rate FiO2 01/20/19 14:27 71 18 130/72 95 Room Air 01/20/19 06:00 98.0 General Appearance: Alert, Oriented X3, Cooperative Respiratory: Clear to Auscultation, Normal Air Movement Cardiovascular: Regular Rate, Normal S1, Normal S2 Neuro: Normal Gait (slow with walker), Normal Speech, Strength at 5/5 X4 Ext Psych/Mental Status: Mental Status NL, Mood NL Hospital Course Was the Problem List Reviewed?: Yes Hospital course; Pt had a lengthy hospital course for 16 days in the Impatient rehab Unit after suffering a right hip fracture status post med complicated repair. Cardiology was consulted for CAD and diabetes medication was started low dose for out of control diabetes of which she had been diet controlled before. Hemoglobin A1c was 8.0. Bowels returned back to normal after laxatives and pain was controlled throughout the entire hospital course. Meclizine really helped the vertigo that was maintained and was maintained at discharge also. Pt overall returned to near prior level of functioning with the use of a walker and will continue on home health, PT, OT, to recover the rest of her deficits since the hip fracture. Labs (last 24 hrs) Laboratory Tests 01/05/19 11:53: Glucometer 230H 01/05/19 16:33: Glucometer 214H 01/05/19 20:17: Glucometer 209H 01/06/19 06:18: Glucometer 177H 01/06/19 10:54: Glucometer 206H 01/06/19 15:23: Glucometer 196H 01/06/19 20:40: Glucometer 235H 01/07/19 06:31: Glucometer 126H 01/07/19 10:55: Glucometer 198H 01/07/19 15:43: Glucometer 183H 01/07/19 20:11: Glucometer 207H 01/08/19 05:20: White Blood Count 9.9, Red Blood Count 2.78L, Hemoglobin 8.8L, Hematocrit 28L, Mean Corpuscular Volume 100H, Mean Corpuscular Hemoglobin 32, Mean Corpuscular Hemoglobin Concent 32, Red Cell Distribution Width 14.7H, Platelet Count 264, Mean Platelet Volume 10.6H, Neutrophils (%) (Auto) 74, Lymphocytes (%) (Auto) 15, Monocytes (%) (Auto) 8, Eosinophils (%) (Auto) 3, Basophils (%) (Auto) 0, Neutrophils # (Auto) 7.4, Lymphocytes # (Auto) 1.5, Monocytes # (Auto) 0.8, Eosinophils # (Auto) 0.3, Basophils # (Auto) 0.0, Sodium Level 140, Potassium Level 3.8, Chloride Level 106, Carbon Dioxide Level 26, Anion Gap 8, Blood Urea Nitrogen 12, Creatinine 0.64, Estimat Glomerular Filtration Rate > 60, BUN/Creatinine Ratio 19, Glucose Level 127H, Calcium Level 8.7, Corrected Calcium 9.3, Total Bilirubin 0.7, Aspartate Amino Transf (AST/SGOT) 25, Alanine Aminotransferase (ALT/SGPT) 19, Alkaline Phosphatase 76, Total Protein 5.8L, Albumin 3.2 01/08/19 06:08: Glucometer 116H 01/08/19 10:54: Glucometer 132H 01/08/19 15:35: Glucometer 138H 01/08/19 20:11: Glucometer 210H 01/09/19 05:07: Glucometer 109 01/09/19 11:03: Glucometer 100 01/09/19 15:34: Glucometer 145H 01/09/19 20:39: Glucometer 171H 01/10/19 05:27: Glucometer 132H 01/10/19 10:53: Glucometer 178H 01/10/19 15:26: Glucometer 155H 01/10/19 20:39: Glucometer 206H 01/11/19 05:20: White Blood Count 10.6, Red Blood Count 2.94L, Hemoglobin 9.5L, Hematocrit 30L, Mean Corpuscular Volume 101H, Mean Corpuscular Hemoglobin 32, Mean Corpuscular Hemoglobin Concent 32, Red Cell Distribution Width 16.3H, Platelet Count 305, Mean Platelet Volume 10.3, Neutrophils (%) (Auto) 74, Lymphocytes (%) (Auto) 16, Monocytes (%) (Auto) 7, Eosinophils (%) (Auto) 3, Basophils (%) (Auto) 0, Neutrophils # (Auto) 7.9H, Lymphocytes # (Auto) 1.7, Monocytes # (Auto) 0.7, Eosinophils # (Auto) 0.3, Basophils # (Auto) 0.0, Sodium Level 140, Potassium Level 4.0, Chloride Level 108H, Carbon Dioxide Level 24, Anion Gap 8, Blood Urea Nitrogen 14, Creatinine 0.71, Estimat Glomerular Filtration Rate > 60, BUN/Creatinine Ratio 20, Glucose Level 123H, Glucometer 127H, Calcium Level 9.1, Corrected Calcium 9.6, Total Bilirubin 0.6, Aspartate Amino Transf (AST/SGOT) 18, Alanine Aminotransferase (ALT/SGPT) 20, Alkaline Phosphatase 101, Total Protein 6.1L, Albumin 3.4 01/11/19 11:07: Glucometer 137H 01/11/19 15:26: Glucometer 178H 01/11/19 20:17: Glucometer 173H 01/12/19 05:05: Glucometer 113H 01/12/19 10:51: Glucometer 122H 01/12/19 15:39: Glucometer 132H 01/12/19 20:11: Glucometer 223H 01/13/19 05:31: Glucometer 107 01/13/19 10:58: Glucometer 119H 01/13/19 15:28: Glucometer 161H 01/13/19 21:03: Glucometer 184H 01/14/19 05:04: Glucometer 136H 01/14/19 10:52: Glucometer 103 01/14/19 15:53: Glucometer 129H 01/14/19 20:24: Glucometer 204H 01/15/19 06:02: Glucometer 112H 01/15/19 10:49: Glucometer 129H 01/15/19 15:21: Glucometer 147H 01/15/19 20:38: Glucometer 177H 01/16/19 05:46: Glucometer 110 01/16/19 10:54: Glucometer 98 01/16/19 15:25: Glucometer 144H 01/16/19 20:13: Glucometer 186H 01/17/19 05:33: Glucometer 113H 01/17/19 10:52: Glucometer 82 01/17/19 15:32: Glucometer 119H 01/17/19 20:24: Glucometer 156H 01/18/19 05:47: White Blood Count 7.2, Red Blood Count 3.60L, Hemoglobin 11.6, Hematocrit 37, Mean Corpuscular Volume 103H, Mean Corpuscular Hemoglobin 32, Mean Corpuscular Hemoglobin Concent 31L, Red Cell Distribution Width 16.2H, Platelet Count 311, Mean Platelet Volume 10.2, Neutrophils (%) (Auto) 69, Lymphocytes (%) (Auto) 18, Monocytes (%) (Auto) 10, Eosinophils (%) (Auto) 3, Basophils (%) (Auto) 0, Neutrophils # (Auto) 5.0, Lymphocytes # (Auto) 1.3, Monocytes # (Auto) 0.7, Eosinophils # (Auto) 0.2, Basophils # (Auto) 0.0, Sodium Level 142, Potassium Level 3.9, Chloride Level 107, Carbon Dioxide Level 24, Anion Gap 11, Blood Urea Nitrogen 13, Creatinine 0.72, Estimat Glomerular Filtration Rate > 60, BUN/Creatinine Ratio 18, Glucose Level 106H, Calcium Level 9.5, Corrected Calcium 9.7, Total Bilirubin 0.5, Aspartate Amino Transf (AST/SGOT) 14, Alanine Aminotransferase (ALT/SGPT) 11, Alkaline Phosphatase 173H, Total Protein 6.7, Albumin 3.7 01/18/19 10:59: Glucometer 118H 01/18/19 17:17: Glucometer 119H 01/18/19 20:20: Glucometer 178H 01/19/19 05:46: Glucometer 113H 01/19/19 11:40: Glucometer 107 01/19/19 16:22: Glucometer 131H 01/19/19 20:56: Glucometer 173H 01/20/19 05:38: Glucometer 118H 01/20/19 11:13: Glucometer 88 Pending Labs Laboratory Tests 01/05/19 11:53: Glucometer 230 01/05/19 16:33: Glucometer 214 01/05/19 20:17: Glucometer 209 01/06/19 06:18: Glucometer 177 01/06/19 10:54: Glucometer 206 01/06/19 15:23: Glucometer 196 01/06/19 20:40: Glucometer 235 01/07/19 06:31: Glucometer 126 01/07/19 10:55: Glucometer 198 01/07/19 15:43: Glucometer 183 01/07/19 20:11: Glucometer 207 01/08/19 05:20: White Blood Count 9.9, Red Blood Count 2.78, Hemoglobin 8.8, Hematocrit 28, Mean Corpuscular Volume 100, Mean Corpuscular Hemoglobin 32, Mean Corpuscular Hemoglobin Concent 32, Red Cell Distribution Width 14.7, Platelet Count 264, Mean Platelet Volume 10.6, Neutrophils (%) (Auto) 74, Lymphocytes (%) (Auto) 15, Monocytes (%) (Auto) 8, Eosinophils (%) (Auto) 3, Basophils (%) (Auto) 0, Neutrophils # (Auto) 7.4, Lymphocytes # (Auto) 1.5, Monocytes # (Auto) 0.8, Eo sinophils # (Auto) 0.3, Basophils # (Auto) 0.0, Sodium Level 140, Potassium Level 3.8, Chloride Level 106, Carbon Dioxide Level 26, Anion Gap 8, Blood Urea Nitrogen 12, Creatinine 0.64, Estimat Glomerular Filtration Rate > 60, BUN/Creatinine Ratio 19, Glucose Level 127, Calcium Level 8.7, Corrected Calcium 9.3, Total Bilirubin 0.7, Aspartate Amino Transf (AST/SGOT) 25, Alanine Camacho otransferase (ALT/SGPT) 19, Alkaline Phosphatase 76, Total Protein 5.8, Albumin 3.2 01/08/19 06:08: Glucometer 116 01/08/19 10:54: Glucometer 132 01/08/19 15:35: Glucometer 138 01/08/19 20:11: Glucometer 210 01/09/19 05:07: Glucometer 109 01/09/19 11:03: Glucometer 100 01/09/19 15:34: Glucometer 145 01/09/19 20:39: Glucometer 171 01/10/19 05:27: Glucometer 132 01/10/19 10:53: Glucometer 178 01/10/19 15:26: Glucometer 155 01/10/19 20:39: Glucometer 206 01/11/19 05:20: White Blood Count 10.6, Red Blood Count 2.94, Hemoglobin 9.5, Hematocrit 30, Mean Corpuscular Volume 101, Mean Corpuscular Hemoglobin 32, Mean Corpuscular Hemoglobin Concent 32, Red Cell Distribution Width 16.3, Platelet Count 305, Mean Platelet Volume 10.3, Neutrophils (%) (Auto) 74, Lymphocytes (%) (Auto) 16, Monocytes (%) (Auto) 7, Eosinophils (%) (Auto) 3, Basophils (%) (Auto) 0, Neutrophils # (Auto) 7.9, Lymphocytes # (Auto) 1.7, Monocytes # (Auto) 0.7, Eosinophils # (Auto) 0.3, Basophils # (Auto) 0.0, Sodium Level 140, Potassium Level 4.0, Chloride Level 108, Carbon Dioxide Level 24, Anion Gap 8, Blood Urea Nitrogen 14, Creatinine 0.71, Estimat Glomerular Filtration Rate > 60, BUN/Creatinine Ratio 20, Glucose Level 123, Glucometer 127, Calcium Level 9.1, Corrected Calcium 9.6, Total Bilirubin 0.6, Aspartate Amino Transf (AST/SGOT) 18, Alanine Aminotransferase (ALT/SGPT) 20, Alkaline Phosphatase 101, Total Protein 6.1, Albumin 3.4 01/11/19 11:07: Glucometer 137 01/11/19 15:26: Glucometer 178 01/11/19 20:17: Glucometer 173 01/12/19 05:05: Glucometer 113 01/12/19 10:51: Glucometer 122 01/12/19 15:39: Glucometer 132 01/12/19 20:11: Glucometer 223 01/13/19 05:31: Glucometer 107 01/13/19 10:58: Glucometer 119 01/13/19 15:28: Glucometer 161 01/13/19 21:03: Glucometer 184 01/14/19 05:04: Glucometer 136 01/14/19 10:52: Glucometer 103 01/14/19 15:53: Glucometer 129 01/14/19 20:24: Glucometer 204 01/15/19 06:02: Glucometer 112 01/15/19 10:49: Glucometer 129 01/15/19 15:21: Glucometer 147 01/15/19 20:38: Glucometer 177 01/16/19 05:46: Glucometer 110 01/16/19 10:54: Glucometer 98 01/16/19 15:25: Glucometer 144 01/16/19 20:13: Glucometer 186 01/17/19 05:33: Glucometer 113 01/17/19 10:52: Glucometer 82 01/17/19 15:32: Glucometer 119 01/17/19 20:24: Glucometer 156 01/18/19 05:47: White Blood Count 7.2, Red Blood Count 3.60, Hemoglobin 11.6, Hematocrit 37, Mean Corpuscular Volume 103, Mean Corpuscular Hemoglobin 32, Mean Corpuscular Hemoglobin Concent 31, Red Cell Distribution Width 16.2, Platelet Count 311, Mean Platelet Volume 10.2, Neutrophils (%) (Auto) 69, Lymphocytes (%) (Auto) 18, Monocytes (%) (Auto) 10, Eosinophils (%) (Auto) 3, Basophils (%) (Auto) 0, Neutrophils # (Auto) 5.0, Lymphocytes # (Auto) 1.3, Monocytes # (Auto) 0.7, Eosinophils # (Auto) 0.2, Basophils # (Auto) 0.0, Sodium Level 142, Potassium Level 3.9, Chloride Level 107, Carbon Dioxide Level 24, Anion Gap 11, Blood Urea Nitrogen 13, Creatinine 0.72, Estimat Glomerular Filtration Rate > 60, BUN/Creatinine Ratio 18, Glucose Level 106, Calcium Level 9.5, Corrected Calcium 9.7, Total Bilirubin 0.5, Aspartate Amino Transf (AST/SGOT) 14, Alanine Aminotransferase (ALT/SGPT) 11, Alkaline Phosphatase 173, Total Protein 6.7, Albumin 3.7 01/18/19 10:59: Glucometer 118 01/18/19 17:17: Glucometer 119 01/18/19 20:20: Glucometer 178 01/19/19 05:46: Glucometer 113 01/19/19 11:40: Glucometer 107 01/19/19 16:22: Glucometer 131 01/19/19 20:56: Glucometer 173 01/20/19 05:38: Glucometer 118 01/20/19 11:13: Glucometer 88 Discharge Home Medications: Active Scripts Active Glyburide 1.25 Mg Tablet 1.25 Mg PO DAILY Meclizine HCl 25 Mg Tablet 12.5 Mg PO TID PRN Percocet 5-325 mg Tablet (Oxycodone HCl/Acetaminophen) 1 Each Tablet 1-2 Tab PO Q4H PRN Reported Aspirin EC (Aspirin) 81 Mg Tablet.dr 81 Mg PO BID Multivitamins (Multivitamin) 1 Each Tablet 1 Tab PO DAILY Instructions to patient/family Please see electronic discharge instructions given to patient. Diagnosis/Problems Diagnosis/Problems (1) Closed intertrochanteric fracture of right hip Status: Acute (2) Closed intertrochanteric fracture of left hip (3) Diabetes mellitus (4) CAD (coronary artery disease) (5) Anemia, iron deficiency (6) Hx of CABG (7) Vertigo Status: Acute (8) Fall on same level Status: Acute Clinical Quality Measures DVT/VTE Risk/Contraindication: Risk Factor Score Per Nursin RFS Level Per Nursing on Admit: 4+=Very High RUFINO MEDEL DO Jan 20, 2019 09:22
--- NOTE | 2019-01-20 12:30 | Therapy Team Discharge Summary ---
Therapy Discharge Summary Discharge Recommendations Date of Discharge 01/20/2019 Therapy D/C Recommendations: Home w/ Family Support, Occupational Therapy Home Care Physical Therapy this patient was seen on ARU post acute hospital stay due to a right hip fracture post repair. Prior to fracture, she was mod indep with all mobility. Upon initial eval on ARU, she was mod assist with transfers, walked 15 ft with min assist with FWW; was unable to attempt a step and could not pick an object up off the floor. Treatment has focused on functional strength and balance to improve transfers and gait. She has episodes of dizziness and some apprehension regarding falls which has limited some progress. However, she has made functional gains and has met the goals set at the evaluation. She is SBA with gait and transfers and able to go up / down steps with assist. She is to discharge home with her to assist as needed and recommend HHC to follow. DC PT . Occupational Therapy Decreased Activ Tolerance, Dependent Transfers, Impaired Cognition, Impaired Funct Balance, Impaired I ADL's, Impaired Self-Care Skills PT Snf Goals Snf Goals PT Snf Goals Time Frame: Jan 26, 2019 Transfers (B,C,W/C) (FIM): 5 (met) Roll Left to Right (QC): 4 Sit to Lying (QC): 4 Lying-Sitting on Side/Bed(QC): 4 Sit to Stand (QC): 4 Chair/Rmv-bb-Mnwyb Xfer(QC): 4 Car Transfer (QC): 4 Gait (FIM): 2 (met/exceeded) Distance: 50' Walk 10 feet (QC): 4 Walk 10ft-Uneven Surface(QC): 4 Walk 50ft with 2 Turns (QC): 4 Gait Level of Assist: 5 Gait Assistive Device: FWW Stairs (FIM): 2 (met) # of Steps: 4 1 Step (curb) (QC): 4 4 Steps (QC): 4 Stairs Level Of Assist: 4 OT Manpower Development Specialist Goals Snf Goals Time Frame: Jan 26, 2019 Eating (FIM): 7 (met) Eating (QC): 6 (met) Oral Hygiene (QC): 6 (not met) Grooming(FIM): 6 (not met) Bathing(FIM): 5 (not met) Shower/Bathe Self (QC): 5 (not met) Upper Body Dressing(FIM): 5 (met) Upper Body Dressing (QC): 5 (met) Lower Body Dressing(FIM): 5 (met) Lower Body Dressing (QC): 5 (not met) On/Off Footwear (QC): 5 (not met) Toileting(FIM): 6 (not met) Toileting Hygiene (QC): 6 (not met) Toilet/Commode Transfer(FIM): 6 (not met) Toilet/Commode Transfer (QC): 6 (not met) Shower Transfer(FIM): 5 (not met) Additional Goals: 1-Demonstrate ADL Tasks, 2-Verbalize Understanding, 3-ImproveStrength/Sandra 1=Demonstrate adherence to instructed precautions during ADL tasks. 2=Patient will verbalize/demonstrate understanding of assistive devices/modifications for ADL. 3=Patient will improve strength/tolerance for activity to enable patient to perform ADL's. ADRIAN MACIAS PT Jan 20, 2019 12:30
[2019-01-20 14:27] VITALS: BP 130/72
== END 2019-01-20 14:00 | disposition home health service (06) | DRG 561 ==
PROVIDERS: ADMIT Internal Medicine; ATTEND Internal Medicine
DX: S72.141D Displaced intertrochanteric fracture of right femur, subsequent encounter for closed fracture with routine healing (principal); R42 Dizziness and giddiness; R53.81 Other malaise; I25.10 Atherosclerotic heart disease of native coronary artery without angina pectoris; I10 Essential (primary) hypertension; E11.40 Type 2 diabetes mellitus with diabetic neuropathy, unspecified; E11.51 Type 2 diabetes mellitus with diabetic peripheral angiopathy without gangrene; D50.9 Iron deficiency anemia, unspecified; K59.03 Drug induced constipation; T40.4X5D Adverse effect of other synthetic narcotics, subsequent encounter; Z95.1 Presence of aortocoronary bypass graft; Z85.41 Personal history of malignant neoplasm of cervix uteri; Z90.710 Acquired absence of both cervix and uterus; Z91.81 History of falling; Z87.440 Personal history of urinary (tract) infections
CPT/HCPCS: 36415; 80053; 82962; 85025

== ENCOUNTER 2020-12-21 22:18 | Inpatient (IN) | payer MEDICARE, OTHER ==
[~2020-12-21] VITALS: Ht 165.1 cm; Wt 78.0 kg
[~2020-12-21 22:18] MED LIST changes: +ASPI-1238 PO; -ASPI-983 PO; +GLYB1.253 PO; +MECL-149 PO; +MULT-567 PO; -MULT1TAB69 PO; +OXYC1TAB87 PO
[2020-12-21] MEDS ORDERED: NS IV 1000 ML 1,000 ML IV STA ×2 (22:27→22:58)
[2020-12-21] MEDS ORDERED: ONDANSETRON 4 MG/2 ML (SDV) Z0FRAN IVP STA (22:27)
--- NOTE | 2020-12-21 22:32 | ED General ---
General Stated Complaint: UNUSUAL BEHAVIOR Source of Information: Patient, EMS, Old Records, Spouse History of Present Illness Date Seen by Provider: December 21, 2020 Time Seen by Provider: 22:18 Initial Comments 75 yo female presenting by EMS from home with complaints of "Not acting right" all day per 's report to EMS. she had just sat on the floor tonight and refused to go to bed or cooperate with her so he called EMS. She did not fall or have an injury per EMS report. She is not answering questions consistently here in the ED. She has nausea and complained of headache to EMS on arrival but denied pain anywhere to me when examining her in the room. She had a glucose of 347 for EMS. She was incontinent of urine. For EMS she is crying out anytime they try to do anything with her or move her. Timing/Duration: 12-24 Hours Associated Systoms: No Chest Pain, No Cough, No Diaphoresis, No Fever/Chills; Headaches (complaint of FREY on arrival to ED), Nausea/Vomiting (nausea but no vomiting on arrival to ED); No Rash, No Seizure, No Shortness of Air, No Syncope; Weakness (general) Allergies and Home Medications Allergies Coded Allergies: Penicillins (Verified Allergy, Unknown, 12/31/18) Sulfa (Sulfonamide Antibiotics) (Unverified Allergy, Unknown, 12/31/18) peanut (Unverified Allergy, Unknown, 01/06/19) tomato (Unverified Allergy, Unknown, 01/06/19) Home Medications Aspirin 81 Mg Tablet.dr, 81 MG PO BID, (Reported) Glyburide 1.25 Mg Tablet, 1.25 MG PO DAILY Prescribed by: RUFINO MEDEL on 01/19/192021 Meclizine HCl 25 Mg Tablet, 12.5 MG PO TID PRN for vertigo Prescribed by: RUFINO MEDEL on 01/19/192021 Multivitamin 1 Each Tablet, 1 TAB PO DAILY, (Reported) Oxycodone HCl/Acetaminophen 1 Each Tablet, 1-2 TAB PO Q4H PRN for PAIN-MODERATE TO SEVERE Prescribed by: RUFINO MEDEL on 01/19/192021 Patient Home Medication List Home Medication List Reviewed: Yes Review of Systems Review of Systems Constitutional: malaise, weakness EENTM: no symptoms reported Respiratory: no symptoms reported Cardiovascular: no symptoms reported Gastrointestinal: nausea; No vomiting Genitourinary: incontinence Musculoskeletal: no symptoms reported Skin: other (red irritated skin to perineum) Psychiatric/Neurological: Anxiety (cries out any time she is moved or has something done to her) Past Srrexbt-Euptul-Nxbklq Hx Past Med/Social Hx: Reviewed Nursing Past Med/Soc Hx Patient Social History 2nd Hand Smoke Exposure: No Recent Hopitalizations: No Immunizations Up To Date Date of Pneumonia Vaccine: Aug 11, 2012 Seasonal Allergies Seasonal Allergies: No Past Medical History Surgeries: Yes (CABG X4) Appendectomy, CABG, Hysterectomy, Orthopedic, Tonsillectomy Respiratory: No Cardiac: Yes (CABG X4) Coronary Artery Disease, Hypertension Neurological: Yes (Dizziness/vertigo) Neuropathy Reproductive Disorders: No Genitourinary: No Gastrointestinal: No Musculoskeletal: No Endocrine: Yes Diabetes, Non-Insulin dep HEENT: No Cancer: Yes (Uterine CA) Cervical Psychosocial: No Integumentary: No Blood Disorders: No Family Medical History Arthritis 19 FATHER, Onset:50's - 60 Diabetes mellitus 19 FATHER, Onset:60 years & older (late in life) Diabetes, Hypertension Physical Exam Vital Signs Vital Signs - First Documented 12/21/20 22:20 Temp 37.7 Pulse 101 Resp 22 B/P (MAP) 168/101 (123) O2 Delivery Room Air Capillary Refill : Height, Weight, BMI Height: 5'5.00" Weight: 172lbs. 0.0oz. 78.508752jw; 30.5 BMI Method:Stated General Appearance: Anxious, Moderate Distress (crying out intermittently) HEENT: PERRL/EOMI; No Moist Mucous Membranes (slightly dry mucous membranes) Neck: Full Range of Motion, Supple Respiratory: Chest Non Tender, No Accessory Muscle Use, No Respiratory Dist ress, Decreased Breath Sounds Cardiovascular: Normal Peripheral Pulses, Tachycardia Gastrointestinal: Normal Bowel Sounds, No Pulsatile Mass, Non Tender, Soft Rectal: Deferred Extremity: Normal Capillary Refill, No Pedal Edema Neurologic/Psychiatric: Alert; No Oriented x3 (would not answer any questions about orientation. when asked her name she said "yes, just give me a second". when asked where she was and the year she nods her head and says "yes"); field applications specialist II- XII Norm as Tested, Other (anxious and crying otu intermittently) Skin: Normal Color, Warm/Dry Focused Exam Lactate Level 12/21/20 22:25: Lactic Acid Level 4.98*H 12/22/20 00:20: Lactic Acid Level Laboratory Tests Test 12/21/20 22:25 12/22/20 00:20 Lactic Acid Level 4.98 MMOL/L (0.50-2.00) *H Progress/Results/Core Measures Suspected Sepsis SIRS Temperature: Pulse: Respiratory Rate: Laboratory Tests 12/21/20 22:25: White Blood Count 18.1H Blood Pressure / Mean: 12/21/20 22:25: Lactic Acid Level 4.98*H 12/22/20 00:20: Laboratory Tests 12/21/20 22:25: Creatinine 0.70, INR Comment 1.1, Platelet Count 219, Total Bilirubin 0.6 Results/Orders Lab Results Laboratory Tests Test 12/21/20 22:25 12/21/20 22:38 12/22/20 00:20 Range/Units White Blood Count 18.1 H 4.3-11.0 10^3/uL Red Blood Count 4.75 4.35-5.85 10^6/uL Hemoglobin 15.5 11.5-16.0 G/DL Hematocrit 46 35-52 % Mean Corpuscular Volume 96 80-99 FL Mean Corpuscular Hemoglobin 33 25-34 PG Mean Corpuscular Hemoglobin Concent 34 32-36 G/DL Red Cell Distribution Width 12.3 10.0-14.5 % Platelet Count 219 130-400 10^3/uL Mean Platelet Volume 10.9 H 7.4-10.4 FL Immature Granulocyte % (Auto) 1 % Neutrophils (%) (Auto) 92 H 42-75 % Lymphocytes (%) (Auto) 5 L 12-44 % Monocytes (%) (Auto) 2 0-12 % Eosinophils (%) (Auto) 0 0-10 % Basophils (%) (Auto) 0 0-10 % Neutrophils # (Auto) 16.8 H 1.8-7.8 X 10^3 Lymphocytes # (Auto) 0.8 L 1.0-4.0 X 10^3 Monocytes # (Auto) 0.3 0.0-1.0 X 10^3 Eosinophils # (Auto) 0.0 0.0-0.3 10^3/uL Basophils # (Auto) 0.0 0.0-0.1 10^3/uL Immature Granulocyte # (Auto) 0.2 H 0.0-0.1 10^3/uL Neutrophils % (Manual) 83 % Lymphocytes % (Manual) 4 % Monocytes % (Manual) 0 % Band Neutrophils 13 % Blood Morphology Comment NORMAL Prothrombin Time 14.7 12.2-14.7 SEC INR Comment 1.1 0.8-1.4 Activated Partial Thromboplast Time 27 24-35 SEC Sodium Level 136 135-145 MMOL/L Potassium Level 4.1 3.6-5.0 MMOL/L Chloride Level 92 L 98-107 MMOL/L Carbon Dioxide Level 23 21-32 MMOL/L Anion Gap 21 H 5-14 MMOL/L Blood Urea Nitrogen 10 7-18 MG/DL Creatinine 0.70 0.60-1.30 MG/DL Estimat Glomerular Filtration Rate > 60 BUN/Creatinine Ratio 14 Glucose Level 428 *H 70-105 MG/DL Lactic Acid Level 4.98 *H 0.50-2.00 MMOL/L Calcium Level 9.5 8.5-10.1 MG/DL Corrected Calcium 9.5 8.5-10.1 MG/DL Magnesium Level 1.7 1.6-2.4 MG/DL Total Bilirubin 0.6 0.1-1.0 MG/DL Aspartate Amino Transf (AST/SGOT) 16 5-34 U/L Alanine Aminotransferase (ALT/SGPT) 13 0-55 U/L Alkaline Phosphatase 113 40-136 U/L Troponin I < 0.30 <0.30 NG/ML C-Reactive Protein 1.33 H <0.50 MG/DL Pro-B-Type Natriuretic Peptide 693.1 H <75.0 PG/ML Total Protein 7.5 6.4-8.2 GM/DL Albumin 4.0 3.2-4.5 GM/DL Lipase 14 8-78 U/L Serum Alcohol < 10 <10 MG/DL Urine Color YELLOW Urine Clarity SL CLOUDY Urine pH 6.0 5-9 Urine Specific [place] 1.020 1.016-1.022 Urine Protein 1+ H NEGATIVE Urine Glucose (UA) 3+ H NEGATIVE Urine Ketones 3+ H NEGATIVE Urine Nitrite POSITIVE H NEGATIVE Urine Bilirubin NEGATIVE NEGATIVE Urine Urobilinogen 0.2 < = 1.0 MG/DL Urine Leukocyte Esterase 1+ H NEGATIVE Urine RBC (Auto) TRACE H NEGATIVE Urine RBC 0-2 /HPF Urine WBC 25-50 H /HPF Urine Squamous Epithelial Cells 5-10 /HPF Urine Crystals NONE /LPF Urine Bacteria LARGE H /HPF Urine Casts NONE /LPF Urine Mucus NEGATIVE /LPF Urine Culture Indicated YES Urine Opiates Screen NEGATIVE NEGATIVE Urine Oxycodone Screen NEGATIVE NEGATIVE Urine Methadone Screen NEGATIVE NEGATIVE Urine Propoxyphene Screen NEGATIVE NEGATIVE Urine Barbiturates Screen NEGATIVE NEGATIVE Ur Tricyclic Antidepressants Screen NEGATIVE NEGATIVE Urine Phencyclidine Screen NEGATIVE NEGATIVE Urine Amphetamines Screen NEGATIVE NEGATIVE Urine Methamphetamines Screen NEGATIVE NEGATIVE Urine Benzodiazepines Screen NEGATIVE NEGATIVE Urine Cocaine Screen NEGATIVE NEGATIVE Urine Cannabinoids Screen NEGATIVE NEGATIVE My Orders Orders - WILMER HEREDIA MD Cbc With Automated Diff (12/21/20:24) Comprehensive Metabolic Panel (12/21/20:) Blood Culture (12/21/20:24) Ua Culture If Indicated (12/21/20:24) Chest 1 View Ap/Pa Only (12/21/20:24) Ed Iv/Invasive Line Start (12/21/20:24) Crp Fs (12/21/20:24) Lactic Acid Analyzer (12/21/20:24) Magnesium (12/21/20:24) Troponin I Fs (12/21/20:24) Probnp Fs (12/21/20:24) Ekg Tracing (12/21/20:) Monitor-Rhythm Ecg Trace Only (12/21/20:24) Protime With Inr (12/21/20:24) Partial Thromboplastin Time (12/21/20:24) Straight Cath For Spec.-Adult (12/21/20:24) Lipase (12/21/20 22:24) Ct Head Wo (12/21/20 22:24) Ns Iv 1000 Ml (Sodium Chloride 0.9%) (12/21/20 22:27) Ondansetron Injection (Zofran Injectio (12/21/20 22:27) Felix Cath (12/21/20 22:29) Urine Culture (12/21/20 22:38) Alcohol (12/21/20 22:54) Drug Screen Stat (Urine) (12/21/20 22:54) Manual Differential (12/21/20 22:25) Ns Iv 1000 Ml (Sodium Chloride 0.9%) (12/21/20 22:58) Cefepime Injection (Maxipime Injection) (12/21/20 22:58) Acetaminophen Tablet (Tylenol Tablet) (12/22/20 00:01) Acetaminophen Tablet (Tylenol Tablet) (12/21/20 23:54) Ondansetron Injection (Zofran Injectio (12/22/20 00:10) Vital Signs/I&O 12/21/20 12/22/20 22:20 00:04 Temp 37.7 37.8 Pulse 101 Resp 22 B/P (MAP) 168/101 (123) O2 Delivery Room Air 12/22/20 00:00 Intake Total 10 ml Balance 10 ml Capillary Refill : Progress Note #1: Progress Note obtain basic labs, cardiac enzymes, ECG, Chest xray, CT head, blood cultures. Give IVF for hydration. Felix catheter to monitor urine output. Zofran since she was grabbing an emesis bag and acting like she might throw up. Differential diagnosis includes acute stroke, UTI, metabolic encephalopathy, electrolyte imbalance, pneumonia, myocardial infarction Progress Note #2: Time: 23:05 Progress Note CBC shows elevated WBC count to 18.1 with left shift. Lactic acid elevated to 4.98. UA shows Nit, LE, WBC, Bacteria. Prior urine culture from 2019 showed E. coli that was pansensitive. She had gotten cefazolin without difficulty so will order cefepime for sepsis and urine coverage in addition to 2 Liters of NS fluid bolus. Chemistry and Radiology imaging and cardiac enzymes pending still. Progress Note #3: Time: 23:54 Progress Note Negative troponin, BUN and Cr are not elevated. will treat for sepsis with the cefepime and continued IVF. d/w pt and about admit. He states she has seen Dr. Parkinson a time or two but was ok with going to [facility] for admit since she has had records there. D/w Dr. Medel the strategic sourcing consultant provider for hospitalist and will admit to ICU in [place]. Use sepsis order set and sliding scale insulin orders. Will let the [facility] E-ICU know about the admit so they can assist with management. Progress Note #4: Time: 00:31 Progress Note updated doctor at [facility] E-ICU about pt going to room [address] [facility] ICU. Pt remained hemodynamically stable here in ED. did report she has vertigo and takes Meclizine for that chronically but has not had it today. This would help account for her being startled and crying otu every time she is moved as it might be triggering some of her vertigo symptoms. This also could be causing some of her nausea and dry heaves, but it could be from the UTI and elevated glucose too. ECG Initial ECG Impression Date: December 21, 2020 Initial ECG Impression Time: 22:34 Initial ECG Rate: 102 Initial ECG Rhythm: S.Tach Initial ECG Comparisson: Unchanged Comment Sinus tachycardia with a heart rate of 102 bpm. UT interval [address] elevation. QT interval 339 ms with a QTc interval of 442 ms. Appears similar to tracing from 2019 Diagnostic Imaging Diagonstic Imaging: Xray Plain Films/CT/US/NM/MRI: chest Comments On my review of her 1 view chest x-ray she does not have any acute infiltrate or effusion Diagonstic Imaging: CT Plain Films/CT/US/NM/MRI: head Comments Impression: No acute stroke or hemorrhage. Moderate nonspecific white matter changes, most commonly seen with small vessel disease. Read by radiologist Roman Israel MD at [phone] and faxed at [phone] Reviewed: Reviewed [place] Study, Reviewed by Me Departure Communication (Admissions) Time/Spoke to Admitting Phy: 23:54 d/w Dr. Medel strategic sourcing consultant for hospitalist since pt follows with Dr. Parkinson. was ok with her going to [facility] since she had only seen Dr. Parkinson a time or two. Admit to ICU for sepsis and elevated glucose. Impression Primary Impression: Sepsis due to urinary tract infection Additional Impressions: Altered mental status, unspecified Qualified Codes: R41.82 - Altered mental status, unspecified Cystitis without hematuria Hyperglycemia due to type 2 diabetes mellitus Qualified Codes: E11.65 - Type 2 diabetes mellitus with hyperglycemia Disposition: 30 STILL A PATIENT Condition: Stable Admissions Decision to Admit Reason: Admit from ER (General) Decision to Admit/Date: December 21, 2020 Time/Decision to Admit Time: 23:54 Departure-Patient Inst. Referrals: NO,LOCAL PHYSICIAN (PCP/Family) Primary Care Physician WILMER HEREDIA MD December 21, 2020 22:32
[2020-12-21 22:52] LABS: CLARITY,URINE SL CLOUDY; COLOR,URINE YELLOW; GLUCOSE, URINE (UA) 3+ (NEGATIVE); KETONES,URINE 3+ (NEGATIVE); NITRITE,URINE POSITIVE (NEGATIVE); PROTEIN,URINE 1+ (NEGATIVE)
[2020-12-21 22:53] LABS: BACTERIA,URINE LARGE /HPF; BILIRUBIN,URINE NEGATIVE (NEGATIVE); LEUKOCYTE ESTERASE ,URINE 1+ (NEGATIVE); RBC,URINE 0-2 /HPF; WBC,URINE 25-50 /HPF
[2020-12-21 22:54] LABS: HEMATOCRIT 46 % (35-52); HEMOGLOBIN 15.5 G/DL (11.5-16.0); MEAN CORPUSCULAR HEMOGLOBIN 33 PG (25-34); MEAN CORPUSCULAR HGB CONC 34 G/DL (32-36); MEAN CORPUSCULAR VOLUME 96 FL (80-99); WHITE BLOOD COUNT 18.1 10^3/uL (4.3-11.0)
[2020-12-21 22:55] LABS: BASOPHILS % (AUTO) 0 % (0-10); EOSINOPHILS % (AUTO) 0 % (0-10); LYMPHOCYTES # (AUTO) 0.8 X 10^3 (1.0-4.0); LYMPHOCYTES % (AUTO) 5 % (12-44); MEAN PLATELET VOLUME 10.9 FL (7.4-10.4); MONOCYTES # (AUTO) 0.3 X 10^3 (0.0-1.0); MONOCYTES % (AUTO) 2 % (0-12); NEUTROPHILS # (AUTO) 16.8 X 10^3 (1.8-7.8); NEUTROPHILS % (AUTO) 92 % (42-75); PLATELET COUNT 219 10^3/uL (130-400)
[2020-12-21 22:56] LABS: INR 1.1 (0.8-1.4); PROTHROMBIN TIME PATIENT 14.7 SEC (12.2-14.7)
[2020-12-21] MEDS ORDERED: CEFEPIME INJECTION 1,000 MG in WATER (STERILE) FOR INJECTION 10 ML IV STA (22:58)
[2020-12-21 23:10] LABS: ALANINE AMINOTRANSFERASE 13 U/L (0-55); ALKALINE PHOSPHATASE 113 U/L (40-136); BILIRUBIN,TOTAL 0.6 MG/DL (0.1-1.0); BUN/CREATININE RATIO 14; CALCIUM 9.5 MG/DL (8.5-10.1); CARBON DIOXIDE 23 MMOL/L (21-32); CHLORIDE 92 MMOL/L (98-107); GFR ESTIMATED > 60; LIPASE 14 U/L (8-78); MAGNESIUM 1.7 MG/DL (1.6-2.4); POTASSIUM 4.1 MMOL/L (3.6-5.0); SODIUM 136 MMOL/L (135-145); TOTAL PROTEIN 7.5 GM/DL (6.4-8.2)
[2020-12-21 23:12] LABS: GLUCOSE 428 MG/DL (70-105)
[2020-12-21 23:13] LABS: AMPHETAMINE SCREEN, URINE NEGATIVE (NEGATIVE); BARBITURATE SCREEN URINE NEGATIVE (NEGATIVE); BENZODIAZEPINES SCREEN URINE NEGATIVE (NEGATIVE); CANNABINOID SCREEN, URINE NEGATIVE (NEGATIVE); COCAINE SCREEN URINE NEGATIVE (NEGATIVE); METHADONE STAT NEGATIVE (NEGATIVE); METHAMPHETAMINE SCREEN URINE S NEGATIVE (NEGATIVE); OPIATE SCREEN URINE NEGATIVE (NEGATIVE); OXYCODONE STAT NEGATIVE (NEGATIVE); PROPOXYPHENE STAT NEGATIVE (NEGATIVE); TRICYCLIC ANTIDEPRESSANTS SCRE NEGATIVE (NEGATIVE)
[2020-12-21 23:16] LABS: BAND NEUTROPHILS 13 %; LYMPHOCYTES % (MANUAL) 4 %; MONOCYTES % (MANUAL) 0 %; NEUTROPHILS % (MANUAL) 83 %; RBC MORPH NORMAL
[2020-12-21] MEDS ORDERED: ACETAMINOPHEN 500 MG TAB (TYLENOL) ONE (23:54)
[2020-12-22] MEDS ORDERED: ACETAMINOPHEN 500 MG TAB (TYLENOL) PO STA (00:01)
[2020-12-22] MEDS ORDERED: ONDANSETRON 4 MG/2 ML (SDV) Z0FRAN IVP STA (00:10)
[2020-12-22] MEDS ORDERED: LACTATED RINGERS 1,000 ML IV ONE (01:12)
[2020-12-22] MEDS ORDERED: MECL-215 PO (01:36)
[2020-12-22] MEDS ORDERED: VASOPRESSIN INJECTION 20 UNIT in NS (IVPB) 100 ML IV SCH (02:00)
[2020-12-22] MEDS ORDERED: ACETAMINOPHEN 500 MG TAB (TYLENOL) PO PRN (02:00)
[2020-12-22] MEDS ORDERED: ONDANSETRON 4 MG/2 ML (SDV) Z0FRAN IV PRN (02:00)
[2020-12-22] MEDS ORDERED: EPINEPHrine 1 MG INJECTION 4 MG in NS (IVPB) 248 ML IV SCH (02:00)
[2020-12-22] MEDS ORDERED: NOREPINEPHRINE 8 MG/250 ML 250 ML IV SCH (02:00)
[2020-12-22 02:13] LABS: BASOPHILS % (AUTO) 0 % (0-10); EOSINOPHILS % (AUTO) 6 % (0-10); HEMATOCRIT 46 % (35-52); HEMOGLOBIN 15.7 g/dL (11.5-16.0); LYMPHOCYTES # (AUTO) 0.4 10^3/uL (1.0-4.0); LYMPHOCYTES % (AUTO) 3 % (12-44); MEAN CORPUSCULAR HEMOGLOBIN 33 pg (25-34); MEAN CORPUSCULAR HGB CONC 34 g/dL (32-36); MEAN CORPUSCULAR VOLUME 96 fL (80-99); MEAN PLATELET VOLUME 11.1 fL (9.0-12.2); MONOCYTES # (AUTO) 0.2 10^3/uL (0.0-1.0); MONOCYTES % (AUTO) 2 % (0-12); NEUTROPHILS % (AUTO) 88 % (42-75); PLATELET COUNT 178 10^3/uL (130-400); WHITE BLOOD COUNT 15.8 10^3/uL (4.3-11.0)
[2020-12-22] MEDS: LACTATED RINGERS 1,000 ML IV SCH ×2 (02:18→11:26)
[2020-12-22 02:36] LABS: ALBUMIN 4.1 GM/DL (3.2-4.5); BILIRUBIN,TOTAL 0.6 MG/DL (0.1-1.0); CALCIUM 8.5 MG/DL (8.5-10.1); CREATININE SERUM 0.91 MG/DL (0.60-1.30); POTASSIUM 4.4 MMOL/L (3.6-5.0); TOTAL PROTEIN 7.4 GM/DL (6.4-8.2)
--- NOTE | 2020-12-22 02:56 | Pulmonary Consultation ---
MARAH ATKINSON MED STUDENT 12/22/20 0256: History of Present Illness History of Present Illness Date Seen by Provider: December 22, 2020 Time Seen by Provider: 02:53 History of Present Illness Pt. admitted through the ED from home for UTI, sepsis, AMS, and hyperglycemia. Currently altered and unable to provide any information. She moans and says "ouch" when attempting to assess her. Vitals stable per monitor. Allergies and Home Medications Allergies Coded Allergies: Penicillins (Verified Allergy, Unknown, 12/31/18) Sulfa (Sulfonamide Antibiotics) (Unverified Allergy, Unknown, 12/31/18) milk (Verified Allergy, Unknown, 12/23/20) peanut (Unverified Allergy, Unknown, 01/06/19) tomato (Unverified Allergy, Unknown, 01/06/19) Home Medications Ibuprofen 200 Mg Tablet, 200-400 MG PO Q8H PRN for PAIN-MILD (1-4), (Reported) Meclizine HCl 12.5 Mg Tablet, 12.5 MG PO Q8H PRN for VERTIGO, (Reported) Past Orrivme-Ebpjwl-Cybmcb Hx Past Med/Social Hx: Reviewed Nursing Past Med/Soc Hx Patient Social History Alcohol Use: Denies Use Smoking Status: Never a Smoker 2nd Hand Smoke Exposure: No Recent Infectious Disease Expo: No Recent Hopitalizations: No Have you traveled recently?: No Alcohol Use?: No Immunizations Up To Date Date of Pneumonia Vaccine: Aug 11, 2012 Date of Influenza Vaccine: May 24, 2020 Seasonal Allergies Seasonal Allergies: No Past Medical History Surgeries: Yes (CABG X4) Appendectomy, CABG, Hysterectomy, Orthopedic, Tonsillectomy Respiratory: No Cardiac: Yes (CABG X4) Coronary Artery Disease, Hypertension Neurological: Yes (Dizziness/vertigo) Neuropathy Reproductive Disorders: No Genitourinary: No Gastrointestinal: No Musculoskeletal: No Endocrine: Yes Diabetes, Non-Insulin dep HEENT: No Cancer: Yes (Uterine CA) Cervical Psychosocial: No Integumentary: No Blood Disorders: No Family Medical History Arthritis 19 FATHER, Onset:50's - 60 Diabetes mellitus 19 FATHER, Onset:60 years & older (late in life) Diabetes, Hypertension Review of Systems Constitutional: Other (unable to obtain secondary to AMS) Eyes: Other (unable to obtain) ENT: Other (unable to obtain) Respiratory: Other (unable to obtain) Cardiovascular: Other (unable to obtain) Gastrointestinal: Other (unable to obtain due to pt. condition) Genitourinary: Other (unable to obtain due to pt. condition/harden present) Skin: Other (unable to obtain due to pt. condition) Neurological: Other (unable to obtain due to pt. condition) Sepsis Event Evaluation Height, Weight, BMI Height: 5'5.00" Weight: 172lbs. 0.0oz. 78.378436vy; 29.33 BMI Method:Stated Exam Exam Vital Signs Date Time Temp Pulse Resp B/P (MAP) Pulse Ox O2 Delivery O2 Flow Rate FiO2 12/22/20 02:18 108 186/117 12/22/20 02:18 179/95 12/22/20 01:37 37.4 108 20 186/117 (140) 93 Nasal Cannula 2.00 12/22/20 01:30 93 Nasal Cannula 2.00 12/22/20 01:26 110 12/22/20 00:33 87 17 158/105 95 Nasal Cannula 2.00 12/22/20 00:04 37.8 12/21/20 22:20 37.7 101 22 168/101 (123) Room Air I & O 12/22/20 07:00 Intake Total 2009 ml Balance 2009 ml Height & Weight Height: 5'5.00" Weight: 172lbs. 0.0oz. 78.271468lz; 29.33 BMI Method:Stated General Appearance: No Apparent Distress, Anxious HEENT: PERRL/EOMI; No Moist Mucous Membranes (slightly dry mucous membranes) Neck: Full Range of Motion, Non Tender Respiratory: Lungs Clear, Normal Breath Sounds, No Accessory Muscle Use, No Respiratory Distress Cardiovascular: Regular Rate, Rhythm, Normal Peripheral Pulses, Tachycardia Capillary Refill: Less Than 3 Seconds Peripheral Pulses: 2+ Dorsalis Pedis (R), 2+ Left Dors-Pedis (L), 2+ Radial Pulses (R), 2+ Radial Pulses (L) Gastrointestinal: normal bowel sounds, soft Extremity: Normal Capillary Refill, No Pedal Edema Neurologic/Psychiatric: Alert, Disoriented, Other (Altered ) Skin: Normal Color, Warm/Dry Lymphatic: No Adenopathy Results Lab Laboratory Tests 12/21/20 22:25 12/22/20 02:00 Assessment/Plan Assessment/Plan Sepsis secondary to UTI -Continue cefepime -Continue LR Leukocytosis -Coverage with cefepime -Continue to monitor Altered mental status -Fall precautions Hyperglycemia secondary to Type 2 diabetes mellitus -SSI protocol -may need to add levemir due to elevated glucoses Hyponatremia- mild -Continue to monitor CAD Hypertension -Monitor Hx of CABG GI prophylaxis -Protonix DVT prophylaxis -Lovenox VAUGHN HUMPHRIES DO 12/22/20 0412: Allergies and Home Medications Allergies Coded Allergies: Penicillins (Verified Allergy, Unknown, 12/31/18) Sulfa (Sulfonamide Antibiotics) (Unverified Allergy, Unknown, 12/31/18) milk (Verified Allergy, Unknown, 12/23/20) peanut (Unverified Allergy, Unknown, 01/06/19) tomato (Unverified Allergy, Unknown, 01/06/19) Home Medications Ibuprofen 200 Mg Tablet, 200-400 MG PO Q8H PRN for PAIN-MILD (1-4), (Reported) Meclizine HCl 12.5 Mg Tablet, 12.5 MG PO Q8H PRN for VERTIGO, (Reported) Past Syecmlc-Imomut-Uvevbu Hx Family Medical History Arthritis 19 FATHER, Onset:50's - 60 Diabetes mellitus 19 FATHER, Onset:60 years & older (late in life) Review of Systems Time Seen by Provider: 04:12 Assessment/Plan Assessment/Plan Sepsis secondary to UTI -Continue cefepime -Continue LR -Estevez cultures Leukocytosis -Coverage with cefepime -Continue to monitor Altered mental status -Fall precautions Hyperglycemia secondary to Type 2 diabetes mellitus -SSI protocol -may need to add levemir due to elevated glucoses Hyponatremia- mild -Continue to monitor CAD Hypertension -Monitor Hx of CABG GI prophylaxis -Protonix DVT prophylaxis -Lovenox Supervisory-Addendum Brief Verification & Attestation Participated in pt care: history, MDM, physical Personally performed: exam, history, MDM, supervision of care Care discussed with: Medical Student Procedures: n/a Results interpretation: Verified all documentation Verification and Attestation of Medical Student E/M Service A medical student performed and documented this service in my presence. I reviewed and verified all information documented by the medical student and made modifications to such information, when appropriate. I personally performed the physical exam and medical decision making. Vaughn Humphries, December 26, 2020,09:13 MARAH ATKINSON MED STUDENT December 22, 2020 02:56 VAUGHN HUMPHRIES DO December 22, 2020 04:12
[2020-12-22 03:09] LABS: PHOSPHORUS 3.3 MG/DL (2.3-4.7)
[2020-12-22 03:11] LABS: MAGNESIUM 1.7 MG/DL (1.6-2.4)
[2020-12-22] MEDS ORDERED: MAGNESIUM 1 GM/100 ML IVPB 100 ML IV ONE (05:17)
[2020-12-22] MEDS ORDERED: HALOPERIDOL 5 MG/ML (HALDOL) VIAL ONE (05:32)
[2020-12-22] MEDS: HALOPERIDOL 5 MG/ML (HALDOL) VIAL IM PRN ×2 (05:45→11:52)
[2020-12-22] MEDS ORDERED: morphine INJ 4 MG/ML 1 ML (VIAL/SYRINGE) IVP PRN (05:45)
[2020-12-22] MEDS: CEFEPIME 1,000 MG/SWFI 10 ML IV PUSH IV SCH ×6 (05:45→17:13)
[2020-12-22] MEDS: inSUlin ASPART (NovoLOG) 1 UNIT/0.01 ML (CHARGE PER UNIT) SC SCH ×4 (05:47→20:03)
[2020-12-22] MEDS: MAGNESIUM 1 GM/100 ML IVPB 100 ML IV SCH ×3 (05:48→06:51)
[2020-12-22] MEDS: POTASSIUM CL 10MEQ/50ML IVPB 50 ML IV SCH (05:50)
[2020-12-22] MEDS: KCL 20 MEQ TAB (K-DUR) PO SCH (05:51)
--- NOTE | 2020-12-22 07:23 | Diagnostic Imaging Report ---
Clinical indications: Patient brought in for altered mental status. Exam: Axial CT scan of the brain without IV contrast with coronal and sagittal reformatted images. Auto Exposure Controls were utilized during the CT exam to meet ALARA standards for radiation dose reduction. Comparison: None. Findings: There is no evidence of acute cerebral infarct, intracranial hemorrhage, or gross mass effect. There is diffuse brain parenchymal volume loss which appears appropriate for patient's age. There are patchy confluent areas of low-attenuation white matter changes involving both cerebral hemispheres and periventricular regions suspected to represent chronic small vessel ischemic disease leukoaraiosis. There is normal shanks-white matter distinction. There is no significant midline shift or herniation. There is no evidence of hydrocephalus. The basal cisterns are unremarkable. The skull, extracranial soft tissue, and orbits are unremarkable. There is mild mucosal thickening involving left ethmoid sinus. Temporal bones show no significant abnormality. Impression: 1: There is no definite CT evidence of interval acute cerebral infarction, intracranial hemorrhage, or mass seen. Given the diffuse low attenuation changes throughout the brain parenchyma which can obscure more subtle findings, if there is clinical concern for acute cerebral infarction, MRI of the brain would better evaluate. 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 3: Mild ethmoid sinus disease. I agree with stat rad report Dictated by: Dictated on workstation # [id number]
--- NOTE | 2020-12-22 08:04 | Diagnostic Imaging Report ---
Clinical indication: Patient with altered mental status. Exam: Portable chest x-ray upright view. Comparisons: Chest x-ray dated 12/31/2018. Findings: There is cardiomegaly with no significant pulmonary vascular congestion. There is minimal left basilar atelectasis or scarring. The remainder of the lungs are clear. There is no pleural effusion or pneumothorax. Postoperative change to the chest with sternotomy wires and mediastinal clips again seen. IMPRESSION: 1: There is stable cardiomegaly with no significant pulmonary vascular congestion. 2: There is mild left basilar atelectasis versus scarring again seen. Dictated by: Dictated on workstation # [id number]
[2020-12-22] MEDS: PANTOPRAZOLE 40 MG (PROTONIX) VIAL IV SCH (08:24)
[2020-12-22] MEDS: ENOXAPARIN 40 MG/0.4 ML (LOVENOX) SYR SC SCH (08:24)
--- NOTE | 2020-12-22 13:13 | History & Physical-Hospitalist ---
History of Present Illness HPI/Chief Complaint Alisa Oden is a 75-year-old female who presented with altered mental status. Her reportedly told EMS that she had not been "acting herself". She is a poor historian and is unable to provide any meaningful history. She does deny any pain. She appears comfortable. Her work-up in the emergency room revealed a urinary tract infection and she was admitted with septic shock due to UTI. She underwent a head CT which did not show any acute abnormalities. Source: RN/MD Exam Limitations: clinical condition Date Seen 12/22/20 Time Seen by a Provider: 08:55 Attending Physician Mariana Crane DO PCP No,Local Physician Referring Physician Date of Admission December 21, 2020 at 23:54 Home Medications & Allergies Home Medications Reviewed patient Home Medication Reconciliation performed by pharmacy medication reconciliations surface lay out technician and/or nursing. Patients Allergies have been reviewed. Allergies Allergies Coded Allergies Penicillins (Verified Allergy, Unknown, 12/31/18) Sulfa (Sulfonamide Antibiotics) (Unverified Allergy, Unknown, 12/31/18) peanut (Unverified Allergy, Unknown, 01/06/19) tomato (Unverified Allergy, Unknown, 01/06/19) Patient Social History Tobacco Use?: No Smoking Status: Never a Smoker Smokeless Tobacco Frequency: Never a User E-Cig and/or Vaping Freq: Never a User Substance use?: No Alcohol Use?: No Pt stated abuse/neglect: No Immunizations Up To Date Influenza Vaccine Up-to-Date: Yes; Up-to-Date First/Initial COVID19 Vaccinat: 10/02/20 Second COVID19 Vaccination Yevgeniy: 11/02/20 Date of Pneumonia Vaccine: Aug 11, 2012 Current Status status: No Do you have an Advance Directi: No Communicates: Verbally Primary Language: Sinhala Sensory deficits: Vision impairment Implanted or Applied Medical D: None Past Medical History Diabetes Hip fracture Family Medical History Family Hx: Noncontributory Review of Systems ROS-Unable to Obtain: Altered mental status Constitutional: see HPI Physical Exam Physical Exam Vital Signs Vital Signs - First Documented 12/21/20 12/22/20 22:20 00:33 Temp 37.7 Pulse 101 Resp 22 B/P (MAP) 168/101 (123) Pulse Ox 95 O2 Delivery Room Air O2 Flow Rate 2.00 Capillary Refill : Less Than 3 Seconds Height, Weight, BMI Height: 5'5.00" Weight: 172lbs. 0.0oz. 78.857838yh; 29.33 BMI Method:Stated General Appearance: No Apparent Distress, Obese HEENT: PERRL/EOMI, Pharynx Normal, Photophobia Neck: Full Range of Motion, Normal Inspection, Non Tender, Supple Respiratory: Lungs Clear, Normal Breath Sounds, No Respiratory Distress Cardiovascular: Regular Rate, Rhythm, No Edema, No Murmur, Normal Peripheral Pulses Gastrointestinal: Normal Bowel Sounds, Soft, Tenderness Extremity: Normal Inspection, Non Tender, No Pedal Edema Neurologic/Psychiatric: Alert, No Motor/Sensory Deficits, Disoriented Skin: Normal Color, Warm/Dry Results Results/Procedures Labs Laboratory Tests 12/21/20 22:25 12/22/20 02:00 Patient resulted labs reviewed. Imaging: Reviewed Imaging Report Assessment/Plan Admission Diagnosis Septic shock due to urinary tract infection Admission Status: Inpatient Order (span 2 midnights) Reason for Inpatient Admission: Septic shock due to UTI requiring IV antibiotics and fluids Assessment and Plan Septic shock due to urinary tract infection Septic encephalopathy Lactic acidosis UA consistent with UTI Urine culture pending, positive with greater than 100,000 colony-forming units Started on cefepime IV fluids Pressors as needed Blood cultures pending Add on procalcitonin T2DM with hyperglycemia Hold home meds Add on HgbA1C Begin Levemir Sliding scale insulin DVT prophylaxis: Lovenox Diagnosis/Problems Diagnosis/Problems (1) Septic shock Status: Acute (2) UTI (urinary tract infection) Status: Acute (3) Lactic acidosis Status: Acute (4) Sepsis with encephalopathy and septic shock Status: Acute Qualifiers: Sepsis type: sepsis due to unspecified organism Qualified Codes: A41.9 - Sepsis, unspecified organism; R65.21 - Severe sepsis with septic shock; G93.40 - Encephalopathy, unspecified (5) T2DM (type 2 diabetes mellitus) Status: Acute Qualifiers: Diabetes mellitus senior care insulin use: without senior care use Diabetes mellitus complication status: with hyperglycemia Qualified Codes: E11.65 - Type 2 diabetes mellitus with hyperglycemia JUAN JOSE SOUZA MD December 22, 2020 13:13
[2020-12-22] MEDS ORDERED: IBUP-2473 PO (13:57)
[2020-12-23] MEDS: CEFEPIME 1,000 MG/SWFI 10 ML IV PUSH IV SCH ×8 (00:09→17:56)
[2020-12-23] MEDS: LACTATED RINGERS 1,000 ML IV SCH (01:51)
[2020-12-23 03:09] LABS: BASOPHILS % (AUTO) 0 % (0-10); EOSINOPHILS # (AUTO) 0.1 10^3/uL (0.0-0.3); EOSINOPHILS % (AUTO) 1 % (0-10); HEMATOCRIT 40 % (35-52); HEMOGLOBIN 13.5 g/dL (11.5-16.0); LYMPHOCYTES # (AUTO) 1.4 10^3/uL (1.0-4.0); LYMPHOCYTES % (AUTO) 12 % (12-44); MEAN CORPUSCULAR HEMOGLOBIN 32 pg (25-34); MEAN CORPUSCULAR HGB CONC 33 g/dL (32-36); MEAN CORPUSCULAR VOLUME 96 fL (80-99); MEAN PLATELET VOLUME 10.7 fL (9.0-12.2); MONOCYTES # (AUTO) 0.9 10^3/uL (0.0-1.0); MONOCYTES % (AUTO) 8 % (0-12); NEUTROPHILS # (AUTO) 8.9 10^3/uL (1.8-7.8); NEUTROPHILS % (AUTO) 78 % (42-75); PLATELET COUNT 171 10^3/uL (130-400); WHITE BLOOD COUNT 11.4 10^3/uL (4.3-11.0)
[2020-12-23 03:21] LABS: CHLORIDE 102 MMOL/L (98-107); POTASSIUM 3.8 MMOL/L (3.6-5.0); SODIUM 138 MMOL/L (135-145)
[2020-12-23 03:22] LABS: CALCIUM 8.4 MG/DL (8.5-10.1); GLUCOSE 191 MG/DL (70-105)
[2020-12-23 03:24] LABS: CARBON DIOXIDE 27 MMOL/L (21-32)
[2020-12-23 03:26] LABS: CREATININE SERUM 0.72 MG/DL (0.60-1.30); GFR ESTIMATED > 60; PHOSPHORUS 2.9 MG/DL (2.3-4.7)
[2020-12-23 03:27] LABS: BUN/CREATININE RATIO 15
[2020-12-23 03:29] LABS: MAGNESIUM 2.2 MG/DL (1.6-2.4)
[2020-12-23] MEDS: POTASSIUM CL 10MEQ/50ML IVPB 50 ML IV SCH (04:32)
[2020-12-23] MEDS: MAGNESIUM 1 GM/100 ML IVPB 100 ML IV SCH (04:32)
[2020-12-23] MEDS: KCL 20 MEQ TAB (K-DUR) PO SCH (04:33)
[2020-12-23] MEDS: inSUlin ASPART (NovoLOG) 1 UNIT/0.01 ML (CHARGE PER UNIT) SC SCH ×7 (05:14→20:23)
--- NOTE | 2020-12-23 08:47 | Diagnostic Imaging Report ---
INDICATION: Sepsis. Time of exam: 4:11 AM Correlation is made with prior study 2 days earlier. Changes of median sternotomy and CABG are noted. There are some interstitial changes throughout both lungs perhaps owing to mild congestive failure. No parenchymal consolidation is seen. There is no effusion or pneumothorax. IMPRESSION: Cardiomegaly and mild congestive changes. Dictated by: Dictated on workstation # [id number]
[2020-12-23] MEDS: PANTOPRAZOLE 40 MG (PROTONIX) VIAL IV SCH (09:35)
[2020-12-23] MEDS: ENOXAPARIN 40 MG/0.4 ML (LOVENOX) SYR SC SCH (09:35)
--- NOTE | 2020-12-23 12:37 | Physical Therapy Evaluation ---
PT Evaluation-General Medical Diagnosis Admission Date December 21, 2020 at 23:54 Medical Diagnosis: UTI Onset Date: December 23, 2020 Therapy Diagnosis Therapy Diagnosis: difficulty walking Height/Weight Height (Feet): 5 Height (Inches): 5.00 Weight (Pounds): 172 Weight (Ounces): 0.0 Precautions Precautions/Isolations: Fall Prevention, Standard Precautions Referral Physician: Mary Reason for Referral: Evaluation/Treatment Medical History Pertinent Medical History: CABG, CAD, DM Social History Home: Single Level Current Living Status: Significant Other Prior Prior Level of Function SCALE: Activities may be completed with or without assistive devices. 4-Ykdsvfekwh-euljmcl completes the activity by him/herself with no assistance from a helper. 5-Set-up or Clean-up Assistance-helper sets up or cleans up; patient completes activity. [place] assists only prior to or following the activity. 4-Supervision or Touching Assistance-helper provides verbal cues and/or touching/steadying and/or contact guard assistance as patient completes activity. Assistance may be provided throughout the activity or intermittently. 3-Partial/Moderate Assistance-helper does LESS THAN HALF the effort. [place]man lifts, holds or supports trunk or limbs, but provides less than half the effort. 2-Substantial/Maximal Assistance-helper does MORE THAN HALF the effort. [place] lifts or holds trunk or limbs and provides more than half the effort. 6-Yerujrnnd-wvlgvt does ALL the effort. Patient does none of the effort to complete the activity. Or, the assistance of 2 or more helpers is required for the patient to complete the activity. If activity was not attempted, code reason: 7-Patient Refused. 9-Not Applicable-not attempted and the patient did not perform the activity before the current illness, exacerbation or injury. 10-Not Attempted due to Environmental Limitations-(lack of equipment, weather restraints, etc.). 88-Not Attempted due to Medical Conditions or Safety Concerns. Bed Mobility: 4 Transfers (B,C,W/C): 4 Gait: 4 Indoor Mobility (Ambulation): Needed Some Help Prior Devices Use: Walker PT Evaluation-Current Subjective Patient confused but agrees to therapy. Objective Patient Orientation: Person, Confused ROM/Strength Strength Upper Extremities 3+ Strength Lower Extremities 3+ Transfers Roll Left to Right (QC): 2 Sit to Lying (QC): 2 Lying to Sitting/Side of Bed(Q: 2 Sit to Stand (QC): 2 Chair/Lug-do-Mdnpz Xfer(QC): 2 Gait Does the Patient Walk?: No and Walking Goal IS indicated Mode of Locomotion: Both Anticipated Mode of Locomotion: Both Comments/Gait Description unable to walk secondary to significant fear of falling Assessment/Needs 75 y.o. female with a diagnosis of UTI. She has significant limitations with functional mobility secondary to fear of falling. Rehab Potential: Good PT Short Term Goals Short Term Goals Time Frame: December 30, 2020 Roll Left & Right: 3 Sit to lyin Lying to sitting on side of be: 3 Sit to stand: 3 Chair/fyk-sl-ptscu transfer: 3 Toilet transfer: 3 Car transfer: 3 PT Furnace Hand Goals Correction Goals PT Furnace Hand Goals Time Frame: January 06, 2021 Roll Left & Right (QC): 4 Sit to Lying (QC): 4 Lying-Sitting on Side/Bed(QC): 4 Sit to Stand (QC): 4 Chair/Koq-ry-Jminv Xfer(QC): 4 Toilet Transfer (QC): 4 Car Transfer (QC): 4 Does the Patient Walk: Yes Walk 10 feet (QC): 3 PT Plan Problem List Problem List: Activity Tolerance, Functional Strength, Safety, Balance, Gait, Transfer, Bed Mobility Treatment/Plan Treatment Plan: Continue Plan of Care Treatment Plan: Bed Mobility, Education, Functional Activity Sandra, Functional Strength, Gait, Safety, Therapeutic Exercise, Transfers Treatment Duration: January 06, 2021 Frequency: 11 times per week Estimated Hrs Per Day: .5 hour per day Time/GCodes Time In: 1150 Time Out: 1215 Total Billed Treatment Time: 25 Total Billed Treatment 1, EV low complexity x 25' ITZ SHIRLEY PT December 23, 2020 12:37
[2020-12-23] MEDS ORDERED: WATER (STERILE) FOR INJECTION 10 ML ONE (17:40)
[2020-12-23] MEDS ORDERED: CEFEPIME 1 GM/10 ML (MAXIPIME) VIAL ONE (17:40)
--- NOTE | 2020-12-23 20:14 | Progress Note - Hospitalist ---
Subjective HPI/CC On Admission Date Seen by Provider: December 23, 2020 Time Seen by Provider: 09:25 Alisa Oden is a 75-year-old female who presented with altered mental status. Her reportedly told EMS that she had not been "acting herself". She is a poor historian and is unable to provide any meaningful history. She does deny any pain. She appears comfortable. Her work-up in the emergency room revealed a urinary tract infection and she was admitted with septic shock due to UTI. She underwent a head CT which did not show any acute abnormalities. Subjective/Events-last exam She is feeling better. She is still confused. She denies pain. She has no complaints. Focused Exam Lactate Level 12/21/20 22:25: Lactic Acid Level 4.98*H 12/22/20 00:20: Lactic Acid Level 3.11*H 12/22/20 02:00: Lactic Acid Level 1.99 Objective Exam Vital Signs Vital Signs Date Time Temp Pulse Resp B/P (MAP) Pulse Ox O2 Delivery O2 Flow Rate FiO2 12/23/20 16:23 36.7 74 18 127/66 (86) 94 Room Air 12/23/20 10:00 2.00 Capillary Refill : Less Than 3 Seconds General Appearance: No Apparent Distress, Obese HEENT: PERRL/EOMI, Pharynx Normal Neck: Normal Inspection, Supple Respiratory: Lungs Clear, Normal Breath Sounds, No Respiratory Distress Cardiovascular: Regular Rate, Rhythm, No Murmur Gastrointestinal: Normal Bowel Sounds, Non Tender, Soft Extremity: Normal Inspection, Non Tender, Pedal Edema Neurologic/Psychiatric: Alert, No Motor/Sensory Deficits, Normal Mood/Affect, Disoriented Skin: Normal Color, Warm/Dry Results/Procedures Lab Laboratory Tests 12/23/20 02:52 Patient resulted labs reviewed. Imaging: Reviewed Imaging Report Assessment/Plan Assessment and Plan Assess & Plan/Chief Complaint E coli urinary tract infection Septic encephalopathy UA consistent with UTI Urine culture with E coli, susceptibilities pending Transition to Rocephin Stop IV fluids Blood cultures negative Procalcitonin within normal limits PT/OT IRU evaluation T2DM with hyperglycemia Hold home meds HgbA1C 10.9% Continue Levemir Add Novolog with meals Sliding scale insulin DVT prophylaxis: Lovenox Septic shock, resolved Lactic acidosis, resolved Diagnosis/Problems Diagnosis/Problems (1) Septic shock Status: Acute (2) UTI (urinary tract infection) Status: Acute (3) Lactic acidosis Status: Acute (4) Sepsis with encephalopathy and septic shock Status: Acute Qualifiers: Sepsis type: sepsis due to unspecified organism Qualified Codes: A41.9 - Sepsis, unspecified organism; R65.21 - Severe sepsis with septic shock; G93.40 - Encephalopathy, unspecified (5) T2DM (type 2 diabetes mellitus) Status: Acute Qualifiers: Diabetes mellitus superintendent terminal insulin use: without correction use Diabetes mellitus complication status: with hyperglycemia Qualified Codes: E11.65 - Type 2 diabetes mellitus with hyperglycemia JUAN JOSE SOUZA MD December 23, 2020 20:14
[2020-12-23] MEDS ORDERED: MECLIZINE 25 MG (ANTIVERT) TAB PO PRN (20:30)
[2020-12-23] MEDS: cefTRIAXone FOR IV USE 2,000 MG in WATER (STERILE) FOR INJECTION 20 ML IV SCH (20:33)
[2020-12-24 03:46] LABS: BASOPHILS % (AUTO) 0 % (0-10); EOSINOPHILS # (AUTO) 0.2 10^3/uL (0.0-0.3); EOSINOPHILS % (AUTO) 2 % (0-10); HEMATOCRIT 42 % (35-52); HEMOGLOBIN 14.2 g/dL (11.5-16.0); LYMPHOCYTES % (AUTO) 10 % (12-44); MEAN CORPUSCULAR HEMOGLOBIN 33 pg (25-34); MEAN CORPUSCULAR HGB CONC 34 g/dL (32-36); MEAN CORPUSCULAR VOLUME 96 fL (80-99); MONOCYTES # (AUTO) 0.9 10^3/uL (0.0-1.0); MONOCYTES % (AUTO) 8 % (0-12); NEUTROPHILS # (AUTO) 8.5 10^3/uL (1.8-7.8); NEUTROPHILS % (AUTO) 80 % (42-75); PLATELET COUNT 178 10^3/uL (130-400); WHITE BLOOD COUNT 10.6 10^3/uL (4.3-11.0)
[2020-12-24 03:55] LABS: CHLORIDE 101 MMOL/L (98-107); POTASSIUM 3.5 MMOL/L (3.6-5.0); SODIUM 138 MMOL/L (135-145)
[2020-12-24 03:57] LABS: CALCIUM 8.6 MG/DL (8.5-10.1); GLUCOSE 192 MG/DL (70-105)
[2020-12-24 03:59] LABS: CARBON DIOXIDE 27 MMOL/L (21-32)
[2020-12-24 04:01] LABS: CREATININE SERUM 0.68 MG/DL (0.60-1.30); GFR ESTIMATED > 60; PHOSPHORUS 2.6 MG/DL (2.3-4.7)
[2020-12-24 04:02] LABS: BUN/CREATININE RATIO 16
[2020-12-24 04:04] LABS: MAGNESIUM 2.1 MG/DL (1.6-2.4)
[2020-12-24] MEDS: inSUlin ASPART (NovoLOG) 1 UNIT/0.01 ML (CHARGE PER UNIT) SC SCH ×7 (05:11→20:51)
[2020-12-24] MEDS: ENOXAPARIN 40 MG/0.4 ML (LOVENOX) SYR SC SCH (09:00)
[2020-12-24] MEDS: PANTOPRAZOLE 40 MG (PROTONIX) VIAL IV SCH (09:00)
--- NOTE | 2020-12-24 10:23 | Progress Note - Hospitalist ---
Subjective HPI/CC On Admission Date Seen by Provider: December 24, 2020 Time Seen by Provider: 10:00 Alisa Oden is a 75-year-old female who presented with altered mental status. Her reportedly told EMS that she had not been "acting herself". She is a poor historian and is unable to provide any meaningful history. She does deny any pain. She appears comfortable. Her work-up in the emergency room revealed a urinary tract infection and she was admitted with septic shock due to UTI. She underwent a head CT which did not show any acute abnormalities. Subjective/Events-last exam She has no complaints or concerns. She denies pain. Her is very upset because she was given potatoes with her breakfast and he does not think a diabetic should have any potatoes. I discussed with him that she is on a diabetic diet and she is allowed to have some carbohydrates, but he was very angry and threatening to "take her out of this hospital". Her diet was changed to require assistance with ordering, her potatoes were taken away, and he was appeased. Focused Exam Lactate Level 12/21/20 22:25: Lactic Acid Level 4.98*H 12/22/20 00:20: Lactic Acid Level 3.11*H 12/22/20 02:00: Lactic Acid Level 1.99 Objective Exam Vital Signs Vital Signs Date Time Temp Pulse Resp B/P (MAP) Pulse Ox O2 Delivery O2 Flow Rate FiO2 12/24/20 09:00 Room Air 12/24/20 07:50 36.4 77 16 171/82 (111) 92 12/23/20 10:00 2.00 Capillary Refill : Less Than 3 Seconds General Appearance: No Apparent Distress, Obese Respiratory: Lungs Clear, Normal Breath Sounds, No Respiratory Distress Cardiovascular: Regular Rate, Rhythm, No Edema, No Murmur Gastrointestinal: Normal Bowel Sounds, Non Tender, Soft Extremity: Normal Inspection, Non Tender, No Pedal Edema Neurologic/Psychiatric: Alert, Disoriented Skin: Normal Color, Warm/Dry Results/Procedures Lab Laboratory Tests 12/24/20 03:36 Patient resulted labs reviewed. Imaging: Reviewed Imaging Report Assessment/Plan Assessment and Plan Assess & Plan/Chief Complaint E coli urinary tract infection Likely dementia Delirium UA consistent with UTI Urine culture with E coli, susceptibilities pending, awaiting final results Continue Rocephin PT/OT IRU evaluation T2DM with hyperglycemia Hold home meds HgbA1C 10.9% Diabetic diet, no potatoes Increase Levemir Novolog with meals Sliding scale insulin DVT prophylaxis: Lovenox Septic shock, resolved Lactic acidosis, resolved Diagnosis/Problems Diagnosis/Problems (1) Septic shock Status: Resolved Resolution Date/Time: 12/24/20 @ 10:22 (2) UTI (urinary tract infection) Status: Acute Qualifiers: Urinary tract infection type: acute cystitis Hematuria presence: with hematuria Qualified Codes: N30.01 - Acute cystitis with hematuria (3) Lactic acidosis Status: Resolved Resolution Date/Time: 12/24/20 @ 10:22 (4) Sepsis with encephalopathy and septic shock Status: Resolved Qualifiers: Sepsis type: sepsis due to unspecified organism Qualified Codes: A41.9 - Sepsis, unspecified organism; R65.21 - Severe sepsis with septic shock; G93.40 - Encephalopathy, unspecified Resolution Date/Time: 12/24/20 @ 10:22 (5) T2DM (type 2 diabetes mellitus) Status: Acute Qualifiers: Diabetes mellitus half-way insulin use: without moth exterminator use Diabetes mellitus complication status: with hyperglycemia Qualified Codes: E11.65 - Type 2 diabetes mellitus with hyperglycemia (6) Delirium Status: Acute (7) Dementia Status: Acute Qualifiers: Dementia behavioral disturbance: without behavioral disturbance JUAN JOSE SOUZA MD December 24, 2020 10:23
[2020-12-24] MEDS ORDERED: MELATONIN 3 MG TABLET PO PRN (19:15)
[2020-12-24] MEDS ORDERED: ANTACID SUSP 30 ML UDC (MYLANTA) PO PRN (19:15)
[2020-12-24] MEDS ORDERED: polyethylene glycoL POWDER 17 GM (MIRALAX) PACK PO PRN (19:15)
[2020-12-24] MEDS ORDERED: MILK OF MAGNESIA 400 MG/5 ML 30 ML UDC PO PRN (19:15)
[2020-12-24] MEDS ORDERED: ONDANSETRON 4 MG (ZOFRAN) ORAL DISSOLVE TAB PO PRN (19:15)
[2020-12-24] MEDS ORDERED: BISACODYL 10 MG SUPP (DULCOLAX) PR PRN (19:15)
[2020-12-24] MEDS ORDERED: ONDANSETRON 4 MG/2 ML (SDV) Z0FRAN IV PRN (19:15)
[2020-12-24] MEDS ORDERED: ACETAMINOPHEN 325 MG TABLET PO PRN (19:15)
[2020-12-24] MEDS: MECLIZINE 25 MG (ANTIVERT) TAB PO SCH (20:50)
[2020-12-24] MEDS: DOCUSATE SODIUM 100 MG (COLACE) CAP PO SCH (20:51)
[2020-12-24] MEDS: SENNOSIDES 8.6 MG (SENOKOT) TAB PO SCH (20:51)
[2020-12-24] MEDS: cefTRIAXone FOR IV USE 2,000 MG in WATER (STERILE) FOR INJECTION 20 ML IV SCH (20:51)
[2020-12-25] MEDS: MECLIZINE 25 MG (ANTIVERT) TAB PO SCH ×3 (05:37→19:36)
[2020-12-25 05:41] LABS: BASOPHILS # (AUTO) 0.1 10^3/uL (0.0-0.1); BASOPHILS % (AUTO) 0 % (0-10); EOSINOPHILS # (AUTO) 0.1 10^3/uL (0.0-0.3); EOSINOPHILS % (AUTO) 1 % (0-10); HEMATOCRIT 47 % (35-52); HEMOGLOBIN 15.8 g/dL (11.5-16.0); LYMPHOCYTES % (AUTO) 7 % (12-44); MEAN CORPUSCULAR HEMOGLOBIN 32 pg (25-34); MEAN CORPUSCULAR HGB CONC 34 g/dL (32-36); MEAN CORPUSCULAR VOLUME 95 fL (80-99); MEAN PLATELET VOLUME 10.8 fL (9.0-12.2); MONOCYTES % (AUTO) 7 % (0-12); NEUTROPHILS # (AUTO) 12.1 10^3/uL (1.8-7.8); NEUTROPHILS % (AUTO) 84 % (42-75); PLATELET COUNT 195 10^3/uL (130-400); WHITE BLOOD COUNT 14.5 10^3/uL (4.3-11.0)
[2020-12-25 05:48] LABS: CHLORIDE 99 MMOL/L (98-107); POTASSIUM 3.9 MMOL/L (3.6-5.0); SODIUM 136 MMOL/L (135-145)
[2020-12-25 05:49] LABS: CALCIUM 9.4 MG/DL (8.5-10.1)
[2020-12-25 05:50] LABS: GLUCOSE 181 MG/DL (70-105)
[2020-12-25 05:51] LABS: CARBON DIOXIDE 24 MMOL/L (21-32)
[2020-12-25] MEDS: inSUlin ASPART (NovoLOG) 1 UNIT/0.01 ML (CHARGE PER UNIT) SC SCH ×7 (05:51→22:24)
[2020-12-25 05:54] LABS: CREATININE SERUM 0.72 MG/DL (0.60-1.30); GFR ESTIMATED > 60; PHOSPHORUS 2.9 MG/DL (2.3-4.7)
[2020-12-25 05:55] LABS: BUN/CREATININE RATIO 15
[2020-12-25 05:56] LABS: MAGNESIUM 2.2 MG/DL (1.6-2.4)
[2020-12-25] MEDS: DOCUSATE SODIUM 100 MG (COLACE) CAP PO SCH ×2 (09:28→19:36)
[2020-12-25] MEDS: SENNOSIDES 8.6 MG (SENOKOT) TAB PO SCH ×2 (09:28→19:36)
[2020-12-25] MEDS: ENOXAPARIN 40 MG/0.4 ML (LOVENOX) SYR SC SCH (09:28)
--- NOTE | 2020-12-25 10:42 | Physical Therapy Daily Note ---
PT Daily Note-Current Subjective Patient is in bed with spouse present. Patient becomes very agitated with PT request to participate. Patient states, "you have to help me." Spouse report he assist with bed mobility, transfers and all ADL's. He states she ambulates only in the home and all short distances. Mental Status Patient Orientation: Person, Time, Situation Transfers SCALE: Activities may be completed with or without assistive devices. 7-Qfqexpndrw-llzmkpn completes the activity by him/herself with no assistance from a helper. 5-Set-up or Clean-up Assistance-helper sets up or cleans up; patient completes activity. [place] assists only prior to or following the activity. 4-Supervision or Touching Assistance-helper provides verbal cues and/or touching/steadying and/or contact guard assistance as patient completes activity. Assistance may be provided throughout the activity or intermittently. 3-Partial/Moderate Assistance-helper does LESS THAN HALF the effort. Orange lifts, holds or supports trunk or limbs, but provides less than half the effort. 2-Substantial/Maximal Assistance-helper does MORE THAN HALF the effort. [place] lifts or holds trunk or limbs and provides more than half the effort. 9-Rjlfzropd-rsvmly does ALL the effort. Patient does none of the effort to c omplete the activity. Or, the assistance of 2 or more helpers is required for the patient to complete the activity. If activity was not attempted, code reason: 7-Patient Refused. 9-Not Applicable-not attempted and the patient did not perform the activity before the current illness, exacerbation or injury. 10-Not Attempted due to Environmental Limitations-(lack of equipment, weather restraints, etc.). 88-Not Attempted due to Medical Conditions or Safety Concerns. Lying to Sitting/Side of Bed(Q: 2 Sit to Stand (QC): 3 Chair/Rcq-fj-Rcsvn Xfer(QC): 3 Gait Training Does the Patient Walk?: Yes Distance: 20' Walk 10 feet (QC): 3 Walk 50 ft with 2 Turns(QC): 7 Walk 150 ft (QC): 7 Gait Assistive Device: FWW NBOS/short step length Exercises Supine Ex: Ankle pumps, Heel Slides Supine Reps: 12 Seated Therapy Exercises: Ankle pumps, Long arc quads, Hip flexion Seated Reps: 12 Assessment Patient is up in recliner with need met. Patient requires time to complete all functional tasks. PT Short Term Goals Short Term Goals Time Frame: December 30, 2020 Roll Left & Right: 3 Sit to lyin Lying to sitting on side of be: 3 Sit to stand: 3 Chair/kvf-pc-ysxof transfer: 3 Toilet transfer: 3 Car transfer: 3 PT Sales Systems Engineer Goals Sales Systems Engineer Goals PT Sales Systems Engineer Goals Time Frame: January 06, 2021 Roll Left & Right (QC): 4 Sit to Lying (QC): 4 Lying-Sitting on Side/Bed(QC): 4 Sit to Stand (QC): 4 Chair/Udp-cu-Zvoau Xfer(QC): 4 Toilet Transfer (QC): 4 Car Transfer (QC): 4 Does the Patient Walk: Yes Walk 10 feet (QC): 3 PT Plan Treatment/Plan Treatment Plan: Continue Plan of Care Treatment Plan: Bed Mobility, Education, Functional Activity Sandra, Functional Strength, Gait, Safety, Therapeutic Exercise, Transfers Treatment Duration: January 06, 2021 Frequency: 11 times per week Estimated Hrs Per Day: .5 hour per day Time/GCodes Time In: 1000 Time Out: 1023 Total Billed Treatment Time: 23 Total Billed Treatment 1 visit GT 10 min EX 13 min MANJULA NEAL PT December 25, 2020 10:42
--- NOTE | 2020-12-25 11:46 | Progress Note - Hospitalist ---
Subjective HPI/CC On Admission Date Seen by Provider: December 25, 2020 Time Seen by Provider: 11:39 Alisa Oden is a 75-year-old female who presented with altered mental status. Her reportedly told EMS that she had not been "acting herself". She is a poor historian and is unable to provide any meaningful history. She does deny any pain. She appears comfortable. Her work-up in the emergency room revealed a urinary tract infection and she was admitted with septic shock due to UTI. She underwent a head CT which did not show any acute abnormalities. Subjective/Events-last exam Pt reports doing ok but has some aphasia. at bedside and believes her physical strength to be about her baseline but her speech is still abnormal. She thinks her speech is fine and just that he 'talks, and talks, and talks" and it's easier to talk with her daughter. Objective Exam Vital Signs Vital Signs Date Time Temp Pulse Resp B/P (MAP) Pulse Ox O2 Delivery O2 Flow Rate FiO2 12/26/20 08:00 36.2 80 18 139/78 (98) 90 Room Air 12/23/20 10:00 2.00 Capillary Refill : Less Than 3 Seconds General Appearance: No Apparent Distress, WD/WN Respiratory: Lungs Clear, No Respiratory Distress Cardiovascular: Regular Rate, Rhythm, No Murmur Neurologic/Psychiatric: Alert, Oriented x3, Aphasia (expressive) Results/Procedures Lab Laboratory Tests 12/26/20 05:29 Patient resulted labs reviewed. Imaging: Reviewed Imaging Report Assessment/Plan Assessment and Plan Assess & Plan/Chief Complaint E coli urinary tract infection Likely dementia Delirium UA consistent with UTI Urine culture with E coli, pansensitive Continue abx but switch to Keflex PT/OT IRU evaluation Expressive aphasia New onset Will get MRI Brain Speech consult ordered T2DM with hyperglycemia Hold home meds HgbA1C 10.9% Diabetic diet, no potatoes Continue Levemir Novolog with meals Sliding scale insulin DVT prophylaxis: Lovenox Septic shock, resolved Lactic acidosis, resolved CRYSTAL CAI MD December 25, 2020 11:46
--- NOTE | 2020-12-25 12:55 | Occupational Therapy Eval ---
OT Evaluation-General/PLF Medical Diagnosis Admission Date December 21, 2020 at 23:54 Medical Diagnosis: UTI Onset Date: December 23, 2020 Therapy Diagnosis Therapy Diagnosis: decreased ADL Status, weakness Height/Weight Height (Feet): 5 Height (Inches): 5.00 Weight (Pounds): 172 Weight (Ounces): 0.0 Precautions Precautions/Isolations: Fall Prevention, Standard Precautions Referral Physician: Mary Referral Reason: Evaluation/Treatment Medical History Pertinent Medical History: CABG, CAD, DM Additional Medical History hip fx Current History presents with AMS Social History Home: Single Level Current Living Status: Spouse ADL-Prior Level of Function SCALE: Activities may be completed with or without assistive devices. 7-Oranjuoddi-cstalae completes the activity by him/herself with no assistance from a helper. 5-Set-up or Clean-up Assistance-helper sets up or cleans up; patient completes activity. [place] assists only prior to or following the activity. 4-Supervision or Touching Assistance-helper provides verbal cues and/or touching/steadying and/or contact guard assistance as patient completes activity. Assistance may be provided throughout the activity or intermittently. 3-Partial/Moderate Assistance-helper does LESS THAN HALF the effort. [place] lifts, holds or supports trunk or limbs, but provides less than half the effort. 2-Substantial/Maximal Assistance-helper does MORE THAN HALF the effort. [place] lifts or holds trunk or limbs and provides more than half the effort. 6-Cpwfliihn-qvrrjh does ALL the effort. Patient does none of the effort to complete the activity. Or, the assistance of 2 or more helpers is required for the patient to complete the activity. If activity was not attempted, code reason: 7-Patient Refused. 9-Not Applicable-not attempted and the patient did not perform the activity before the current illness, exacerbation or injury. 10-Not Attempted due to Environmental Limitations-(lack of equipment, weather restraints, etc.). 88-Not Attempted due to Medical Conditions or Safety Concerns. ADL PLOF Comments Pt and spouse indicate pt requires some assistance at home. They shower together and help each other shower. Pt is able to perform UE/LE dressing and toileting independently but requires assistance with footwear. They have a tub/shower that is difficult to get into, they own a shower chair but pt refuses to use it. Self Care: Needed Some Help Functional Cognition: Unknown DME/Equipment: Bath Chair, Tub/Shower OT Current Status Subjective Pt seated in chair, present. Pt agreeable to OT evaluation and tx. Mental Status/Objective Patient Orientation: Person, Time, Situation Current Glasses/Contacts: Yes Upper Extremity ROM WFL, BUE shoulder flexion to approx 130 degrees, able to touch back of head with hands Upper Extremity Sensation WFL, pt denies tingling/numbness Upper Extremity Strength grossly 3+/5 ADL-Treatment Eating (QC): 5 (set up assist, assist opening soda can and condiment packets.) Shower/Bathe Self (QC): 7 (Pt adamently declined shower) Other Treatments Pt seated in recliner, OT provided pt and spouse education on purpose and benefit of OT. Pt and provide information about PLOF and home set up and pt participates in UE screen. Pt initially agreeable to completing oral care and hair brushing, but her lunch tray arrived. OT assisted pt with setting up her lunch. Pt's asked this therapist when pt's last shower was, before OT could respond, pt turned towards her and says "no" while pointing a finger at him. Pt adamantly declines showering today. Pt declines further ADLs at this time, due to lunch arriving. Post tx, pt seated upright in recliner, call light in reach and all needs met. Education OT Patient Education: Correct positioning, Modified ADL techniques, Progress toward Goal/Update tx plan, Purpose of tx/functional activities Teaching Recipient: Patient Teaching Methods: Discussion Response to Teaching: Verbalize Understanding OT Hypertrichologist Goals Hypertrichologist Goals Time Frame: January 03, 2021 Eating (QC): 6 Oral Hygiene (QC): 6 Toileting Hygiene (QC): 6 Shower/Bathe Self (QC): 3 Upper Body Dressing (QC): 5 Lower Body Dressing (QC): 5 On/Off Footwear (QC): 3 Additional Goals: 1-Demonstrate ADL Tasks, 2-Verbalize Understanding, 3- ImproveStrength/Sandra 1=Demonstrate adherence to instructed precautions during ADL tasks. 2=Patient will verbalize/demonstrate understanding of assistive devices/modifications for ADL. 3=Patient will improve strength/tolerance for activity to enable patient to perform ADL's. OT Education/Plan Problem List/Assessment Assessment: Decreased Activ Tolerance, Decreased UE Strength, Impaired Funct Balance, Impaired I ADL's, Impaired Self-Care Skills Discharge Recommendations Plan/Recommendations: Continue POC Treatment Plan/Plan of Care Patient would benefit from OT for education, treatment and training to promote independence in ADL's, mobility, safety and/or upper extremity function for ADL's. Plan of Care: ADL Retraining, Functional Mobility, UE Funct Exercise/Act Treatment Duration: January 01, 2021 Frequency: 5 times per week Estimated Hrs Per Day: .25 hour per day Rehab Potential: Good Time/GCodes Start Time: 11:45 Stop Time: 11:58 Total Time Billed (hr/min): 13 Billed Treatment Time 1, BEATA GARDNER OT December 25, 2020 12:55
--- NOTE | 2020-12-25 14:18 | Diagnostic Imaging Report ---
PROCEDURE: MR imaging of the brain without contrast. TECHNIQUE: Multiplanar, multisequence MR imaging of the brain was performed without contrast. INDICATION: Confusion. Evaluate for stroke. Correlation is made with head CT from 12/21/2020. Diffusion-weighted images demonstrate a small area of diffusion restriction in the left posterior temporal lobe in the subcortical white matter. Additional small foci are seen in the left occipital lobe. These are consistent with acute/subacute infarcts. No other areas of diffusion restriction are identified. The normal expected flow-voids within the carotid siphons are seen. The ventricles and sulci are prominent. Extensive periventricular and subcortical white matter changes are noted consistent with chronic microvascular ischemia. There is no midline shift. No acute intra-axial or extra-axial hemorrhage is detected. Corpus callosum is unremarkable. Sella and parasellar structures are unremarkable. 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 No acute intracranial hemorrhage is detected. Extensive changes of chronic microvascular ischemia. Dictated by: Dictated on workstation # [id number]
--- NOTE | 2020-12-25 15:48 | ST Cognitive Linguistic Eval ---
Speech Evaluation-General Medical Diagnosis UTI Onset Date: December 23, 2020 Therapy Diagnosis Therapy Diagnosis: Cognitive-communication, Expressive Aphasia Referral Referring Physician: Dr. Reddy Medical History Pertinent Medical History: CABG, CAD, DM Social History Current Living Status: Spouse Speech PLF-Current Status Prior Level of Function Patient lives in her own home with her where he reports he helps her with her daily needs. Subjective Patient was pleasant, however she was very confused and kept repeating she was tired of having to listen to the "BOOM, BOOM, BOOM" since she's been in the hospital. Language Eval: Auditory Comprehends Simple Yes/No Ques: Functional Indent/Objects Multiple [place]: Mild Ident/Pics in Multiple [place]: Mild Follows 1-Step Commands: Mild Follows Complex Directions: Moderate Follows General Conversations: Moderate Language Eval: Verbal Language Completes Spontaneous Greeting: Functional Produces Auto, Serial Info: Mild Imitates Simple Words/Phrases: Mild Word Finding: Moderate Requests Basic Needs: Mild States Basic Personal Info: Mild Expresses Complex Ideas: Severe Objective Cognitive Domain Attention: Mild Memory: Moderate Problem Solving: Moderate Executive Functions: Moderate Visuospatial Skills: Moderate Composite Severity Rating: Moderate Objective Formal/Standardized Tests [facility] Mental Status (SLUMS), informal speech tasks, chart review Results 8/30, Moderate Dementia range of function, moderate deficits for informal tasks Oral Motor/Speech Production GROSSLY Within Normal Range of function Impression Patient is a pleasant 75 y/o female who was admitted via the ED due to AMS and Septic Shock secondary to UTI on 12/21/2020. Patient has improved overall, however she is reported to continue to be confused and exhibits expressive aphasia. The patient was given the SLUMS and informal speech tasks with a score of 8/30 and moderate deficits noted for the assessment. The patient's had been present, however he had left the room while the assessment was being completed. The patient kept repeating that she was tired of hearing "BOOM, BOOM, BOOM" since she had been in the hospital. This clinician was unclear as to what the patient was referring to. The patient also was noted to have difficulty with attending during the session. The patient will receive skilled ST with focus on expressive output and cognitive function improvement. Speech Short Term Goals Short Term Goals Short Term Goals 1) Patient will complete memory tasks related to her daily needs at 75% with minimal cues. 2) Patient will complete safety awareness tasks related to her daily needs at 75% with minimal cues. 3) Patient will complete problem solving tasks related to her daily needs at 75% with minimal cues. 4) Patient will complete confrontational naming tasks to improve expressive language at 75% with minimal cues. Speech Construction Project Manager Goals Mcfp Goals Patient will improve communication and cognitive skills so that she can return home safer with minimal assist. Speech-Plan Patient/Family Goals Patient/Family Goals: Patient plans on returning to her home where she lives with her . She will be receiving home health services upon her return home. Treatment Plan Speech Therapy Treatment Plan: Continue Plan of Care Treatment Duration: January 05, 2021 Frequency: 3 times per week Estimated Hrs Per Day: .25 hour per day Rehab Potential: Good Barriers to Learning: Patient's recent health decline, expressive aphasia and cognitive deficits Pt/Family Agrees to Plan: Yes Safety Risks/Education Teaching Recipient: Patient Teaching Methods: Discussion Response to Teaching: Verbalize Understanding Education Topics Provided: Safety within her room and effective communication of wants/needs Time Speech Therapy Time In: 15:30 Speech Therapy Time Out: 15:50 Total Billed Time: 20 Billed Treatment Time 1, KATHI HARRIS [address] December 25, 2020 15:48
[2020-12-25] MEDS: CEPHALEXIN 250 MG (KEFLEX) CAP PO SCH (19:36)
[2020-12-26] MEDS: inSUlin ASPART (NovoLOG) 1 UNIT/0.01 ML (CHARGE PER UNIT) SC SCH ×4 (05:41→12:59)
[2020-12-26 06:12] LABS: BASOPHILS # (AUTO) 0.1 10^3/uL (0.0-0.1); BASOPHILS % (AUTO) 1 % (0-10); EOSINOPHILS # (AUTO) 0.2 10^3/uL (0.0-0.3); EOSINOPHILS % (AUTO) 2 % (0-10); HEMATOCRIT 44 % (35-52); HEMOGLOBIN 14.8 g/dL (11.5-16.0); LYMPHOCYTES # (AUTO) 1.6 10^3/uL (1.0-4.0); LYMPHOCYTES % (AUTO) 12 % (12-44); MEAN CORPUSCULAR HEMOGLOBIN 32 pg (25-34); MEAN CORPUSCULAR HGB CONC 34 g/dL (32-36); MEAN CORPUSCULAR VOLUME 97 fL (80-99); MONOCYTES # (AUTO) 1.2 10^3/uL (0.0-1.0); MONOCYTES % (AUTO) 9 % (0-12); NEUTROPHILS # (AUTO) 9.9 10^3/uL (1.8-7.8); NEUTROPHILS % (AUTO) 76 % (42-75); PLATELET COUNT 199 10^3/uL (130-400); WHITE BLOOD COUNT 13.1 10^3/uL (4.3-11.0)
[2020-12-26 06:26] LABS: CHLORIDE 99 MMOL/L (98-107); POTASSIUM 3.4 MMOL/L (3.6-5.0); SODIUM 139 MMOL/L (135-145)
[2020-12-26 06:27] LABS: CALCIUM 9.4 MG/DL (8.5-10.1)
[2020-12-26 06:28] LABS: GLUCOSE 123 MG/DL (70-105)
[2020-12-26 06:29] LABS: CARBON DIOXIDE 31 MMOL/L (21-32)
[2020-12-26 06:31] LABS: CREATININE SERUM 0.73 MG/DL (0.60-1.30); GFR ESTIMATED > 60; PHOSPHORUS 3.5 MG/DL (2.3-4.7)
[2020-12-26 06:32] LABS: BUN/CREATININE RATIO 21
[2020-12-26] MEDS: MECLIZINE 25 MG (ANTIVERT) TAB PO SCH ×2 (06:32→13:27)
[2020-12-26 06:34] LABS: MAGNESIUM 2.2 MG/DL (1.6-2.4)
[2020-12-26] MEDS: CEPHALEXIN 250 MG (KEFLEX) CAP PO SCH (09:22)
[2020-12-26] MEDS: ENOXAPARIN 40 MG/0.4 ML (LOVENOX) SYR SC SCH (09:22)
[2020-12-26] MEDS: DOCUSATE SODIUM 100 MG (COLACE) CAP PO SCH (09:23)
[2020-12-26] MEDS: SENNOSIDES 8.6 MG (SENOKOT) TAB PO SCH (09:24)
--- NOTE | 2020-12-26 10:42 | Progress Note - Hospitalist ---
Subjective HPI/CC On Admission Date Seen by Provider: December 26, 2020 Time Seen by Provider: 10:36 Alisa Oden is a 75-year-old female who presented with altered mental status. Her reportedly told EMS that she had not been "acting herself". She is a poor historian and is unable to provide any meaningful history. She does deny any pain. She appears comfortable. Her work-up in the emergency room revealed a urinary tract infection and she was admitted with septic shock due to UTI. She underwent a head CT which did not show any acute abnormalities. Subjective/Events-last exam Pt reports feeling better today. Seemed to be have no complaints or concerns when I entered room. at bedside. We discussed discharge plans and stated that he felt he would not be able to safely care for her due to her functional status at the current time. Patient became very angry at this and stated that they were getting a divorce and she would move in to an apartment. When we discussed what they would mean for her safety she seemed to believe she can get around easily without help. I reminded her that she has refused to do things by herself when therapy has seen her and we just needed her to do this so we could come up with a safe plan. She agrees to work independently with therapy today. pulled me outside of [facility] and states he does everything for her at home (helps get her in and out of bed, does all the cooking and cleaning, gets her to and from the bathroom, etc) and that he is unable to continue this right now. Objective Exam Vital Signs Vital Signs Date Time Temp Pulse Resp B/P (MAP) Pulse Ox O2 Delivery O2 Flow Rate FiO2 12/26/20 08:00 36.2 80 18 139/78 (98) 90 Room Air 12/23/20 10:00 2.00 Capillary Refill : Less Than 3 Seconds General Appearance: No Apparent Distress, Chronically ill Cardiovascular: Regular Rate, Rhythm, No Murmur Neurologic/Psychiatric: Alert, Oriented x3 (emotionally labile); No Aphasia (resolved from yesterday) Results/Procedures Lab Laboratory Tests 12/26/20 05:29 Patient resulted labs reviewed. Imaging: Reviewed Imaging Report Assessment/Plan Assessment and Plan Assess & Plan/Chief Complaint E coli urinary tract infection Likely dementia Delirium UA consistent with UTI Urine culture with E coli, pansensitive Continue Keflex PT/OT IRU evaluation Subacute temporal lobe infarct Expressive aphasia Essentially resolved today MRI brain revealed subacute infarcts, add statin and ASA Speech consult PT/OT T2DM with hyperglycemia Hold home meds HgbA1C 10.9% Diabetic diet, no potatoes Continue Levemir Novolog with meals Sliding scale insulin Discharge planning Declined by [facility] Safest plan at this time appears to be SNF for short term rehab Patient very upset at this idea, will await today PT eval field services manager consulted, appreciate recs DVT prophylaxis: Lovenox Septic shock, resolved Lactic acidosis, resolved CRYSTAL CAI MD December 26, 2020 10:42
[2020-12-26] MEDS ORDERED: ASPIRIN E.C. 81 MG (ECOTRIN) TAB PO ONE (10:45)
--- NOTE | 2020-12-26 11:20 | Physical Therapy Daily Note ---
PT Daily Note-Current Subjective Patient agrees to PT. Mental Status Patient Orientation: Person, Time, Situation Transfers SCALE: Activities may be completed with or without assistive devices. 9-Zghfszvjxl-ucfdbxm completes the activity by him/herself with no assistance from a helper. 5-Set-up or Clean-up Assistance-helper sets up or cleans up; patient completes activity. [place] assists only prior to or following the activity. 4-Supervision or Touching Assistance-helper provides verbal cues and/or touching/steadying and/or contact guard assistance as patient completes activity. Assistance may be provided throughout the activity or intermittently. 3-Partial/Moderate Assistance-helper does LESS THAN HALF the effort. [place] lifts, holds or supports trunk or limbs, but provides less than half the effort. 2-Substantial/Maximal Assistance-helper does MORE THAN HALF the effort. [place] lifts or holds trunk or limbs and provides more than half the effort. 1-Vbiboodxk-bpdixv does ALL the effort. Patient does none of the effort to c omplete the activity. Or, the assistance of 2 or more helpers is required for the patient to complete the activity. If activity was not attempted, code reason: 7-Patient Refused. 9-Not Applicable-not attempted and the patient did not perform the activity before the current illness, exacerbation or injury. 10-Not Attempted due to Environmental Limitations-(lack of equipment, weather restraints, etc.). 88-Not Attempted due to Medical Conditions or Safety Concerns. Lying to Sitting/Side of Bed(Q: 2 Sit to Stand (QC): 2 Chair/Hka-bb-Fvfqk Xfer(QC): 2 Gait Training Does the Patient Walk?: Yes Distance: 100' Walk 10 feet (QC): 3 Walk 50 ft with 2 Turns(QC): 3 Walk 150 ft (QC): 88 Gait Assistive Device: Walker 4 Wheeled Patient prefers 4WW due to comfort using it at home. Shuffle gait sequence with decreased step length Assessment Ceased treatment after Education with patient on increasing strength and mobi lity by participating more with therapy with exercise and gait. Patient became highly agitated and yelled at PT stating,"My can do more for me. I do things for him too." Spouse present. Patient continues to require max assist with all bed mobility and transfers. PT Short Term Goals Short Term Goals Time Frame: December 30, 2020 Roll Left & Right: 3 Sit to lyin Lying to sitting on side of be: 3 Sit to stand: 3 Chair/izq-wd-qktqe transfer: 3 Toilet transfer: 3 Car transfer: 3 PT Shelter Goals Shelter Goals PT Kaiako Kura [place] Goals Time Frame: January 06, 2021 Roll Left & Right (QC): 4 Sit to Lying (QC): 4 Lying-Sitting on Side/Bed(QC): 4 Sit to Stand (QC): 4 Chair/Kyi-ib-Mbfje Xfer(QC): 4 Toilet Transfer (QC): 4 Car Transfer (QC): 4 Does the Patient Walk: Yes Walk 10 feet (QC): 3 PT Plan Treatment/Plan Treatment Plan: Continue Plan of Care Treatment Plan: Bed Mobility, Education, Functional Activity Sandra, Functional Strength, Gait, Safety, Therapeutic Exercise, Transfers Treatment Duration: January 06, 2021 Frequency: 11 times per week Estimated Hrs Per Day: .5 hour per day Patient and/or Family Agrees t: Yes Time/GCodes Time In: 1016 Time Out: 1030 Total Billed Treatment Time: 14 Total Billed Treatment 1 visit FA 14 min MANJULA NEAL PT December 26, 2020 11:20
--- NOTE | 2020-12-26 11:28 | D/C HH Face to Face Order ---
D/C Face to Face Orders Instructions for Patient Via [facility], Patient Instructions/FollowUp: Please continue to take your medications as written. Please follow up with your primary care doctor to follow up this hospital stay. Physician to follow Patient: Dr Parkinson Discharge Diet for Home: ADA Diet Patient Data-Allergies,Ht & Wt Patient Allergies: Coded Allergies: Penicillins (Verified Allergy, Unknown, 12/31/18) Sulfa (Sulfonamide Antibiotics) (Unverified Allergy, Unknown, 12/31/18) milk (Verified Allergy, Unknown, 12/23/20) peanut (Unverified Allergy, Unknown, 01/06/19) tomato (Unverified Allergy, Unknown, 01/06/19) Height (Feet): 5 Height (Inches): 5.00 Weight (Pounds): 172 Weight (Ounces): 0.0 Home Health Need/Face to Face Date of Face to Face: December 26, 2020 Clinical Findings: Generalized weakness and fatigue I have seen Pt pdpr-qr-[id number]: Yes Discharged To: Home Diagnosis/Conditions: Sepsis, subacute stroke Patient is Homebound due to: Dusty fall risk due to instabilty, Muscle weakness Homebound Status Due to the above stated illness, injury or surgical procedure (medical condition or diagnosis) and associated clinical findings, the patient is homebound because of his/her inability to leave home except with aid of a supportive device and/or person AND leaving the home requires a considerable and taxing effort or is medically contraindicated. Pt req the following assistanc: Aid of another person, Walker Home Health Nursing Orders Home Health Services Order: Nursing Services, Thermoscrew Operator-Evaluate & Treat, Physical Therapy-Evaluate & Treat, Speech Language-Evaluate & Treat Home Health Infusion Therapy Line Start Date: December 21, 2020 Therapy Orders Therapy Orders: OT (must have SN or PT order), Physical Therapy Therapy Specific Orders: Eval assistive deivces, Teach strategies/cognitive de ficits, Teach enviro modifications/safety, Gait training, Increase strength/endurance Certify Stmt I certify that this patient is under my care and that I, a nurse practitioner or a physician; a plastic surgery assistant working with me, had a face to face encounter that - meets the physician face to face encounter requirements with this patient as dated. CRYSTAL CAI MD December 26, 2020 11:22
[2020-12-26] MEDS ORDERED: ATOR40TA PO (11:33)
[2020-12-26] MEDS ORDERED: ASPI-1238 PO (11:33)
[2020-12-26] MEDS ORDERED: INSU100I29 SQ (11:33)
[2020-12-26] MEDS ORDERED: CEPH500T PO (11:33)
--- NOTE | 2020-12-26 11:36 | Discharge Summary ---
Diagnosis/Chief Complaint Date of Admission December 21, 2020 at 23:54 Date of Discharge Discharge Date: December 26, 2020 Admission Diagnosis Septic shock due to urinary tract infection Primary Care No,Local Physician Discharge Diagnosis (1) Septic shock Status: Resolved (2) UTI (urinary tract infection) Status: Acute (3) Lactic acidosis Status: Resolved (4) Sepsis with encephalopathy and septic shock Status: Resolved (5) T2DM (type 2 diabetes mellitus) Status: Acute (6) Delirium Status: Acute (7) Dementia Status: Acute Discharge Summary Discharge Physical Exam Allergies: Coded Allergies: Penicillins (Verified Allergy, Unknown, 12/31/18) Sulfa (Sulfonamide Antibiotics) (Unverified Allergy, Unknown, 12/31/18) milk (Verified Allergy, Unknown, 12/23/20) peanut (Unverified Allergy, Unknown, 01/06/19) tomato (Unverified Allergy, Unknown, 01/06/19) Vitals & I&Os Vital Signs Date Time Temp Pulse Resp B/P (MAP) Pulse Ox O2 Delivery O2 Flow Rate FiO2 12/26/20 08:00 36.2 80 18 139/78 (98) 90 Room Air 12/23/20 10:00 2.00 Hospital Course Labs (last 24 hrs) Laboratory Tests 12/25/20 16:13: Glucometer 164H 12/25/20 21:19: Glucometer 135H 12/26/20 05:28: Glucometer 121H 12/26/20 05:29: White Blood Count 13.1H, Red Blood Count 4.57, Hemoglobin 14.8, Hematocrit 44, Mean Corpuscular Volume 97, Mean Corpuscular Hemoglobin 32, Mean Corpuscular Hemoglobin Concent 34, Red Cell Distribution Width 12.3, Platelet Count 199, Mean Platelet Volume 11.0, Immature Granulocyte % (Auto) 1, Neutrophils (%) (Auto) 76H, Lymphocytes (%) (Auto) 12, Monocytes (%) (Auto) 9, Eosinophils (%) (Auto) 2, Basophils (%) (Auto) 1, Neutrophils # (Auto) 9.9H, Lymphocytes # (Auto) 1.6, Monocytes # (Auto) 1.2H, Eosinophils # (Auto) 0.2, Basophils # (Aut o) 0.1, Immature Granulocyte # (Auto) 0.2H, Sodium Level 139, Potassium Level 3.4L, Chloride Level 99, Carbon Dioxide Level 31, Anion Gap 9, Blood Urea Nitrogen 15, Creatinine 0.73, Estimat Glomerular Filtration Rate > 60, BUN/Creatinine Ratio 21, Glucose Level 123H, Calcium Level 9.4, Phosphorus Level 3.5, Magnesium Level 2.2 Microbiology 12/22/20 MRSA Screen - Final, Complete MRSA not isolated 12/21/20 Urine Culture - Final, Complete Escherichia coli 12/21/20 Blood Culture - Preliminary, Resulted No growth Patient resulted labs reviewed. Pending Labs Laboratory Tests 12/26/20 05:28: Glucometer 121 12/26/20 05:29: White Blood Count 13.1, Red Blood Count 4.57, Hemoglobin 14.8, Hematocrit 44, Mean Corpuscular Volume 97, Mean Corpuscular Hemoglobin 32, Mean Corpuscular Hemoglobin Concent 34, Red Cell Distribution Width 12.3, Platelet Count 199, Mean Platelet Volume 11.0, Immature Granulocyte % (Auto) 1, Neutrophils (%) (Auto) 76, Lymphocytes (%) (Auto) 12, Monocytes (%) (Auto) 9, Eosinophils (%) (Auto) 2, Basophils (%) (Auto) 1, Neutrophils # (Auto) 9.9, Lymphocytes # (Auto) 1.6, Monocytes # (Auto) 1.2, Eosinophils # (Auto) 0.2, Basophils # (Auto) 0.1, Immature Granulocyte # (Auto) 0.2, Sodium Level 139, Potassium Level 3.4, Chloride Level 99, Carbon Dioxide Level 31, Anion Gap 9, Blood Urea Nitrogen 15, Creatinine 0.73, Estimat Glomerular Filtration Rate > 60, BUN/Creatinine Ratio 21, Glucose Level 123, Calcium Level 9.4, Phosphorus Level 3.5, Magnesium Level 2.2 Imaging: Reviewed Imaging Report Discharge Home Medications: Active Scripts Active Levemir Flextouch (Insulin Detemir) 100 Unit/1 Ml Insuln.pen 20 Unit SQ HS Lipitor (Atorvastatin Calcium) 40 Mg Tablet 40 Mg PO HS Aspirin EC (Aspirin) 81 Mg Tablet.dr 81 Mg PO DAILY Cephalexin 500 Mg Tablet 500 Mg PO BID Reported Ibuprofen 200 Mg Tablet 200-400 Mg PO Q8H PRN Meclizine HCl 12.5 Mg Tablet 12.5 Mg PO Q8H PRN Instructions to patient/family Please see electronic discharge instructions given to patient. Problem Qualifiers (1) UTI (urinary tract infection): Urinary tract infection type: acute cystitis Hematuria presence: with hematuria Qualified Codes: N30.01 - Acute cystitis with hematuria (2) Sepsis with encephalopathy and septic shock: Sepsis type: sepsis due to unspecified organism Qualified Codes: A41.9 - Sepsis, unspecified organism; R65.21 - Severe sepsis with septic shock; G93.40 - Encephalopathy, unspecified (3) T2DM (type 2 diabetes mellitus): Diabetes mellitus termite treater insulin use: without termite treater use Diabetes mellitus complication status: with hyperglycemia Qualified Codes: E11.65 - Type 2 diabetes mellitus with hyperglycemia (4) Dementia: Dementia behavioral disturbance: without behavioral disturbance CRYSTAL CAI MD December 26, 2020 11:36
[2020-12-26 13:33] VITALS: BP 153/77
[2020-12-27] MEDS ORDERED: ASPIRIN E.C. 81 MG (ECOTRIN) TAB PO SCH (09:00)
== END 2020-12-26 13:53 | disposition home health service (06) | DRG 871 ==
LOC: EDUNIT# 22:18 → ER FS 22:19 → ICU 23:54 → ER FS 12-22 00:33 → 4TH 12-23 12:00
PROVIDERS: ADMIT Internal Medicine; ATTEND Internal Medicine
DX: A41.51 Sepsis due to Escherichia coli [E. coli] (principal); R65.21 Severe sepsis with septic shock; G93.41 Metabolic encephalopathy; I63.9 Cerebral infarction, unspecified; E87.2 Acidosis; E87.1 Hypo-osmolality and hyponatremia; R47.01 Aphasia; N30.90 Cystitis, unspecified without hematuria; E11.65 Type 2 diabetes mellitus with hyperglycemia; E11.40 Type 2 diabetes mellitus with diabetic neuropathy, unspecified; F03.90 Unspecified dementia, unspecified severity, without behavioral disturbance, psychotic disturbance, mood disturbance, and anxiety; I10 Essential (primary) hypertension; I25.10 Atherosclerotic heart disease of native coronary artery without angina pectoris; Z95.1 Presence of aortocoronary bypass graft; Z79.84 Long term (current) use of oral hypoglycemic drugs; Z79.82 Long term (current) use of aspirin; Z79.891 Long term (current) use of opiate analgesic; Z88.0 Allergy status to penicillin; Z88.2 Allergy status to sulfonamides; Z85.42 Personal history of malignant neoplasm of other parts of uterus; Z83.3 Family history of diabetes mellitus
CPT/HCPCS: 36415; 51701; 51702; 70450; 70551; 71045; 80048; 80053; 80306; 80320; 81000; 82947; 83036; 83605; 83690; 83735; 83880; 84100; 84145; 84484; 85007; 85025; 85027; 85610; 85730; 86141; 87040; 87077; 87081; 87088; 87186; 93005; 93041; 96361; 96374; 96375; 96376; 99291

== ENCOUNTER 2023-03-06 19:31 | Emergency (ER) | payer MEDICARE, OTHER ==
[~2023-03-06 19:31] MED LIST changes: +ATOR40TA PO; +CEPH500T PO; +IBUP-2473 PO; +INSU100I30 SQ; +MECL-215 PO
--- NOTE | 2023-03-06 19:39 | ED General ---
General Stated Complaint: ON FLOOR 3 HRS Source of Information: Patient, EMS Exam Limitations: No Limitations History of Present Illness Date Seen by Provider: Mar 06, 2023 Time Seen by Provider: 19:28 Initial Comments 78-year-old female with longstanding history of vertigo presents for dizziness. She reportedly fell at about 3 to 4:00 in the afternoon and had been on the ground since that time. Her called the paramedics for lift assist and she ended up requesting transfer to the emergency department. She states her vertigo usually last a couple of hours typically does not last this long. She is concerned about the duration of her symptoms today. Her dizziness is specifically worse when she looks to the left side. She denies any nausea or vomiting. She takes meclizine and has not had much relief with this. She denies any fevers chills. No changes in her vision, dysarthria upper or lower extremity weakness numbness or tingling. All other systems reviewed and negative except documented per HPI. Voice recognition software was used to help create this chart Allergies and Home Medications Allergies Coded Allergies: Penicillins (Verified Allergy, Unknown, 12/31/18) Sulfa (Sulfonamide Antibiotics) (Unverified Allergy, Unknown, 12/31/18) milk (Verified Allergy, Unknown, 12/23/20) peanut (Unverified Allergy, Unknown, 01/06/19) tomato (Unverified Allergy, Unknown, 01/06/19) Patient Home Medication List Home Medication List Reviewed: Yes Aspirin (Aspirin EC) 81 Mg Tablet.dr, 81 MG PO DAILY Prescribed by: CRYSTAL CAI on 12/26/20 1133 Atorvastatin Calcium (Lipitor) 40 Mg Tablet, 40 MG PO HS Prescribed by: CRYSTAL CAI on 12/26/20 1133 Cephalexin (Cephalexin) 500 Mg Tablet, 500 MG PO BID Prescribed by: CRYSTAL CAI on 12/26/20 1133 Ibuprofen (Ibuprofen) 200 Mg Tablet, 200-400 MG PO Q8H PRN for PAIN-MILD (1-4), (Reported) Entered as Reported by: ADONIS ROJAS on 12/22/20 1357 Insulin Detemir (Levemir Flextouch) 100 Unit/1 Ml Insuln.pen, 20 UNIT SQ HS Prescribed by: CRYSTAL CAI on 12/26/20 1133 Levofloxacin (Levofloxacin) 500 Mg Tablet, 500 MG PO DAILY Prescribed by: JALIL HAYNES MD on 03/06/232039 Meclizine HCl (Meclizine HCl) 12.5 Mg Tablet, 12.5 MG PO Q8H PRN for VERTIGO, (Reported) Entered as Reported by: LISSET NESBITT on 12/22/20 0136 Review of Systems Review of Systems Constitutional: see HPI Past Ovzcdxa-Gdlqql-Arqitz Hx Patient Social History Tobacco Use?: No Use of E-Cig and/or Vaping dev: No Substance use?: No Alcohol Use?: No Seasonal Allergies Seasonal Allergies: No Past Medical History Surgeries: Yes (CABG X4) Appendectomy, CABG, Hysterectomy, Orthopedic, Tonsillectomy Respiratory: No Cardiac: Yes (CABG X4) Coronary Artery Disease, Hypertension Neurological: Yes (Dizziness/vertigo) Neuropathy Reproductive Disorders: No Genitourinary: No Gastrointestinal: No Musculoskeletal: No Endocrine: Yes Diabetes, Non-Insulin dep HEENT: No Cancer: Yes (Uterine CA) Cervical Psychosocial: No Integumentary: No Blood Disorders: No Family Medical History Arthritis 19 FATHER, Onset:50's - 60 Diabetes mellitus 19 FATHER, Onset:60 years & older (late in life) Diabetes, Hypertension Noncontributory Physical Exam Vital Signs Vital Signs - First Documented 03/06/23 19:31 Temp 36.6 Pulse 113 Resp 18 B/P (MAP) 115/73 (87) Pulse Ox 90 O2 Delivery Room Air Capillary Refill : Height, Weight, BMI Height: 5'5.00" Weight: 172lbs. 0.0oz. [id number]; 29.33 BMI Method:Stated General Appearance: No Apparent Distress, WD/WN Eyes: Bilateral Eye Normal Inspection, Bilateral Eye PERRL, Bilateral Eye EOMI HEENT: PERRL/EOMI, TMs Normal, Normal ENT Inspection, Pharynx Normal, Other (Fatigable nystagmus to the left) Neck: Normal Inspection, Non Tender, Supple Respiratory: Chest Non Tender, Lungs Clear, Normal Breath Sounds, No Accessory Muscle Use, No Respiratory Distress, Other (Oxygen saturation 87 to 88%. Patient denies shortness of breath) Cardiovascular: No Murmur, Normal Peripheral Pulses, Tachycardia Gastrointestinal: Normal Bowel Sounds, No Organomegaly, Non Tender, Soft Back: Normal Inspection, No Vertebral Tenderness Extremity: Normal Capillary Refill, Normal Inspection, Non Tender, No Calf Tenderness Neurologic/Psychiatric: Alert, Oriented x3, No Motor/Sensory Deficits, Normal Mood/Affect, information coder II-XII Norm as Tested Skin: Normal Color, Warm/Dry Progress/Results/Core Measures Suspected Sepsis SIRS Temperature: Pulse: Respiratory Rate: Laboratory Tests 03/06/23 19:35: White Blood Count 18.5H Blood Pressure / Mean: Laboratory Tests 03/06/23 19:35: Creatinine 0.71, Platelet Count 163, Total Bilirubin 1.0 Results/Orders Lab Results Laboratory Tests Test 03/06/23 19:35 Range/Units White Blood Count 18.5 H 4.3-11.0 10^3/uL Red Blood Count 4.39 3.80-5.11 10^6/uL Hemoglobin 13.5 11.5-16.0 g/dL Hematocrit 41 35-52 % Mean Corpuscular Volume 93 80-99 fL Mean Corpuscular Hemoglobin 31 25-34 pg Mean Corpuscular Hemoglobin Concent 33 32-36 g/dL Red Cell Distribution Width 13.4 10.0-14.5 % Platelet Count 163 130-400 10^3/uL Mean Platelet Volume 10.8 9.0-12.2 fL Immature Granulocyte % (Auto) 1 % Neutrophils (%) (Auto) 93 H 42-75 % Lymphocytes (%) (Auto) 2 L 12-44 % Monocytes (%) (Auto) 2 0-12 % Eosinophils (%) (Auto) 1 0-10 % Basophils (%) (Auto) 0 0-10 % Neutrophils # (Auto) 17.2 H 1.8-7.8 10^3/uL Lymphocytes # (Auto) 0.4 L 1.0-4.0 10^3/uL Monocytes # (Auto) 0.4 0.0-1.0 10^3/uL Eosinophils # (Auto) 0.2 0.0-0.3 10^3/uL Basophils # (Auto) 0.0 0.0-0.1 10^3/uL Immature Granulocyte # (Auto) 0.2 H 0.0-0.1 10^3/uL Neutrophils % (Manual) 94 % Lymphocytes % (Manual) 2 % Monocytes % (Manual) 4 % Sodium Level 140 135-145 MMOL/L Potassium Level 3.6 3.6-5.0 MMOL/L Chloride Level 102 98-107 MMOL/L Carbon Dioxide Level 21 21-32 MMOL/L Anion Gap 17 H 5-14 MMOL/L Blood Urea Nitrogen 13 7-18 MG/DL Creatinine 0.71 0.60-1.30 MG/DL Estimat Glomerular Filtration Rate 86 BUN/Creatinine Ratio 18 Glucose Level 187 H 70-105 MG/DL Calcium Level 8.7 8.5-10.1 MG/DL Corrected Calcium 9.4 8.5-10.1 MG/DL Total Bilirubin 1.0 0.1-1.0 MG/DL Aspartate Amino Transf (AST/SGOT) 16 5-34 U/L Alanine Aminotransferase (ALT/SGPT) 13 0-55 U/L Alkaline Phosphatase 102 40-136 U/L Total Protein 6.1 L 6.4-8.2 GM/DL Albumin 3.1 L 3.2-4.5 GM/DL My Orders Orders - JALIL HAYNES DO Cbc With Automated Diff (03/06/23 19:34) Comprehensive Metabolic Panel (03/06/23 19:34) Ua Culture If Indicated (03/06/23 19:34) Chest 1 View Ap/Pa Only (03/06/23 19:34) Ekg Tracing (03/06/23 19:34) Ct Head Wo (03/06/23 19:35) Manual Differential (03/06/23 19:35) Diazepam Tablet (Valium Tablet) (03/06/23 19:45) Ns Iv 500 Ml (Sodium Chloride 0.9%) (03/06/23 19:42) Levofloxacin Tablet (Levaquin Tablet) (03/06/23 20:45) Pelvis With Left Hip 2-3 View (03/06/23 21:04) Medications Given in ED Current Medications Medications Dose Ordered Sig/Marquise Route Start Time Stop Time Status Last Admin Dose Admin Diazepam 5 mg ONCE ONCE PO 03/06/23 19:45 03/06/23 19:46 DC 03/06/23 19:55 5 MG Levofloxacin 500 mg ONCE ONCE PO 03/06/23 20:45 03/06/23 20:46 DC 03/06/23 21:07 500 MG Vital Signs/I&O 03/06/23 19:31 Temp 36.6 Pulse 113 Resp 18 B/P (MAP) 115/73 (87) Pulse Ox 90 O2 Delivery Room Air Capillary Refill : ECG Comment Sinus tachycardia with a rate of 109 bpm. Normal intervals. Normal axis. No ST or T wave abnormalities. No ectopy. No STEMI. Departure Communication (Admissions) Initial differential diagnosis includes intracerebral hemorrhage, CVA, electrolyte abnormality including hypohypernatremia, hypohypercalcemia, peripheral vertigo, dehydration. EKG is nonischemic but she is tachycardic. I will order a CT of her head, Chem-12, CBC, chest x-ray. 2036: I have independently reviewed CT imaging which is negative for any acute intracranial abnormality including hemorrhage or acute/subacute CVA. Her electrolytes are unremarkable. Her CBC is on remarkable outside of leukocytosis. Notably she is hypoxic with oxygen saturation 87 to 88%. I question her about this and she states she is completely asymptomatic with no fevers chills cough. I reviewed her chest x-ray showing possible bibasilar infiltrates. Radiology thinks there also may be some mild pulmonary edema. I spoke with her once again she denies any cough, shortness of breath at all and states "I do not even know why I am here when I go home." Regarding her vertigo symptoms she states she is feeling much better. She was given Valium and IV fluids. Her tachycardia improved somewhat after IV fluids with heart rate in the 90s now. I offered her admission given her hypoxia on room air and she adamantly declines stating she wants to go home. She denies any respiratory symptoms whatsoever. I advised her that if she changes her mind she could come back for reevaluation. She will be discharged in stable condition. She has meclizine at home to treat her vertigo. I will discharge her on some antibiotics. 2100. We tried to get the patient up and she was unable to walk at all, taking 3 people to help her back to bed. This was due to vertigo and L hip pain. She does likely have PNA, was given levaquin, IVF, PO valium. She had minimal relief of symptoms. She agrees to admission as she is not safe to ambulate at home and her cant help her either. She requests admission to [facility]. I spoke to Dr Parkinson and lead housekeeper who accept patient in admit. Impression Primary Impression: Hypoxia Additional Impressions: Lung infiltrate Vertigo Disposition: HOME, SELF-CARE Condition: Stable Departure-Patient Inst. Referrals: NO,LOCAL PHYSICIAN (PCP/Family) Primary Care Physician Patient Instructions: Vertigo ED, Pneumonia, Adult (DC) Add. Discharge Instructions: As discussed your oxygen is slightly low. You declined admission stating he wanted to go home. If you change your mind you can come back to be reevaluated. Your chest x-ray may show a slight pneumonia. With that I have given you some antibiotics and you should take them until they are gone. Regarding her vertigo, your CT scan is negative and your exam is otherwise reassuring. Continue home meclizine as needed. Return to the emergency department for any severe concerns or if you change your mind about admission for your oxygen levels follow-up with your primary doctor in the next 24 to 48 hours for further evaluation and treatment recommendations Scripts Levofloxacin (Levofloxacin) 500 Mg Tablet 500 MG PO DAILY for 7 Days, #7 TAB Prov: JALIL HAYNES DO 03/06/23 JALIL HAYNES DO Mar 06, 2023 19:39
[2023-03-06 19:40] LABS: BASOPHILS % (AUTO) 0 % (0-10); EOSINOPHILS # (AUTO) 0.2 10^3/uL (0.0-0.3); EOSINOPHILS % (AUTO) 1 % (0-10); HEMATOCRIT 41 % (35-52); HEMOGLOBIN 13.5 g/dL (11.5-16.0); LYMPHOCYTES # (AUTO) 0.4 10^3/uL (1.0-4.0); LYMPHOCYTES % (AUTO) 2 % (12-44); MEAN CORPUSCULAR HEMOGLOBIN 31 pg (25-34); MEAN CORPUSCULAR HGB CONC 33 g/dL (32-36); MEAN CORPUSCULAR VOLUME 93 fL (80-99); MEAN PLATELET VOLUME 10.8 fL (9.0-12.2); MONOCYTES # (AUTO) 0.4 10^3/uL (0.0-1.0); MONOCYTES % (AUTO) 2 % (0-12); NEUTROPHILS # (AUTO) 17.2 10^3/uL (1.8-7.8); NEUTROPHILS % (AUTO) 93 % (42-75); PLATELET COUNT 163 10^3/uL (130-400); WHITE BLOOD COUNT 18.5 10^3/uL (4.3-11.0)
[2023-03-06] MEDS ORDERED: NS IV 500 ML 500 ML IV STA (19:42)
[2023-03-06 19:55] LABS: ALBUMIN 3.1 GM/DL (3.2-4.5); CALCIUM 8.7 MG/DL (8.5-10.1); CREATININE SERUM 0.71 MG/DL (0.60-1.30); POTASSIUM 3.6 MMOL/L (3.6-5.0); TOTAL PROTEIN 6.1 GM/DL (6.4-8.2)
[2023-03-06 19:59] LABS: LYMPHOCYTES % (MANUAL) 2 %; MONOCYTES % (MANUAL) 4 %; NEUTROPHILS % (MANUAL) 94 %
--- NOTE | 2023-03-06 20:10 | Diagnostic Imaging Report ---
PROCEDURE: CT head without contrast. TECHNIQUE: Multiple contiguous axial images were obtained through the brain without the use of intravenous contrast. Auto Exposure Controls were utilized during the CT exam to meet ALARA standards for radiation dose reduction. INDICATION: Dizziness EXAMINATION: CT brain without contrast 03/06/2023 COMPARISON: 12/21/2020 FINDINGS: There is a large area of encephalomalacia in the posterior left occipital region, new since previous but chronic in appearance. Superimposed hyperdensities felt to represent calcification. Chronic ischemic disease is otherwise noted in a periventricular and deep white matter distribution. There is no mass, mass effect or midline shift. No hydrocephalus. The calvarium is intact. Mastoid air cells and paranasal sinuses unremarkable. IMPRESSION: 1. New findings in the left posterior occipital region consistent with encephalomalacia. Superimposed hyperdensities felt to represent calcifications. Hemorrhage felt to be unlikely but if symptoms persist or there is continued concern, 24-hour followup recommended. Dictated by: Dictated on workstation # [id number]
--- NOTE | 2023-03-06 20:12 | Diagnostic Imaging Report ---
INDICATION: Vertigo, tachycardia. EXAMINATION: Chest 03/06/2023 COMPARISON: 12/23/2020 FINDINGS: Sternotomy wires noted. Heart stable. Pulmonary vasculature congested with bibasilar medial infiltrate suspected. Edema seen in the upper lungs. No effusions or pneumothorax. IMPRESSION: 1. Question mild pulmonary edema. 2. Medial infiltrates in the lung bases. Dictated by: Dictated on workstation # [id number]
[2023-03-06] MEDS ORDERED: LEVO-55 PO (20:40)
[2023-03-06 22:14] VITALS: BP 103/61
--- NOTE | 2023-03-06 22:21 | Diagnostic Imaging Report ---
EXAMINATION: Left hip unilateral 2 or 3 views (w/pelvis when done) HISTORY: Hip pain. EXAMINATION: Left hip 03/06/2023 FINDINGS: 3 views of the hip. Postoperative changes incompletely imaged, right hip intact, a safety pin overlies the inferior aspect of the right ischial tuberosity, correlate clinically. Atherosclerotic disease noted. Left hip joint intact. No dislocations. No definite acute fractures appreciated. IMPRESSION: 1. Chronic findings with osteopenia also noted. No fracture seen. If the patient has continued pain or cannot bear weight, further imaging recommended. Dictated by: Dictated on workstation # [id number]
== END 2023-03-06 22:30 | disposition short-term general hospital (02) ==
LOC: EDUNIT# 19:31 → ER FS 19:33
DX: R42 Dizziness and giddiness (principal); R91.8 Other nonspecific abnormal finding of lung field; R09.02 Hypoxemia; D72.829 Elevated white blood cell count, unspecified; Z88.0 Allergy status to penicillin; Z88.2 Allergy status to sulfonamides; Z28.310 Unvaccinated for COVID-19
CPT/HCPCS: 36415; 70450; 71045; 73502; 80053; 85007; 85027; 93005